=== PATIENT | female | born 1935 | race Caucasian/White ===

== ENCOUNTER 2017-02-21 17:02 | Emergency (ER) | payer OTHER ==
[~2017-02-21] VITALS: Ht 152.4 cm; Wt 70.0 kg
[~2017-02-21 17:02] MED LIST: ARTISOL8 OP; ASPEC325 PO; ATOR-24 PO; BISO5TAB3 PO; HYDR-4852 PO; MULT60CA PO; PLAVIX75 PO; POLY150C4 PO; POTA1TAB97 PO; PRLSR20 PO; SENN-61 PO
[2017-02-21 17:11] VITALS: TEMP 37.8; Ht 152.4 cm; Wt 70.0 kg
[2017-02-21] MEDS ORDERED: SODIUM CHLORIDE 0.9% 1000ML 1,000 ML IV STA (17:12)
[2017-02-21] MEDS ORDERED: [UNRECOGNIZED DRUG - CODE] PO (17:26)
[2017-02-21] MEDS ORDERED: DIPH-384 PO (17:29)
--- NOTE | 2017-02-21 17:42 | DIAGNOSTIC IMAGING REPORT ---
CHEST 2 VIEWS ROUTINE CLINICAL HISTORY: fall. Upper back pain. COMPARISON STUDY: No previous studies for comparison. FINDINGS: The bones soft tissues and hemidiaphragms are normal. The cardiomediastinal silhouette is normal. The lungs are clear. The pulmonary vasculature is normal. IMPRESSION: Negative chest. Electronically signed by: Darryl Wiseman M.D. 02/21/2017 5:40 PM Dictated Date/Time: 02/21/2017 5:40 PM
--- NOTE | 2017-02-21 17:43 | DIAGNOSTIC IMAGING REPORT ---
HEAD CT NONCONTRAST CT DOSE: 537.48 mGy.cm HISTORY: Mental status change EVALUATE ALTERED MENTAL STATUS/WEAKNESS TECHNIQUE: Multiaxial CT images of the head were performed without the use of intravenous contrast. Comparison: None. Findings: The paranasal sinuses and mastoid air cells are clear. The calvarium and skull base are intact. The ventricles and sulci are within normal limits. There is no mass, hematoma, midline shift, or acute infarct. Impression: No acute intracranial abnormality. Electronically signed by: Darryl Wiseman M.D. 02/21/2017 5:42 PM Dictated Date/Time: 02/21/2017 5:41 PM
[2017-02-21 18:05] LABS: BASO % 0.2 %; BASO ABS # 0.02 K/uL (0-0.2); COMPLETE YES; EOS % 0.5 %; IG% 0.2 %; LYMPH ABS # 0.97 K/uL (1.2-3.4); MEAN CELL VOLUME 93.1 fL (80-100); MEAN CORPUSCULAR HEMOGLOBIN 29.8 pg (25-34); NEUT % 82.1 %; PLATELET COUNT 251 K/uL (130-400); RED BLOOD COUNT 3.76 M/uL (4.2-5.4); WHITE BLOOD COUNT 10.75 K/uL (4.8-10.8)
[2017-02-21 18:19] LABS: URINE APPEARANCE CLEAR (CLEAR); URINE BILIRUBIN NEG (NEG); URINE COLOR YELLOW; URINE NITRITE NEG (NEG); URINE SPECIFIC GRAVITY 1.015 (1.000-1.030); UROBILINOGEN NEG (NEG)
[2017-02-21 18:23] LABS: BUN/CREATININE RATIO 15.8 (10-20); CALCIUM 8.6 mg/dl (8.5-10.1); POTASSIUM 4.6 mmol/L (3.5-5.1)
[2017-02-21 18:25] LABS: MANUAL MICROSCOPIC REQUIRED? NO; REVIEW REQ? YES
[2017-02-21 18:32] LABS: ZZURINE CULT IF INDIC CATH YES
--- NOTE | 2017-02-21 18:51 | EMERGENCY ROOM VISIT NOTE ---
History Report prepared by Cata: Dhiraj Quiles Under the Supervision of: Dr. Wing Salcedo D.O. First contact with patient: 17:02 Chief Complaint: FALL Stated Complaint: FALL History of Present Illness The patient is an 82 year old female who presents to the Emergency Room with complaints of constant lower back pain beginning prior to arrival. Per EMS notes state that the patient currently rates her discomfort a 5/10 in severity. They also note that the patient was washing her hand and then fell backwards. The patient reports that she has a fever because she has a UTI, and she is taking Bactrim. She denies having neck pain. The patient's daughter states that the patient has a history of a TIA and she does not seem to be herself. She notes that the patient has not be acting herself. The patient states that she wanted to come to the ER to make sure nothing was broken. Source of History: patient, family, EMS Onset: prior to arrival Position: back (lower) Symptom Intensity: 5/10 Timing: constant Associated Symptoms: No neck pain Review of Systems See HPI for pertinent positives & negatives. A total of 10 systems reviewed and were otherwise negative. Family History No pertinent family history stated. Social History Smoking Status: Never Smoker Marital Status: Housing Status: lives alone Occupation Status: retired Current/Historical Medications Scheduled Aspirin (Aspirin), 325 MG PO QAM Atorvastatin (Lipitor), 40 MG PO QPM Bisoprolol Fumarate (Zebeta), 2.5 MG PO QAM Clopidogrel Bisulfate (Plavix), 75 MG PO QAM Diphenhydramine Hcl (Allergy), 25 MG PO DAILY Multiple Vitamins W/ Minerals (Preservision Areds 2), 1 CAP PO BID Omeprazole (Prilosec), 20 MG PO BID Polysaccharide Iron Complex (Ferrex 150), 150 MG PO QAM Potassium Chloride (K-Tab), 10 MEQ PO BID [Sulfamethoxazole-Tmp], 1 TAB PO BID Scheduled PRN Hydrocodone-Acetaminophen (Lorcet 5-325 mg), 1 TAB PO Q4 PRN for Pain Senna (Senokot), 8.6 MG PO QPM PRN for Constipation Allergies Coded Allergies: Tropicamide (Verified Allergy, Unknown, BURNING STINGING EYES, 04/27/15) Physical Exam Vital Signs Date Time Temp Pulse Resp B/P Pulse Ox O2 Delivery O2 Flow Rate FiO2 02/21/17 18:32 88 02/21/17 17:11 37.8 91 18 107/93 99 Room Air Physical Exam CONSTITUTIONAL/VITAL SIGNS: Reviewed / noted above. GENERAL: Non-toxic in appearance. INTEGUMENTARY: Warm, dry, and [place]. HEAD: Normocephalic. EYES: without scleral icterus or trauma. ENT/OROPHARYNX: clear and moist. LYMPHADENOPATHY/NECK: Is supple without lymphadenopathy or meningismus. RESPIRATORY: Lungs clear and equal. CARDIOVASCULAR: Regular rate and rhythm. GI/ABDOMEN: Soft and nontender. No organomegaly or pulsatile mass. No rebound or guarding. Normal bowel sounds. EXTREMITIES: Warm and well perfused. BACK: No CVA tenderness. Mild discomfort and redness in the upper thoracic region NEUROLOGICAL: Intact without focal deficits. PSYCHIATRIC: normal affect. MUSCULOSKELETAL: Normally developed with good muscle tone. Medical Decision & Procedures ER Provider Diagnostic Interpretation: Radiology results as stated below per my review and radiologist interpretation: CHEST 2 VIEWS ROUTINE CLINICAL HISTORY: fall. Upper back pain. COMPARISON STUDY: No previous studies for comparison. FINDINGS: The bones soft tissues and hemidiaphragms are normal. The cardiomediastinal silhouette is normal. The lungs are clear. The pulmonary vasculature is normal. IMPRESSION: Negative chest. Electronically signed by: Darryl Wiseman M.D. 02/21/2017 5:40 PM Dictated Date/Time: 02/21/2017 5:[address]AST CT DOSE: 537.48 mGy.cm HISTORY: Mental status change EVALUATE ALTERED MENTAL STATUS/WEAKNESS TECHNIQUE: Multiaxial CT images of the head were performed without the use of intravenous contrast. Comparison: None. Findings: The paranasal sinuses and mastoid air cells are clear. The calvarium and skull base are intact. The ventricles and sulci are within normal limits. There is no mass, hematoma, midline shift, or acute infarct. Impression: No acute intracranial abnormality. Electronically signed by: Darryl Wiseman M.D. 02/21/2017 5:42 PM Dictated Date/Time: 02/21/2017 5:41 PM Laboratory Results 02/21/17 17:49 Red Blood Count 3.76, Mean Corpuscular Volume 93.1, Mean Corpuscular Hemoglobin 29.8, Mean Corpuscular Hemoglobin Concent 32.0, Mean Platelet Volume 9.0, Neutrophils (%) (Auto) 82.1, Lymphocytes (%) (Auto) 9.0, Monocytes (%) (Auto) 8.0, Eosinophils (%) (Auto) 0.5, Basophils (%) (Auto) 0.2, Neutrophils # (Auto) 8.83, Lymphocytes # (Auto) 0.97, Monocytes # (Auto) 0.86, Eosinophils # (Auto) 0.05, Basophils # (Auto) 0.02 02/21/17 17:49 Test 02/21/17 17:49 02/21/17 18:00 White Blood Count 10.75 K/uL (4.8-10.8) Red Blood Count 3.76 M/uL (4.2-5.4) Hemoglobin 11.2 g/dL (12.0-16.0) Hematocrit 35.0 % (37-47) Mean Corpuscular Volume 93.1 fL (80-100) Mean Corpuscular Hemoglobin 29.8 pg (25-34) Mean Corpuscular Hemoglobin Concent 32.0 g/dl (32-36) Platelet Count 251 K/uL (130-400) Mean Platelet Volume 9.0 fL (7.4-10.4) Neutrophils (%) (Auto) 82.1 % Lymphocytes (%) (Auto) 9.0 % Monocytes (%) (Auto) 8.0 % Eosinophils (%) (Auto) 0.5 % Basophils (%) (Auto) 0.2 % Neutrophils # (Auto) 8.83 K/uL (1.4-6.5) Lymphocytes # (Auto) 0.97 K/uL (1.2-3.4) Monocytes # (Auto) 0.86 K/uL (0.11-0.59) Eosinophils # (Auto) 0.05 K/uL (0-0.5) Basophils # (Auto) 0.02 K/uL (0-0.2) RDW Standard Deviation 49.0 fL (36.4-46.3) RDW Coefficient of Variation 14.5 % (11.5-14.5) Immature Granulocyte % (Auto) 0.2 % Immature Granulocyte # (Auto) 0.02 K/uL (0.00-0.02) Anion Gap 9.0 mmol/L (3-11) Est Creatinine Clear Calc Drug Dose 19.3 ml/min Estimated GFR () 26.5 Estimated GFR (Non- 22.8 BUN/Creatinine Ratio 15.8 (10-20) Calcium Level 8.6 mg/dl (8.5-10.1) Chemistry Specimen Hemolysis Urine Color YELLOW Urine Appearance CLEAR (CLEAR) Urine pH 5.0 (4.5-7.5) Urine Specific [place] 1.015 (1.000-1.030) Urine Protein NEG (NEG) Urine Glucose (UA) NEG (NEG) Urine Ketones NEG (NEG) Urine Occult Blood NEG (NEG) Urine Nitrite NEG (NEG) Urine Bilirubin NEG (NEG) Urine Urobilinogen NEG (NEG) Urine Leukocyte Esterase MODERATE (NEG) Urine WBC (Auto) 10-30 /hpf (0-5) Urine RBC (Auto) 0-4 /hpf (0-4) Urine Hyaline Casts (Auto) 5-10 /lpf (0-5) Urine Epithelial Cells (Auto) 5-10 /lpf (0-5) Urine Bacteria (Auto) NEG (NEG) Urine Renal Epithelial Cells /lpf (0-5) Urine Yeast (Auto) BUD W/ HYPHAE (NONE PRSENT) Laboratory results as stated above per my review. Medications Administered Medications (Trade) Dose Ordered Sig/Ava Route Start Time Stop Time Status Last Admin Dose Admin Sodium Chloride (Nss 1000ml) 1,000 ml @ 250 mls/hr Q4H STAT IV 02/21/17 17:12 02/21/17 21:11 02/21/17 17:12 250 MLS/HR Fluconazole (Diflucan Tab) 150 mg NOW ONCE PO 02/21/17 19:00 02/21/17 19:01 DC 02/21/17 19:10 150 MG ED Course 1706: Previous medical records were reviewed. The patient was evaluated in room A04B. A complete history and physical examination was performed. 1712: Ordered Sodium Chloride 1000 ml @ 250 mls/hr IV 1852: On reevaluation, the patient is doing well. I discussed the results and findings with the patient and her family. They verbalized agreement of the treatment plan. She will be discharged home when she receives her medication. 1900: Ordered Diflucan Tab 150mg PO Medical Decision Differential includes close head injury, intracranial bleed, facial trauma, cervical spine trauma, chest and thoracic trauma, abdominal and intra-abdominal trauma, spine neurologic trauma, extremity trauma. This is an 82-year-old female who presents to the ED with a chief complaint of a fall. The patient was getting off the toilet and washed her hands per cheese lost her balance and fell backwards. Her main complaint was that of back pain. She denies loss of consciousness. She is unsure if she hit her head. She came in for evaluation by EMS. Family was concerned about some recent weakness and confusion. The patient is awake, alert and oriented. Her physical exam was unremarkable. She has no focal deficits. A CT scan of the brain was negative for acute disease. A chest x-ray is negative for acute disease. CBC is unremarkable. The BUN is 32 and creatinine is 2.0. No baseline is available. The patient is currently on Bactrim. Her urine revealed some yeast. She was given a dose of Diflucan for this. The patient was told results the test. She was told to follow-up with her PCP for re-evaluation and return for any concerns or worsening. Impression Primary Impression: Fall Additional Impressions: Contusion of upper back Renal insufficiency Dehydration Scribe Attestation The scribe's documentation has been prepared under my direction and personally reviewed by me in its entirety. I confirm that the note above accurately reflects all work, treatment, procedures, and medical decision making performed by me. Departure Information Dispostion Home / Self-Care Referrals Ariana Modi M.D. (PCP) Patient Instructions My [facility] Additional Instructions Follow-up with your doctor for further care and evaluation in 1-2 days. Return to the emergency department for worsening or new symptoms or any concerns. You have been examined and treated today on an emergency basis only. This is not a substitute for, or an effort to provide, complete comprehensive medical care. It is impossible to recognize and treat all injuries or illnesses in a single emergency department visit. It is therefore important that you follow up closely with your doctor. Call as soon as possible for an appointment. Increase daily fluid intake. Problem Qualifiers
[2017-02-21 19:00] VITALS: BP 115/67; PULSE 98; O2SAT 97
[2017-02-21] MEDS ORDERED: FLUCONAZOLE 50 MG TAB PO ONE (19:00)
== END 2017-02-21 19:40 | disposition home or self-care (01) ==
LOC: EDBD 17:02 → C.EDA 17:03
DX: S20.229A Contusion of unspecified back wall of thorax, initial encounter (principal); W19.XXXA Unspecified fall, initial encounter; E86.0 Dehydration; N28.9 Disorder of kidney and ureter, unspecified; Z87.440 Personal history of urinary (tract) infections; Z86.73 Personal history of transient ischemic attack (TIA), and cerebral infarction without residual deficits; Z79.82 Long term (current) use of aspirin; Z79.899 Other long term (current) drug therapy; Z88.8 Allergy status to other drugs, medicaments and biological substances

== ENCOUNTER 2017-11-14 13:48 | Emergency (ER) | payer OTHER ==
[~2017-11-14] VITALS: Ht 152.4 cm; Wt 70.0 kg
[~2017-11-14 13:48] MED LIST changes: -ARTISOL8 OP; +DIPH-384 PO; +[UNRECOGNIZED DRUG - CODE] PO
[2017-11-14 13:56] VITALS: TEMP 37; Ht 152.4 cm; Wt 70.0 kg
--- NOTE | 2017-11-14 14:22 | EMERGENCY ROOM VISIT NOTE ---
History Report prepared by Cata: Brandie Mckeon Under the Supervision of: Dr. Wing Lee M.D. 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 She is accompanied by her daughter who notes that she had surgery with Dr. Ruiz on October 15, 2017. She notes that when she went to give her a bath, the incision site was red , inflamed, and there was pus surrounding the stitches. She reports she is not allowed to move her knee as it could worsen the incision healing. 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 Review of Systems See HPI for pertinent positives & negatives. A total of 10 systems reviewed and were otherwise negative. Family History Family history omitted secondary to patient's age. Social History Smoking Status: Unknown if Ever Smoked Marital Status: Housing Status: lives alone Occupation Status: retired Current/Historical Medications Scheduled Aspirin (Aspirin), 325 MG PO QAM Atorvastatin (Lipitor), 40 MG PO QPM Bisoprolol Fumarate (Zebeta), 2.5 MG PO QAM Clopidogrel Bisulfate (Plavix), 75 MG PO QAM Diphenhydramine Hcl (Allergy), 25 MG PO DAILY Multiple Vitamins W/ Minerals (Preservision Areds 2), 1 CAP PO BID Omeprazole (Prilosec), 20 MG PO BID Oseltamivir Phosphate (Oseltamivir Phosphate), 30 MG PO DAILY Potassium Chloride (K-Tab), 10 MEQ PO BID Sulfa/Trimethoprim (Bactrim Ds 800MG/160MG), 1 TAB PO BID Scheduled PRN Acetaminophen/Hydrocodone (Hydrocodone/Acetaminophen 5-325 mg), 1 TAB PO Q6H PRN for Severe Pain Allergies Coded Allergies: Tropicamide (Verified Allergy, Unknown, BURNING STINGING EYES, 04/27/15) Physical Exam Vital Signs Date Time Temp Pulse Resp B/P (MAP) Pulse Ox O2 Delivery O2 Flow Rate FiO2 11/14/17 18:42 74 18 154/58 95 11/14/17 17:30 73 16 133/64 95 Room Air 11/14/17 15:30 71 16 122/63 95 Room Air 11/14/17 15:20 70 11/14/17 13:56 37.0 69 18 111/59 99 Physical Exam GENERAL: Patient is a healthy-appearing well-nourished female HEAD: Normocephalic atraumatic EYES: Ocular movements intact pupils equal and react to light OROPHARYNX mucous membranes are moist no exudates present no erythema or edema present NECK: Supple no nuchal rigidity CHEST: Good equal expansion LUNGS: Clear and equal to auscultation CARDIAC: Normal S1 and S2 ABDOMEN: Soft nontender no guarding BACK: No CVA tenderness EXTREMITIES: No pain upon palpation normal muscle strength in all groups no clubbing cyanosis. Came in knee immobilizer with surgical incision that is slightly dehisced with a suture sticking out and purulent material present. NEURO: Patient is following commands and answering questions appropriately. Alert and oriented x3 Cranial Nerves 2-12 grossly intact Medical Decision & Procedures ER Provider Diagnostic Interpretation: Radiology results as stated below per my review and radiologist interpretation: R KNEE 1 OR 2 VIEWS ROUTINE CLINICAL HISTORY: 82 years-old Female presenting with Pt c/o Rt knee pain . TECHNIQUE: Frontal and lateral views of the right knee were obtained. COMPARISON: None. 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 Interlocking femoral and tibial prosthetic components. 2 lack screw fixation of the anteromedial tibia. No periprosthetic fracture. Fragmentation at the superior lateral aspect of the patella, either bipartite or fragmentation of osteophytes. Multiple loose bodies noted in the joint. Small joint effusion suspected. Prepatellar and infrapatellar subcutaneous edema noted. No malalignment. Osteopenia. Atherosclerosis. IMPRESSION: 1. 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 No hardware complication. 2. Multiple loose bodies in the joint. 3. Joint effusion suspected. 4. Extensive prepatellar and infrapatellar subcutaneous edema could suggest contusion. Electronically signed by: Russel Osborne M.D. 11/14/2017 2:32 PM Dictated Date/Time: 11/14/2017 2:30 PM Laboratory Results 11/14/17 14:25 Red Blood Count 4.20, Mean Corpuscular Volume 96.2, Mean Corpuscular Hemoglobin 29.3, Mean Corpuscular Hemoglobin Concent 30.4, Mean Platelet Volume 9.1, Neutrophils (%) (Auto) 49.5, Lymphocytes (%) (Auto) 26.5, Monocytes (%) (Auto) 11.1, Eosinophils (%) (Auto) 12.5, Basophils (%) (Auto) 0.2, Neutrophils # (Auto ) 4.26, Lymphocytes # (Auto) 2.29, Monocytes # (Auto) 0.96, Eosinophils # (Auto ) 1.08, Basophils # (Auto) 0.02 11/14/17 14:25 Test 11/14/17 14:25 White Blood Count 8.63 K/uL (4.8-10.8) Red Blood Count 4.20 M/uL (4.2-5.4) Hemoglobin 12.3 g/dL (12.0-16.0) Hematocrit 40.4 % (37-47) Mean Corpuscular Volume 96.2 fL (80-100) Mean Corpuscular Hemoglobin 29.3 pg (25-34) Mean Corpuscular Hemoglobin Concent 30.4 g/dl (32-36) Platelet Count 249 K/uL (130-400) Mean Platelet Volume 9.1 fL (7.4-10.4) Neutrophils (%) (Auto) 49.5 % Lymphocytes (%) (Auto) 26.5 % Monocytes (%) (Auto) 11.1 % Eosinophils (%) (Auto) 12.5 % Basophils (%) (Auto) 0.2 % Neutrophils # (Auto) 4.26 K/uL (1.4-6.5) Lymphocytes # (Auto) 2.29 K/uL (1.2-3.4) Monocytes # (Auto) 0.96 K/uL (0.11-0.59) Eosinophils # (Auto) 1.08 K/uL (0-0.5) Basophils # (Auto) 0.02 K/uL (0-0.2) RDW Standard Deviation 52.1 fL (36.4-46.3) RDW Coefficient of Variation 14.8 % (11.5-14.5) Immature Granulocyte % (Auto) 0.2 % Immature Granulocyte # (Auto) 0.02 K/uL (0.00-0.02) Erythrocyte Sedimentation Rate 51 mm/hr (0-21) Anion Gap 7.0 mmol/L (3-11) Est Creatinine Clear Calc Drug Dose 32.6 ml/min Estimated GFR () 50.1 Estimated GFR (Non- 43.2 BUN/Creatinine Ratio 20.8 (10-20) Calcium Level 8.8 mg/dl (8.5-10.1) Total Bilirubin 0.4 mg/dl (0.2-1) Direct Bilirubin 0.1 mg/dl (0-0.2) Aspartate Amino Transf (AST/SGOT) 17 U/L (15-37) Alanine Aminotransferase (ALT/SGPT) 16 U/L (12-78) Alkaline Phosphatase 134 U/L (45-117) C-Reactive Protein 0.43 mg/dl (0-0.29) Total Protein 7.7 gm/dl (6.4-8.2) Albumin 3.3 gm/dl (3.4-5.0) Lipase 165 U/L (73-393) Labs reviewed by ED physician. Medications Administered Medications (Trade) Dose Ordered Sig/Ava Route Start Time Stop Time Status Last Admin Dose Admin Trimethoprim/ Sulfamethoxazole (Septra Ds 800/ 160MG Tab) 1 tab NOW STAT PO 11/14/17 17:20 11/14/17 17:21 DC 11/14/17 18:28 1 TAB Trimethoprim/ Sulfamethoxazole (Sulfameth/ Trimeth Ds 800/ 160MG Home Pack) 1 homepack UD ONCE PO 11/14/17 18:30 11/14/17 18:31 DC 11/14/17 18:30 1 HOMEPACK ED Course 1404: Past medical records reviewed. The patient was evaluated in room B5. A complete history and physical examination was performed. 1413: I discussed the patient's case with Dr. Resendiz, She agrees with the treatment plan. 1720: Septra Ds 800/160MG Tab, 1 tab, PO 1724: Upon reexamination the patient is agreeable and content. I discussed results and treatment plan with the patient. She verbalizes agreement and understanding. The patient is ready for discharge. Medical Decision Differential diagnosis: Etiologies such as fracture, dislocation, neurovascular compromise, compartment syndrome, soft tissue injury, as well as others were entertained. This is an 82-year-old female who presents emergency department complaining of a severe very small amount of pus from a surgical wound. I believe this is most likely a reaction from the patient's sutures. She does not have an elevation in her white blood cell count in her ESR and [id number] was slightly elevated. Dr. Resendiz was kind enough to see the patient. He asked that we start the patient on Bactrim and have the patient follow-up in the office. Patient family were in agreement with the treatment plan. Medication Reconcilliation Current Medication List: was personally reviewed by me Blood Pressure Screening Patient's blood pressure: Low blood pressure Blood pressure disposition: Did not require urgent referral Consults Time Called: 1410 Consulting Physician: Dr. Resendiz Returned Call: [phone] Impression Primary Impression: Surgical site reaction Scribe Attestation The scribe's documentation has been prepared under my direction and personally reviewed by me in its entirety. I confirm that the note above accurately reflects all work, treatment, procedures, and medical decision making performed by me. Departure Information Dispostion Home / Self-Care Prescriptions Sulfa/Trimethoprim (Bactrim Ds 800MG/160MG) Tab 1 TAB PO BID for 7 Days, #14 TAB Prov: Wing Lee MD 11/14/17 Referrals Ariana Modi M.D. (PCP) Forms HOME CARE DOCUMENTATION FORM, IMPORTANT VISIT INFORMATION Patient Instructions My [facility] Additional Instructions Keep appointments with [facility] as scheduled Culture results are usually available in approx 48 hours You have been examined and treated today on an emergency basis only. This is not a substitute for, or an effort to provide, complete comprehensive medical care. It is impossible to recognize and treat all injuries or illnesses in a single emergency department visit. It is therefore important that you follow up closely with Dr Modi. Call as soon as possible for an appointment. Thank you for your time and consideration. I look forward to speaking with you again soon. Please don't hesitate to call us if you have any questions. Problem Qualifiers Primary Impression: Surgical site reaction Encounter type: initial encounter Qualified Codes: T81.9XXA - Unspecified complication of procedure, initial encounter
--- NOTE | 2017-11-14 14:34 | DIAGNOSTIC IMAGING REPORT ---
R KNEE 1 OR 2 VIEWS ROUTINE CLINICAL HISTORY: 82 years-old Female presenting with Pt c/o Rt knee pain . TECHNIQUE: Frontal and lateral views of the right knee were obtained. COMPARISON: None. 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 Interlocking femoral and tibial prosthetic components. 2 lack screw fixation of the anteromedial tibia. No periprosthetic fracture. Fragmentation at the superior lateral aspect of the patella, either bipartite or fragmentation of osteophytes. Multiple loose bodies noted in the joint. Small joint effusion suspected. Prepatellar and infrapatellar subcutaneous edema noted. No malalignment. Osteopenia. Atherosclerosis. IMPRESSION: 1. 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 No hardware complication. 2. Multiple loose bodies in the joint. 3. Joint effusion suspected. 4. Extensive prepatellar and infrapatellar subcutaneous edema could suggest contusion. Electronically signed by: Russel Osborne M.D. 11/14/2017 2:32 PM Dictated Date/Time: 11/14/2017 2:30 PM
[2017-11-14 14:49] LABS: BASO % 0.2 %; BASO ABS # 0.02 K/uL (0-0.2); EOS % 12.5 %; EOS ABS # 1.08 K/uL (0-0.5); HEMATOCRIT 40.4 % (37-47); HEMOGLOBIN 12.3 g/dL (12.0-16.0); IG# 0.02 K/uL (0.00-0.02); LYMPH % 26.5 %; LYMPH ABS # 2.29 K/uL (1.2-3.4); MEAN CELL VOLUME 96.2 fL (80-100); MEAN CORPUSCULAR HEMOGLOBIN 29.3 pg (25-34); MEAN CORPUSCULAR HGB CONC 30.4 g/dl (32-36); MEAN PLATELET VOLUME 9.1 fL (7.4-10.4); MONO % 11.1 %; MONO ABS # 0.96 K/uL (0.11-0.59); NEUT % 49.5 %; NEUT ABS # 4.26 K/uL (1.4-6.5); PLATELET COUNT 249 K/uL (130-400); RED CELL DISTRIBUTION WIDTH CV 14.8 % (11.5-14.5); RED CELL DISTRIBUTION WIDTH SD 52.1 fL (36.4-46.3); WHITE BLOOD COUNT 8.63 K/uL (4.8-10.8)
[2017-11-14] MEDS ORDERED: OSEL30CA2 PO (15:04)
[2017-11-14] MEDS ORDERED: HYDR-4313 PO (15:04)
[2017-11-14 15:06] LABS: ALBUMIN 3.3 gm/dl (3.4-5.0); CALCIUM 8.8 mg/dl (8.5-10.1); CREATININE 1.18 mg/dl (0.60-1.20); POTASSIUM 3.6 mmol/L (3.5-5.1)
[2017-11-14 15:09] LABS: TOTAL PROTEIN 7.7 gm/dl (6.4-8.2)
[2017-11-14] MEDS ORDERED: SULFAMETHOXAZOLE/TRIMETHOPRIM DS 800/160MG TAB PO STA (17:20)
[2017-11-14] MEDS ORDERED: SULF800T23 PO (17:23)
--- NOTE | 2017-11-14 17:37 | Orthopedic Consultation ---
Orthopedic Consultation Date of Consultation: Nov 14, 2017. Attending Physician: Reason for Consultation: Possible surgical site infection History of Present Illness Ms Kwok is a 82 year old female who underwent what sounds like a patellar tendon reconstruction by Dr. Ruiz on Oct 15 after a previous total knee arthroplasty in July 2016. She has been in a knee immobilizer since her surgery and been in a jail. She says that yesterday, she noted some erythema around her incision line. She denies any significant drainage. She denies any significant change in the pain in her knee since the erythema started. She denies any fevers chills. Past Medical/Surgical History Medical Problems: (1) Contusion of upper back Status: Acute (2) Dehydration Status: Acute (3) Fall Status: Acute (4) Renal insufficiency Status: Acute (5) Surgical site reaction Status: Acute Social History Smoking Status: Unknown if Ever Smoked Marital Status: Housing Status: lives alone Occupation Status: retired Allergies Coded Allergies: Tropicamide (Verified Allergy, Unknown, BURNING STINGING EYES, 04/27/15) Home Medications Scheduled Aspirin (Aspirin), 325 MG PO QAM Atorvastatin (Lipitor), 40 MG PO QPM Bisoprolol Fumarate (Zebeta), 2.5 MG PO QAM Clopidogrel Bisulfate (Plavix), 75 MG PO QAM Diphenhydramine Hcl (Allergy), 25 MG PO DAILY Multiple Vitamins W/ Minerals (Preservision Areds 2), 1 CAP PO BID Omeprazole (Prilosec), 20 MG PO BID Oseltamivir Phosphate (Oseltamivir Phosphate), 30 MG PO DAILY Potassium Chloride (K-Tab), 10 MEQ PO BID Sulfa/Trimethoprim (Bactrim Ds 800MG/160MG), 1 TAB PO BID Scheduled PRN Acetaminophen/Hydrocodone (Hydrocodone/Acetaminophen 5-325 mg), 1 TAB PO Q6H PRN for Severe Pain Review of Systems Constitutional: No fever, No chills, No sweats Physical Exam Date Time Temp Pulse Resp B/P (MAP) Pulse Ox O2 Delivery O2 Flow Rate FiO2 11/14/17 15:30 71 16 122/63 95 Room Air 11/14/17 15:20 70 11/14/17 13:56 37.0 69 18 111/59 99 Right knee: She has an extensile incision line on the anterior knee. The majority of it is well-healed with no evidence of infection. In its midportion , there is a small area of erythema without significant induration. There is a small opening in the incision line with an exposed suture and hanging out. No expressible drainage. No palpable fluid collections. No knee effusion. No significant surrounding warmth. No spreading erythema. I could not range her knee due to her recent surgery and activity restrictions. Laboratory Results Last 24 Hours Test 11/14/17 14:25 White Blood Count 8.63 K/uL Red Blood Count 4.20 M/uL Hemoglobin 12.3 g/dL Hematocrit 40.4 % Mean Corpuscular Volume 96.2 fL Mean Corpuscular Hemoglobin 29.3 pg Mean Corpuscular Hemoglobin Concent 30.4 g/dl Platelet Count 249 K/uL Mean Platelet Volume 9.1 fL Neutrophils (%) (Auto) 49.5 % Lymphocytes (%) (Auto) 26.5 % Monocytes (%) (Auto) 11.1 % Eosinophils (%) (Auto) 12.5 % Basophils (%) (Auto) 0.2 % Neutrophils # (Auto) 4.26 K/uL Lymphocytes # (Auto) 2.29 K/uL Monocytes # (Auto) 0.96 K/uL Eosinophils # (Auto) 1.08 K/uL Basophils # (Auto) 0.02 K/uL RDW Standard Deviation 52.1 fL RDW Coefficient of Variation 14.8 % Immature Granulocyte % (Auto) 0.2 % Immature Granulocyte # (Auto) 0.02 K/uL Erythrocyte Sedimentation Rate 51 mm/hr Sodium Level 139 mmol/L Potassium Level 3.6 mmol/L Chloride Level 108 mmol/L Carbon Dioxide Level 24 mmol/L Anion Gap 7.0 mmol/L Blood Urea Nitrogen 25 mg/dl Creatinine 1.18 mg/dl Est Creatinine Clear Calc Drug Dose 32.6 ml/min Estimated GFR () 50.1 Estimated GFR (Non- 43.2 BUN/Creatinine Ratio 20.8 Random Glucose 100 mg/dl Calcium Level 8.8 mg/dl Total Bilirubin 0.4 mg/dl Direct Bilirubin 0.1 mg/dl Aspartate Amino Transf (AST/SGOT) 17 U/L Alanine Aminotransferase (ALT/SGPT) 16 U/L Alkaline Phosphatase 134 U/L C-Reactive Protein 0.43 mg/dl Total Protein 7.7 gm/dl Albumin 3.3 gm/dl Lipase 165 U/L Radiology: Right knee x-rays were independently reviewed by me. They show total knee components in place with a longstem tibial component, and a semiconstrained liner. She has 2 anteromedial screws at the proximal tibia. She does have some bone fragmentation along the course of patellar tendon, with some patella also. No effusion noted. Assessment & Plan (1) Surgical site reaction Assessment & Plan: She appears to have a small stitch abscess along her anterior right knee incision line. She does not appear to have any deep infection. No evidence of periprosthetic infection. I explained the process of the stitch abscess to the family. I pulled the offending stitch and clipped it at its base. I did warn them that this may occur at other places along the incision line future. She did have us very small amount of surrounding erythema , and I would recommend a 7 day course of Bactrim to prevent further spread of any small infection. I think this should heal up well. She already has an appointment with Dr. Ruiz on November 23. She should continue with her brace and activity restrictions as previously instructed. I am covering Orthopedic Surgery call for Dr. Crump, who is unavailable. Liban Resendiz MD Problem Qualifiers (1) Surgical site reaction: Encounter type: initial encounter Qualified Codes: T81.9XXA - Unspecified complication of procedure, initial encounter
[2017-11-14] MEDS ORDERED: SEPTRA DS HOME PACK 1 EA VIAL PO ONE (18:30)
[2017-11-14 18:42] VITALS: BP 154/58; PULSE 74; O2SAT 95
--- NOTE | 2017-11-16 13:20 | Pharmacy Progress Note ---
ED Pharmacist Culture FollowUp Date of Service: Nov 16, 2017. Patient was sent home with a prescription for Bactrim DS 1 tab PO BID x 7 days, which should cover the S. Aureus (MRSA) growing from the patient's surface wound culture.
== END 2017-11-14 18:43 | disposition home or self-care (01) ==
LOC: C.EDB 13:49
DX: T81.9XXA Unspecified complication of procedure, initial encounter (principal); Y84.9 Medical procedure, unspecified as the cause of abnormal reaction of the patient, or of later complication, without mention of misadventure at the time of the procedure; Z79.82 Long term (current) use of aspirin; Z79.02 Long term (current) use of antithrombotics/antiplatelets; Z79.899 Other long term (current) drug therapy

== ENCOUNTER 2019-07-31 10:52 | Inpatient (IN) ==
[2019-07-31] MEDS ORDERED: cefTRIAXone SODIUM 1,000 MG/50 ML BAG IV STA (11:20)
--- NOTE | 2019-07-31 12:26 | History & Physical Report ---
Date of Service July 31, 2019 Assessment & Plan (1) UTI (urinary tract infection): Admit to [facility] S[facility] 1;1 Signs every 4 hours Continue monitoring CBC CMP TSH pending, BNP pending Replenish electrolytes Follow-up magnesium in a.m. Follow-up urine culture analysis and adjust antibiotics as per sensitivity. Started ceftriaxone 1 g every 24 hours for urinary tract infection DVT prophylaxis heparin 5000 units every 12 hours Full code Present on Admission?: Yes (2) MRSA (methicillin resistant Staphylococcus aureus) infection: Patient was positive for MRSA in the past Continue with contact isolation. Present on Admission?: Yes (3) Stage III chronic kidney disease: Avoid nephrotoxic agents. Due to possible nephrotoxicity hold omeprazole for now. Patient is mildly dehydrated Started gentle fluid hydration with normal saline 80 cc/h for 1 L Monitor creatinine and GFR Present on Admission?: Yes (4) Acute encephalopathy: Not clear origin of acute encephalopathy versus acute psychosis Start the Seroquel low-dose 12.5 mg daily. Titrate up as needed Psychiatry consult placed Present on Admission?: Yes (5) HLD (hyperlipidemia): Lipid panel pending. Continue atorvastatin 40 mg p.o. nightly Present on Admission?: Yes (6) HTN (hypertension): Stable. Continue clopidogrel 75 mg p.o. daily for coronary artery disease, aspirin 81 mg p.o. daily Present on Admission?: Yes (7) Hypothyroidism: Continue levothyroxine 50 MCG's p.o. nightly. TSH pending. Present on Admission?: Yes History of Present Illness Chief Complaint: Hallucinations, urinary tract infection and dizziness Primary Care Provider: Eden Whitmore MD Patient is a 84 years old female with past medical history of recurrent urinary tract infection, hypertension, hyperlipidemia, vasculopathy, CKD stage III, hallucinations, who was brought by her family for the second time to the ER today stating that patient is hallucinating at home , she is very confused she talks of bad people and she is not definitely able to take care of herself family states that patient was on antibiotics for urinary tract infection but it did not improve. She will was recently on cefuroxime 500 mg twice daily for 10 days, she was just started on Cipro 500 mg p.o. twice daily but she decided not to take it due to possible side effects and she also takes cranberry capsules patient was also prescribed Bactrim twice daily for 7 days but it is not clear if patient ever took medicine or not. Family is interested to find patient placement. They voiced their concerns that patient alone is not safe at home and at this point both members of the family [id number] and son are working and will not be able to take care of the patient. Patient is poor historian as already represented. She is hallucinating and not able to review any review of systems. She is calm and pleasant but disoriented to time space and person. Labs are reviewed: WBC 7.77, hemoglobin 12.4, hematocrit 39.2 platelets 230, PT 10.3, INR 1, APTT 28.9, sodium 139, potassium 3.6, chloride 110, BUN 34, creatinine 1.39, GFR 35, alkaline phosphatase 188, creatinine kinase 328, magnesium 1.8, lactate 1.7. CT of the head was done yesterday no acute intrac ranial findings with no calvarial fracture. Chest x-rays no acute cardiopulmonary finding, no acute cervical spine fracture or subluxation. No changes in the old fracture through the anterior arch of the C1 and had CT of August 28, 2018. Decision was made to admit patient to [facility] for dehydration, acute psychosis, with visual hallucinations, urinary tract infection and renal failure. Allergies Allergy/AdvReac Type Severity Reaction Status Date / Time No Known Allergies Allergy Verified 07/31/19 11:09 Home Medications Home Medications Medication Instructions Recorded Confirmed Type loratadine [Claritin] 10 mg PO QAM 08/25/18 07/31/19 History aspirin 81 mg tablet,delayed 81 mg PO QAM tab 04/22/19 07/31/19 History release vitamins A,C,M-mqpu-lcgskq 7,160 1 tab PO BID tab 04/22/19 07/31/19 History unit-113 mg-100 unit tablet clopidogrel 75 mg tablet 75 mg PO QAM #90 tab 05/23/19 07/31/19 Rx cranberry 500 mg capsule 500 mg PO QAM cap 05/25/19 07/31/19 History nystatin 100,000 unit/gram topical 1 appln TOPICAL DAILY PRN gm 05/25/19 07/31/19 History powder sulfamethoxazole 800 1 tab PO BID 7 Days #14 tab 07/29/19 07/31/19 Rx mg-trimethoprim 160 mg tablet atorvastatin [Lipitor] 40 mg PO HS 07/30/19 07/31/19 History sihwaudjg-qcbmkrxv-bub-hyalur 1 tab PO QAM 07/30/19 07/31/19 History [Joint Health] ciprofloxacin HCl 500 mg PO BID #10 tab 07/30/19 07/31/19 Rx levothyroxine [Synthroid] 50 mcg PO HS 07/30/19 07/31/19 History omeprazole 20 mg PO QAM 07/30/19 07/31/19 History paroxetine HCl 20 mg PO QAM 07/30/19 07/31/19 History cefuroxime axetil 500 mg tablet 500 mg PO BID 10 Days #20 tab 07/31/19 07/31/19 Rx Past Med/Surg History Medical History Elevated LFTs Stage III chronic kidney disease JESSIE improved since admission Sepsis Carotid artery occlusion TIA (transient ischemic attack) MRSA infection Hallucination, visual (Acute) GERD (gastroesophageal reflux disease) Vasculopathy HLD (hyperlipidemia) HTN (hypertension) Surgical History S/P laparoscopic cholecystectomy (Resolved) H/O: hysterectomy History of knee replacement procedure of right knee History of right hip replacement Family History Mother , age 43 of complications from a motor vehicle accident. No problems noted. Father , age 70 of black lung No problems noted. 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: No Beliefs That Will Affect Care: None marital status: Single Current Living Situation: Family Current Living Situation Comment: lives with daughter current occupational status: retired Other Information That Helps Us Care for You: No Feels Safe at Home: Yes Safety Concerns: Feels Safe At This Time Smoking Status: Never smoker Second Hand Exposure: No ; Hx Alcohol Use: No Hx Substance Use: No Dental Care, Regularly: No Physical Activity Frequency: Daily Review of Systems Review of Systems: All systems reviewed & are unremarkable except as noted in HPI & below Physical Exam Constitutional: WD/WN, vitals as above well developed and + frail appearing Eyes: PERRL, conjunctivae normal, anicteric sclerae ENMT: external ear and nose normal, oropharynx normal Neck: trachea midline, no thyromegaly Respiratory: normal respiratory effort, lungs clear to auscultation Cardiovascular: RRR, no murmur, no edema Gastrointestinal (Abdomen): normal bowel sounds, soft, nontender, no hepatosplenomegaly Musculoskeletal: no cyanosis or clubbing, extremities motor strength 5/5 Skin: no rashes, warm and dry Neurologic: + confused Psychiatric: Eye Contact: + fair eye contact Affect: + labile affect Hallucinations: + visual hallucinations Judgement: + poor judgement Genitourinary: Mild suprapubic tenderness Lymphatic: no cervical or axillary lymphadenopathy Results & Data Vital Signs (Past 12 Hours) Vital Signs Temp Pulse Resp BP Pulse Ox 07/31/19 10:58 36.8 C 85 18 125/74 98 Code Status & VTE Plan Code Status Full code VTE Prophylaxis Plan VTE Prophylaxis will be ordered: Yes PG Care Time/CCT Total # of Minutes Spent Total Time Spent with Patient: Total time spent is greater than 50% in coordination of care (as documented) at patient's floor/unit and/or counseling patient: (1) UTI (urinary tract infection) Hematuria presence: without hematuria Urinary tract infection type: site unspecified Qualified Code(s): N39.0 - Urinary tract infection, site not specified (2) HLD (hyperlipidemia) Hyperlipidemia type: unspecified Qualified Code(s): E78.5 - Hyperlipidemia, unspecified (3) HTN (hypertension) Hypertension type: essential hypertension Qualified Code(s): I10 - Essential (primary) hypertension
[2019-07-31] MEDS ORDERED: MAGNESIUM HYDROXIDE SUSP 30 ML UDC PO PRN (13:20)
[2019-07-31] MEDS ORDERED: NYSTATIN POWDER 15GM BTL EXT PRN (13:20)
[2019-07-31] MEDS ORDERED: ONDANSETRON INJ 2 MG/ML 2 ML VIAL IV PRN (13:20)
[2019-07-31] MEDS ORDERED: ACETAMINOPHEN 325 MG TAB PO PRN (13:20)
[2019-07-31] MEDS ORDERED: ALUMINUM/MAGNESIUM SUSP 30 ML UDC PO PRN (13:20)
[2019-07-31] MEDS ORDERED: POLYETHYLENE (MIRALAX) 17 GM PACK PO PRN (13:20)
[2019-07-31] MEDS: QUETIAPINE FUMARATE 25 MG TABLET PO SCH (14:44)
[2019-07-31] MEDS: SODIUM CHLORIDE 0.9% 1000ML 1,000 ML IV SCH (14:44)
[2019-07-31] MEDS ORDERED: MAGNESIUM SULFATE / D5W 1 GM/100 ML BAG IV ONE (15:00)
--- NOTE | 2019-07-31 17:00 | Emergency Department Note ---
Entered by Latasha Angeles acting as a scribe for Jasbir Jones History of Present Illness General Chief complaint: Referred by Doctor Stated complaint: REFERRED BY DR STAPLES FOR URINARY SYMPTOMS Time Seen by Provider: 07/31/19 11:08 Source: family History of Present Illness Onset (ago): day(s) 1 Location: head (altered mental status) Pain Consistency: + other (worsening) Relieved By: + none Associated symptoms: + other (increasingly confused) The patient is a 84 year old F who presents to the Emergency Room with complaints of worsening altered mental status that occurred 1 day ago. The HPI was provided by the patients family. They state that the patient has become increasingly confused. They note that they are not comfortable caring for the patient at home and refuse to take the patient home. They are demanding that the patient be admitted to the hospital. The daughter states she spoke with the physician on-call today who told her she needed to be admitted for "IV antibiotics and at least for a few days". Home Medications Home Medications Medication Instructions Recorded Confirmed Type loratadine [Claritin] 10 mg PO QAM 08/25/18 07/31/19 History aspirin 81 mg tablet,delayed 81 mg PO QAM tab 04/22/19 07/31/19 History release vitamins A,C,H-frme-epcncw 7,160 1 tab PO BID tab 04/22/19 07/31/19 History unit-113 mg-100 unit tablet clopidogrel 75 mg tablet 75 mg PO QAM #90 tab 05/23/19 07/31/19 Rx cranberry 500 mg capsule 500 mg PO QAM cap 05/25/19 07/31/19 History nystatin 100,000 unit/gram topical 1 appln TOPICAL DAILY PRN gm 05/25/19 07/31/19 History powder sulfamethoxazole 800 1 tab PO BID 7 Days #14 tab 07/29/19 07/31/19 Rx mg-trimethoprim 160 mg tablet atorvastatin [Lipitor] 40 mg PO HS 07/30/19 07/31/19 History feyjiikdr-xtjynkmg-rsi-hyalur 1 tab PO QAM 07/30/19 07/31/19 History [Joint Health] ciprofloxacin HCl 500 mg PO BID #10 tab 07/30/19 07/31/19 Rx levothyroxine [Synthroid] 50 mcg PO HS 07/30/19 07/31/19 History omeprazole 20 mg PO QAM 07/30/19 07/31/19 History paroxetine HCl 20 mg PO QAM 07/30/19 07/31/19 History cefuroxime axetil 500 mg tablet 500 mg PO BID 10 Days #20 tab 07/31/19 07/31/19 Rx Allergies Allergy/AdvReac Type Severity Reaction Status Date / Time No Known Allergies Allergy Verified 07/31/19 11:09 Past Med/Surg History Medical History Elevated LFTs Stage III chronic kidney disease JESSIE improved since admission Sepsis Carotid artery occlusion TIA (transient ischemic attack) MRSA infection Hallucination, visual (Acute) GERD (gastroesophageal reflux disease) Vasculopathy HLD (hyperlipidemia) HTN (hypertension) Surgical History S/P laparoscopic cholecystectomy (Resolved) H/O: hysterectomy History of knee replacement procedure of right knee History of right hip replacement Family History Mother , age 43 of complications from a motor vehicle accident. No problems noted. Father , age 70 of black lung No problems noted. Sister Breast cancer Social History Preferred Language: Azeri Communication Ability: Effective Visual Impairment: No Limitations Hearing Ability: Use of Hearing Aid Skid Worker Required: No Beliefs That Will Affect Care: None marital status: Single Current Living Situation: Family Current Living Situation Comment: lives with daughter current occupational status: retired Feels Safe at Home: Yes Smoking Status: Never smoker Second Hand Exposure: No ; Hx Alcohol Use: No Hx Substance Use: No Dental Care, Regularly: No Physical Activity Frequency: Daily Review of Systems See HPI for pertinent positives & negatives. and A total of 10 systems reviewed and were otherwise negative Physical Exam Vital Signs Vital Signs - 24 hr 07/31/19 10:58 Temperature 36.8 C Temperature Source Oral Sepsis Recent Fever Within 48 Hours No Sepsis New/Unexplained Change in Mental Status No Sepsis Action Taken by Nursing No Action Required Pulse Rate 85 Respiratory Rate 18 Respiratory Effort / Characteristics Non-Labored Respiratory Depth Normal Blood Pressure 125/74 Blood Pressure Mean 91 Pulse Oximetry 98 Oxygen Delivery Method Room Air GENERAL: She is oriented to person, place, and time. She appears well-developed and well-nourished. She does not appear distressed. HENT: Exam performed. - Head: Normocephalic and atraumatic. - Right Ear: External ear normal. No mastoid tenderness. - Left Ear: External ear normal. No mastoid tenderness. - Mouth/Throat: The oropharynx is clear and moist. No trismus in the jaw. No dental abscesses or uvula swelling. No oropharyngeal exudate or tonsillar abscesses. EYES: Conjunctivae and EOM are normal. Pupils are equal, round, and reactive to light. Right eye exhibits no discharge. Left eye exhibits no discharge. No scleral icterus. NECK: Normal range of motion. Neck supple. No JVD present. No spinous process tenderness present. No carotid bruit present. No rigidity. No tracheal deviation and normal range of motion present. No Brudzinski's sign and no Kernig's sign noted. CV: Normal rate, regular rhythm, normal heart sounds and intact distal pulses. There is no peripheral edema. Palpable radial pulses bue. PULM/CHEST: Effort normal and breath sounds normal. No respiratory distress. No stridor. She has no wheezes. She has no rales. Chest Wall: She exhibits no tenderness. ABD: The abdomen is soft. Bowel sounds are normal. She has no distension. No mass is present. There is no tenderness. There is no rebound, no guarding, no Almaraz's sign and no tenderness at McBurney's point. Rovsig negative MUSC/SKEL: Normal range of motion. There is no peripheral edema, tenderness or deformity. LYMPH: No cervical adenopathy. NEURO: She is alert and oriented to person, place, and time. She has normal strength. No cranial nerve deficit or sensory deficit. Coordination and gait normal. GCS eye subscore is 4. GCS verbal subscore is 5. GCS motor subscore is 6. cerbellar tests wnl. SKIN: Skin is warm and dry. She is not diaphoretic. PSYCH: She has a normal mood and affect. Her behavior is normal. Judgment and thought content normal. Course 1113: The patient was evaluated in room C6. A complete history and physical exam was performed.EMR reviewed. I saw the patient yesterday. At that time her urine culture from her outpatient visit showed gram-negative bacilli. We started on Cipro. Sensitivities to the gram-negative bacilli came back and showed is resistant to Cipro. The EMR was reviewed which showed a note by Dr. Staples for the patient to follow up later this week after the patient had her antibiotics switched. I showed the patient and her family this note. The patient and her family got very upset as they claimed that Dr. Staples sent the patient to the ED to get admitted. I showed them Dr. Robles note again. The patients daughter refused to leave and says that she cannot take care of the patient at home. The patients daughter agrees to a group home placement for the patient. The patient was given 1mg of Rocephin and was admitted to the service of Dr. Welch. Administered Medications Sodium Chloride (Nss 1000ml) 1,000 mls @ 80 mls/hr IV .[id number] VILMA Stop: 08/30/19 13:19 Last Admin: 07/31/19 14:44 Dose: 80 mls/hr Documented by: [id number] Quetiapine Fumarate (Seroquel) 12.5 mg PO DAILY VILMA Stop: 08/30/19 13:19 Last Admin: 07/31/19 14:44 Dose: 12.5 mg Documented by: [id number] Discontinued Medications Ceftriaxone Sodium (Rocephin) 1,000 mg in 50 mls @ 100 mls/hr IV NOW STA Stop: 07/31/19 11:49 Last Infusion: 07/31/19 12:13 Dose: 0 mls/hr Documented by: [id number] Admin: 07/31/19 11:40 Dose: 100 mls/hr Documented by: [id number] Magnesium Sulfate/Dextrose (Magnesium Sulfate / D5w) 1 gm in 100 mls @ 100 mls/hr IV ONE ONE Stop: 07/31/19 15:59 Last Admin: 07/31/19 16:56 Dose: 100 mls/hr Documented by: [id number] Medical Decision Making Medical Records Attestation: I reviewed the patient's medical records. Home Medications Current Medication List: was personally reviewed by me Blood Pressure Blood Pressure Findings: Elevated blood pressure Blood Pressure Disposition: further management by hospitalist ALEKSANDAR Chi The patient was evaluated in room C6. A complete history and physical exam was performed.EMR reviewed. I saw the patient yesterday. At that time her urine culture from her outpatient visit showed gram-negative bacilli. We started on Cipro. Sensitivities to the gram-negative bacilli came back and showed is resistant to Cipro. The EMR was reviewed which showed a note by Dr. Staples for the patient to follow up later this week after the patient had her antibiotics switched. I showed the patient and her family this note. The patient and her family got very upset as they claimed that Dr. Staples sent the patient to the ED to get admitted. I showed them Dr. Robles note again. The patients daughter refused to leave and says that she cannot take care of the patient at home. The patients daughter agrees to a group home placement for the patient. The patient was given 1mg of Rocephin and was admitted to the service of Dr. Welch. Impression & Plan Encounter for examination for admission to group home, UTI (urinary tract infection) Discharge Plan Visit Data *Final* Discharge Date/Time: 07/31/19 13:00 Chief Complaint: Referred by Doctor Stated Complaint: REFERRED BY DR STAPLES FOR URINARY SYMPTOMS ED Provider: Jasbir Jones Discharge Problem: Encounter for examination for admission to group home, UTI (urinary tract infection) Patient Disposition: Admitted As Inpatient Discharge Instructions Interventions: ED Discharge Assessment Last Done: 07/31/19 13:00 Discharge Problem: UTI (urinary tract infection) Qualifiers: Urinary tract infection type: site unspecified Hematuria presence: without hematuria Qualified Code(s): N39.0 - Urinary tract infection, site not specified The scribe's documentation has been prepared under my direction and personally reviewed by me in its entirety. I confirm that the note above accurately reflects all work, treatment, procedures, and medical decision making performed by me.
[2019-07-31] MEDS: ATORVASTATIN 40 MG TAB PO SCH (20:16)
[2019-07-31] MEDS: HEPARIN SOD 5,000 UNIT/0.5 ML VIAL SQ SCH (20:16)
[2019-07-31] MEDS: LEVOTHYROXINE SODIUM 50 MCG TABLET PO SCH (20:17)
[2019-08-01] MEDS: SODIUM CHLORIDE 0.9% 1000ML 1,000 ML IV SCH ×2 (03:06→12:09)
[2019-08-01 06:51] LABS: Basophils # (auto) 0.03 K/uL (0-0.2); Basophils % (auto) 0.5 %; Eosinophils # (auto) 0.41 K/uL (0-0.5); Eosinophils % (auto) 7.1 %; Hematocrit (blood only) 33.5 % (37-47); Hemoglobin 10.7 g/dL (12.0-16.0); Immature Granulocytes # (auto) 0.01 K/uL (0.00-0.02); Immature Granulocytes % (auto) 0.2 %; Lymphocytes # (auto) 2.18 K/uL (1.2-3.4); Lymphocytes % (auto) 37.9 %; Mean Corpuscular Hemoglobin 29.5 pg (25-34); Mean Corpuscular Hgb Conc 31.9 g/dL (32-36); Mean Corpuscular Volume 92.3 fL (80-100); Mean Platelet Volume 8.6 fL (7.4-10.4); Monocytes # (auto) 0.43 K/uL (0.11-0.59); Monocytes % (auto) 7.5 %; Neutrophils # (auto) 2.69 K/uL (1.4-6.5); Neutrophils % (auto) 46.8 %; Platelet Count 222 K/uL (130-400); RDW Coefficient of Variation 16.1 % (11.5-14.5); RDW Standard Deviation 54.6 fL (36.4-46.3); Red Blood Count 3.63 M/uL (4.2-5.4); White Blood Count 5.75 K/uL (4.8-10.8)
[2019-08-01 07:14] LABS: Albumin Level 2.8 gm/dl (3.4-5.0); BUN Creatinine Ratio 22.4 (10-20); Calcium 8.2 mg/dl (8.5-10.1); Creatinine Clr Calc Pharmacy 22.3 ml/min; Est GFR (African American) 36.4; Est GFR (Non-African American) 31.4; Potassium 4.1 mmol/L (3.5-5.1)
[2019-08-01 07:17] LABS: Albumin Globulin Ratio 0.6 (0.9-2); Bilirubin,Total 0.4 mg/dl (0.2-1); Globulin 4.6 gm/dl (2.5-4.0); Total Protein 7.4 gm/dl (6.4-8.2)
[2019-08-01] MEDS: CEROVITE ADV FORMULA TAB PO SCH (08:05)
[2019-08-01] MEDS: CLOPIDOGREL BISULFATE 75 MG TAB PO SCH (08:05)
[2019-08-01] MEDS: QUETIAPINE FUMARATE 25 MG TABLET PO SCH (08:05)
[2019-08-01] MEDS: PARoxetine HCl 20 MG TAB PO SCH (08:06)
[2019-08-01] MEDS: LORATADINE 10 MG TAB PO SCH (08:06)
[2019-08-01] MEDS: HEPARIN SOD 5,000 UNIT/0.5 ML VIAL SQ SCH ×2 (08:06→21:15)
[2019-08-01] MEDS: ASPIRIN 81 MG ECTAB PO SCH (08:06)
[2019-08-01 08:09] LABS: Folate (Folic Acid) 14.93 ng/ml (>5.38)
[2019-08-01] MEDS ORDERED: NON-FORMULARY MEDICATION (Cranberry 500 MG) PO SCH (09:00)
[2019-08-01] MEDS ORDERED: NON-FORMULARY MEDICATION (Cartilage-Collagen-Bor-Hyalur [Joint Health] 1 TAB) PO SCH (09:00)
[2019-08-01] MEDS: cefTRIAXone SODIUM 1,000 MG in DEXTROSE 5% 50 ML IV SCH (12:09)
--- NOTE | 2019-08-01 17:06 | Hospitalist Progress Note ---
Date of Service August 01, 2019 Assessment & Plan (1) UTI (urinary tract infection): [facility] because patient is now alert and oriented Continue vital signs every 4 hours Continue monitoring CBC CMP TSH pending BNP pending Lipid panel normal LDL 54. Replenish electrolytes Follow-up magnesium in a.m. Follow-up urine culture analysis and adjust antibiotics as per sensitivity. Started ceftriaxone 1 g every 24 hours for urinary tract infection DVT prophylaxis heparin 5000 units every 12 hours Full code (2) MRSA (methicillin resistant Staphylococcus aureus) infection: Patient was positive for MRSA in the past Continue with contact isolation. (3) Stage III chronic kidney disease: Avoid nephrotoxic agents. Due to possible nephrotoxicity hold omeprazole for now. Patient is mildly dehydrated Started gentle fluid hydration with normal saline 80 cc/h for 1 L Monitor creatinine and GFR (4) Acute encephalopathy: Not clear origin of acute encephalopathy versus acute psychosis Start the Seroquel low-dose 12.5 mg daily. Titrate up as needed Psychiatry consult placed (5) HLD (hyperlipidemia): Lipid panel normal, LDL 54. Continue atorvastatin 40 mg p.o. nightly (6) HTN (hypertension): Stable. Continue clopidogrel 75 mg p.o. daily for coronary artery disease, aspirin 81 mg p.o. daily (7) Hypothyroidism: Continue levothyroxine 50 MCG's p.o. nightly. TSH pending. Subjective Patient seen and examined at the bedside. She is slowly improving. She is much more alert and oriented today. Able to feed herself. P.o. intake is slowly improving. Patient denies headache, fever, chills, chest pain, shortness of breath, melena, dysuria, hematuria, abdominal pain. Review of Systems Review of Systems: All systems reviewed & are unremarkable except as noted in HPI & below Physical Exam Constitutional: WD/WN, vitals as above well developed and + frail appearing Eyes: PERRL, conjunctivae normal, anicteric sclerae ENMT: external ear and nose normal, oropharynx normal Neck: trachea midline, no thyromegaly Respiratory: normal respiratory effort, lungs clear to auscultation Cardiovascular: RRR, no murmur, no edema Gastrointestinal (Abdomen): normal bowel sounds, soft, nontender, no hepatosp lenomegaly Musculoskeletal: no cyanosis or clubbing, extremities motor strength 5/5 Skin: no rashes, warm and dry Neurologic: + confused Psychiatric: Eye Contact: + fair eye contact Affect: + labile affect Hallucinations: + visual hallucinations Judgement: + poor judgement Lymphatic: no cervical or axillary lymphadenopathy Results & Data Vital Signs (Past 12 Hours) Vital Signs Temp Pulse Resp BP BP Pulse Ox 08/01/19 15:21 36.8 C 84 19 128/72 97 08/01/19 07:00 36.7 C 83 19 127/74 96 PG Care Time/CCT Total # of Minutes Spent Total Time Spent with Patient: Total time spent is greater than 50% in coordination of care (as documented) at patient's floor/unit and/or counseling patient: (1) UTI (urinary tract infection) Hematuria presence: without hematuria Urinary tract infection type: site unspecified Qualified Code(s): N39.0 - Urinary tract infection, site not specified (2) HLD (hyperlipidemia) Hyperlipidemia type: unspecified Qualified Code(s): E78.5 - Hyperlipidemia, unspecified (3) HTN (hypertension) Hypertension type: essential hypertension Qualified Code(s): I10 - Essential (primary) hypertension
[2019-08-01] MEDS ORDERED: DOCUSATE SODIUM/SENNA 50/8.6MG TAB PO PRN (18:47)
[2019-08-01] MEDS: LEVOTHYROXINE SODIUM 50 MCG TABLET PO SCH (21:14)
[2019-08-01] MEDS: ATORVASTATIN 40 MG TAB PO SCH (21:15)
[2019-08-02] MEDS: SODIUM CHLORIDE 0.9% 1000ML 1,000 ML IV SCH ×2 (00:41→15:15)
[2019-08-02 05:55] LABS: Basophils # (auto) 0.03 K/uL (0-0.2); Basophils % (auto) 0.5 %; Eosinophils # (auto) 0.47 K/uL (0-0.5); Hematocrit (blood only) 33.1 % (37-47); Hemoglobin 10.4 g/dL (12.0-16.0); Immature Granulocytes # (auto) 0.01 K/uL (0.00-0.02); Immature Granulocytes % (auto) 0.2 %; Lymphocytes # (auto) 2.41 K/uL (1.2-3.4); Lymphocytes % (auto) 40.8 %; Mean Corpuscular Hemoglobin 29.7 pg (25-34); Mean Corpuscular Hgb Conc 31.4 g/dL (32-36); Mean Corpuscular Volume 94.6 fL (80-100); Mean Platelet Volume 8.6 fL (7.4-10.4); Monocytes # (auto) 0.48 K/uL (0.11-0.59); Monocytes % (auto) 8.1 %; Neutrophils % (auto) 42.4 %; Platelet Count 199 K/uL (130-400); RDW Coefficient of Variation 16.4 % (11.5-14.5); RDW Standard Deviation 56.5 fL (36.4-46.3)
[2019-08-02 06:30] LABS: Albumin Level 2.8 gm/dl (3.4-5.0); BUN Creatinine Ratio 27.5 (10-20); Calcium 8.2 mg/dl (8.5-10.1); Est GFR (African American) 43.9; Est GFR (Non-African American) 37.9
[2019-08-02 06:41] LABS: Albumin Globulin Ratio 0.6 (0.9-2); Bilirubin,Total 0.3 mg/dl (0.2-1); Globulin 4.5 gm/dl (2.5-4.0); Thyroid Stimulating Hormone 1.08 uIu/ml (0.300-4.500); Total Protein 7.3 gm/dl (6.4-8.2)
[2019-08-02] MEDS: CEROVITE ADV FORMULA TAB PO SCH (09:08)
[2019-08-02] MEDS: LORATADINE 10 MG TAB PO SCH (09:08)
[2019-08-02] MEDS: QUETIAPINE FUMARATE 25 MG TABLET PO SCH (09:08)
[2019-08-02] MEDS: ASPIRIN 81 MG ECTAB PO SCH (09:09)
[2019-08-02] MEDS: PARoxetine HCl 20 MG TAB PO SCH (09:09)
[2019-08-02] MEDS: HEPARIN SOD 5,000 UNIT/0.5 ML VIAL SQ SCH ×2 (09:09→20:08)
[2019-08-02] MEDS: CLOPIDOGREL BISULFATE 75 MG TAB PO SCH (09:14)
[2019-08-02] MEDS: cefTRIAXone SODIUM 1,000 MG in DEXTROSE 5% 50 ML IV SCH (12:11)
--- NOTE | 2019-08-02 17:41 | Hospitalist Progress Note ---
Date of Service August 02, 2019 Assessment & Plan (1) U[facility] (urinary tract infection): [facility] because patient is now alert and oriented Continue vital signs every 4 hours Continue monitoring CBC CMP TSH pending BNP pending Lipid panel normal LDL 54. Replenish electrolytes Follow-up magnesium in a.m. Follow-up urine culture analysis and adjust antibiotics as per sensitivity. Started ceftriaxone 1 g every 24 hours for urinary tract infection DVT prophylaxis heparin 5000 units every 12 hours Full code (2) MRSA (methicillin resistant Staphylococcus aureus) infection: Patient was positive for MRSA in the past Continue with contact isolation. (3) Stage III chronic kidney disease: Avoid nephrotoxic agents. Due to possible nephrotoxicity hold omeprazole for now. Patient is mildly dehydrated Started gentle fluid hydration with normal saline 80 cc/h for 1 L Monitor creatinine and GFR (4) Acute encephalopathy: Not clear origin of acute encephalopathy versus acute psychosis Start the Seroquel low-dose 12.5 mg daily. Titrate up as needed Psychiatry consult placed (5) HLD (hyperlipidemia): Lipid panel normal, LDL 54. Continue atorvastatin 40 mg p.o. nightly (6) HTN (hypertension): Stable. Continue clopidogrel 75 mg p.o. daily for coronary artery disease, aspirin 81 mg p.o. daily (7) Hypothyroidism: Continue levothyroxine 50 MCG's p.o. nightly. TSH pending. Subjective Patient seen and examined at the bedside. She is slowly improving. She is much more alert and oriented today. Able to feed herself. P.o. intake is slowly improving. Patient denies headache, fever, chills, chest pain, shortness of breath, melena, dysuria, hematuria, abdominal pain. Review of Systems Review of Systems: All systems reviewed & are unremarkable except as noted in HPI & below Physical Exam Constitutional: WD/WN, vitals as above well developed and + frail appearing Eyes: PERRL, conjunctivae normal, anicteric sclerae ENMT: external ear and nose normal, oropharynx normal Neck: trachea midline, no thyromegaly Respiratory: normal respiratory effort, lungs clear to auscultation Cardiovascular: RRR, no murmur, no edema Gastrointestinal (Abdomen): normal bowel sounds, soft, nontender, no hepatosp lenomegaly Musculoskeletal: no cyanosis or clubbing, extremities motor strength 5/5 Skin: no rashes, warm and dry Neurologic: + confused Psychiatric: Eye Contact: + fair eye contact Affect: + labile affect Hallucinations: + visual hallucinations Judgement: + poor judgement Lymphatic: no cervical or axillary lymphadenopathy Results & Data Vital Signs (Past 12 Hours) Vital Signs Temp Pulse Resp BP Pulse Ox 08/02/19 15:07 36.9 C 88 18 136/72 96 08/02/19 07:21 36.7 C 81 18 124/74 94 PG Care Time/CCT Total # of Minutes Spent Total Time Spent with Patient: Total time spent is greater than 50% in coordination of care (as documented) at patient's floor/unit and/or counseling patient: (1) UTI (urinary tract infection) Hematuria presence: without hematuria Urinary tract infection type: site unspecified Qualified Code(s): N39.0 - Urinary tract infection, site not specified (2) HLD (hyperlipidemia) Hyperlipidemia type: unspecified Qualified Code(s): E78.5 - Hyperlipidemia, unspecified (3) HTN (hypertension) Hypertension type: essential hypertension Qualified Code(s): I10 - Essential (primary) hypertension
[2019-08-02] MEDS: ATORVASTATIN 40 MG TAB PO SCH (20:07)
[2019-08-02] MEDS: LEVOTHYROXINE SODIUM 50 MCG TABLET PO SCH (20:07)
[2019-08-03] MEDS: SODIUM CHLORIDE 0.9% 1000ML 1,000 ML IV SCH ×2 (02:11→15:40)
[2019-08-03 06:09] LABS: Basophils # (auto) 0.03 K/uL (0-0.2); Basophils % (auto) 0.5 %; Eosinophils # (auto) 0.44 K/uL (0-0.5); Eosinophils % (auto) 7.9 %; Hematocrit (blood only) 31.3 % (37-47); Hemoglobin 9.8 g/dL (12.0-16.0); Lymphocytes # (auto) 2.06 K/uL (1.2-3.4); Lymphocytes % (auto) 36.9 %; Mean Corpuscular Hemoglobin 29.8 pg (25-34); Mean Corpuscular Hgb Conc 31.3 g/dL (32-36); Mean Corpuscular Volume 95.1 fL (80-100); Mean Platelet Volume 8.5 fL (7.4-10.4); Monocytes # (auto) 0.44 K/uL (0.11-0.59); Monocytes % (auto) 7.9 %; Neutrophils # (auto) 2.62 K/uL (1.4-6.5); Neutrophils % (auto) 46.8 %; Platelet Count 194 K/uL (130-400); RDW Coefficient of Variation 16.4 % (11.5-14.5); RDW Standard Deviation 57.5 fL (36.4-46.3); Red Blood Count 3.29 M/uL (4.2-5.4); White Blood Count 5.59 K/uL (4.8-10.8)
[2019-08-03 06:34] LABS: Albumin Level 2.7 gm/dl (3.4-5.0); BUN Creatinine Ratio 24.8 (10-20); Calcium 8.2 mg/dl (8.5-10.1); Creatinine Clr Calc Pharmacy 28.4 ml/min; Est GFR (African American) 48.9; Est GFR (Non-African American) 42.2; Potassium 4.1 mmol/L (3.5-5.1)
[2019-08-03 06:37] LABS: Albumin Globulin Ratio 0.6 (0.9-2); Bilirubin,Total 0.2 mg/dl (0.2-1); Globulin 4.4 gm/dl (2.5-4.0); Total Protein 7.1 gm/dl (6.4-8.2)
[2019-08-03] MEDS: QUETIAPINE FUMARATE 25 MG TABLET PO SCH (08:41)
[2019-08-03] MEDS: CLOPIDOGREL BISULFATE 75 MG TAB PO SCH (08:41)
[2019-08-03] MEDS: PARoxetine HCl 20 MG TAB PO SCH (08:41)
[2019-08-03] MEDS: LORATADINE 10 MG TAB PO SCH (08:41)
[2019-08-03] MEDS: ASPIRIN 81 MG ECTAB PO SCH (08:41)
[2019-08-03] MEDS: HEPARIN SOD 5,000 UNIT/0.5 ML VIAL SQ SCH ×2 (08:42→20:38)
[2019-08-03] MEDS: CEROVITE ADV FORMULA TAB PO SCH (08:42)
[2019-08-03] MEDS: cefTRIAXone SODIUM 1,000 MG in DEXTROSE 5% 50 ML IV SCH ×2 (09:00→11:00)
--- NOTE | 2019-08-03 16:56 | Hospitalist Progress Note ---
Date of Service August 03, 2019 Assessment & Plan (1) UTI (urinary tract infection): [facility] because patient is now alert and oriented Continue vital signs every 4 hours Continue monitoring CBC CMP TSH 1.080 BNP 1215 Lipid panel normal LDL 54. Replenish electrolytes Follow-up magnesium in a.m. Follow-up urine culture analysis and adjust antibiotics as per sensitivity. Cotinue ceftriaxone 1 g every 24 hours for urinary tract infection DVT prophylaxis heparin 5000 units every 12 hours Disposition senior care for further Physical therapy and Occupational Therapy. Full code (2) MRSA (methicillin resistant Staphylococcus aureus) infection: Patient was positive for MRSA in the past Continue with contact isolation. (3) Stage III chronic kidney disease: Avoid nephrotoxic agents. Due to possible nephrotoxicity hold omeprazole for now. Patient is mildly dehydrated Started gentle fluid hydration with normal saline 80 cc/h for 1 L Monitor creatinine and GFR (4) Acute encephalopathy: Acute encephalopathy resolved Continue Seroquel low-dose 12.5 mg daily. Titrate up as needed (5) HLD (hyperlipidemia): Lipid panel normal, LDL 54. Continue atorvastatin 40 mg p.o. nightly (6) HTN (hypertension): Stable. Continue clopidogrel 75 mg p.o. daily for coronary artery disease, aspirin 81 mg p.o. daily (7) Hypothyroidism: Continue levothyroxine 50 MCG's p.o. nightly. TSH pending. Subjective Patient seen and examined at the bedside. She is slowly improving. She is much more alert and oriented today. Able to feed herself. P.o. intake is slowly improving. Patient had large bowel movement today after receiving senna and Colace. Patient denies headache, fever, chills, chest pain, shortness of breath, melena, dysuria, hematuria, abdominal pain. Review of Systems Review of Systems: All systems reviewed & are unremarkable except as noted in HPI & below Physical Exam Constitutional: WD/WN, vitals as above well developed and + frail appearing Eyes: PERRL, conjunctivae normal, anicteric sclerae ENMT: external ear and nose normal, oropharynx normal Neck: trachea midline, no thyromegaly Respiratory: normal respiratory effort, lungs clear to auscultation Cardiovascular: RRR, no murmur, no edema Gastrointestinal (Abdomen): normal bowel sounds, soft, nontender, no hepatosplenomegaly Musculoskeletal: no cyanosis or clubbing, extremities motor strength 5/5 Skin: no rashes, warm and dry Neurologic: + confused Psychiatric: Eye Contact: + fair eye contact Affect: + labile affect Hallucinations: + visual hallucinations Judgement: + poor judgement Lymphatic: no cervical or axillary lymphadenopathy Results & Data Vital Signs (Past 12 Hours) Vital Signs Temp Pulse Resp BP Pulse Ox 08/03/19 15:10 36.8 C 88 18 129/77 97 08/03/19 06:48 36.8 C 72 20 128/75 97 PG Care Time/CCT Total # of Minutes Spent Total Time Spent with Patient: Total time spent is greater than 50% in coordination of care (as documented) at patient's floor/unit and/or counseling patient: (1) UTI (urinary tract infection) Hematuria presence: without hematuria Urinary tract infection type: site unspecified Qualified Code(s): N39.0 - Urinary tract infection, site not specified (2) HLD (hyperlipidemia) Hyperlipidemia type: unspecified Qualified Code(s): E78.5 - Hyperlipidemia, unspecified (3) HTN (hypertension) Hypertension type: essential hypertension Qualified Code(s): I10 - Essential (primary) hypertension
[2019-08-03] MEDS: LEVOTHYROXINE SODIUM 50 MCG TABLET PO SCH (20:40)
[2019-08-03] MEDS: ATORVASTATIN 40 MG TAB PO SCH (21:27)
[2019-08-04] MEDS: SODIUM CHLORIDE 0.9% 1000ML 1,000 ML IV SCH ×2 (04:03→16:20)
[2019-08-04] MEDS: QUETIAPINE FUMARATE 25 MG TABLET PO SCH (08:08)
[2019-08-04] MEDS: CLOPIDOGREL BISULFATE 75 MG TAB PO SCH (08:08)
[2019-08-04] MEDS: CEROVITE ADV FORMULA TAB PO SCH (08:08)
[2019-08-04] MEDS: ASPIRIN 81 MG ECTAB PO SCH (08:09)
[2019-08-04] MEDS: PARoxetine HCl 20 MG TAB PO SCH (08:09)
[2019-08-04] MEDS: LORATADINE 10 MG TAB PO SCH (08:10)
[2019-08-04] MEDS: HEPARIN SOD 5,000 UNIT/0.5 ML VIAL SQ SCH ×2 (08:10→20:04)
[2019-08-04 08:43] LABS: Albumin Level 2.8 gm/dl (3.4-5.0); BUN Creatinine Ratio 22.6 (10-20); Calcium 8.4 mg/dl (8.5-10.1); Creatinine Clr Calc Pharmacy 31.6 ml/min; Est GFR (African American) 55.6; Potassium 3.8 mmol/L (3.5-5.1)
[2019-08-04 08:46] LABS: Albumin Globulin Ratio 0.6 (0.9-2); Bilirubin,Total 0.3 mg/dl (0.2-1); Globulin 4.5 gm/dl (2.5-4.0); Total Protein 7.3 gm/dl (6.4-8.2)
--- NOTE | 2019-08-04 12:09 | Hospitalist Progress Note ---
Date of Service August 04, 2019 Assessment & Plan (1) UTI (urinary tract infection): Continue admit to [facility] one-to-one discharged On Thursday because patient is alert and oriented x3 Continue vital signs every 4 hours Continue monitoring CBC CMP TSH 1.080 BNP 1215 Lipid panel normal LDL 54. Replenish electrolytes Follow-up magnesium and replenish Check CBC , CMP and Lactate. No abnormality found on CBC or CMP. First lactate was abnormal 2.5 and repeated which resulted in normal value of 0.9.Appears that first elevated value erroneously showed elevated lactated and the second value of 0.9 is in fact correct. Follow-up urine culture analysis and adjust antibiotics as per sensitivity. Continue ceftriaxone 1 g every 24 hours for urinary tract infection #day 5 and consider switching to cefdinir 300 mg BID on the discharge for total 7 days of antibiotics for complicated UTI. DVT prophylaxis heparin 5000 units every 12 hours Disposition senior care for further Physical therapy and Occupational Therapy would be proper. Would consider family meeting with pt's daughter prior to making any further decision. I spoke to her today over the phone and reassure pt daughter that we are here to help pt as much as we can but we would need to sit down and discuss further on what would best fit the pt , her current situation and needs.Pt daughter stated that she will be at the hospital at 1 PM but she never showed up. Full code (2) MRSA (methicillin resistant Staphylococcus aureus) infection: Patient was positive for MRSA in the past Continue with contact isolation. (3) Stage III chronic kidney disease: Avoid nephrotoxic agents. Due to possible nephrotoxicity hold omeprazole for now. Good PO intake, stopped IV fluid Creatinine now normal 1.08/GFR 47.4 Monitor creatinine and GFR (4) Acute encephalopathy: Acute encephalopathy v. delirium resolved Pt is coherent. Pt daughter reported that pt has hallucinations over the phone while speaking to her today. We recommended psychiatric evaluation to determine the nature of pt intermittent hallucinations. Plan to communicate with daughter the findings and recommendations. (5) HLD (hyperlipidemia): Lipid panel normal, LDL 54. Continue atorvastatin 40 mg p.o. nightly. (6) HTN (hypertension): Stable. Continue clopidogrel 75 mg p.o. daily for coronary artery disease, aspirin 81 mg p.o. daily (7) Hypothyroidism: Continue levothyroxine 50 MCG's p.o. nightly. TSH 1.080- normal Subjective Patient seen and examined at the bedside. Patient is sitting comfortably in the bed. She reports feeling much better. Patient said that several years ago she had a infection of the right knee and her leg postsurgically fixated since then.Patient said that she cannot get easily around the house because of her right leg. She said that she lives with her daughter and son-in-law and their 4 grandkids. She also said that her daughter is working a lot in the [employer] company. She reports her daughter had many responsibilities including taking her children to sports competitions. Patient reports that this is a season for sports competitions and her daughter is very busy up until August 19. Sometimes she sees herself as a burden because she cannot walk well nor help her daughter.Patient was in good mood and she was not crying nor she was specifically expressing any sad emotions. She definitely wanted to talk about her experience on her porch that occurred last Thursday the day before she arrived to the hospital with urinary tract infection. Patient states that she saw a members of her family dancing. Patient is not sure if this was hallucination or just a dream. Patient is very pleasant, understanding explains everything properly. Next to myself was a RN who was taking care of patient as well and was listening the conversation. Pt suppose to be discharged to [facility] today but in the last moment pt daughter called and stated that pt is still sick and we need to run the labs.She also stated that patient does not sound right on the phone, has hallucinations and she wants her to stay continuously in the hospital until August 19 when she will have more time to take care of the patient and take her home instead of going to [facility]. We agreed to repeat the tests and referred pt to psychiatry for further evaluation of hallucinations she was reporting. In addition on the 07/31 admission in the ER pt's daughter and her both stated that they are not able to help pt needs at home and they would be happy if she can be placed to SNF or similar setting. It appears that pt daughter changed her decision since then. Patient has good p.o. intake in the past 3 days. She is able to feed herself.She needs help with ambulation. Patient denies headache, fever, chills, chest pain, shortness of breath, melena, dysuria, hematuria, abdominal pain. She also reports having a normal bowel movement. Patient is afebrile. Review of Systems Review of Systems: All systems reviewed & are unremarkable except as noted in HPI & below Physical Exam Constitutional: WD/WN, vitals as above well developed and + frail appearing Eyes: PERRL, conjunctivae normal, anicteric sclerae ENMT: external ear and nose normal, oropharynx normal Neck: trachea midline, no thyromegaly Respiratory: normal respiratory effort, lungs clear to auscultation Cardiovascular: RRR, no murmur, no edema Gastrointestinal (Abdomen): normal bowel sounds, soft, nontender, no hepatosplenomegaly Musculoskeletal: surgically fixated the right knee. Skin: no rashes, warm and dry Neurologic: + confused Psychiatric: Eye Contact: + fair eye contact Affect: + labile affect Hallucinations: + visual hallucinations Judgement: + poor judgement Lymphatic: no cervical or axillary lymphadenopathy Results & Data Vital Signs (Past 12 Hours) Vital Signs Temp Pulse Resp BP Pulse Ox 08/04/19 07:00 36.7 C 77 18 132/80 96 PG Care Time/CCT Total # of Minutes Spent Total Time Spent with Patient: Total time spent is greater than 50% in coordination of care (as documented) at patient's floor/unit and/or counseling patient: (1) UTI (urinary tract infection) Hematuria presence: without hematuria Urinary tract infection type: site unspecified Qualified Code(s): N39.0 - Urinary tract infection, site not specified (2) HLD (hyperlipidemia) Hyperlipidemia type: unspecified Qualified Code(s): E78.5 - Hyperlipidemia, unspecified (3) HTN (hypertension) Hypertension type: essential hypertension Qualified Code(s): I10 - Essential (primary) hypertension
[2019-08-04] MEDS: cefTRIAXone SODIUM 1,000 MG in DEXTROSE 5% 50 ML IV SCH (12:17)
[2019-08-04 13:02] LABS: Basophils # (auto) 0.03 K/uL (0-0.2); Basophils % (auto) 0.5 %; Hematocrit (blood only) 34.5 % (37-47); Hemoglobin 10.7 g/dL (12.0-16.0); Immature Granulocytes # (auto) 0.01 K/uL (0.00-0.02); Immature Granulocytes % (auto) 0.2 %; Lymphocytes # (auto) 2.03 K/uL (1.2-3.4); Lymphocytes % (auto) 33.8 %; Mean Corpuscular Hemoglobin 29.4 pg (25-34); Mean Corpuscular Volume 94.8 fL (80-100); Mean Platelet Volume 8.7 fL (7.4-10.4); Monocytes # (auto) 0.45 K/uL (0.11-0.59); Monocytes % (auto) 7.5 %; Neutrophils # (auto) 3.18 K/uL (1.4-6.5); Platelet Count 197 K/uL (130-400); RDW Coefficient of Variation 16.4 % (11.5-14.5); RDW Standard Deviation 57.1 fL (36.4-46.3); Red Blood Count 3.64 M/uL (4.2-5.4)
[2019-08-04 13:19] LABS: Albumin Level 3.1 gm/dl (3.4-5.0); BUN Creatinine Ratio 21.9 (10-20); Creatinine Clr Calc Pharmacy 31.3 ml/min; Est GFR (Non-African American) 47.4; Potassium 3.8 mmol/L (3.5-5.1)
[2019-08-04 13:22] LABS: Albumin Globulin Ratio 0.6 (0.9-2); Bilirubin,Total 0.3 mg/dl (0.2-1); Total Protein 8.1 gm/dl (6.4-8.2)
[2019-08-04] MEDS ORDERED: SODIUM CHLORIDE 0.9% 250 ML IV ONE (13:50)
[2019-08-04] MEDS: LEVOTHYROXINE SODIUM 50 MCG TABLET PO SCH (20:04)
[2019-08-04] MEDS: ATORVASTATIN 40 MG TAB PO SCH (20:04)
[2019-08-04] MEDS ORDERED: QUETIAPINE FUMARATE 25 MG TABLET PO PRN (20:08)
[2019-08-05] MEDS ORDERED: HALOPERIDOL LACTATE 5 MG/ML 1 ML VIAL IV STA (02:13)
[2019-08-05] MEDS: SODIUM CHLORIDE 0.9% 1000ML 1,000 ML IV SCH (05:21)
[2019-08-05 07:33] LABS: Albumin Level 2.9 gm/dl (3.4-5.0); BUN Creatinine Ratio 21.3 (10-20); Calcium 8.4 mg/dl (8.5-10.1); Creatinine Clr Calc Pharmacy 28.2 ml/min; Est GFR (African American) 48.4; Est GFR (Non-African American) 41.8; Potassium 3.7 mmol/L (3.5-5.1)
[2019-08-05 07:36] LABS: Albumin Globulin Ratio 0.6 (0.9-2); Bilirubin,Total 0.4 mg/dl (0.2-1); Globulin 4.7 gm/dl (2.5-4.0); Total Protein 7.6 gm/dl (6.4-8.2)
[2019-08-05] MEDS: CEROVITE ADV FORMULA TAB PO SCH (09:29)
[2019-08-05] MEDS: CLOPIDOGREL BISULFATE 75 MG TAB PO SCH (09:29)
[2019-08-05] MEDS: LORATADINE 10 MG TAB PO SCH (09:29)
[2019-08-05] MEDS: ASPIRIN 81 MG ECTAB PO SCH (09:30)
[2019-08-05] MEDS: HEPARIN SOD 5,000 UNIT/0.5 ML VIAL SQ SCH ×2 (09:30→20:47)
[2019-08-05] MEDS: PARoxetine HCl 20 MG TAB PO SCH (09:30)
--- NOTE | 2019-08-05 09:30 | Psychiatric Consultation ---
Date of Consultation August 05, 2019 Impression / Recommendations Impression RECOMMENDATIONS: 08/05 - Presenting as somewhat disorganized and episodically tangential during interview, but also recognizing patient was awoken from sleep to participate - Continue to monitor orientation and organization of thoughts: waxing and waning in reported mental status may be a result of delirium, the aging process, or confusional arousal, among other considerations - Would suggest specific documentation of verbalized hallucinations, in order to better understand reports - as documentation is limited regarding what patient is seeing or hearing - Pt denying SI/HI, A/V hallucinations, and paranoia - no criteria to suggest acute psychiatric inpatient admission is warranted - Pt is not presenting as agitated or combative, no behavioral concerns are verbalized. Therefore not recommending use of prn quetiapine simply for episodes of confusion/hallucinations - Would suggest repeat EKG if there is expectation patient will routinely require quetiapine - as EKG performed on 07/30 demonstrated prolonged QTc at 526 - Delirium protocol would suggest patient should be frequently reoriented to person, place, time, event, and intervention to be performed. Pt should be perm itted to utilize corrective lenses and assistive hearing devices when appropriate. Permit use of familiar comfort items when appropriate. Keep patient awake and active during the day, with light on in room. Conversely, dark room should be maintained at night with sleep being encouraged. Use of prn medications should be limited to behavioral concerns that threaten the safety of the patient or staff, in order to prevent worsening of confusion and excessive sedation - Discharge planning per primary team and case management, SNF transfer seems appropriate as it is documented that the family may have difficulty providing for patient's needs immediately on discharge Dr. Elver Monaco was directly involved in review and discussion of the patient's case and participated in medical decision making regarding treatment recommendations. Psych History Identifying Data 84-year-old female admitted medically on 07/30/19 due to reports that patient had demonstrated a mental status change and was "hallucinating at home." Pt is being treated medically for UTI, acute encephalopathy, Stage III CKD, and other chronic conditions. Psychiatric consultation, ordered on admission, was deferred until "resolution of the UTI." Our service was contacted to assess patient for "brief psychosis", after improvement in diagnostic labs with reports from family that patient was "hallucinating" over the phone. Consulting physician reporting that patient is alert, coherent, and not appearing to be responding to internal stimuli. Information is gathered from hospital documentation, phone conversation with consulting physician, and the patient herself. Chief Complaint "I'm feeling fine, better. A little tired." History of Present Illness Kami Kwok is an 84-year-old female admitted medically on 07/31/19 due to reports of altered mental status and hallucinations in the context of a known UTI. Pt was admitted for treatment of her UTI and to rule out other etiology for encephalopathy. Psychiatric consultation was requested due to reports of hallucinations by patient's family, though reportedly not observed by staff. Pt was seen today and was cooperative with interview. Despite responding to verbal stimuli, the patient does not open her eyes to look at this provider. She admits that she is feeling tired this morning, but is feeling "better" overall. She denies to this provider any concerns thus far in her hospitalization. Pt denies SI/HI, and symptoms of depression or anxiety. She denies changes to sleep or appetite. She denies history of confusion or paranoia. Pt was asked in multiple ways about the presence of hallucinations, and denied each time. Pt is somewhat disoriented - believing it is 07/05/19 and that she is "[place]where near [place]." She was asked multiple times about her understanding of discharge planning, and has increased difficulty answering more complex questions during encounter. She initially responds to "what is your understanding of the plan for after discharge?" by stating "I think they are planning to swap out the red foreman for another color, but I'm not sure." She was asked a similar question, varied in wording, multiple times - later stating, "I'm not sure but I think they are planning to impeach Trump" and "After I leave here? I think I'd like to be a teacher." Pt is observed to be nodding off to sleep at times during our conversation, but is easily awoken by repeating the question. Pt denies acute needs or concerns from our service at this time. Past Psychiatric History Previous Psych History: Reliability of patient's reports are uncertain at this time, she is unable to provide any clear information regarding history of psychiatric treatment Outpatient Services: None Past Medication Trials: Pt currently prescribed paroxetine Allergies Allergy/AdvReac Type Severity Reaction Status Date / Time No Known Allergies Allergy Verified 07/31/19 11:09 Home Medications Home Medications Medication Instructions Recorded Confirmed Type loratadine [Claritin] 10 mg PO QAM 08/25/18 07/31/19 History aspirin 81 mg tablet,delayed 81 mg PO QAM tab 04/22/19 07/31/19 History release vitamins A,C,I-pmsi-nphvzy 7,160 1 tab PO BID tab 04/22/19 07/31/19 History unit-113 mg-100 unit tablet clopidogrel 75 mg tablet 75 mg PO QAM #90 tab 05/23/19 07/31/19 Rx cranberry 500 mg capsule 500 mg PO QAM cap 05/25/19 07/31/19 History nystatin 100,000 unit/gram topical 1 appln TOPICAL DAILY PRN gm 05/25/19 07/31/19 History powder sulfamethoxazole 800 1 tab PO BID 7 Days #14 tab 07/29/19 07/31/19 Rx mg-trimethoprim 160 mg tablet atorvastatin [Lipitor] 40 mg PO HS 07/30/19 07/31/19 History dvvrreyyz-ctbgrola-flu-hyalur 1 tab PO QAM 07/30/19 07/31/19 History [[facility]] ciprofloxacin HCl 500 mg PO BID #10 tab 07/30/19 07/31/19 Rx levothyroxine [Synthroid] 50 mcg PO HS 07/30/19 07/31/19 History omeprazole 20 mg PO QAM 07/30/19 07/31/19 History paroxetine HCl 20 mg PO QAM 07/30/19 07/31/19 History cefuroxime axetil 500 mg tablet 500 mg PO BID 10 Days #20 tab 07/31/19 07/31/19 Rx cefdinir 300 mg PO BID 5 Days #10 cap 08/04/19 Rx ferrous fumarate-vitamin C 1 tab PO DAILY #30 tab 08/04/19 Rx [Jasmyne-Sequels (iron-vit c)] Personal History Living Arrangements: Home (with daughter and son-in-law, grandchildren) Patient History Medical History Elevated LFTs Stage III chronic kidney disease JESSIE improved since admission Sepsis Carotid artery occlusion TIA (transient ischemic attack) MRSA infection Hallucination, visual (Acute) GERD (gastroesophageal reflux disease) Vasculopathy HLD (hyperlipidemia) HTN (hypertension) Surgical History S/P laparoscopic cholecystectomy (Resolved) H/O: hysterectomy History of knee replacement procedure of right knee History of right hip replacement Family History Mother , age 43 of complications from a motor vehicle accident. No problems noted. Father , age 70 of black lung No problems noted. 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: No marital status: / Current Living Situation: Family Current Living Situation Comment: lives with daughter current occupational status: retired Feels Safe at Home: Yes Smoking Status: Never smoker Second Hand Exposure: No ; Hx Alcohol Use: No Hx Substance Use: No Dental Care, Regularly: No Physical Activity Frequency: Daily Physical Exam Psychiatric: Orientation: alert (responds to verbal stimuli, though nodding off to sleep at times), oriented to person and cooperative (and pleasant); + not oriented to place ("somewhere near [place]") and + not oriented to time (Believed the date to be 07/05/19) Apperance: appropriately dressed, appropriately groomed and appeared stated age Patient laying in hospital bed in no acute distress, awoken from sleep to complete interview. Appropriately dressed in hospital gown. Wearing corrective lenses. Curly hair is flattened in some areas from laying in bed, but appears clean. Level of hygiene and grooming appears adequate. Eye Contact: + poor eye contact (Completes interview with her eyes closed) Motor Behavior: no abnormal motor movements (observed while laying in bed) Speech: normal rate/rhythm/volume of speech Affect: + blunted affect (appearing fatigued, but not overtly depressed) Mood: no depressed mood ("I'm feeling a lot better" and "my mood is all better") and no anxious mood Thought Process: + tangential thought process (somewhat disorganized) Thought Content: not paranoid and no hopelessness Suicidal Thoughts: denies suicidal thoughts, denies suicidal plan and denies suicidal intent Homicidal Thoughts: denies homicidal thoughts Hallucinations: no auditory hallucinations and no visual hallucinations Pt denies to this provider any history of seeing or hearing things that others may not hear or see Cognition: attention grossly intact and language grossly intact Insight: + impaired insight Judgement: + impaired judgement Vital Signs (Past 24 Hours): Last Vital Signs Temp 36.7 C 08/05/19 07:11 Pulse 94 H 08/05/19 07:11 Resp 18 08/05/19 07:11 BP 128/71 08/05/19 07:11 Pulse Ox 97 08/05/19 07:11 Review of Systems Constitutional: reports fatigue this morning Cardiovascular: denied Respiratory: denied Gastrointestinal: denied Neurological: denied Psychiatric: denies symptoms other than stated above Total of at least 10 systems reviewed, pertinent positives as above and in HPI. Results & Data Medications Administered Aspirin (Ecotrin Ectab) 81 mg PO [facility] Stop: 08/31/19 08:59 Last Admin: 08/04/19 08:09 Dose: 81 mg Documented by: [id number] Admin: 08/03/19 08:41 Dose: 81 mg Documented by: [id number] Admin: 08/02/19 09:09 Dose: 81 mg Documented by: [id number] Admin: 08/01/19 08:06 Dose: 81 mg Documented by: [id number] Atorvastatin Calcium (Lipitor) 40 mg PO [facility] Stop: 08/30/19 20:59 Last Admin: 08/04/19 20:04 Dose: 40 mg Documented by: [id number] Admin: 08/03/19 21:27 Dose: 40 mg Documented by: [id number] Admin: 08/02/19 20:07 Dose: 40 mg Documented by: [id number] Admin: 08/01/19 21:15 Dose: 40 mg Documented by: [id number] Admin: 07/31/19 20:16 Dose: 40 mg Documented by: [id number] [facility]) [facility] Stop: 08/31/19 08:59 Last Admin: 08/04/19 08:08 Dose: 75 mg Documented by: [id number] Admin: 08/03/19 08:41 Dose: 75 mg Documented by: [id number] Admin: 08/02/19 09:14 Dose: 75 mg Documented by: [id number] Admin: 08/01/19 08:05 Dose: 75 mg Documented by: [id number] Heparin Sodium (Porcine) (Heparin Sodium (Porcine)) 5,000 units SQ Q12 [facility] Stop: 08/30/19 20:59 Last Admin: 08/04/19 20:04 Dose: 5,000 units Documented by: [id number] Cosigned by: [id number] Admin: 08/04/19 08:10 Dose: 5,000 units Documented by: [id number] Cosigned by: [id number] Admin: 08/03/19 20:38 Dose: 5,000 units Documented by: [id number] Cosigned by: [id number] Admin: 08/03/19 08:42 Dose: 5,000 units Documented by: [id number] Cosigned by: [id number] Admin: 08/02/19 20:08 Dose: 5,000 units Documented by: [id number] Cosigned by: [id number] Admin: 08/02/19 09:09 Dose: 5,000 units Documented by: [id number] Cosigned by: [id number] Admin: 08/01/19 21:15 Dose: 5,000 units Documented by: [id number] Cosigned by: [id number] Admin: 08/01/19 08:06 Dose: 5,000 units Documented by: [id number] Cosigned by: [id number] Admin: 07/31/19 20:16 Dose: 5,000 units Documented by: [id number] Cosigned by: [id number] Ceftriaxone Sodium 1,000 mg/ (Dextrose) 50 mls @ 100 mls/hr IV Q24H [facility]; Protocol Stop: 08/10/19 10:59 Last Infusion: 08/04/19 12:47 Dose: 0 mls/hr Documented by: [id number] Admin: 08/04/19 12:17 Dose: 100 mls/hr Documented by: [id number] Infusion: 08/03/19 11:30 Dose: 0 mls/hr Documented by: [id number] Admin: 08/03/19 11:00 Dose: 100 mls/hr Documented by: [id number] Infusion: 08/02/19 12:41 Dose: 0 mls/hr Documented by: [id number] Admin: 08/02/19 12:11 Dose: 100 mls/hr Documented by: [id number] Infusion: 08/01/19 12:45 Dose: 0 mls/hr Documented by: [id number] Admin: 08/01/19 12:09 Dose: 100 mls/hr Documented by: [id number] Sodium Chloride (Nss 1000ml) 1,000 mls @ 80 mls/hr IV .[id number] [facility] Stop: 08/30/19 13:19 Last Admin: 08/05/19 05:21 Dose: 80 mls/hr Documented by: [id number] Infusion: 08/05/19 05:21 Dose: 80 mls/hr Documented by: [id number] Infusion: 08/05/19 01:13 Dose: 80 mls/hr Documented by: [id number] Infusion: 08/05/19 00:32 Dose: 0 mls/hr Documented by: [id number] Admin: 08/04/19 16:20 Dose: 80 mls/hr Documented by: [id number] Infusion: 08/04/19 16:20 Dose: 80 mls/hr Documented by: [id number] Admin: 08/04/19 04:03 Dose: 80 mls/hr Documented by: [id number] Infusion: 08/04/19 04:03 Dose: 80 mls/hr Documented by: [id number] Admin: 08/03/19 15:40 Dose: 80 mls/hr Documented by: [id number] Infusion: 08/03/19 14:41 Dose: 80 mls/hr Documented by: [id number] Admin: 08/03/19 02:11 Dose: 80 mls/hr Documented by: [id number] Infusion: 08/03/19 02:11 Dose: 80 mls/hr Documented by: [id number] Admin: 08/02/19 15:15 Dose: 80 mls/hr Documented by: [id number] Infusion: 08/02/19 13:15 Dose: 80 mls/hr Documented by: [id number] Admin: 08/02/19 00:41 Dose: 80 mls/hr Documented by: [id number] Infusion: 08/02/19 00:39 Dose: 80 mls/hr Documented by: [id number] Admin: 08/01/19 12:09 Dose: 80 mls/hr Documented by: [id number] Infusion: 08/01/19 12:09 Dose: 80 mls/hr Documented by: [id number] Admin: 08/01/19 03:06 Dose: 80 mls/hr Documented by: [id number] Infusion: 08/01/19 03:06 Dose: 80 mls/hr Documented by: [id number] Admin: 07/31/19 14:44 Dose: 80 mls/hr Documented by: [id number] Levothyroxine Sodium (Synthroid) 50 mcg PO [facility] Stop: 08/30/19 20:59 Last Admin: 08/04/19 20:04 Dose: 50 mcg Documented by: [id number] Admin: 08/03/19 20:40 Dose: 50 mcg Documented by: [id number] Admin: 08/02/19 20:07 Dose: 50 mcg Documented by: [id number] Admin: 08/01/19 21:14 Dose: 50 mcg Documented by: [id number] Admin: 07/31/19 20:17 Dose: 50 mcg Documented by: [id number] Loratadine (Claritin) [facility] Stop: 08/31/19 08:59 Last Admin: 08/04/19 08:10 Dose: 10 mg Documented by: [id number] Admin: 08/03/19 08:41 Dose: 10 mg Documented by: [id number] Admin: 08/02/19 09:08 Dose: 10 mg Documented by: [id number] Admin: 08/01/19 08:06 Dose: Not Given Documented by: [id number] Multivitamins/Minerals (Multivitamin W/ Minerals Tab) 1 tab PO DAILY [facility] Stop: 08/31/19 08:59 Last Admin: 08/04/19 08:08 Dose: 1 tab Documented by: [id number] Admin: 08/03/19 08:42 Dose: 1 tab Documented by: [id number] Admin: 08/02/19 09:08 Dose: 1 tab Documented by: [id number] Admin: 08/01/19 08:05 Dose: 1 tab Documented by: [id number] Nystatin (Mycostatin) 1 appln EXT DAILY PRN PRN Reason: excoriation Stop: 08/30/19 13:19 Last Admin: 08/01/19 08:06 Dose: 1 appln Documented by: [id number] Paroxetine HCl (Paxil) [facility] Stop: 08/31/19 08:59 Last Admin: 08/04/19 08:09 Dose: 20 mg Documented by: [id number] Admin: 08/03/19 08:41 Dose: 20 mg Documented by: [id number] Admin: 08/02/19 09:09 Dose: 20 mg Documented by: [id number] Admin: 08/01/19 08:06 Dose: 20 mg Documented by: [id number] Quetiapine Fumarate (Seroquel) 12.5 mg PO DAILY PRN PRN Reason: halucinations Stop: 08/30/19 13:19 Last Admin: 08/04/19 22:16 Dose: 12.5 mg Documented by: [id number] Coding Level of Care Code 96056 [facility] Intl Hosp Care Lvl 2
[2019-08-05] MEDS: cefTRIAXone SODIUM 1,000 MG in DEXTROSE 5% 50 ML IV SCH (12:29)
--- NOTE | 2019-08-05 17:22 | Hospitalist Progress Note ---
Date of Service August 05, 2019 Assessment & Plan (1) Acute encephalopathy: Acute encephalopathy initially with hallucinations and agitation. Per daughter, she dramatically improved over Thursday -> , then overnight on /Thursday she became re-agitated and had further hallucinations. Daughter feels we may be missing a new infection. We spent considerable time discussing why I felt her mother's case was quite difficult. Seen on 08/05 by psychiatry with conservative delirium treatments recommended. - Will retest urine; will get blood cultures. Procalcitonin. - MRI brain. (2) UTI (urinary tract infection): Urine culture on 07/29 grew resistant Proteus. - On ceftriaxone - Re-testing urine as above (3) Stage III chronic kidney disease: Baseline Cr is ~1.1; eGFR 50. - Presented with Cr of 1.4. Possibly due to possible nephrotoxicity hold omeprazole for now. - Avoid nephrotoxic agents. - Good PO intake, stopped IV fluid - Monitor (4) HLD (hyperlipidemia): Lipid panel normal, LDL 54. - Continue atorvastatin 40 mg p.o. nightly. (5) HTN (hypertension): Stable at 125/75. - Not on medications. - Trend (6) Hypothyroidism: TSH 1.080 this admission - normal. - Continue levothyroxine 50 MCG's p.o. nightly. (7) TIA (transient ischemic attack): Was on ASA/Plavix prior admission. Was held to Plavix on discharge given nose bleeds. - Continue DAPT - Will discuss with daughter regarding whether she was on both when she presented. (8) DVT prophylaxis: Heparin BID Subjective Tired today. She denied any hallucinations to me. Reports no fevers/chills, chest pain, shortness of breath, abdominal pain, nausea, or vomiting. Physical Exam Constitutional: + physical limitations, + frail appearing and + lethargic Eyes: EOM intact bilaterally; no conjunctival abnormality ENMT: external ear and nose normal, oropharynx normal Neck: trachea midline, no thyromegaly normal visual inspection Respiratory: normal respiratory effort, lungs clear to auscultation no respiratory distress Cardiovascular: RRR, no murmur, no edema Gastrointestinal (Abdomen): Inspection/Auscultation: abdomen normal to inspection; abdomen not distended Musculoskeletal: no cyanosis or clubbing, extremities motor strength 5/5 Skin: no rashes, warm and dry Neurologic: moves all extremities and awake Psychiatric: Orientation: alert (Though tired.), oriented to person and cooperative Results & Data Vital Signs (Past 12 Hours) Vital Signs Temp Pulse Resp BP Pulse Ox 08/05/19 14:42 36.8 C 78 18 126/76 97 08/05/19 07:11 36.7 C 94 H 18 128/71 97 PG Care Time/CCT Total # of Minutes Spent Total Time Spent with Patient: Total time spent is greater than 50% in coordination of care (as documented) at patient's floor/unit and/or counseling patient: (1) UTI (urinary tract infection) Hematuria presence: without hematuria Urinary tract infection type: site unspecified Qualified Code(s): N39.0 - Urinary tract infection, site not spec ified (2) HLD (hyperlipidemia) Hyperlipidemia type: unspecified Qualified Code(s): E78.5 - Hyperlipidemia, unspecified (3) HTN (hypertension) Hypertension type: essential hypertension Qualified Code(s): I10 - Essential (primary) hypertension
[2019-08-05 18:47] LABS: Appearance Urine Clear (Clear); Bacteria Urine Automated Negative (Negative); Bilirubin Urine Negative (Negative); Blood Urine Trace (Negative); Cast Urine Automated 0 /lpf (0-5); Color Urine Yellow; Glucose Urine UA Negative (Negative); Ketones Urine Negative (Negative); Leukocyte Esterase Urine 1+ (Negative); Nitrite Urine Negative (Negative); Protein Urine Negative (Negative); RBC Urine Automated 0-4 /hpf (0-4); Urobilinogen Urine Negative (Negative)
--- NOTE | 2019-08-05 20:39 | Magnetic Resonance Report ---
MRI OF THE BRAIN WITHOUT CONTRAST CLINICAL HISTORY: Hallucinations, acute confusion. COMPARISON STUDY: MRI of the brain August 31, 2018. Head CT July 30, 2019. TECHNIQUE: Utilizing a 1.5 Mary magnet and dedicated coil, multiplanar, multiecho imaging of the bra in was performed without IV contrast. FINDINGS: There are no foci of restricted diffusion to suggest acute infarct. No acute intracranial h emorrhage, midline shift or mass effect is present. Moderate atrophy is noted. Ventricular system is stable. The basilar cisterns are patent. No intracranial masses are identified on this unenhanced exa mination. Loss of the flow void for the petrous and cavernous portions of the left internal carotid a rtery with distal reconstitution is unchanged since MRA of August 31, 2018. White matter T2 hyperin tense foci are similar to prior MRI. These favor small vessel disease. Note is made of an old infarct within the left basal ganglia. 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 The a ppearance of the brain is unchanged. Calvarial signal is normal. Degenerative changes at the C1-C2 ar ticulation are noted. IMPRESSION: 1. No acute intracranial findings. 2. No significant change since MRI of August 31, 2018. 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 3. 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 Electronically signed by: Varun Courtney M.D. 08/05/2019 8:38 PM
[2019-08-05] MEDS: ATORVASTATIN 40 MG TAB PO SCH (20:47)
[2019-08-05] MEDS: LEVOTHYROXINE SODIUM 50 MCG TABLET PO SCH (20:47)
[2019-08-06 07:47] LABS: Basophils # (auto) 0.04 K/uL (0-0.2); Basophils % (auto) 0.7 %; Eosinophils # (auto) 0.32 K/uL (0-0.5); Eosinophils % (auto) 5.2 %; Hematocrit (blood only) 33.3 % (37-47); Hemoglobin 10.6 g/dL (12.0-16.0); Immature Granulocytes # (auto) 0.01 K/uL (0.00-0.02); Immature Granulocytes % (auto) 0.2 %; Lymphocytes # (auto) 1.92 K/uL (1.2-3.4); Lymphocytes % (auto) 31.2 %; Mean Corpuscular Hemoglobin 30.1 pg (25-34); Mean Corpuscular Hgb Conc 31.8 g/dL (32-36); Mean Corpuscular Volume 94.6 fL (80-100); Mean Platelet Volume 8.7 fL (7.4-10.4); Monocytes # (auto) 0.44 K/uL (0.11-0.59); Monocytes % (auto) 7.2 %; Neutrophils # (auto) 3.42 K/uL (1.4-6.5); Neutrophils % (auto) 55.5 %; Platelet Count 225 K/uL (130-400); RDW Coefficient of Variation 16.5 % (11.5-14.5); RDW Standard Deviation 56.2 fL (36.4-46.3); Red Blood Count 3.52 M/uL (4.2-5.4); White Blood Count 6.15 K/uL (4.8-10.8)
[2019-08-06 07:48] LABS: Base Excess VBG -3.3 mEq/L; Oxygen Saturation VBG 92.7 %; pH VBG 7.39 (7.36-7.41)
[2019-08-06] MEDS: PARoxetine HCl 20 MG TAB PO SCH (07:58)
[2019-08-06] MEDS: CLOPIDOGREL BISULFATE 75 MG TAB PO SCH (07:58)
[2019-08-06] MEDS: ASPIRIN 81 MG ECTAB PO SCH (07:58)
[2019-08-06] MEDS: CEROVITE ADV FORMULA TAB PO SCH (07:58)
[2019-08-06] MEDS: HEPARIN SOD 5,000 UNIT/0.5 ML VIAL SQ SCH ×2 (07:59→20:44)
[2019-08-06] MEDS: LORATADINE 10 MG TAB PO SCH (07:59)
[2019-08-06 08:26] LABS: Albumin Level 2.9 gm/dl (3.4-5.0); C Reactive Protein 3.02 mg/dl (0-0.29); Calcium 8.6 mg/dl (8.5-10.1); Creatinine Clr Calc Pharmacy 31.6 ml/min; Est GFR (African American) 55.6; Potassium 3.9 mmol/L (3.5-5.1)
[2019-08-06 08:29] LABS: Albumin Globulin Ratio 0.7 (0.9-2); Bilirubin,Total 0.4 mg/dl (0.2-1); Globulin 4.4 gm/dl (2.5-4.0); Total Protein 7.3 gm/dl (6.4-8.2)
[2019-08-06] MEDS: cefTRIAXone SODIUM 1,000 MG in DEXTROSE 5% 50 ML IV SCH (10:12)
--- NOTE | 2019-08-06 16:54 | Hospitalist Progress Note ---
Date of Service August 06, 2019 Assessment & Plan (1) Acute encephalopathy: Acute encephalopathy initially with hallucinations and agitation. Per daughter, she dramatically improved over Thursday -> , then overnight on /Thursday she became re-agitated and had further hallucinations. Daughter feels we may be missing a new infection. We spent considerable time discussing why I felt her mother's case was quite difficult. Seen on 08/05 by psychiatry with conservative delirium treatments recommended. - Repeat UA on 08/05 shows no bacteria - Culture pending. - Blood cultures from 08/05 no growth to date. - Brain MRI on 08/05 was stable from a year prior with moderate atrophy and small vessel disease. 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 - Procalcitonin, CBC, NH3 all normal. CRP elevated at 3. (2) UTI (urinary tract infection): Urine culture on 07/29 grew resistant Proteus. - On ceftriaxone until 08/06 - Finished course. - Retested urine as above - No growth so far. (3) Stage III chronic kidney disease: Baseline Cr is ~1.1; eGFR 50. - Presented with Cr of 1.4. - Avoid nephrotoxic agents. - Good PO intake, stopped IV fluid - Monitor - Returned to baseline by 08/06. (4) HLD (hyperlipidemia): Lipid panel normal, LDL 54. - Continue atorvastatin 40 mg p.o. nightly. (5) HTN (hypertension): Stable at 120/60. - Not on medications. - Trend (6) Hypothyroidism: TSH 1.080 this admission - normal. - Continue levothyroxine 50 MCG's p.o. nightly. (7) TIA (transient ischemic attack): Was on ASA/Plavix prior admission. Was held to Plavix on discharge given nose bleeds. - Continue DAPT - Will discuss with daughter regarding whether she was on both when she presented. (8) DVT prophylaxis: Heparin BID Subjective Doing great today. She is awake, alert, happy. Able to do reverse months for me. AAOx3. Reports no fevers/chills, chest pain, shortness of breath, abdominal pain, nausea, or vomiting. Physical Exam Constitutional: + physical limitations and + frail appearing; not lethargic Eyes: EOM intact bilaterally; no conjunctival abnormality ENMT: external ear and nose normal, oropharynx normal Neck: trachea midline, no thyromegaly normal visual inspection Respiratory: normal respiratory effort, lungs clear to auscultation no respiratory distress Cardiovascular: RRR, no murmur, no edema Gastrointestinal (Abdomen): Inspection/Auscultation: abdomen normal to inspection; abdomen not distended Musculoskeletal: no cyanosis or clubbing, extremities motor strength 5/5 Skin: no rashes, warm and dry Neurologic: moves all extremities and awake Psychiatric: Orientation: alert, oriented x 3, oriented to person and cooperative Results & Data Vital Signs (Past 12 Hours) Vital Signs Temp Pulse Resp BP Pulse Ox 08/06/19 15:09 37.7 C H 96 H 20 118/63 96 08/06/19 07:12 37.3 C 79 16 110/66 95 PG Care Time/CCT Total # of Minutes Spent Total Time Spent with Patient: Total time spent is greater than 50% in coordination of care (as documented) at patient's floor/unit and/or counseling patient: (1) UTI (urinary tract infection) Hematuria presence: without hematuria Urinary tract infection type: site unspecified Qualified Code(s): N39.0 - Urinary tract infection, site not specified (2) HLD (hyperlipidemia) Hyperlipidemia type: unspecified Qualified Code(s): E78.5 - Hyperlipidemia, unspecified (3) HTN (hypertension) Hypertension type: essential hypertension Qualified Code(s): I10 - Essential (primary) hypertension
[2019-08-06] MEDS: ATORVASTATIN 40 MG TAB PO SCH (20:44)
[2019-08-06] MEDS: LEVOTHYROXINE SODIUM 50 MCG TABLET PO SCH (20:44)
[2019-08-07] MEDS: PARoxetine HCl 20 MG TAB PO SCH (08:13)
[2019-08-07] MEDS: LORATADINE 10 MG TAB PO SCH (08:14)
[2019-08-07] MEDS: CLOPIDOGREL BISULFATE 75 MG TAB PO SCH (08:14)
[2019-08-07] MEDS: ASPIRIN 81 MG ECTAB PO SCH (08:14)
[2019-08-07] MEDS: HEPARIN SOD 5,000 UNIT/0.5 ML VIAL SQ SCH ×2 (08:15→20:59)
[2019-08-07] MEDS: CEROVITE ADV FORMULA TAB PO SCH (08:15)
--- NOTE | 2019-08-07 12:22 | Hospitalist Progress Note ---
Date of Service August 07, 2019 Assessment & Plan (1) UTI (urinary tract infection): Urine culture on 07/29 grew resistant Proteus. - On ceftriaxone until 08/06 - Finished course. - Retested urine on 08/05 as below - No growth. (2) Acute encephalopathy: Acute encephalopathy initially with hallucinations and agitation. Per daughter, she dramatically improved over Thursday -> , then overnight on /Thursday she became re-agitated and had further hallucinations. Daughter felt we may be missing a new infection. We spent considerable time discussing why I felt her mother's case was quite difficult. Seen on 08/05 by psychiatry with conservative delirium treatments recommended. - Repeat UA on 08/05 showed no bacteria & culture negative. - Blood cultures from 08/05 are no growth to date. - Brain MRI on 08/05 was stable from a year prior with moderate atrophy and small vessel disease. 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 - Procalcitonin, CBC, NH3 all normal. CRP elevated at 3. - By 08/06, she was 100% at baseline. She was AAOx3, could recite the months of the year backwards, and had normal short & long-term memory. This was resolving delirium from either her UTI or hospital-associated. Will not pursue further treatment or testing. (3) Stage III chronic kidney disease: Baseline Cr is ~1.1; eGFR 50. - Presented with Cr of 1.4. - Avoid nephrotoxic agents. - Good PO intake, stopped IV fluid - Monitor - Returned to baseline by 08/06. (4) HLD (hyperlipidemia): Lipid panel normal, LDL 54. - Continue atorvastatin 40 mg p.o. nightly. (5) Hypothyroidism: TSH 1.080 this admission - normal. - Continue levothyroxine 50 MCG's p.o. nightly. (6) TIA (transient ischemic attack): Was on ASA/Plavix prior admission for prior stroke and known left carotid occlusion. - Continue DAPT (7) DVT prophylaxis: Heparin BID Dispo: Was authorized for C-C for Thursday, but daughter felt she was not ready. Authorization has at this point. Will need to re-auth on Thursday if able. Subjective Doing well today. No concerns today. Reports no fevers/chills, chest pain, shortness of breath, abdominal pain, nausea, or vomiting. Physical Exam Constitutional: + physical limitations and + frail appearing; not lethargic Eyes: EOM intact bilaterally; no conjunctival abnormality ENMT: external ear and nose normal, oropharynx normal Neck: trachea midline, no thyromegaly normal visual inspection Respiratory: normal respiratory effort, lungs clear to auscultation no respiratory distress Cardiovascular: RRR, no murmur, no edema Gastrointestinal (Abdomen): Inspection/Auscultation: abdomen normal to inspection; abdomen not distended Musculoskeletal: no cyanosis or clubbing, extremities motor strength 5/5 Skin: no rashes, warm and dry Neurologic: moves all extremities and awake Psychiatric: Orientation: alert, oriented x 3, oriented to person and cooperative Results & Data Vital Signs (Past 12 Hours) Vital Signs Temp Pulse Resp BP Pulse Ox 08/07/19 11:00 36.7 C 74 20 116/70 95 08/07/19 07:19 36.7 C 74 16 129/72 95 PG Care Time/CCT Total # of Minutes Spent Total Time Spent with Patient: Total time spent is greater than 50% in coordination of care (as documented) at patient's floor/unit and/or counseling patient: (1) UTI (urinary tract infection) Hematuria presence: without hematuria Urinary tract infection type: site unspecified Qualified Code(s): N39.0 - Urinary tract infection, site not specified (2) HLD (hyperlipidemia) Hyperlipidemia type: unspecified Qualified Code(s): E78.5 - Hyperlipidemia, unspecified
[2019-08-07] MEDS: LEVOTHYROXINE SODIUM 50 MCG TABLET PO SCH (20:59)
[2019-08-07] MEDS: ATORVASTATIN 40 MG TAB PO SCH (20:59)
[2019-08-08] MEDS: CEROVITE ADV FORMULA TAB PO SCH (08:41)
[2019-08-08] MEDS: HEPARIN SOD 5,000 UNIT/0.5 ML VIAL SQ SCH (08:41)
[2019-08-08] MEDS: ASPIRIN 81 MG ECTAB PO SCH (08:41)
[2019-08-08] MEDS: CLOPIDOGREL BISULFATE 75 MG TAB PO SCH (08:41)
[2019-08-08] MEDS: LORATADINE 10 MG TAB PO SCH (08:42)
[2019-08-08] MEDS: PARoxetine HCl 20 MG TAB PO SCH (08:42)
--- NOTE | 2019-08-08 15:37 | Discharge Summary ---
Date of Service August 08, 2019 Admission HPI Per Admitting Provider Chief Complaint: Hallucinations, urinary tract infection and dizziness Primary Care Provider: Eden Whitmore MD Patient is a 84 years old female with past medical history of recurrent urinary tract infection, hypertension, hyperlipidemia, vasculopathy, CKD stage III, hallucinations, who was brought by her family for the second time to the ER today stating that patient is hallucinating at home , she is very confused she talks of bad people and she is not definitely able to take care of herself family states that patient was on antibiotics for urinary tract infection but it did not improve. She will was recently on cefuroxime 500 mg twice daily for 10 days, she was just started on Cipro 500 mg p.o. twice daily but she decided not to take it due to possible side effects and she also takes cranberry capsules patient was also prescribed Bactrim twice daily for 7 days but it is not clear if patient ever took medicine or not. Family is interested to find patient placement. They voiced their concerns that patient alone is not safe at home and at this point both members of the family [id number] and son are working and will not be able to take care of the patient. Patient is poor historian as already represented. She is hallucinating and not able to review any review of systems. She is calm and pleasant but disoriented to time space and person. Labs are reviewed: WBC 7.77, hemoglobin 12.4, hematocrit 39.2 platelets 230, PT 10.3, INR 1, APTT 28.9, sodium 139, potassium 3.6, chloride 110, BUN 34, creatinine 1.39, GFR 35, alkaline phosphatase 188, creatinine kinase 328, magnesium 1.8, lactate 1.7. CT of the head was done yesterday no acute intracranial findings with no calvarial fracture. Chest x-rays no acute cardiopulmonary finding, no acute cervical spine fracture or subluxation. No changes in the old fracture through the anterior arch of the C1 and had CT of August 28, 2018. Decision was made to admit patient to [facility] for dehydration, acute psychosis, with visual hallucinations, urinary tract infection and renal failure. Principal Diagnosis Acute psychosis,delirium, UTI Discharge Exam Constitutional WD/WN, vitals as above Eyes + anicteric sclerae ENMT external ear and nose normal, oropharynx normal Neck trachea midline, no thyromegaly Respiratory normal respiratory effort, lungs clear to auscultation Cardiovascular RRR, no murmur, no edema Gastrointestinal (Abdomen) normal bowel sounds, soft, nontender, no hepatosplenomegaly Musculoskeletal Extremities: extremities normal to inspection; no cyanosis and no clubbing Skin no rashes, warm and dry Neurologic moves all extremities and awake; no focal motor deficits Psychiatric A+Ox3, euthymic affect (able to name months of the year backwards withotu any difficulty) Discharge Data Allergies Allergy/AdvReac Type Severity Reaction Status Date / Time No Known Allergies Allergy Verified 07/31/19 11:09 Consultations 07/31/19 11:20 ED Decision to Admit Stat 08/04/19 12:36 Consult Psychiatry Routine Ordered Studies 08/05/19 17:15 MR brain wo con Routine Hospital Course (1) UTI (urinary tract infection): Urine culture on 07/29 grew resistant Proteus. - On ceftriaxone until 08/06 - Finished course. - Retested urine on 08/05 as below - No growth. (2) Acute encephalopathy: Acute encephalopathy initially with hallucinations and agitation. Per daughter, she dramatically improved over Thursday -> , then overnight on /Thursday she became re-agitated and had further hallucinations. Daughter felt we may be missing a new infection. We spent considerable time discussing why her mother's case was quite difficult. Seen on 08/05 by psychiatry with conservative delirium treatments recommended. - Repeat UA on 08/05 showed no bacteria & culture negative. - Blood cultures from 08/05 are no growth to date. - Brain MRI on 08/05 was stable from a year prior with moderate atrophy and small vessel disease. 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 With old infarcts present like previous - Procalcitonin, CBC, NH3 all normal. CRP elevated at 3. - By 08/06 and again on 08/08, she was 100% at baseline. She was AAOx3, could recite the months of the year backwards, and had normal short & long-term memory. This was resolving delirium from either her UTI or hospital-associated. Will not pursue further treatment or testing. (3) Stage III chronic kidney disease: Baseline Cr is ~1.1; eGFR 50. - Presented with Cr of 1.4. - Avoid nephrotoxic agents. - Good PO intake, stopped IV fluid - Monitor - Returned to baseline by 08/06. (4) HLD (hyperlipidemia): Lipid panel normal, LDL 54. - Continue atorvastatin 40 mg p.o. nightly. (5) Hypothyroidism: TSH 1.080 this admission - normal. - Continue levothyroxine 50 MCG daily (6) TIA (transient ischemic attack): Was on ASA/Plavix prior admission for prior stroke and known left carotid occlusion. - Continue DAPT (7) DVT prophylaxis: Heparin BID SQ was provided Dispo: Needs continued strengthening especially given delirium, deconditioning from hospitalization, and a h/o fused right knee with ambulatory dysfunction -stable for dc to [facility] today Total Time Total Time Spent Total Time Spent (In Minutes): >30 min Total Time Includes: Examination of the Patient, Discharge Planning and Medication Reconciliation Discharge Plan Discharge Items Patient Disposition: Transfer Shelter Fac Reason For Visit: ACUTE PSYCHOSIS,UTI,DEHYDRATION,KIDNEY FAILURE [facility] Discharge Diagnosis: Urinary tract infection,acute kidney failure, psychosis Condition on Discharge: Good Activity: Resume your previous activity Bathing: No limitations Exercise/Sports: Gradually increase as tolerated Non-emergency contact: Primary Care Provider Call non-emergency contact if: you have any medication questions, your symptoms worsen, your pain is not controlled, your pain is worsening, your pain is unusual for you, your pain is concerning for you, you have a fever, your rectal temperature is above 100.4 and your temperature is above 101 Follow-up/Referrals: Eden Whitmore MD [Primary Care Provider] - Diet: Heart Healthy Addtl Attending Provider Instructions: Please follow-up with primary care physician within 1 week. Repeat CBC and CMP. Pending Studies at Discharge: No Stand-Alone Forms: My [facility] Skilled Items Patient informed of condition?: Yes DNR: No Discharge Level of Care: Skilled Communicable Disease: No Discharge Prognosis: Improving Lines: None Urinary Catheter: No Medications and DC Order Prescriptions: New Jasmyne-Sequels (iron-vit c) 200 mg (65 mg iron)-25 mg tablet extended release 1 tab PO DAILY Qty: 30 RF: 0 Continued clopidogrel [Plavix] 75 mg tablet 75 mg PO QAM Qty: 90 RF: 3 aspirin 81 mg tablet,delayed release (DR/EC) 81 mg PO QAM RF: 0 PreserVision AREDS 7,160-113-100 [id number] tablet 1 tab PO BID RF: 0 nystatin 100,000 unit/gram powder 1 appln topical DAILY PRN (Reason: excoriation) RF: 0 cranberry 500 mg capsule 500 mg PO QAM RF: 0 loratadine [Claritin] 10 mg Tablet 10 mg PO QAM RF: 0 paroxetine HCl 20 mg tablet 20 mg PO QAM RF: 0 Joint Health 40-10-5-3.3 mg Tablet 1 tab PO QAM RF: 0 atorvastatin [Lipitor] 40 mg tablet 40 mg PO HS RF: 0 levothyroxine [Synthroid] 50 mcg tablet 50 mcg PO HS RF: 0 omeprazole 20 mg capsule,delayed release(DR/EC) 20 mg PO QAM RF: 0 Discontinued cefuroxime axetil 500 mg tablet 500 mg PO BID 10 Days Qty: 20 RF: 0 sulfamethoxazole-trimethoprim [Bactrim DS] 800-160 mg tablet 1 tab PO BID 7 Days Qty: 14 RF: 0 ciprofloxacin HCl 500 mg tablet 500 mg PO BID Qty: 10 RF: 0 Discharge Orders: Discharge Order (Routine); Ordered 08/08/19 Ordered By: Judy Headley Admission Data Admit Date/Time: 07/31/19 12:12 Attending Provider: Judy Headley Admit Provider: Maribel Welch Primary Care Provider: Eden Whitmore Other Providers: Charis Schneider ; Janet De Paz ; John Garcia
--- NOTE | 2019-08-11 12:13 | Coding Query ---
CODING QUERY To promote full compliance with coding requirements relating to patient care, provider participation is requested in all cases of icd 9 coder uncertainty. Please assist us with the question(s) below: Coding Question: Please clarify the type of Encephalopathy below (if known). Thank you so much for your help! Have a great day! ( x) Metabolic Encephalopathy, POA ( ) Acute Encephalopathy, NOS, POA ( ) Other, explain Thank you! Deborah Mackey Principal Diagnosis: "that condition established after study, to be chiefly responsible for occasioning the admission of the patient to the hospital for care." Co-Existing Principal Diagnosis: "when two or more diagnoses equally meet the criteria for principal diagnosis as determined by the circumstances of admission, diagnostic work up, and/or therapy provided, and the Alphabetic Index, Tabular List, or another coding guideline does not provide sequencing direction, any one of the diagnoses may be sequenced first." "When the physician has documented what appears to be a current diagnosis in the body of the record, but has not included the diagnosis in the final diagnostic statement, the physician should be asked whether the diagnosis should be added." (Source Coding [facility] 2 QTR90. p3-4) CHANA
== END 2019-08-08 17:48 | DRG 689 ==
LOC: ED 10:52 → 2W 12:12 → SUATTDRO 12:12 → 2W 13:00

== ENCOUNTER 2021-02-14 10:53 | Inpatient (IN) ==
[2021-02-14] MEDS ORDERED: CEFEPIME 2,000 MG/20 ML VIAL IV STA (11:34)
--- NOTE | 2021-02-14 11:38 | Emergency Department Note ---
Impression & Plan Altered mental status, Acute pyelonephritis, Acute dehydration, S/P ureteral stent placement ED Provider Note NAME: BENNY BOYLE AGE: 86 SEX: F : 1935 ARRIVES VIA: Ambulance INFORMANT: [family] ED PROVIDER(S): [Arun Oro MD] CHIEF COMPLAINT: Illness HISTORY OF PRESENT ILLNESS: The patient is an 86-year-old female presents to the ED with hallucinations, c onfusion, weakness. The daughter believes the patient may be septic or dehydrated or both. The patient was discharged from [facility] in [place] yesterday after having an overnight stay for lithotripsy. She is currently on oral vancomycin for C. difficile diagnosed several weeks ago. There has been no fall. The patient is too weak really to get out of bed. The daughter has noticed some dark urine and she is concerned about UTI. No reported cough, no reported congestion. No reported vomiting. Patient cannot give any history given her mental state, no further history obta inable. REVIEW OF SYSTEMS: Unobtainable given the mental state. PMHx/PSHx: See Below SOCIAL HISTORY: See Below. PHYSICAL EXAM: GENERAL: Patient is in no acute distress. HEENT: No acute trauma, normocephalic atraumatic, mucous membranes moist, no nasal congestion, no scleral icterus. Pupils equal and reactive to light. NECK: No stridor, no adenopathy, no meningismus, trachea is midline. LUNGS: Clear to auscultation bilaterally, no wheeze, no rhonchi, breath sounds equal. HEART: Mildly tachycardic, irregular rhythm, no murmurs. ABDOMEN: Soft, nontender, bowel sounds positive, no hernias, no peritonitis. EXTREMITIES: No cyanosis or edema, full range of motion of all the joints without pain or difficulty, no signs for acute trauma. NEUROLOGIC: Awake and alert, obviously confused, reaching out for things that are not there. SKIN: No rash, no jaundice, no diaphoresis. DIFFERENTIAL DIAGNOSIS: Infection, sepsis, bacteremia, colitis, diverticulitis, dehydration, metabolic abnormality, hypo/hyperglycemia, electrolyte disturbance, anemia, hypoxia, card iac sources, intracerebral event, toxicologic issues, stroke, TIA, as well as other pathologies. EMERGENCY DEPARTMENT COURSE/PROCEDURES: ECG: Indication was weakness. ECG shows a sinus rhythm with PACs. There is a left bundle branch block. There is no worrisome ST elevation, there are no PVCs. The QTc is 507. Continuous Cardiac Monitoring: An order was placed for continuous cardiac monitoring. The monitor shows a rate of 86 with normal sinus rhythm. MEDICAL DECISION MAKING: There is no leukocytosis or concerning anemia. There is a normal platelet count. No coagulopathy. No significant electrolyte abnormality or kidney failure. Lactic acid level is not elevated making severe sepsis less likely. No worrisome liver enzyme elevation. The patient appeared to be in a euthyroid state. Urinalysis is consistent with infection. Covid testing returned negative. Chest x-ray shows some chronic findings, no pneumonia. Brain CT shows no acute bleed or mass-effect. Abdominal and pelvis CT shows possible pyelonephritis. There is a right ureteral stent in position and there is some right sided hydronephrosis. The patient presents with an altered mental status. She was just at [facility] in [place] for lithotripsy. The patient received IV saline for hydration. She was given IV cefepime as empiric antibiotic coverage. The patient is in need of a hospital stay. Certainly, the urinary infection could explain her altered mental status. Further care and treatment here in the hospital is warranted. I spoke to the patient and case management, I spoke with her daughter. The on-call hospitalist was consulted. Past Med/Surg History Medical History Carotid artery occlusion GERD (gastroesophageal reflux disease) Hallucination, visual HLD (hyperlipidemia) MRSA infection Physical deconditioning Renal calculi Stage III chronic kidney disease JESSIE improved since admission TIA (transient ischemic attack) Vasculopathy Surgical History H/O: hysterectomy History of knee replacement procedure of right knee History of right hip replacement S/P laparoscopic cholecystectomy Family History Mother , age 43 of complications from a motor vehicle accident. No problems noted. Father , age 70 of black lung No problems noted. 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 Beliefs That Will Affect Care: None marital status: Single Current Living Situation: Family Current Living Situation Comment: lives with daughter current occupational status: retired Feels Safe at Home: Yes Childhood Exposure to Second-Hand Smoke: No Dental Care, Regularly: No Physical Activity Frequency: Does not Exercise Seatbelt Use: always Sunscreen Use: No Assistive Devices: Oxygen - Continuous Allergies Allergies Allergy/AdvReac Type Severity Reaction Status Date / Time oxycodone AdvReac Severe confusion/ Verified 02/14/21 17:07 "Gets Mean" Home Meds Home Medications Medication Instructions Recorded Confirmed loratadine [Claritin] 10 mg PO QAM 08/25/18 02/14/21 aspirin 81 mg tablet,delayed 81 mg PO QAM tab 04/22/19 02/14/21 release cranberry 500 mg capsule 500 mg PO QAM cap 05/25/19 02/14/21 aiplxxese-clksvetk-hmj-hyalur 1 tab PO QAM 08/16/20 02/14/21 [Joint Health] ipratropium-albuterol [Combivent 1 puff INHALATION QAM 08/16/20 02/14/21 Respimat] tramadol 50 mg PO Q6 PRN 08/16/20 02/14/21 vit C,V-Ze-yhqyp-lutein-zeaxan 1 cap PO BID 08/16/20 02/14/21 [PreserVision AREDS-2] nystatin 1 applic TOPICAL BID PRN 02/14/21 02/14/21 omeprazole 20 mg PO QAM 02/14/21 02/14/21 paroxetine HCl 20 mg PO QAM 02/14/21 02/14/21 trazodone 50 mg PO HS 02/14/21 02/14/21 Previous Rx's Medication Instructions Recorded Lift Chair #1 ea 11/10/19 levothyroxine 50 mcg tablet 50 mcg PO HS #30 tab 09/07/20 Wheelchair (Manual or Powered) #1 ea 12/05/20 disposable gloves #1000 ea 12/05/20 atorvastatin 40 mg tablet 40 mg PO HS #30 tab 12/13/20 clopidogrel 75 mg tablet 75 mg PO QAM #90 tab 02/14/21 Results & Data (ED) Vital Signs Vital Signs - 24 hr 02/14/21 11:00 02/14/21 11:03 02/14/21 11:08 Temperature 36.5 C Temperature Source Oral Pulse Rate 84 97 H 86 Pulse Rate from SpO2 Sensor Respiratory Rate 18 14 16 Respiratory Effort / Characteristics Blood Pressure 125/70 125/70 Blood Pressure Mean 88 88 Pulse Oximetry 95 Oxygen Delivery Method Room Air Sepsis Recent Fever Within 48 Hours No Sepsis New/Unexplained Change in Mental Status Yes Sepsis Action Taken by Nursing No Action Required 02/14/21 11:30 02/14/21 12:00 02/14/21 12:13 Temperature Temperature Source Pulse Rate 97 H 89 81 Pulse Rate from SpO2 Sensor Respiratory Rate 25 H 18 15 Respiratory Effort / Characteristics Blood Pressure 122/81 Blood Pressure Mean 94 Pulse Oximetry Oxygen Delivery Method Sepsis Recent Fever Within 48 Hours Sepsis New/Unexplained Change in Mental Status Sepsis Action Taken by Nursing 02/14/21 12:30 02/14/21 12:31 02/14/21 12:33 Temperature Temperature Source Pulse Rate 103 H 96 H Pulse Rate from SpO2 Sensor Respiratory Rate 21 17 16 Respiratory Effort / Characteristics Non-Labored Spontaneous Blood Pressure 135/73 Blood Pressure Mean 93 Pulse Oximetry 92 Oxygen Delivery Method Room Air Sepsis Recent Fever Within 48 Hours Sepsis New/Unexplained Change in Mental Status Sepsis Action Taken by Nursing 02/14/21 13:14 02/14/21 13:17 02/14/21 13:30 Temperature Temperature Source Pulse Rate 89 92 H 88 Pulse Rate from SpO2 Sensor Respiratory Rate 20 15 19 Respiratory Effort / Characteristics Blood Pressure 133/73 Blood Pressure Mean 93 Pulse Oximetry 100 Oxygen Delivery Method Sepsis Recent Fever Within 48 Hours Sepsis New/Unexplained Change in Mental Status Sepsis Action Taken by Nursing 02/14/21 13:31 02/14/21 13:32 02/14/21 14:00 Temperature Temperature Source Pulse Rate 83 86 91 H Pulse Rate from SpO2 Sensor Respiratory Rate 14 19 20 Respiratory Effort / Characteristics Blood Pressure 127/67 Blood Pressure Mean 87 Pulse Oximetry Oxygen Delivery Method Sepsis Recent Fever Within 48 Hours Sepsis New/Unexplained Change in Mental Status Sepsis Action Taken by Nursing 02/14/21 14:02 02/14/21 14:03 02/14/21 14:30 Temperature Temperature Source Pulse Rate 94 H 85 82 Pulse Rate from SpO2 Sensor Respiratory Rate 22 14 19 Respiratory Effort / Characteristics Blood Pressure 155/104 H Blood Pressure Mean 121 Pulse Oximetry Oxygen Delivery Method Sepsis Recent Fever Within 48 Hours Sepsis New/Unexplained Change in Mental Status Sepsis Action Taken by Nursing 02/14/21 14:31 02/14/21 14:40 02/14/21 15:00 Temperature Temperature Source Pulse Rate 118 H 86 Pulse Rate from SpO2 Sensor 78 Respiratory Rate 24 22 19 Respiratory Effort / Characteristics Non-Labored Blood Pressure Blood Pressure Mean Pulse Oximetry 87 L Oxygen Delivery Method Sepsis Recent Fever Within 48 Hours Sepsis New/Unexplained Change in Mental Status Sepsis Action Taken by Nursing 02/14/21 15:01 Temperature Temperature Source Pulse Rate 93 H Pulse Rate from SpO2 Sensor 83 Respiratory Rate 16 Respiratory Effort / Characteristics Blood Pressure 139/35 L Blood Pressure Mean 69 Pulse Oximetry 94 Oxygen Delivery Method Sepsis Recent Fever Within 48 Hours Sepsis New/Unexplained Change in Mental Status Sepsis Action Taken by Longterm Medications Current Medication List: was personally reviewed by me Laboratory Data Attestation: I reviewed the patient's lab results. Result diagrams: 02/14/21 11:44 02/14/21 11:44 Lab Results 02/14/21 02/14/21 02/14/21 Range/Units 11:38 11:38 11:44 WBC 8.69 (4.8-10.8) K/uL RBC 4.08 L (4.2-5.4) M/uL Hgb 11.9 L (12.0-16.0) g/dL Hct 38.6 (37-47) % MCV 94.6 (80-100) fL MCH 29.2 (25-34) pg MCHC 30.8 L (32-36) g/dL RDW Std Deviation 51.3 H (36.4-46.3) fL RDW Coeff of Ravinder 14.9 H (11.5-14.5) % Plt Count 304 (130-400) K/uL MPV 9.1 (7.4-10.4) fL Immature Gran % (Auto) 0.1 % Neut % (Auto) 61.4 % Lymph % (Auto) 28.2 % [place] % (Auto) 9.2 % Eos % (Auto) 0.8 % Baso % (Auto) 0.3 % Neut # (Auto) 5.33 (1.4-6.5) K/uL Lymph # (Auto) 2.45 (1.2-3.4) K/uL [place] # (Auto) 0.80 H (0.11-0.59) K/uL Eos # (Auto) 0.07 (0-0.5) K/uL Baso # (Auto) 0.03 (0-0.2) K/uL Immature Gran # (Auto) 0.01 (0.00-0.02) K/uL PT (9.0-12.0) Seconds INR (0.9-1.1) APTT (21.0-31.0) Seconds PTT Ratio Sodium (136-145) mmol/L Potassium (3.5-5.1) mmol/L Chloride (98-107) mmol/L Carbon Dioxide (21-32) mmol/L Anion Gap (3-11) BUN (7-18) mg/dl Creatinine (0.6-1.2) mg/dl Est Cr Clr Drug Dosing ml/min Est GFR ( Amer) ml/min Est GFR (Non-Af Amer) ml/min BUN/Creatinine Ratio (10-20) Glucose (70-99) mg/dl Lactate (0.4-2.0) mmol/L Calcium (8.5-10.1) mg/dl Magnesium (1.8-2.4) mg/dl Total Bilirubin (0.2-1) mg/dl AST (15-37) U/L ALT (12-78) U/L Alkaline Phosphatase (45-117) U/L Troponin I (0-0.045) ng/ml Total Protein (6.4-8.2) gm/dl Albumin (3.4-5.0) gm/dl Globulin (2.5-4.0) gm/dl Albumin/Globulin Ratio (0.9-2) Procalcitonin (0-0.5) ng/ml TSH (0.300-4.500) uIu/ml Urine Color Urine Appearance (Clear) Urine pH (4.5-7.5) Ur Specific [place] (1.000-1.030) Urine Protein (Negative) Urine Glucose (UA) (Negative) Urine Ketones (Negative) Urine Blood (Negative) Urine Nitrite (Negative) Urine Bilirubin (Negative) Urine Urobilinogen (Negative) Ur Leukocyte Esterase (Negative) Urine WBC (Auto) (0-5) /hpf Urine RBC (Auto) (0-4) /hpf U Hyaline Cast (Auto) (0-5) /lpf U Epithel Cells (Auto) (0-5) /lpf Urine Bacteria (Auto) (Negative) Ur Renal Epithelial Cell (0-5) /lpf Urine Yeast COVID-19 Eval Order Covid19 at [facility] SARS-CoV-2 (PCR) NEGATIVE (Negative) 02/14/21 02/14/21 02/14/21 Range/Units 11:44 11:44 11:44 WBC (4.8-10.8) K/uL RBC (4.2-5.4) M/uL Hgb (12.0-16.0) g/dL Hct (37-47) % MCV (80-100) fL MCH (25-34) pg MCHC (32-36) g/dL RDW Std Deviation (36.4-46.3) fL RDW Coeff of Ravinder (11.5-14.5) % Plt Count (130-400) K/uL MPV (7.4-10.4) fL Immature Gran % (Auto) % Neut % (Auto) % Lymph % (Auto) % [place] % (Auto) % Eos % (Auto) % Baso % (Auto) % Neut # (Auto) (1.4-6.5) K/uL Lymph # (Auto) (1.2-3.4) K/uL [place] # (Auto) (0.11-0.59) K/uL Eos # (Auto) (0-0.5) K/uL Baso # (Auto) (0-0.2) K/uL Immature Gran # (Auto) (0.00-0.02) K/uL PT 11.8 (9.0-12.0) Seconds INR 1.2 H (0.9-1.1) APTT 28.4 (21.0-31.0) Seconds PTT Ratio 1.1 Sodium 139 (136-145) mmol/L Potassium 4.0 (3.5-5.1) mmol/L Chloride 107 (98-107) mmol/L Carbon Dioxide 27 (21-32) mmol/L Anion Gap 6.0 (3-11) BUN 16 (7-18) mg/dl Creatinine 1.17 (0.6-1.2) mg/dl Est Cr Clr Drug Dosing 34.8 ml/min Est GFR ( Amer) 49.2 ml/min Est GFR (Non-Af Amer) 42.5 ml/min BUN/Creatinine Ratio 13.8 (10-20) Glucose 85 (70-99) mg/dl Lactate 1.0 (0.4-2.0) mmol/L Calcium 9.1 (8.5-10.1) mg/dl Magnesium 2.0 (1.8-2.4) mg/dl Total Bilirubin 0.5 (0.2-1) mg/dl AST 32 (15-37) U/L ALT 27 (12-78) U/L Alkaline Phosphatase 133 H (45-117) U/L Troponin I < 0.015 (0-0.045) ng/ml Total Protein 8.2 (6.4-8.2) gm/dl Albumin 3.2 L (3.4-5.0) gm/dl Globulin 5.0 H (2.5-4.0) gm/dl Albumin/Globulin Ratio 0.6 L (0.9-2) Procalcitonin (0-0.5) ng/ml TSH 0.726 (0.300-4.500) uIu/ml Urine Color Urine Appearance (Clear) Urine pH (4.5-7.5) Ur Specific [place] (1.000-1.030) Urine Protein (Negative) Urine Glucose (UA) (Negative) Urine Ketones (Negative) Urine Blood (Negative) Urine Nitrite (Negative) Urine Bilirubin (Negative) Urine Urobilinogen (Negative) Ur Leukocyte Esterase (Negative) Urine WBC (Auto) (0-5) /hpf Urine RBC (Auto) (0-4) /hpf U Hyaline Cast (Auto) (0-5) /lpf U Epithel Cells (Auto) (0-5) /lpf Urine Bacteria (Auto) (Negative) Ur Renal Epithelial Cell (0-5) /lpf Urine Yeast COVID-19 Eval Order SARS-CoV-2 (PCR) (Negative) 02/14/21 02/14/21 Range/Units 11:44 12:25 WBC (4.8-10.8) K/uL RBC (4.2-5.4) M/uL Hgb (12.0-16.0) g/dL Hct (37-47) % MCV (80-100) fL MCH (25-34) pg MCHC (32-36) g/dL RDW Std Deviation (36.4-46.3) fL RDW Coeff of Ravinder (11.5-14.5) % Plt Count (130-400) K/uL MPV (7.4-10.4) fL Immature Gran % (Auto) % Neut % (Auto) % Lymph % (Auto) % [place] % (Auto) % Eos % (Auto) % Baso % (Auto) % Neut # (Auto) (1.4-6.5) K/uL Lymph # (Auto) (1.2-3.4) K/uL [place] # (Auto) (0.11-0.59) K/uL Eos # (Auto) (0-0.5) K/uL Baso # (Auto) (0-0.2) K/uL Immature Gran # (Auto) (0.00-0.02) K/uL PT (9.0-12.0) Seconds INR (0.9-1.1) APTT (21.0-31.0) Seconds PTT Ratio Sodium (136-145) mmol/L Potassium (3.5-5.1) mmol/L Chloride (98-107) mmol/L Carbon Dioxide (21-32) mmol/L Anion Gap (3-11) BUN (7-18) mg/dl Creatinine (0.6-1.2) mg/dl Est Cr Clr Drug Dosing ml/min Est GFR ( Amer) ml/min Est GFR (Non-Af Amer) ml/min BUN/Creatinine Ratio (10-20) Glucose (70-99) mg/dl Lactate (0.4-2.0) mmol/L Calcium (8.5-10.1) mg/dl Magnesium (1.8-2.4) mg/dl Total Bilirubin (0.2-1) mg/dl AST (15-37) U/L ALT (12-78) U/L Alkaline Phosphatase (45-117) U/L Troponin I (0-0.045) ng/ml Total Protein (6.4-8.2) gm/dl Albumin (3.4-5.0) gm/dl Globulin (2.5-4.0) gm/dl Albumin/Globulin Ratio (0.9-2) Procalcitonin < 0.05 (0-0.5) ng/ml TSH (0.300-4.500) uIu/ml Urine Color [place] Urine Appearance Cloudy A (Clear) Urine pH 6.5 (4.5-7.5) Ur Specific [place] 1.013 (1.000-1.030) Urine Protein 2+ H (Negative) Urine Glucose (UA) Negative (Negative) Urine Ketones Trace H (Negative) Urine Blood 3+ H (Negative) Urine Nitrite Negative (Negative) Urine Bilirubin Negative (Negative) Urine Urobilinogen Negative (Negative) Ur Leukocyte Esterase 3+ H (Negative) Urine WBC (Auto) >30 H (0-5) /hpf Urine RBC (Auto) 10-30 H (0-4) /hpf U Hyaline Cast (Auto) 0 (0-5) /lpf U Epithel Cells (Auto) 10-20 H (0-5) /lpf Urine Bacteria (Auto) Negative (Negative) Ur Renal Epithelial Cell 0-5 (0-5) /lpf Urine Yeast Not Reportable COVID-19 Eval Order SARS-CoV-2 (PCR) (Negative) Administered Medications Sodium Chloride (Nss 1000ml) 1,000 mls @ 80 mls/hr IV .[id number] VILMA Stop: 02/15/21 17:49 Last Admin: 02/14/21 17:52 Dose: 80 mls/hr Documented by: [id number] Discontinued Medications Sodium Chloride (Nss 1000ml) 1,000 mls @ 999 mls/hr IV .[id number] VILMA Stop: 02/14/21 12:45 Last Infusion: 02/14/21 13:12 Dose: 0 mls/hr Documented by: [id number] Admin: 02/14/21 11:49 Dose: 999 mls/hr Documented by: [id number] Cefepime HCl (Maxipime) 2,000 mg in 20 mls @ 5 mls/min IV NOW STA; Protocol Stop: 02/14/21 11:37 Last Admin: 02/14/21 12:07 Dose: 5 mls/min Documented by: [id number] Ioversol (Optiray 300 100ml) 90 ml IV ONCE ONE Stop: 02/14/21 13:11 Last Admin: 02/14/21 13:11 Dose: 90 ml Documented by: [id number] Imaging Data Radiologist's Impression: Abdomen/Pelvis CT 02/14/21 11:34 CT OF THE ABDOMEN AND PELVIS WITH CONTRAST CLINICAL HISTORY: poss colitis, divertic COMPARISON STUDY: Pelvis radiograph July 30, 2019. TECHNIQUE: Following IV administration of 90 mL of Optiray, axial images of the abdomen and pelvis were obtained from the lung bases to the proximal femurs. Images were reviewed in the axial, sagittal, and coronal planes. IV contrast was administered without complication. Automated exposure control was utilized for the study. A dose lowering technique was utilized adhering to the principles of ALARA. CT DOSE: 3044.72 mGy.cm FINDINGS: Moderate cardiomegaly is noted. There is coronary calcification and mitral annular calcification. Small hiatal hernia is present. This exam is compromised by motion artifact. Endovascular coils within the expected location of the gastroduodenal artery are noted. Right hip arthroplasty is partially imaged. Biliary ductal dilatation is likely related to cholecystectomy. The spleen, adrenal glands, left kidney and pancreas are unremarkable. Several left renal lesions favor cysts. A few right renal cysts are present. Marked right juventino al atrophy is noted. There is a 1 cm focus of gas within a right renal calyx. Mild to moderate right hydronephrosis is present. Right-sided urothelial thickening is noted, involving the right collecting system and ureter. There is mild adjacent infiltration. Multiple suspected right renal calculi are noted. There are calculi within the right renal pelvis. Less likely, this could reflect excreted contrast. No ureteral calculi are identified. Right ureteral stent is in place. There is no left hydronephrosis. There is no evidence for a bowel obstruction. No ascites is present. No acute fracture or suspicious lesion is identified within the visualized skeletal structures. IMPRESSION: 1. Right ureteral stent in place. Mild to moderate right hydronephrosis with urothelial thickening involving the right collecting system and right ureter. Th is raises the possibility of an infectious process such as pyelitis. Gas within a right renal calyx could be due to instrumentation or a gas-forming infectious process. Marked right renal atrophy. 2. Multiple suspected right renal calculi as well as calculi within the right renal pelvis. Less likely, this could reflect excreted contrast. No ureteral calculi identified. Exam compromised by motion artifact. 3. Biliary ductal dilatation likely related to cholecystectomy. ACT 112: Negative or not required by law. Electronically signed by: Varun Courtney M.D. 02/14/2021 1:49 PM Chest X-Ray 02/14/21 11:34 XR chest 1V portable HISTORY: 86 years-old Female SEPSIS acute sepsis COMPARISON: Chest radiograph 08/16/2020 TECHNIQUE: Portable AP view the chest FINDINGS: Cardiomediastinal and hilar silhouettes are unchanged. The patient is slightly rotated. Dense calcifications of the mitral annulus. Unchanged right hemidiaphragmatic elevation. Mild bibasilar densities. No pneumothorax, large pleural effusion or overt pulmonary edema. Degenerative changes of the shoulders and spine. Radiodensities project over the abdominal right upper quadrant. IMPRESSION: 1. Cardiomegaly without pulmonary edema. 2. Chronic right hemidiaphragmatic elevation with similar appearing bibasilar opacities suggestive of atelectasis. Pneumonia considered less likely. ACT 112: Negative or not required by law. The above report was generated using voice recognition software. It may contain grammatical, syntax or spelling errors. Electronically signed by: Sher Liu M.D. 02/14/2021 11:[address] 02/14/21 11:34 CT SCAN OF THE BRAIN WITHOUT IV CONTRAST CLINICAL HISTORY: Change in mental status. COMPARISON STUDY: CT of the brain dated 07/30/2019. TECHNIQUE: Unenhanced axial CT scan of the brain is performed from the vertex to the skull base. A dose lowering technique was utilized adhering to the principles of ALARA. Examination is compromised by motion artifact. The patient was scanned 3 times in an effort to improve image quality. FINDINGS: Brain parenchyma: There is age-related involutional change noting moderate subcortical and periventricular microangiopathic change. There is no hemorrhage, mass effect, or evidence of acute territorial ischemia by CT criteria. A chronic lacunar infarct is noted in the right thalamus. Boles-white matter differentiation is preserved. No extra-axial fluid collection is seen. Ventricles, sulci, cisterns: Prominent secondary to involutional change. Intracranial vasculature: There is atherosclerotic calcification of the cavernous carotid and vertebral arteries. Calvarium: Unremarkable. Sinuses and mastoids: The paranasal sinuses are clear. The mastoid air cells are well pneumatized. Orbits: The bony orbits are grossly intact. There are bilateral ocular lens implants. IMPRESSION: There is no hemorrhage, mass effect, or evidence of acute territorial ischemia by CT criteria noting a motion compromised examination. ACT 112: Negative or not required by law. Electronically signed by: Arun Jackson M.D. 02/14/2021 1:23 PM Discharge Plan Visit Data Chief Complaint: Illness Stated Complaint: AMS ED Provider: Arun Oro Discharge Problem: Altered mental status, Acute pyelonephritis, Acute dehydration, S/P ureteral stent placement Patient Disposition: Admitted As Inpatient Condition: Fair Discharge Instructions Interventions: ED Discharge Assessment Last Done: 02/14/21 16:36 Discharge Problem: Altered mental status Qualifiers: Altered mental status type: disorientation Qualified Code(s): R41.0 - Disorientation, unspecified
[2021-02-14] MEDS ORDERED: SODIUM CHLORIDE 0.9% 1000ML 1,000 ML IV SCH (11:45)
--- NOTE | 2021-02-14 11:57 | XRay Report ---
XR chest 1V portable HISTORY: 86 years-old Female SEPSIS acute sepsis COMPARISON: Chest radiograph 08/16/2020 TECHNIQUE: Portable AP view the chest FINDINGS: Cardiomediastinal and hilar silhouettes are unchanged. The patient is slightly rotated. Dense calcifi cations of the mitral annulus. Unchanged right hemidiaphragmatic elevation. Mild bibasilar densities. No pneumothorax, large pleural effusion or overt pulmonary edema. Degenerative changes of the should ers and spine. Radiodensities project over the abdominal right upper quadrant. IMPRESSION: 1. Cardiomegaly without pulmonary edema. 2. Chronic right hemidiaphragmatic elevation with similar appearing bibasilar opacities suggestive of atelectasis. Pneumonia considered less likely. ACT 112: Negative or not required by law. The above report was generated using voice recognition software. It may contain grammatical, syntax o r spelling errors. Electronically signed by: Sher Liu M.D. 02/14/2021 11:56 AM
[2021-02-14 12:10] LABS: Basophils # (auto) 0.03 K/uL (0-0.2); Basophils % (auto) 0.3 %; Eosinophils # (auto) 0.07 K/uL (0-0.5); Eosinophils % (auto) 0.8 %; Hematocrit (blood only) 38.6 % (37-47); Hemoglobin 11.9 g/dL (12.0-16.0); Immature Granulocytes # (auto) 0.01 K/uL (0.00-0.02); Immature Granulocytes % (auto) 0.1 %; Lymphocytes # (auto) 2.45 K/uL (1.2-3.4); Lymphocytes % (auto) 28.2 %; Mean Corpuscular Hemoglobin 29.2 pg (25-34); Mean Corpuscular Hgb Conc 30.8 g/dL (32-36); Mean Corpuscular Volume 94.6 fL (80-100); Mean Platelet Volume 9.1 fL (7.4-10.4); Monocytes % (auto) 9.2 %; Neutrophils # (auto) 5.33 K/uL (1.4-6.5); Neutrophils % (auto) 61.4 %; Platelet Count 304 K/uL (130-400); RDW Coefficient of Variation 14.9 % (11.5-14.5); RDW Standard Deviation 51.3 fL (36.4-46.3); Red Blood Count 4.08 M/uL (4.2-5.4); White Blood Count 8.69 K/uL (4.8-10.8)
[2021-02-14 12:17] LABS: INR 1.2 (0.9-1.1); Partial Thromboplastin Ratio 1.1; Partial Thromboplastin Time 28.4 Seconds (21.0-31.0); Prothrombin Time 11.8 Seconds (9.0-12.0)
[2021-02-14 12:27] LABS: Alanine Aminotransferase 27 U/L (12-78); Albumin Level 3.2 gm/dl (3.4-5.0); Aspartate Aminotransferase 32 U/L (15-37); BUN Creatinine Ratio 13.8 (10-20); Blood Urea Nitrogen 16 mg/dl (7-18); Calcium 9.1 mg/dl (8.5-10.1); Carbon Dioxide 27 mmol/L (21-32); Chloride 107 mmol/L (98-107); Creatinine Clr Calc Pharmacy 34.8 ml/min; Est GFR (African American) 49.2 ml/min; Est GFR (Non-African American) 42.5 ml/min; Glucose 85 mg/dl (70-99); Sodium 139 mmol/L (136-145)
[2021-02-14 12:38] LABS: Albumin Globulin Ratio 0.6 (0.9-2); Alkaline Phosphatase 133 U/L (45-117); Bilirubin,Total 0.5 mg/dl (0.2-1); Thyroid Stimulating Hormone 0.726 uIu/ml (0.300-4.500); Total Protein 8.2 gm/dl (6.4-8.2); Troponin I < 0.015 ng/ml (0-0.045)
[2021-02-14 12:42] LABS: Appearance Urine Cloudy (Clear); Bacteria Urine Automated Negative (Negative); Bilirubin Urine Negative (Negative); Blood Urine 3+ (Negative); Cast Urine Automated 0 /lpf (0-5); Color Urine Orange; Glucose Urine UA Negative (Negative); Ketones Urine Trace (Negative); Leukocyte Esterase Urine 3+ (Negative); Nitrite Urine Negative (Negative); Protein Urine 2+ (Negative); Specific Gravity Urine 1.013 (1.000-1.030); Urobilinogen Urine Negative (Negative); WBC Urine Automated >30 /hpf (0-5); pH Urine 6.5 (4.5-7.5)
[2021-02-14 13:01] LABS: Renal Epithelial Cells Urine 0-5 /lpf (0-5)
[2021-02-14] MEDS ORDERED: OPTIRAY 300 100mL IV ONE (13:10)
--- NOTE | 2021-02-14 13:25 | CT Scan Report ---
CT SCAN OF THE BRAIN WITHOUT IV CONTRAST CLINICAL HISTORY: Change in mental status. COMPARISON STUDY: CT of the brain dated 07/30/2019. TECHNIQUE: Unenhanced axial CT scan of the brain is performed from the vertex to the skull base. A do se lowering technique was utilized adhering to the principles of ALARA. Examination is compromised by motion artifact. The patient was scanned 3 times in an effort to improve image quality. FINDINGS: Brain parenchyma: There is age-related involutional change noting moderate subcortical and periventri cular microangiopathic change. There is no hemorrhage, mass effect, or evidence of acute territorial ischemia by CT criteria. A chronic lacunar infarct is noted in the right thalamus. Boles-white matter differentiation is preserved. No extra-axial fluid collection is seen. Ventricles, sulci, cisterns: Prominent secondary to involutional change. Intracranial vasculature: There is atherosclerotic calcification of the cavernous carotid and vertebr al arteries. Calvarium: Unremarkable. Sinuses and mastoids: The paranasal sinuses are clear. The mastoid air cells are well pneumatized. Orbits: The bony orbits are grossly intact. There are bilateral ocular lens implants. IMPRESSION: There is no hemorrhage, mass effect, or evidence of acute territorial ischemia by CT mariet mimi noting a motion compromised examination. ACT 112: Negative or not required by law. Electronically signed by: Arun Jackson M.D. 02/14/2021 1:23 PM
--- NOTE | 2021-02-14 13:50 | CT Scan Report ---
CT OF THE ABDOMEN AND PELVIS WITH CONTRAST CLINICAL HISTORY: poss colitis, divertic COMPARISON STUDY: Pelvis radiograph July 30, 2019. TECHNIQUE: Following IV administration of 90 mL of Optiray, axial images of the abdomen and pelvis we re obtained from the lung bases to the proximal femurs. Images were reviewed in the axial, sagittal, and coronal planes. IV contrast was administered without complication. Automated exposure control wa s utilized for the study. A dose lowering technique was utilized adhering to the principles of ALARA . CT DOSE: 3044.72 mGy.cm FINDINGS: Moderate cardiomegaly is noted. There is coronary calcification and mitral annular calcific ation. Small hiatal hernia is present. This exam is compromised by motion artifact. Endovascular coil s within the expected location of the gastroduodenal artery are noted. Right hip arthroplasty is part ially imaged. Biliary ductal dilatation is likely related to cholecystectomy. The spleen, adrenal gla nds, left kidney and pancreas are unremarkable. Several left renal lesions favor cysts. A few right r enal cysts are present. Marked right renal atrophy is noted. There is a 1 cm focus of gas within a ri ght renal calyx. Mild to moderate right hydronephrosis is present. Right-sided urothelial thickening is noted, involving the right collecting system and ureter. There is mild adjacent infiltration. Mult iple suspected right renal calculi are noted. There are calculi within the right renal pelvis. Less l ikely, this could reflect excreted contrast. No ureteral calculi are identified. Right ureteral stent is in place. There is no left hydronephrosis. There is no evidence for a bowel obstruction. No ascit es is present. No acute fracture or suspicious lesion is identified within the visualized skeletal st ructures. IMPRESSION: 1. Right ureteral stent in place. Mild to moderate right hydronephrosis with urothelial thickening in volving the right collecting system and right ureter. This raises the possibility of an infectious pr ocess such as pyelitis. Gas within a right renal calyx could be due to instrumentation or a gas-formi ng infectious process. Marked right renal atrophy. 2. Multiple suspected right renal calculi as well as calculi within the right renal pelvis. Less like ly, this could reflect excreted contrast. No ureteral calculi identified. Exam compromised by motion artifact. 3. Biliary ductal dilatation likely related to cholecystectomy. ACT 112: Negative or not required by law. Electronically signed by: Varun Courtney M.D. 02/14/2021 1:49 PM
--- NOTE | 2021-02-14 15:05 | History & Physical Report ---
Date of Service February 14, 2021 Assessment & Plan (1) UTI (urinary tract infection): Mrs. Kwok is an 86-year-old female with a history of a Chronic LBBB, Hypothyroidism, DJD, Carotid Artery Occlusion, TIA, GERD, Hyperlipidemia, Stage 3 CKD, Vasculopathy, and Recurrent Nephrolithiasis who underwent a Right Ureteral Stent in November 2020 -- who presents today with Altered Mental Status, suspected UTI, Right Ureteral Stent, Generalized Weakness, and Physical Deconditioning. Patient was just discharged from [facility] yesterday after undergoing lithotripsy. Normally the patient can stand up on her own (even though she has a fused right knee) and she can normally walk short distances. However the patient is so weak at this point, she cannot even stand up any more. Patient has been acting confused, seeing things that are not there, and sometimes is coherent, and other time she is not. She was being evaluated by home health this morning, and patient was noticeably weak (3 people could not help her to stand up) and patient had a fever. Her daughter brought her here to evaluate for sepsis, urinary tract infection, or dehydration. The the daughter is hoping that we can get patient in a rehabilitation facility after this hospitalization to regain her strength. The patient has not had any vomiting or diarrhea (although she is on vancomycin for C diff). She has not had any labored breathing to her daughter's knowledge. Patient's daughter denies any focal neurologic deficits such as a weak arm or a weak leg. Mother has not exhibited any slurred speech and has not complained of any headaches or stiff neck. 1. Admit to Med-Surg. 2. Blood cultures x 2 and urine culture specimens collected in the ER. 3. Patient has had Proteus mirabilis grow in her urine frequently in the past. 4. Begin Cefepime 1 g IV q 8 hours. 5. IVF's. 6. Diet as tolerated. 7. Supportive measures. 8. DVT prophylaxis has been addressed. (2) Nephrolithiasis: Patient has a right ureteral stent and underwent lithotripsy at [facility] 2 days ago. Still has renal stones and CT Scan shows mild to moderate right hydronephrosis with urothelial thickening involving the right collecting system and right ureter which raises the possibility of an infectious process such as pyelitis. Gas within a right renal calyx could be due to instrumentation or a gas-forming infectious process. -- Antibiotics as above. -- Consult Urology. (3) Altered mental status: -- Most likely secondary to acute illness. -- Manage acute illness as outlined above, continue to monitor mental status. (4) Physical deconditioning: Patient was markedly weak (3 people could not help her to stand up) and patient had a fever. Normally the patient can stand up on her own (even though she has a fused right knee) and she can normally walk short distances. The patient is usually just a normal person who does not hallucinate, see things, or someone who speaks incoherently -- and last time her daughter feels like her mother was normal was back in the late Fall/early Winter 2019. The the daughter is hoping that we can get patient in a rehabilitation facility after this hospitalization to regain her strength. -- Case management consulted. -- Will need PT/OT evaluations. History of Present Illness Chief Complaint: -- Confusion, Hallucinations, Weakness. Primary Care Provider: Eden Whitmore MD Mrs. Kwok is an 86-year-old female with a history of a Chronic LBBB, Hypothyroidism, DJD, Carotid Artery Occlusion, TIA, GERD, Hyperlipidemia, Stage 3 CKD, Vasculopathy, and Recurrent Nephrolithiasis who underwent a Right Urete ral Stent in November 2020 at [facility]. She was just discharged from [facility] yesterday after undergoing lithotripsy. It appears she has been hospitalized both at [facility] and [facility] over the past couple of months on a relatively frequent basis -- and most of her visits have been related to her kidney stones, urinary tract infection, or change in mental status. At this point, the patient's daughter can no longer take care of her at home. Normally the patient can stand up on her own (even though she has a fused right knee) and she can normally walk short distances. However the patient is so weak at this point, she cannot even stand up any more. Patient has been acting confused, seeing things that are not there, and sometimes is coherent, and other time she is not. She was being evaluated by home health this morning, and patient was noticeably weak (3 people could not help her to stand up) and patient had a fever. Her daughter brought her here to evaluate for sepsis, urinary tract infection, or dehydration. The the daughter is hoping that we can get patient in a rehabilitation facility after this hospitalization to regain her strength. Patient is not a reliable historian. Daughter answers most of the questions. The patient has not had any vomiting or diarrhea (although she is on vancomycin for C diff). She has not had any labored breathing to her daughter's knowledge. She denies any focal neurologic deficits such as a week or more weak leg. Mother has not exhibited any slurred speech and has not complained of any headaches or stiff neck. According to the patient's daughter (whom the patient lives with) the patient is usually just a normal person who does not hallucinate, see things, or someone who speaks incoherently -- and last time her daughter feels like her mother was normal was back in the late Fall/early Winter 2019. Allergies Allergy/AdvReac Type Severity Reaction Status Date / Time oxycodone AdvReac Severe confusion/ Unverified 02/14/21 11:59 "Gets Mean" Home Medications Medication Instructions Recorded Confirmed Type loratadine [Claritin] 10 mg PO QAM 08/25/18 02/14/21 History aspirin 81 mg tablet,delayed 81 mg PO QAM tab 04/22/19 02/14/21 History release cranberry 500 mg capsule 500 mg PO QAM cap 05/25/19 02/14/21 History Lift Chair #1 ea 11/10/19 12/05/20 Rx gwdcutshl-jowbbwav-uxp-hyalur 1 tab PO QAM 08/16/20 02/14/21 History [Joint Health] ipratropium-albuterol [Combivent 1 puff INHALATION QAM 08/16/20 02/14/21 History Respimat] tramadol 50 mg PO Q6 PRN 08/16/20 02/14/21 History vit C,S-Fw-lssnk-lutein-zeaxan 1 cap PO BID 08/16/20 02/14/21 History [PreserVision AREDS-2] levothyroxine 50 mcg tablet 50 mcg PO HS #30 tab 09/07/20 02/14/21 Rx Wheelchair (Manual or Powered) #1 ea 12/05/20 12/05/20 Rx disposable gloves #1000 ea 12/05/20 12/05/20 Rx atorvastatin 40 mg tablet 40 mg PO HS #30 tab 12/13/20 02/14/21 Rx clopidogrel 75 mg tablet 75 mg PO QAM #90 tab 02/14/21 02/14/21 Rx nystatin 1 applic TOPICAL BID PRN 02/14/21 02/14/21 History omeprazole 20 mg PO QAM 02/14/21 02/14/21 History paroxetine HCl 20 mg PO QAM 02/14/21 02/14/21 History trazodone 50 mg PO HS 02/14/21 02/14/21 History Past Med/Surg History Medical History Carotid artery occlusion GERD (gastroesophageal reflux disease) Hallucination, visual HLD (hyperlipidemia) MRSA infection Physical deconditioning Renal calculi Stage III chronic kidney disease JESSIE improved since admission TIA (transient ischemic attack) Vasculopathy Surgical History H/O: hysterectomy History of knee replacement procedure of right knee History of right hip replacement S/P laparoscopic cholecystectomy Family History Mother , age 43 of complications from a motor vehicle accident. No problems noted. Father , age 70 of black lung No problems noted. Sister Breast cancer Denies family history of Ovarian cancer Prostate cancer Myocardial infarction Colorectal cancer Stroke Social History Smoking Status: Unknown if ever smoked Second Hand Exposure: No; Hx Alcohol Use: No Hx Substance Use: No Preferred Language: Turkish Communication Ability: Effective Visual Impairment: No Limitations Hearing Ability: Use of Hearing Aid Business Machine Operator Required: No Beliefs That Will Affect Care: None marital status: Single Current Living Situation: Family Current Living Situation Comment: lives with daughter current occupational status: retired Feels Safe at Home: Yes Childhood Exposure to Second-Hand Smoke: No Dental Care, Regularly: No Physical Activity Frequency: Does not Exercise Seatbelt Use: always Sunscreen Use: No Assistive Devices: Glasses and Walker Review of Systems Review of Systems: Unobtainable due to cognitive status Physical Exam Physical Exam: GENERAL: Patient in no acute distress. HEENT: Head is atraumatic, normocephalic. EOM's intact. Facies symmetric. No perioral cyanosis. NECK: No JVD. Carotid upstrokes are + 2 bilaterally. CHEST/LUNGS: Clear to auscultation throughout all lung de. No obvious wheezes, rales, or crackles. CVS: S1 and S2 are regular without obvious murmurs, gallops, or rubs. PMI is nondisplaced. No lifts, heaves, or thrills. No abdominal aortic or renal bruits. ABDOMINAL EXAM: Bowel sounds are present. No masses or organomegaly. There is tenderness to deep palpation in left and right lower quadrants. No guarding, rigidity, or rebound tenderness. CVAs nontender jarring. EXTREMITIES: No clubbing or cyanosis. No edema. Intact radial pulses bilaterally. Right knee is surgically fused. NEUROLOGIC EXAM: Patient is awake and interactive. Occasionally will answer a yes or no question but continues to stare at the curtain in the room saying look at that man out there behind the tree. Furniture And Bedding Inspector shows a NSR. Results & Data Results & Data ([facility]) Vital Signs (Past 12 Hours) Vital Signs Temp Pulse Resp BP Pulse Ox 02/14/21 14:02 94 H 22 155/104 H 02/14/21 14:00 91 H 20 02/14/21 13:32 86 19 02/14/21 13:31 83 14 127/67 02/14/21 13:30 88 19 100 02/14/21 13:17 92 H 15 133/73 02/14/21 13:14 89 20 02/14/21 12:33 16 92 02/14/21 12:31 96 H 17 135/73 02/14/21 12:30 103 H 21 02/14/21 12:13 81 15 122/81 02/14/21 12:00 89 18 02/14/21 11:30 97 H 25 H 02/14/21 11:08 36.5 C 86 16 125/70 95 02/14/21 11:03 97 H 14 02/14/21 11:00 84 18 125/70 Laboratory Results Laboratory Results - last 24 hr 02/14/21 02/14/21 02/14/21 11:38 11:38 11:44 WBC 8.69 RBC 4.08 L Hgb 11.9 L Hct 38.6 MCV 94.6 MCH 29.2 MCHC 30.8 L RDW Std Deviation 51.3 H RDW Coeff of Ravinder 14.9 H Plt Count 304 MPV 9.1 Immature Gran % (Auto) 0.1 Neut % (Auto) 61.4 Lymph % (Auto) 28.2 Atkinson % (Auto) 9.2 Eos % (Auto) 0.8 Baso % (Auto) 0.3 Neut # (Auto) 5.33 Lymph # (Auto) 2.45 Atkinson # (Auto) 0.80 H Eos # (Auto) 0.07 Baso # (Auto) 0.03 Immature Gran # (Auto) 0.01 PT INR APTT PTT Ratio Sodium Potassium Chloride Carbon Dioxide Anion Gap BUN Creatinine Est Cr Clr Drug Dosing Est GFR ( Amer) Est GFR (Non-Af Amer) BUN/Creatinine Ratio Glucose Lactate Calcium Magnesium Total Bilirubin AST ALT Alkaline Phosphatase Troponin I Total Protein Albumin Globulin Albumin/Globulin Ratio Procalcitonin TSH Urine Color Urine Appearance Urine pH Ur Specific [place] Urine Protein Urine Glucose (UA) Urine Ketones Urine Blood Urine Nitrite Urine Bilirubin Urine Urobilinogen Ur Leukocyte Esterase Urine WBC (Auto) Urine RBC (Auto) U Hyaline Cast (Auto) U Epithel Cells (Auto) Urine Bacteria (Auto) Ur Renal Epithelial Cell Urine Yeast COVID-19 Eval Order Covid19 at [facility] SARS-CoV-2 (PCR) NEGATIVE 02/14/21 02/14/21 02/14/21 11:44 11:44 11:44 WBC RBC Hgb Hct MCV MCH MCHC RDW Std Deviation RDW Coeff of Ravinder Plt Count MPV Immature Gran % (Auto) Neut % (Auto) Lymph % (Auto) Atkinson % (Auto) Eos % (Auto) Baso % (Auto) Neut # (Auto) Lymph # (Auto) Atkinson # (Auto) Eos # (Auto) Baso # (Auto) Immature Gran # (Auto) PT 11.8 INR 1.2 H APTT 28.4 PTT Ratio 1.1 Sodium 139 Potassium 4.0 Chloride 107 Carbon Dioxide 27 Anion Gap 6.0 BUN 16 Creatinine 1.17 Est Cr Clr Drug Dosing 34.8 Est GFR ( Amer) 49.2 Est GFR (Non-Af Amer) 42.5 BUN/Creatinine Ratio 13.8 Glucose 85 Lactate 1.0 Calcium 9.1 Magnesium 2.0 Total Bilirubin 0.5 AST 32 ALT 27 Alkaline Phosphatase 133 H Troponin I < 0.015 Total Protein 8.2 Albumin 3.2 L Globulin 5.0 H Albumin/Globulin Ratio 0.6 L Procalcitonin TSH 0.726 Urine Color Urine Appearance Urine pH Ur Specific [place] Urine Protein Urine Glucose (UA) Urine Ketones Urine Blood Urine Nitrite Urine Bilirubin Urine Urobilinogen Ur Leukocyte Esterase Urine WBC (Auto) Urine RBC (Auto) U Hyaline Cast (Auto) U Epithel Cells (Auto) Urine Bacteria (Auto) Ur Renal Epithelial Cell Urine Yeast COVID-19 Eval Order SARS-CoV-2 (PCR) 02/14/21 02/14/21 11:44 12:25 WBC RBC Hgb Hct MCV MCH MCHC RDW Std Deviation RDW Coeff of Ravinder Plt Count MPV Immature Gran % (Auto) Neut % (Auto) Lymph % (Auto) Atkinson % (Auto) Eos % (Auto) Baso % (Auto) Neut # (Auto) Lymph # (Auto) Atkinson # (Auto) Eos # (Auto) Baso # (Auto) Immature Gran # (Auto) PT INR APTT PTT Ratio Sodium Potassium Chloride Carbon Dioxide Anion Gap BUN Creatinine Est Cr Clr Drug Dosing Est GFR ( Amer) Est GFR (Non-Af Amer) BUN/Creatinine Ratio Glucose Lactate Calcium Magnesium Total Bilirubin AST ALT Alkaline Phosphatase Troponin I Total Protein Albumin Globulin Albumin/Globulin Ratio Procalcitonin < 0.05 TSH Urine Color Coles Urine Appearance Cloudy A Urine pH 6.5 Ur Specific [place] 1.013 Urine Protein 2+ H Urine Glucose (UA) Negative Urine Ketones Trace H Urine Blood 3+ H Urine Nitrite Negative Urine Bilirubin Negative Urine Urobilinogen Negative Ur Leukocyte Esterase 3+ H Urine WBC (Auto) >30 H Urine RBC (Auto) 10-30 H U Hyaline Cast (Auto) 0 U Epithel Cells (Auto) 10-20 H Urine Bacteria (Auto) Negative Ur Renal Epithelial Cell 0-5 Urine Yeast Not Reportable COVID-19 Eval Order SARS-CoV-2 (PCR) Diagnostic Findings CT SCAN ABDOMEN/PELVIS 02/14/21: Moderate cardiomegaly is noted. There is coronary calcification and mitral annular calcification. Small hiatal hernia is present. This exam is compromised by motion artifact. Endovascular coils within the expected location of the gastroduodenal artery are noted. Right hip arthroplasty is partially imaged. Biliary ductal dilatation is likely related to cholecystectomy. The spleen, adrenal glands, left kidney and pancreas are unremarkable. Several left renal lesions favor cysts. A few right renal cysts are present. Marked right renal atrophy is noted. There is a 1 cm focus of gas within a right renal calyx. Mild to moderate right hydronephrosis is present. Right-sided urothelial thickening is noted, involving the right collecting system and ureter. There is mild adjacent infiltration. Multiple suspected right renal calculi are noted. There are calculi within the right renal pelvis. Less likely, this could reflect e xcreted contrast. No ureteral calculi are identified. Right ureteral stent is in place. There is no left hydronephrosis. There is no evidence for a bowel obstruction. No ascites is present. No acute fracture or suspicious lesion is identified within the visualized skeletal structures. IMPRESSION: 1. Right ureteral stent in place. Mild to moderate right hydronephrosis with urothelial thickening involving the right collecting system and right ureter. This raises the possibility of an infectious process such as pyelitis. Gas within a right renal calyx could be due to instrumentation or a gas-forming infectious process. Marked right renal atrophy. 2. Multiple suspected right renal calculi as well as calculi within the right renal pelvis. Less likely, this could reflect excreted contrast. No ureteral calculi identified. Exam compromised by motion artifact. 3. Biliary ductal dilatation likely related to cholecystectomy. CXR 02/14/21: 1. Cardiomegaly without pulmonary edema. 2. Chronic right hemidiaphragmatic elevation with similar appearing bibasilar opacities suggestive of atelectasis. Pneumonia considered less likely. CT SCAN BRAIN 02/14/21: -- Brain parenchyma: There is age-related involutional change noting moderate subcortical and periventricular microangiopathic change. -- There is no hemorrhage, mass effect, or evidence of acute territorial ischemia by CT criteria. A chronic lacunar infarct is noted in the right thalamus. -- Boles-white matter differentiation is preserved. -- No extra-axial fluid collection is seen. -- Ventricles, sulci, cisterns: Prominent secondary to involutional change. -- Intracranial vasculature: There is atherosclerotic calcification of the cavernous carotid and vertebral arteries. -- Calvarium: Unremarkable. -- Sinuses and mastoids: The paranasal sinuses are clear. The mastoid air cells are well pneumatized. -- Orbits: The bony orbits are grossly intact. There are bilateral ocular lens implants. IMPRESSION: -- There is no hemorrhage, mass effect, or evidence of acute territorial ischemia by CT criteria noting a motion compromised examination. Medications Administered Medications loratadine [Claritin] 10 mg PO QAM 08/25/18 [History Confirmed 02/14/21] aspirin 81 mg tablet,delayed release 81 mg PO QAM tab 04/22/19 [History Confirmed 02/14/21] cranberry 500 mg capsule 500 mg PO QAM cap 05/25/19 [History Confirmed 02/14/21] Lift Chair #1 ea 11/10/19 [Rx Confirmed 12/05/20] fattvqgew-tbfowfgn-xbs-hyalur [Joint Health] 1 tab PO QAM 08/16/20 [History Co nfirmed 02/14/21] ipratropium-albuterol [Combivent Respimat] 1 puff INHALATION QAM 08/16/20 [History Confirmed 02/14/21] tramadol 50 mg PO Q6 PRN 08/16/20 [History Confirmed 02/14/21] vit C,K-Pz-bfgnc-lutein-zeaxan [PreserVision AREDS-2] 1 cap PO BID 08/16/20 [History Confirmed 02/14/21] levothyroxine 50 mcg tablet 50 mcg PO HS #30 tab 09/07/20 [Rx Confirmed 02/14/21] Wheelchair (Manual or Powered) #1 ea 12/05/20 [Rx Confirmed 12/05/20] disposable gloves #1000 ea 12/05/20 [Rx Confirmed 12/05/20] atorvastatin 40 mg tablet 40 mg PO HS #30 tab 12/13/20 [Rx Confirmed 02/14/21] clopidogrel 75 mg tablet 75 mg PO QAM #90 tab 02/14/21 [Rx Confirmed 02/14/21] nystatin 1 applic TOPICAL BID PRN 02/14/21 [History Confirmed 02/14/21] omeprazole 20 mg PO QAM 02/14/21 [History Confirmed 02/14/21] paroxetine HCl 20 mg PO QAM 02/14/21 [History Confirmed 02/14/21] trazodone 50 mg PO HS 02/14/21 [History Confirmed 02/14/21] Code Status & VTE Plan Code Status Full Code VTE Prophylaxis Plan VTE Prophylaxis will be ordered: Yes Supervising Physician Co-Signing Physician Notes d/w BUD, agree with his note above. patient had urological procedure (lithotripsy) yesterday, now presenting with fever and CIMS. very weak, family cannot care for her at home in her current state. plant o admit patient for pyelo after instrumentation. agree with cefepime, await urine and blood culture results. ask urology to consult for further recommendations. PT/OT eval when better. PG Care Time/CCT Total # of Minutes Spent Total Time Spent with Patient: Total time spent is greater than 50% in coordination of care (as documented) at patient's floor/unit and/or counseling patient:55 Coding Level of Care Code 20604 Initial Inpt Care Lvl 3 Diagnoses UTI (urinary tract infection) N39.0 Nephrolithiasis N20.0 Altered mental status R41.82 Physical deconditioning R53.81 Time Spent (min) 65
[2021-02-14] MEDS ORDERED: MAGNESIUM HYDROXIDE SUSP 30 ML UDC PO PRN (16:50)
[2021-02-14] MEDS ORDERED: ONDANSETRON INJ 2 MG/ML 2 ML VIAL IV PRN (16:50)
[2021-02-14] MEDS ORDERED: POLYETHYLENE (MIRALAX) 17 GM PACK PO PRN (16:50)
[2021-02-14] MEDS ORDERED: ZOLPIDEM TARTRATE 5 MG TAB PO PRN (16:50)
[2021-02-14] MEDS ORDERED: ACETAMINOPHEN 325 MG TAB PO PRN (16:50)
[2021-02-14] MEDS ORDERED: ALUMINUM/MAGNESIUM SUSP 30 ML UDC PO PRN (16:50)
[2021-02-14] MEDS ORDERED: traMADol HCL 50 MG TABLET PO PRN (16:50)
[2021-02-14] MEDS ORDERED: NYSTATIN POWDER 15GM BTL EXT PRN (16:50)
[2021-02-14] MEDS: SODIUM CHLORIDE 0.9% 1000ML 1,000 ML IV SCH (17:52)
[2021-02-14] MEDS: traZODone HCL 50 MG TAB PO SCH (20:14)
[2021-02-14] MEDS: ATORVASTATIN 40 MG TAB PO SCH (20:14)
[2021-02-14] MEDS: LEVOTHYROXINE SODIUM 50 MCG TABLET PO SCH (20:14)
[2021-02-14] MEDS: HEPARIN SOD 5,000 UNIT/0.5 ML VIAL SQ SCH (20:15)
[2021-02-14] MEDS: CEFEPIME 1,000 MG in SYRINGE 0 ML IV SCH (22:08)
[2021-02-15] MEDS: SODIUM CHLORIDE 0.9% 1000ML 1,000 ML IV SCH (04:20)
--- NOTE | 2021-02-15 06:11 | Electrocardiogram Report ---
Test Reason : Blood Pressure : / mmHG Vent. Rate : 083 BPM Atrial Rate : 083 BPM P-R Int : 164 ms QRS Dur : 124 ms QT Int : 432 ms P-R-T Axes : 064 -04 113 degrees QTc Int : 507 ms Sinus rhythm with Premature atrial complexes Left bundle branch block Abnormal ECG When compared with ECG of 16-AUG-2020 16:57, No significant change was found Confirmed by Sherwin Girodano ([id number]) on 02/15/2021 6:10:43 AM Referred By: REFERRED SELF Confirmed By:Sherwin Giordano
[2021-02-15 06:29] LABS: Basophils # (auto) 0.02 K/uL (0-0.2); Basophils % (auto) 0.3 %; Eosinophils # (auto) 0.16 K/uL (0-0.5); Eosinophils % (auto) 2.4 %; Hematocrit (blood only) 35.4 % (37-47); Hemoglobin 10.9 g/dL (12.0-16.0); Immature Granulocytes # (auto) 0.01 K/uL (0.00-0.02); Immature Granulocytes % (auto) 0.1 %; Lymphocytes # (auto) 1.45 K/uL (1.2-3.4); Lymphocytes % (auto) 21.7 %; Mean Corpuscular Hemoglobin 29.1 pg (25-34); Mean Corpuscular Hgb Conc 30.8 g/dL (32-36); Mean Corpuscular Volume 94.4 fL (80-100); Mean Platelet Volume 9.4 fL (7.4-10.4); Monocytes # (auto) 0.78 K/uL (0.11-0.59); Monocytes % (auto) 11.7 %; Neutrophils # (auto) 4.27 K/uL (1.4-6.5); Neutrophils % (auto) 63.8 %; Platelet Count 277 K/uL (130-400); RDW Coefficient of Variation 14.9 % (11.5-14.5); RDW Standard Deviation 51.1 fL (36.4-46.3); Red Blood Count 3.75 M/uL (4.2-5.4); White Blood Count 6.69 K/uL (4.8-10.8)
[2021-02-15 07:00] LABS: BUN Creatinine Ratio 14.2 (10-20); Calcium 8.6 mg/dl (8.5-10.1); Creatinine Clr Calc Pharmacy 41.6 ml/min; Est GFR (Non-African American) 52.6 ml/min; Potassium 3.8 mmol/L (3.5-5.1)
--- NOTE | 2021-02-15 08:26 | Urology Consultation ---
Date of Consultation February 15, 2021 Assessment & Plan (1) UTI (urinary tract infection): (2) S/P ureteral stent placement: (3) Altered mental status: 86yo F admitted with altered mental status and weakness secondary to suspected urinary tract infection - ER notes, Hospital course, CT imaging, and labs reviewed. - Plan of care reviewed with Dr. Sesay, cloud automation tester urologist. - Patient is status post recent lithotripsy and right ureteral stent placement with [facility]. - CT abdomen pelvis notes right ureteral stent in place with mild to moderate right hydronephrosis and urothelial thickening involving the right collecting system and right ureter. - She is afebrile. - Labs reviewed, wbc and creatinine are stable. - Urine and blood cultures pending. - No acute intervention warranted at this time. - Recommend continue supportive care and antibiotic therapy, follow cultures. - Maintain horne catheter. - Recommend follow-up with [facility] for continued stone and stent management following discharge. - Thank you for allowing us to participate in the acute care of Mrs. Kwok. - Please reconsult us with additional questions, concerns or changes in patient status. History of Present Illness Attending Physician: John Garcia MD History of Present Illness The patient is an 86-year-old female with a history of a Chronic LBBB, Hyp othyroidism, DJD, Carotid Artery Occlusion, TIA, GERD, Hyperlipidemia, Stage 3 CKD, Vasculopathy, and Recurrent Nephrolithiasis who presented to [facility] ER with complaints of altered mental status and weakness. Per admission notes, patient is not a good historian. Daughter answered most of the questions. Patient with a history of stones with multiple hospitalizations recently at [facility] and [place] for kidney stones and UTI. She was inpatient at [facility] 3 days ago for lithotripsy per admission notes. She has a right ureteral stent in place. Outpatient urology notes reviewed. Per notes, patient with an atrophic right kidney with reasonable stone burden. Per 12/26/20 office note, patient was to be scheduled for right URS/LL, probable staging, for stone treatment. On presentation to [facility] ER, she was Afebrile, Wbc 8.69, Hgb 11.9, Cr 1.17. Urinalysis with 3+blood, 3+leukocytes, negative nitrite, negative bacteria. Urine and blood cultures pending. She is on IV Cefepime. CT abdomen pelvis 02/14 IMPRESSION: 1. Right ureteral stent in place. Mild to moderate right hydronephrosis with urothelial thickening involving the right collecting system and right ureter. This raises the possibility of an infectious process such as pyelitis. Gas within a right renal calyx could be due to instrumentation or a gas-forming infectious process. Marked right renal atrophy. 2. Multiple suspected right renal calculi as well as calculi within the right renal pelvis. Less likely, this could reflect excreted contrast. No ureteral calculi identified. Exam compromised by motion artifact. 3. Biliary ductal dilatation likely related to cholecystectomy. Pt examined at bedside this AM. Awake, resting in bed on arrival. Alert, oriented to person only. No acute distress. Answers some yes/no questions. She denied any pain or discomfort. Horne catheter intact, draining cloudy, yellow urine. HPI limited due to cognitive status. She offered no additional complaints at time of exam. Allergies Allergy/AdvReac Type Severity Reaction Status Date / Time oxycodone AdvReac Severe confusion/ Verified 02/14/21 17:07 "Gets Mean" Home Medications Medication Instructions Recorded Confirmed Type loratadine [Claritin] 10 mg PO QAM 08/25/18 02/14/21 History aspirin 81 mg tablet,delayed 81 mg PO QAM tab 04/22/19 02/14/21 History release cranberry 500 mg capsule 500 mg PO QAM cap 05/25/19 02/14/21 History Lift Chair #1 ea 11/10/19 12/05/20 Rx zqwitirgi-ltvpohnq-aeq-hyalur 1 tab PO QAM 08/16/20 02/14/21 History [Joint Health] ipratropium-albuterol [Combivent 1 puff INHALATION QAM 08/16/20 02/14/21 History Respimat] tramadol 50 mg PO Q6 PRN 08/16/20 02/14/21 History vit C,Z-Xa-rocfy-lutein-zeaxan 1 cap PO BID 08/16/20 02/14/21 History [PreserVision AREDS-2] levothyroxine 50 mcg tablet 50 mcg PO HS #30 tab 09/07/20 02/14/21 Rx Wheelchair (Manual or Powered) #1 ea 12/05/20 12/05/20 Rx disposable gloves #1000 ea 12/05/20 12/05/20 Rx atorvastatin 40 mg tablet 40 mg PO HS #30 tab 12/13/20 02/14/21 Rx clopidogrel 75 mg tablet 75 mg PO QAM #90 tab 02/14/21 02/14/21 Rx nystatin 1 applic TOPICAL BID PRN 02/14/21 02/14/21 History omeprazole 20 mg PO QAM 02/14/21 02/14/21 History paroxetine HCl 20 mg PO QAM 02/14/21 02/14/21 History trazodone 50 mg PO HS 02/14/21 02/14/21 History Patient History Medical History Carotid artery occlusion GERD (gastroesophageal reflux disease) Hallucination, visual HLD (hyperlipidemia) MRSA infection Physical deconditioning Renal calculi Stage III chronic kidney disease JESSIE improved since admission TIA (transient ischemic attack) Vasculopathy Surgical History H/O: hysterectomy History of knee replacement procedure of right knee History of right hip replacement S/P laparoscopic cholecystectomy Family History Mother , age 43 of complications from a motor vehicle accident. No problems noted. Father , age 70 of black lung No problems noted. Sister Breast cancer Denies family history of Ovarian cancer Prostate cancer Myocardial infarction Colorectal cancer Stroke Social History Smoking Status: Unknown if ever smoked Second Hand Exposure: No; Hx Alcohol Use: No Hx Substance Use: No Preferred Language: Japanese Communication Ability: Effective Visual Impairment: No Limitations Hearing Ability: Use of Hearing Aid Ged Preparation Teacher Required: No Beliefs That Will Affect Care: None marital status: Single Current Living Situation: Family Current Living Situation Comment: lives with daughter current occupational status: retired Feels Safe at Home: Yes Childhood Exposure to Second-Hand Smoke: No Dental Care, Regularly: No Physical Activity Frequency: Does not Exercise Seatbelt Use: always Sunscreen Use: No Assistive Devices: Denture - Upper, Denture - Lower and Oxygen - Continuous Review of Systems Review of Systems: Unobtainable due to cognitive status Physical Exam Constitutional: + frail appearing; no acute distress non-toxic Neck: normal visual inspection Respiratory: no labored breathing and no audible wheezes Gastrointestinal (Abdomen): Inspection/Auscultation: abdomen not distended Percussion/Palpation: abdomen soft; abdomen nontender and no guarding Musculoskeletal: Head/Neck/Chest: normocephalic and head atraumatic Skin: Warm and dry. Neurologic: awake Answers some yes/no questions. Psychiatric: Orientation: alert and oriented to person Genitourinary: Horne catheter intact Results & Data ([facility]) Vital Signs (Past 12 Hours) Vital Signs Temp Pulse Resp BP Pulse Ox 02/15/21 05:42 36.7 C 105 H 16 152/72 H 92 02/14/21 22:35 36.8 C 98 H 14 115/67 93 PG Care Time/CCT Total # of Minutes Spent Total Time Spent with Patient: Total time spent is greater than 50% in coordination of care (as documented) at patient's floor/unit and/or counseling patient: Coding Level of Care Code 20619 Initial Inpt Care Lvl 3 Diagnoses UTI (urinary tract infection) N39.0 S/P ureteral stent placement Z96.0 Altered mental status R41.0 Altered mental status type: disorientation (1) Altered mental status Altered mental status type: disorientation Qualified Code(s): R41.0 - Disorientation, unspecified
[2021-02-15] MEDS: Albuterol HFA 8 GM Inhaler (Combivent Respimat P&T Subs) INH SCH (08:34)
[2021-02-15] MEDS: Ipratropium HFA Inhaler (Combivent Respimat P&T Subs) INH SCH (08:35)
[2021-02-15] MEDS ORDERED: [UNRECOGNIZED DRUG - OTHER] PO SCH (09:00)
[2021-02-15] MEDS ORDERED: IPRATROPIUM BROMIDE/ALBUTEROL respimat INH INH SCH (09:00)
[2021-02-15] MEDS ORDERED: ASPIRIN 81 MG ECTAB PO SCH (09:00)
[2021-02-15] MEDS: LORATADINE 10 MG TAB PO SCH (09:06)
[2021-02-15] MEDS: PANTOprazole 40 MG TAB PO SCH (09:06)
[2021-02-15] MEDS: CEROVITE ADV FORMULA TAB PO SCH (09:06)
[2021-02-15] MEDS: CLOPIDOGREL BISULFATE 75 MG TAB PO SCH (09:06)
[2021-02-15] MEDS: PARoxetine HCL 20 MG TAB PO SCH (09:06)
[2021-02-15] MEDS: HEPARIN SOD 5,000 UNIT/0.5 ML VIAL SQ SCH ×2 (09:07→21:12)
[2021-02-15] MEDS: CEFEPIME 1,000 MG in SYRINGE 0 ML IV SCH (09:41)
--- NOTE | 2021-02-15 12:07 | Hospitalist Progress Note ---
Date of Service February 15, 2021 Assessment & Plan (1) UTI (urinary tract infection): Some indication of UTI on UA on admission. Urine culture on 02/14 still pending. - Continue ceftriaxone (switched from cefepime on admission) - Monitor culture results (2) Nephrolithiasis: Right ureteral stent in place from [facility] hospitalization. - Monitor (3) Altered mental status: Metabolic encephalopathy in setting of UTI. - Has had this happen in the past as well. Improved with treatment of UTI and regained her full orientation, though this was ~2 years ago. (4) Physical deconditioning: Likely due to age and recent hospitalizations. - PT/OT - Possible placement (5) TIA (transient ischemic attack): Remote hx of TIA, but no mention of stroke in our system or the [facility] where she was in 11/2020. - Stop ASA as she has noted hx of duodenal ulcer and GI bleed - Continue Plavix, statin (6) Stage III chronic kidney disease: Baseline Cr ~1.0. - Presently at baseline. (7) Hypothyroidism: TSH was 0.7 in this admission. No signs/symptoms of hypo-/hyperthyroidism. - Continue home Synthroid 50 mcg (8) Anxiety and depression: Hx of depression as well as adjustment disorder and other mental health issues. - Continue home paroxetine and trazodone. (9) DVT prophylaxis: Heparin 5,000 units SQ Q12h Admission and Anticipated Discharge Date Admission Date: February 14, 2021 Subjective Eyes wander around the room and does not answer any questions. Review of Systems Review of Systems: Unobtainable due to cognitive status Physical Exam Constitutional: WD/WN, vitals as above + acute distress Eyes: EOM intact bilaterally; no conjunctival abnormality ENMT: external ear and nose normal, oropharynx normal Neck: trachea midline, no thyromegaly normal visual inspection Respiratory: normal respiratory effort, lungs clear to auscultation no respiratory distress Cardiovascular: RRR, no murmur, no edema Gastrointestinal (Abdomen): Inspection/Auscultation: abdomen normal to inspection; abdomen not distended Percussion/Palpation: abdomen soft; abdomen nontender, no guarding and abdomen not rigid Musculoskeletal: no cyanosis or clubbing, extremities motor strength 5/5 Skin: no rashes, warm and dry Neurologic: moves all extremities and awake Psychiatric: Orientation: + not alert, + not oriented to person and + uncooperative Results & Data Results & Data ([facility]) Vital Signs (Past 12 Hours) Vital Signs Temp Pulse Resp BP Pulse Ox 02/15/21 08:35 89 18 100 02/15/21 05:42 36.7 C 105 H 16 152/72 H 92 PG Care Time/CCT Total # of Minutes Spent Total Time Spent with Patient: Total time spent is greater than 50% in coordination of care (as documented) at patient's floor/unit and/or counseling patient: Coding Level of Care Code 00143 Subseq Hosp Care Lvl 3 Diagnoses UTI (urinary tract infection) N39.0 Nephrolithiasis N20.0 Altered mental status R41.82 Physical deconditioning R53.81 TIA (transient ischemic attack) G45.9 Stage III chronic kidney disease N18.3 Hypothyroidism E03.9 Anxiety and depression F41.9; F32.9 DVT prophylaxis Z29.9
[2021-02-15] MEDS: ATORVASTATIN 40 MG TAB PO SCH (21:12)
[2021-02-15] MEDS: traZODone HCL 50 MG TAB PO SCH (21:13)
[2021-02-15] MEDS: LEVOTHYROXINE SODIUM 50 MCG TABLET PO SCH (21:13)
[2021-02-15] MEDS: cefTRIAXone SODIUM 2,000 MG in DEXTROSE 5% 50 ML IV SCH (21:23)
--- NOTE | 2021-02-15 23:18 | Communication Note ---
Date of Service: February 15, 2021 Nursing paged night team to notify that patien's HR had fluctuated from 100 down to 30 bpm - they noted the rhythm was irregular. Patient has no known arrhythmia - is not on anticoagulation. STAT EKG ordered. Patient transferred to med/tele for cardiac monitoring.
[2021-02-16 06:01] LABS: Basophils # (auto) 0.03 K/uL (0-0.2); Basophils % (auto) 0.5 %; Eosinophils # (auto) 0.28 K/uL (0-0.5); Eosinophils % (auto) 4.5 %; Hematocrit (blood only) 37.8 % (37-47); Hemoglobin 11.5 g/dL (12.0-16.0); Immature Granulocytes # (auto) 0.01 K/uL (0.00-0.02); Immature Granulocytes % (auto) 0.2 %; Lymphocytes # (auto) 2.04 K/uL (1.2-3.4); Lymphocytes % (auto) 32.4 %; Mean Corpuscular Hgb Conc 30.4 g/dL (32-36); Mean Corpuscular Volume 95.5 fL (80-100); Mean Platelet Volume 9.4 fL (7.4-10.4); Monocytes # (auto) 0.62 K/uL (0.11-0.59); Monocytes % (auto) 9.9 %; Neutrophils # (auto) 3.31 K/uL (1.4-6.5); Neutrophils % (auto) 52.5 %; Platelet Count 243 K/uL (130-400); RDW Coefficient of Variation 14.8 % (11.5-14.5); RDW Standard Deviation 52.1 fL (36.4-46.3); Red Blood Count 3.96 M/uL (4.2-5.4); White Blood Count 6.29 K/uL (4.8-10.8)
[2021-02-16 06:27] LABS: BUN Creatinine Ratio 14.8 (10-20); Calcium 8.9 mg/dl (8.5-10.1); Creatinine Clr Calc Pharmacy 46.4 ml/min; Est GFR (African American) 73.5 ml/min; Est GFR (Non-African American) 63.4 ml/min; Potassium 4.2 mmol/L (3.5-5.1)
[2021-02-16] MEDS: Albuterol HFA 8 GM Inhaler (Combivent Respimat P&T Subs) INH SCH (07:37)
[2021-02-16] MEDS: Ipratropium HFA Inhaler (Combivent Respimat P&T Subs) INH SCH (07:37)
[2021-02-16] MEDS: CLOPIDOGREL BISULFATE 75 MG TAB PO SCH (07:38)
[2021-02-16] MEDS: PARoxetine HCL 20 MG TAB PO SCH (07:38)
[2021-02-16] MEDS: HEPARIN SOD 5,000 UNIT/0.5 ML VIAL SQ SCH ×2 (07:39→20:11)
[2021-02-16] MEDS: CEROVITE ADV FORMULA TAB PO SCH (07:39)
[2021-02-16] MEDS: PANTOprazole 40 MG TAB PO SCH (07:39)
[2021-02-16] MEDS: LORATADINE 10 MG TAB PO SCH (07:39)
--- NOTE | 2021-02-16 14:48 | Hospitalist Progress Note ---
Date of Service February 16, 2021 Assessment & Plan (1) UTI (urinary tract infection): Some indication of UTI on UA on admission. Urine culture on 02/14 still pending. - Continue ceftriaxone (switched from cefepime on admission) - Monitor culture results -> No growth as of today. (2) Altered mental status: Metabolic encephalopathy in setting of UTI. - Has had this happen in the past as well. Improved with treatment of UTI and regained her full orientation, though this was ~2 years ago. - Significantly improved today. (3) Nephrolithiasis: Right ureteral stent in place from [facility] hospitalization. - Monitor (4) Physical deconditioning: Likely due to age and recent hospitalizations. - PT/OT - Possible placement (5) TIA (transient ischemic attack): Remote hx of TIA, but no mention of stroke in our system or the [facility] where she was in 11/2020. - Stop ASA as she has noted hx of duodenal ulcer and GI bleed - Continue Plavix, statin (6) Stage III chronic kidney disease: Baseline Cr ~1.0. - Presently at baseline. Cr. down to 0.85 on 02/16. (7) Hypothyroidism: TSH was 0.7 in this admission. No signs/symptoms of hypo-/hyperthyroidism. - Continue home Synthroid 50 mcg (8) Anxiety and depression: Hx of depression as well as adjustment disorder and other mental health issues. - Continue home paroxetine and trazodone. (9) DVT prophylaxis: Heparin 5,000 units SQ Q12h Admission and Anticipated Discharge Date Admission Date: February 14, 2021 Subjective Doing much better today. She is able to chat, answer some questions, and is AAOx2. Reports no fevers/chills, chest pain, shortness of breath, abdominal pain, nausea, or vomiting. Physical Exam Constitutional: WD/WN, vitals as above no acute distress Eyes: EOM intact bilaterally; no conjunctival abnormality ENMT: external ear and nose normal, oropharynx normal Neck: trachea midline, no thyromegaly normal visual inspection Respiratory: normal respiratory effort, lungs clear to auscultation no respiratory distress Cardiovascular: RRR, no murmur, no edema Gastrointestinal (Abdomen): Inspection/Auscultation: abdomen normal to inspection; abdomen not distended Percussion/Palpation: abdomen soft; abdomen nontender, no guarding and abdomen not rigid Musculoskeletal: no cyanosis or clubbing, extremities motor strength 5/5 Skin: no rashes, warm and dry Neurologic: moves all extremities and awake Psychiatric: Orientation: alert, oriented to person, oriented to time and cooperative; + not oriented to place Results & Data Results & Data ([facility]) Vital Signs (Past 12 Hours) Vital Signs Temp Pulse Pulse Resp BP Pulse Ox Pulse Ox 02/16/21 09:00 63 02/16/21 07:42 80 16 95 02/16/21 07:29 36.5 C 42 L 18 120/59 L 95 02/16/21 03:58 36.3 C L 76 18 106/48 L 97 02/16/21 02:47 91 PG Care Time/CCT Total # of Minutes Spent Total Time Spent with Patient: Total time spent is greater than 50% in coordination of care (as documented) at patient's floor/unit and/or counseling patient: Coding Level of Care Code 06649 Subseq Hosp Care Lvl 2 Diagnoses UTI (urinary tract infection) N39.0 Altered mental status R41.82 Nephrolithiasis N20.0 Physical deconditioning R53.81 TIA (transient ischemic attack) G45.9 Stage III chronic kidney disease N18.3 Hypothyroidism E03.9 Anxiety and depression F41.9; F32.9 DVT prophylaxis Z29.9
--- NOTE | 2021-02-16 16:29 | Electrocardiogram Report ---
Test Reason : Blood Pressure : / mmHG Vent. Rate : 072 BPM Atrial Rate : 072 BPM P-R Int : 104 ms QRS Dur : 126 ms QT Int : 474 ms P-R-T Axes : 057 -01 096 degrees QTc Int : 519 ms Sinus rhythm with Premature atrial complexes in a pattern of bigeminy Left bundle branch block Abnormal ECG Confirmed by Scott Gomes ([id number]) on 02/16/2021 4:29:37 PM Referred By: REFERRED SELF Confirmed By:Iron Gomes
[2021-02-16] MEDS ORDERED: ALBUT/IPRATROP 3MG/0.5MG NEB 3 ML VIAL NEB ONE (19:46)
--- NOTE | 2021-02-16 19:52 | Communication Note ---
Date of Service: February 16, 2021 Called to patient bedside by nursing for concerns of hypotension. Patients blood pressures during stay have been 120s/50s, now 94/46, tachycardic at 101. Minimum UOP all day, horne emptied at 2:30 and <100 ml in horne bag at bedside. Pt complaining of new cough that started last night, with sputum production. Mentation improved today compared to yesterday per nursing. No c/o dizziness, lightheadedness. Mildly confused. Pulm: inspiratory and expiratory wheezing, somewhat rhonchorous breath sounds likely transmitted upper airway. Discussed with & taught patient how to use bedside incentive spirometer which she had not been using. Advised 10x/hour. Tuan villanueva ordered x1. 500 ml NS hung to be given over 1 hour. No echo on file, slow fluid bolus due to age and likelyhood for decreased EF.
[2021-02-16] MEDS: SODIUM CHLORIDE 0.9% 500 ML IV SCH ×2 (20:04→21:11)
[2021-02-16] MEDS: LEVOTHYROXINE SODIUM 50 MCG TABLET PO SCH (20:10)
[2021-02-16] MEDS: ATORVASTATIN 40 MG TAB PO SCH (20:10)
[2021-02-16] MEDS: traZODone HCL 50 MG TAB PO SCH (20:13)
[2021-02-16] MEDS: cefTRIAXone SODIUM 2,000 MG in DEXTROSE 5% 50 ML IV SCH (21:46)
[2021-02-16] MEDS ORDERED: ASPIRIN 81 MG CHEW PO STA (22:39)
[2021-02-16] MEDS ORDERED: ADENOSINE IV SOLN 3 MG/ML 2 ML VIAL IV ONE (22:43)
[2021-02-16] MEDS ORDERED: METOPROLOL TARTRATE 1 MG/ML VIAL IV STA (22:44)
[2021-02-16] MEDS ORDERED: METOPROLOL TARTRATE 1 MG/ML VIAL IV ONE (22:50)
[2021-02-16] MEDS ORDERED: SODIUM CHLORIDE 0.9% 500 ML IV SCH (23:00)
[2021-02-16] MEDS: ALBUMIN 25% 12.5 GM/50 ML VIAL IV SCH (23:22)
--- NOTE | 2021-02-16 23:48 | Communication Note ---
Date of Service: February 16, 2021 Notified by RN that patient was in SVT around 10:23 pm. Assessed patient at bedside. BP 90s/50s, tachy in 150-170s. Patient asymptomatic, denying chest pain, dizziness, lightheadedness, palpitations. EKG: SVT in 160s, p waves present, ST segment changes in anterolateral leads compared to EKG yesterday. Does not appear to be flutter. patient given 325 mg asa and placed on oxygen in case of ACS while workup ongoing. Multiple vagal maneuvers attempted (carotid massage, bearing down, blowing on straw) without improvement in heart rate. 2.5 mg Metoprolol IV, 500 ml NS bolus, 25 g albumin ordered. Patient's SVT broke spontaneously prior to giving metoprolol, coming down to 110s, and then rising back up to 130s. Improved HR of mid90s after metoprolol. Second IV site achieved. Follow up EKG showing sinus with pac's again. Troponin level ordered, patient transferred to PCU for closer monitoring. Resident Activity Tracking Resident Involvement: Resident Care Provided Care Provided: Adult Hospital Medicine
[2021-02-17] MEDS: ALBUMIN 25% 12.5 GM/50 ML VIAL IV SCH (00:22)
[2021-02-17 07:07] LABS: Basophils # (auto) 0.03 K/uL (0-0.2); Basophils % (auto) 0.5 %; Eosinophils # (auto) 0.35 K/uL (0-0.5); Hematocrit (blood only) 32.1 % (37-47); Hemoglobin 10.2 g/dL (12.0-16.0); Immature Granulocytes # (auto) 0.01 K/uL (0.00-0.02); Immature Granulocytes % (auto) 0.2 %; Lymphocytes # (auto) 1.73 K/uL (1.2-3.4); Lymphocytes % (auto) 29.4 %; Mean Corpuscular Hemoglobin 29.4 pg (25-34); Mean Corpuscular Hgb Conc 31.8 g/dL (32-36); Mean Corpuscular Volume 92.5 fL (80-100); Mean Platelet Volume 9.4 fL (7.4-10.4); Monocytes # (auto) 0.67 K/uL (0.11-0.59); Monocytes % (auto) 11.4 %; Neutrophils # (auto) 3.09 K/uL (1.4-6.5); Neutrophils % (auto) 52.5 %; Platelet Count 251 K/uL (130-400); RDW Standard Deviation 50.8 fL (36.4-46.3); Red Blood Count 3.47 M/uL (4.2-5.4); White Blood Count 5.88 K/uL (4.8-10.8)
[2021-02-17 07:18] LABS: BUN Creatinine Ratio 12.7 (10-20); Calcium 8.8 mg/dl (8.5-10.1); Creatinine Clr Calc Pharmacy 42.4 ml/min; Est GFR (African American) 62.5 ml/min; Est GFR (Non-African American) 53.9 ml/min; Potassium 3.6 mmol/L (3.5-5.1)
[2021-02-17] MEDS: Ipratropium HFA Inhaler (Combivent Respimat P&T Subs) INH SCH (07:24)
[2021-02-17] MEDS: Albuterol HFA 8 GM Inhaler (Combivent Respimat P&T Subs) INH SCH (07:24)
[2021-02-17] MEDS: PANTOprazole 40 MG TAB PO SCH (09:16)
[2021-02-17] MEDS: PARoxetine HCL 20 MG TAB PO SCH (09:16)
[2021-02-17] MEDS: CEROVITE ADV FORMULA TAB PO SCH (09:17)
[2021-02-17] MEDS: HEPARIN SOD 5,000 UNIT/0.5 ML VIAL SQ SCH ×2 (09:17→20:35)
[2021-02-17] MEDS: CLOPIDOGREL BISULFATE 75 MG TAB PO SCH (09:17)
[2021-02-17] MEDS: LORATADINE 10 MG TAB PO SCH (09:17)
[2021-02-17] MEDS: ASPIRIN 325 MG ECTAB PO SCH (11:45)
--- NOTE | 2021-02-17 13:50 | Hospitalist Progress Note ---
Date of Service February 17, 2021 Assessment & Plan (1) Tachycardia: Overnight of 02/16-02/17 had episode of SVT. 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 Once her tachycardia breaks, she again has the two atrial pacemakers. - Will start a low-dose beta-lisbeth to help calm the secondary pacemaker. (2) UTI (urinary tract infection): Some indication of UTI on UA on admission. Urine culture on 02/14 was negative. - Continue ceftriaxone (switched from cefepime on admission) x 5 days total. (End date: 02/18/2021) (3) Altered mental status: Metabolic encephalopathy in setting of UTI. - Has had this happen in the past as well. Improved with treatment of UTI and regained her full orientation, though this was ~2 years ago. - Significantly improved today again. Monitor. (4) Nephrolithiasis: Right ureteral stent in place from [facility] hospitalization. - Monitor (5) Physical deconditioning: Likely due to age and recent hospitalizations. - PT/OT - Possible placement (6) TIA (transient ischemic attack): Remote hx of TIA, but no mention of stroke in our system or the [facility] where she was in 11/2020. - Stop ASA as she has noted hx of duodenal ulcer and GI bleed - Continue Plavix, statin (7) Stage III chronic kidney disease: Baseline Cr ~1.0. - Presently at baseline. Cr. down to 0.85 on 02/16. (8) Hypothyroidism: TSH was 0.7 in this admission. No signs/symptoms of hypo-/hyperthyroidism. - Continue home Synthroid 50 mcg (9) Anxiety and depression: Hx of depression as well as adjustment disorder and other mental health issues. - Continue home paroxetine and trazodone. (10) DVT prophylaxis: Heparin 5,000 units SQ Q12h Admission and Anticipated Discharge Date Admission Date: February 14, 2021 Subjective Doing well today. A little more confused. Mentioning her mother picking up medications today, but actually does know the year. Reports no fevers/chills, chest pain, shortness of breath, abdominal pain, nausea, or vomiting. Physical Exam Constitutional: WD/WN, vitals as above no acute distress Eyes: EOM intact bilaterally; no conjunctival abnormality ENMT: external ear and nose normal, oropharynx normal Neck: trachea midline, no thyromegaly normal visual inspection Respiratory: normal respiratory effort, lungs clear to auscultation no respiratory distress Cardiovascular: RRR, no murmur, no edema Gastrointestinal (Abdomen): Inspection/Auscultation: abdomen normal to inspection; abdomen not distended Percussion/Palpation: abdomen soft; abdomen nontender, no guarding and abdomen not rigid Musculoskeletal: no cyanosis or clubbing, extremities motor strength 5/5 Skin: no rashes, warm and dry Neurologic: moves all extremities and awake Psychiatric: Orientation: alert, oriented to person, oriented to time and cooperative; + not oriented to place Results & Data Results & Data ([facility]) Vital Signs (Past 12 Hours) Vital Signs Temp Pulse Pulse Resp BP Pulse Ox 02/17/21 12:00 37.0 C 87 20 147/83 H 96 02/17/21 08:00 85 02/17/21 07:32 36.7 C 89 18 125/71 92 02/17/21 07:24 85 16 91 02/17/21 03:46 37.5 C 92 H 15 112/71 94 PG Care Time/CCT Total # of Minutes Spent Total Time Spent with Patient: Total time spent is greater than 50% in coordination of care (as documented) at patient's floor/unit and/or counseling patient: Coding Level of Care Code 37118 Subseq Hosp Care Lvl 3 Diagnoses Tachycardia R00.0 UTI (urinary tract infection) N39.0 Altered mental status R41.82 Nephrolithiasis N20.0 Physical deconditioning R53.81 TIA (transient ischemic attack) G45.9 Stage III chronic kidney disease N18.3 Hypothyroidism E03.9 Anxiety and depression F41.9; F32.9 DVT prophylaxis Z29.9
[2021-02-17] MEDS: METOPROLOL SUCC 25MG EXT REL TAB PO SCH (14:53)
[2021-02-17] MEDS ORDERED: IPRATROPIUM BROMIDE HFA INHALER INH PRN (15:02)
[2021-02-17] MEDS ORDERED: ALBUTEROL HFA 8 GM INHALER INH PRN (15:02)
--- NOTE | 2021-02-17 18:48 | Electrocardiogram Report ---
Test Reason : Blood Pressure : / mmHG Vent. Rate : 164 BPM Atrial Rate : 082 BPM P-R Int : 000 ms QRS Dur : 118 ms QT Int : 308 ms P-R-T Axes : 000 002 193 degrees QTc Int : 508 ms Poor data quality, interpretation may be adversely affected Supraventricular tachycardia Marked ST abnormality, possible inferolateral subendocardial injury Abnormal ECG When compared with ECG of 15-FEB-2021 23:30, SVT has replaced sinus rhythm Confirmed by Scott Gomes ([id number]) on 02/17/2021 6:48:01 PM Referred By: REFERRED SELF Confirmed By:Iron Gomes
--- NOTE | 2021-02-17 18:49 | Electrocardiogram Report ---
Test Reason : Blood Pressure : / mmHG Vent. Rate : 092 BPM Atrial Rate : 092 BPM P-R Int : 166 ms QRS Dur : 130 ms QT Int : 418 ms P-R-T Axes : -04 002 129 degrees QTc Int : 516 ms Sinus rhythm with Premature atrial complexes Left bundle branch block Abnormal ECG When compared with ECG of 16-FEB-2021 22:28, (unconfirmed) Premature atrial complexes are now Present Vent. rate has decreased BY 72 BPM Left bundle branch block has replaced Non-specific intra-ventricular conduction delay Confirmed by Scott Gomes ([id number] on 02/17/2021 6:48:26 PM Referred By: REFERRED SELF Confirmed By:Iron Gomes
[2021-02-17] MEDS: LEVOTHYROXINE SODIUM 50 MCG TABLET PO SCH (20:35)
[2021-02-17] MEDS: ATORVASTATIN 40 MG TAB PO SCH (20:35)
[2021-02-17] MEDS: cefTRIAXone SODIUM 2,000 MG in DEXTROSE 5% 50 ML IV SCH (20:35)
[2021-02-17] MEDS: traZODone HCL 50 MG TAB PO SCH (21:26)
[2021-02-18 07:15] LABS: Hematocrit (blood only) 35.9 % (37-47); Hemoglobin 11.3 g/dL (12.0-16.0); Mean Corpuscular Hemoglobin 29.5 pg (25-34); Mean Corpuscular Hgb Conc 31.5 g/dL (32-36); Mean Corpuscular Volume 93.7 fL (80-100); Mean Platelet Volume 9.7 fL (7.4-10.4); Platelet Count 283 K/uL (130-400); RDW Coefficient of Variation 15.1 % (11.5-14.5); RDW Standard Deviation 51.4 fL (36.4-46.3); Red Blood Count 3.83 M/uL (4.2-5.4); White Blood Count 6.53 K/uL (4.8-10.8)
[2021-02-18 07:39] LABS: BUN Creatinine Ratio 10.1 (10-20); Calcium 8.8 mg/dl (8.5-10.1); Creatinine Clr Calc Pharmacy 47.1 ml/min; Est GFR (African American) 72.4 ml/min; Est GFR (Non-African American) 62.5 ml/min; Magnesium 1.8 mg/dl (1.8-2.4); Potassium 3.6 mmol/L (3.5-5.1)
[2021-02-18] MEDS: LORATADINE 10 MG TAB PO SCH (08:09)
[2021-02-18] MEDS: HEPARIN SOD 5,000 UNIT/0.5 ML VIAL SQ SCH ×2 (08:09→21:26)
[2021-02-18] MEDS: PANTOprazole 40 MG TAB PO SCH (08:09)
[2021-02-18] MEDS: METOPROLOL SUCC 25MG EXT REL TAB PO SCH (08:10)
[2021-02-18] MEDS: ASPIRIN 325 MG ECTAB PO SCH (08:10)
[2021-02-18] MEDS: CLOPIDOGREL BISULFATE 75 MG TAB PO SCH (08:10)
[2021-02-18] MEDS: PARoxetine HCL 20 MG TAB PO SCH (08:10)
[2021-02-18] MEDS: CEROVITE ADV FORMULA TAB PO SCH (08:10)
--- NOTE | 2021-02-18 13:50 | Hospitalist Progress Note ---
Date of Service February 18, 2021 Assessment & Plan (1) Tachycardia: Overnight of 02/16-02/17 had episode of SVT. 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 Once her tachycardia breaks, she again has the two atrial pacemakers. - Continue metoprolol to help calm the secondary pacemaker. - HR generally lower. 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 (2) UTI (urinary tract infection): Some indication of UTI on UA on admission. Urine culture on 02/14 was negative, but she was probably given ashwin-operative abx during her [place] procedure. - Continue ceftriaxone (switched from cefepime on admission) x 7 days total. (End date: 02/20/2021) - Having some hematuria after being put on full-dose ASA overnight for possible ACS. Stopped the ASA. Continue on Plavix and heparin DVT ppx. Monitor urine. (3) Altered mental status: Metabolic encephalopathy in setting of UTI. - Has had this happen in the past as well. Improved with treatment of UTI and regained her full orientation, though this was ~2 years ago. - Significantly improved today again. Monitor. (4) Nephrolithiasis: Right ureteral stent in place from [facility] hospitalization. - Monitor (5) Physical deconditioning: Likely due to age and recent hospitalizations. - PT/OT - Possible placement (6) TIA (transient ischemic attack): Remote hx of TIA, but no mention of stroke in our system or the [facility] where she was in 11/2020. - Stop ASA as she has noted hx of duodenal ulcer and GI bleed - Continue Plavix, statin (7) Stage III chronic kidney disease: Baseline Cr ~1.0. - Presently at baseline. Cr. down to 0.85 on 02/16. (8) Hypothyroidism: TSH was 0.7 in this admission. No signs/symptoms of hypo-/hyperthyroidism. - Continue home Synthroid 50 mcg (9) Anxiety and depression: Hx of depression as well as adjustment disorder and other mental health issues. - Continue home paroxetine and trazodone. (10) DVT prophylaxis: Heparin 5,000 units SQ Q12h Admission and Anticipated Discharge Date Admission Date: February 14, 2021 Subjective Feels well today. No complaints. Is confused about where we are. Reports no fevers/chills, chest pain, shortness of breath, abdominal pain, nausea, or vomiting. Physical Exam Constitutional: WD/WN, vitals as above no acute distress Eyes: EOM intact bilaterally; no conjunctival abnormality ENMT: external ear and nose normal, oropharynx normal Neck: trachea midline, no thyromegaly normal visual inspection Respiratory: normal respiratory effort, lungs clear to auscultation no respiratory distress Cardiovascular: RRR, no murmur, no edema Gastrointestinal (Abdomen): Inspection/Auscultation: abdomen normal to inspection; abdomen not distended Percussion/Palpation: abdomen soft; abdomen nontender, no guarding and abdomen not rigid Musculoskeletal: no cyanosis or clubbing, extremities motor strength 5/5 Skin: no rashes, warm and dry Neurologic: moves all extremities and awake Psychiatric: Orientation: alert, oriented to person, oriented to time and cooperative; + not oriented to place Results & Data Results & Data ([facility]) Vital Signs (Past 12 Hours) Vital Signs Temp Pulse Pulse Resp BP BP Pulse Ox 02/18/21 11:01 37.3 C 90 19 139/76 92 02/18/21 08:00 98 H 02/18/21 07:03 36.8 C 93 H 19 118/58 L 96 02/18/21 04:00 36.7 C 95 H 20 146/74 H 92 PG Care Time/CCT Total # of Minutes Spent Total Time Spent with Patient: Total time spent is greater than 50% in coordination of care (as documented) at patient's floor/unit and/or counseling patient: Coding Level of Care Code 58709 Subseq Hosp Care Lvl 2 Diagnoses Tachycardia R00.0 UTI (urinary tract infection) N39.0 Altered mental status R41.82 Nephrolithiasis N20.0 Physical deconditioning R53.81 TIA (transient ischemic attack) G45.9 Stage III chronic kidney disease N18.3 Hypothyroidism E03.9 Anxiety and depression F41.9; F32.9 DVT prophylaxis Z29.9
[2021-02-18] MEDS: traZODone HCL 50 MG TAB PO SCH (21:27)
[2021-02-18] MEDS: ATORVASTATIN 40 MG TAB PO SCH (21:27)
[2021-02-18] MEDS: LEVOTHYROXINE SODIUM 50 MCG TABLET PO SCH (21:27)
[2021-02-18] MEDS: cefTRIAXone SODIUM 2,000 MG in DEXTROSE 5% 50 ML IV SCH (21:59)
[2021-02-19] MEDS ORDERED: ADENOSINE IV SOLN 3 MG/ML 2 ML VIAL IV STA (04:52)
[2021-02-19] MEDS ORDERED: ADENOSINE IV SOLN 3 MG/ML 2 ML VIAL IV ONE (04:56)
[2021-02-19 07:43] LABS: Hematocrit (blood only) 35.5 % (37-47); Hemoglobin 11.4 g/dL (12.0-16.0); Mean Corpuscular Hemoglobin 29.1 pg (25-34); Mean Corpuscular Hgb Conc 32.1 g/dL (32-36); Mean Corpuscular Volume 90.6 fL (80-100); Mean Platelet Volume 9.3 fL (7.4-10.4); Platelet Count 239 K/uL (130-400); RDW Standard Deviation 49.3 fL (36.4-46.3); Red Blood Count 3.92 M/uL (4.2-5.4); White Blood Count 6.69 K/uL (4.8-10.8)
[2021-02-19 08:14] LABS: BUN Creatinine Ratio 9.7 (10-20); Calcium 9.2 mg/dl (8.5-10.1); Creatinine Clr Calc Pharmacy 44.5 ml/min; Est GFR (African American) 67.6 ml/min; Est GFR (Non-African American) 58.3 ml/min; Magnesium 1.6 mg/dl (1.8-2.4); Potassium 3.5 mmol/L (3.5-5.1)
[2021-02-19] MEDS: CLOPIDOGREL BISULFATE 75 MG TAB PO SCH (10:45)
[2021-02-19] MEDS: PANTOprazole 40 MG TAB PO SCH (10:45)
[2021-02-19] MEDS: CEROVITE ADV FORMULA TAB PO SCH (10:45)
[2021-02-19] MEDS: LORATADINE 10 MG TAB PO SCH (10:45)
[2021-02-19] MEDS: HEPARIN SOD 5,000 UNIT/0.5 ML VIAL SQ SCH ×2 (10:46→21:42)
[2021-02-19] MEDS: METOPROLOL SUCC 25MG EXT REL TAB PO SCH (10:46)
[2021-02-19] MEDS: PARoxetine HCL 20 MG TAB PO SCH (10:46)
--- NOTE | 2021-02-19 12:04 | Electrocardiogram Report ---
Test Reason : Blood Pressure : / mmHG Vent. Rate : 091 BPM Atrial Rate : 091 BPM P-R Int : 168 ms QRS Dur : 124 ms QT Int : 422 ms P-R-T Axes : 066 -04 118 degrees QTc Int : 519 ms Poor data quality, interpretation may be adversely affected Sinus rhythm with Premature atrial complexes in a pattern of bigeminy Left bundle branch block Abnormal ECG When compared with ECG of 16-FEB-2021 23:08, No significant change was found Confirmed by Scott Gomes ([id number]) on 02/19/2021 12:04:13 PM Referred By: REFERRED SELF Confirmed By:Iron Gomes
--- NOTE | 2021-02-19 15:02 | Hospitalist Progress Note ---
Date of Service February 19, 2021 Assessment & Plan (1) Tachycardia: Overnight of 02/16-02/17 had episode of SVT. 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 Once her tachycardia breaks, she again has the two atrial pacemakers. - Continue metoprolol to help calm the secondary pacemaker. - HR generally lower. Had one burst of AVNRT overnight that was 17 minutes long, but overall in a normal rate. - Will increase her Toprol XL to 25 mg tomorrow. Tolerating it well, with good HR at baseline, so no real concern for increasing dose. - Likely discharge to [facility] tomorrow if stable. (2) UTI (urinary tract infection): Some indication of UTI on UA on admission. Urine culture on 02/14 was negative, but she was probably given ashwin-operative abx during her [place] procedure. - Continue ceftriaxone (switched from cefepime on admission) x 14 days total. (End date: 02/26/2021) - Having some hematuria after being put on full-dose ASA overnight on 02/17. - Improving today with clearing urine. - Discussed with [facility]. Daughter prefers switch to [facility], but they recommend removal of stent with [facility], then switching to [facility]. Has an appointment to remove stent on 02/25/2021 with [facility] presently. Would continue abx until after stent removed. (3) Altered mental status: Metabolic encephalopathy in setting of UTI. - Has had this happen in the past as well. Improved with treatment of UTI and regained her full orientation, though this was ~2 years ago. - Significantly improved since admission, but has kind of "topped out" the last 2 days. (4) Nephrolithiasis: Right ureteral stent in place from [facility] hospitalization. Removal scheduled for 02/25/2021. - Monitor (5) Physical deconditioning: Likely due to age and recent hospitalizations. - PT/OT (6) TIA (transient ischemic attack): Remote hx of TIA, but no mention of stroke in our system or the [facility] where she was in 11/2020. - Stop ASA as she has noted hx of duodenal ulcer and GI bleed - Continue Plavix, statin (7) Stage III chronic kidney disease: Baseline Cr ~1.0. - Presently at baseline. Cr. down to 0.9 on 02/19. (8) Hypothyroidism: TSH was 0.7 in this admission. No signs/symptoms of hypo-/hyperthyroidism. - Continue home Synthroid 50 mcg (9) Anxiety and depression: Hx of depression as well as adjustment disorder and other mental health issues. - Continue home paroxetine and trazodone. (10) DVT prophylaxis: Heparin 5,000 units SQ Q12h Admission and Anticipated Discharge Date Admission Date: February 14, 2021 Subjective No complaints today. Somewhat more tired today, but arousable. Reports no fevers/chills, chest pain, shortness of breath, abdominal pain, nausea, or vomiting. Physical Exam Constitutional: WD/WN, vitals as above no acute distress Eyes: EOM intact bilaterally; no conjunctival abnormality ENMT: external ear and nose normal, oropharynx normal Neck: trachea midline, no thyromegaly normal visual inspection Respiratory: normal respiratory effort, lungs clear to auscultation no respiratory distress Cardiovascular: RRR, no murmur, no edema Gastrointestinal (Abdomen): Inspection/Auscultation: abdomen normal to inspection; abdomen not distended Percussion/Palpation: abdomen soft; abdomen nontender, no guarding and abdomen not rigid Musculoskeletal: no cyanosis or clubbing, extremities motor strength 5/5 Skin: no rashes, warm and dry Neurologic: moves all extremities and awake Psychiatric: Orientation: alert, oriented to person and cooperative; + not oriented to place Results & Data Results & Data ([facility]) Vital Signs (Past 12 Hours) Vital Signs Temp Pulse Pulse Resp BP BP Pulse Ox 02/19/21 08:00 86 02/19/21 07:31 36.9 C 83 22 102/67 93 02/19/21 05:45 89 14 95/62 L 94 02/19/21 05:00 150 H 130/86 94 PG Care Time/CCT Total # of Minutes Spent Total Time Spent with Patient: Total time spent is greater than 50% in coordination of care (as documented) at patient's floor/unit and/or counseling patient: Coding Level of Care Code 43928 Subseq Hosp Care Lvl 2 Diagnoses Tachycardia R00.0 UTI (urinary tract infection) N39.0 Altered mental status R41.82 Nephrolithiasis N20.0 Physical deconditioning R53.81 TIA (transient ischemic attack) G45.9 Stage III chronic kidney disease N18.3 Hypothyroidism E03.9 Anxiety and depression F41.9; F32.9 DVT prophylaxis Z29.9
[2021-02-19] MEDS: MAGNESIUM SULFATE / D5W 1 GM/100 ML BAG IV SCH ×3 (16:07→20:28)
[2021-02-19] MEDS: LEVOTHYROXINE SODIUM 50 MCG TABLET PO SCH (21:42)
[2021-02-19] MEDS: ATORVASTATIN 40 MG TAB PO SCH (21:43)
[2021-02-19] MEDS: traZODone HCL 50 MG TAB PO SCH (21:43)
[2021-02-19] MEDS: cefTRIAXone SODIUM 2,000 MG in DEXTROSE 5% 50 ML IV SCH (22:30)
[2021-02-20 00:46] LABS: Appearance Urine Slightly Cloudy (Clear); Bilirubin Urine Negative (Negative); Blood Urine 3+ (Negative); Color Urine Yellow; Glucose Urine UA Negative (Negative); Ketones Urine 1+ (Negative); Leukocyte Esterase Urine 1+ (Negative); Nitrite Urine Negative (Negative); Protein Urine 2+ (Negative); Specific Gravity Urine >= 1.030 (1.000-1.030); Urobilinogen Urine Negative (Negative); pH Urine 5.5 (4.5-7.5)
[2021-02-20 00:56] LABS: Epithelial Cell Urine 0-5 /lpf (0-5); WBC Urine >30 /hpf (0-5)
[2021-02-20 00:57] LABS: Bacteria Urine 1+ (Negative); Hyaline Casts Urine 0-5 /lpf (0-5)
[2021-02-20 00:58] LABS: Renal Epithelial Cells Urine 0-5 /lpf (0-5)
[2021-02-20 06:26] LABS: Hematocrit (blood only) 38.5 % (37-47); Hemoglobin 12.1 g/dL (12.0-16.0); Mean Corpuscular Hemoglobin 28.6 pg (25-34); Mean Corpuscular Hgb Conc 31.4 g/dL (32-36); Mean Platelet Volume 9.2 fL (7.4-10.4); Platelet Count 275 K/uL (130-400); RDW Coefficient of Variation 15.2 % (11.5-14.5); RDW Standard Deviation 50.7 fL (36.4-46.3); Red Blood Count 4.23 M/uL (4.2-5.4); White Blood Count 7.82 K/uL (4.8-10.8)
[2021-02-20 06:28] LABS: Base Excess VBG 1.4 mEq/L; Oxygen Saturation VBG 86.3 %; pH VBG 7.41 (7.36-7.41)
[2021-02-20 07:04] LABS: Albumin Level 2.7 gm/dl (3.4-5.0); BUN Creatinine Ratio 9.4 (10-20); Calcium 8.8 mg/dl (8.5-10.1); Creatinine Clr Calc Pharmacy 46.7 ml/min; Est GFR (African American) 72.4 ml/min; Est GFR (Non-African American) 62.5 ml/min; Magnesium 2.6 mg/dl (1.8-2.4); Potassium 3.6 mmol/L (3.5-5.1)
[2021-02-20 07:07] LABS: Albumin Globulin Ratio 0.6 (0.9-2); Bilirubin,Total 0.3 mg/dl (0.2-1); Globulin 4.6 gm/dl (2.5-4.0); Total Protein 7.3 gm/dl (6.4-8.2)
[2021-02-20] MEDS: PANTOprazole 40 MG TAB PO SCH (08:36)
[2021-02-20] MEDS: LORATADINE 10 MG TAB PO SCH (08:37)
[2021-02-20] MEDS: CLOPIDOGREL BISULFATE 75 MG TAB PO SCH (08:37)
[2021-02-20] MEDS: PARoxetine HCL 20 MG TAB PO SCH (08:37)
[2021-02-20] MEDS: CEROVITE ADV FORMULA TAB PO SCH (08:37)
[2021-02-20] MEDS: METOPROLOL SUCC 25MG EXT REL TAB PO SCH (08:37)
[2021-02-20] MEDS: HEPARIN SOD 5,000 UNIT/0.5 ML VIAL SQ SCH ×2 (08:39→21:59)
--- NOTE | 2021-02-20 18:07 | Hospitalist Progress Note ---
Date of Service February 20, 2021 Assessment & Plan (1) Tachycardia: Overnight of 02/16-02/17 had episode of SVT. None further since then except 5/18 Had one burst of AVNRT overnight that was 17 minutes long, but overall in a normal rate. 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 Once her tachycardia breaks, she again has the two atrial pacemakers. - Continue metoprolol to help calm the secondary pacemaker. - HR generally lower. - continue Toprol XL to 25 mg daily- Tolerating it well, with good HR at baseline, so no real concern for increasing dose. dwngrade to med/surg (2) UTI (urinary tract infection): Some indication of UTI on UA on admission. Urine culture on 02/14 was negative, but she was probably given ashwin-operative abx during her [place] procedure. - Continue ceftriaxone (switched from cefepime on admission) x 14 days total. (End date: 02/26/2021) - Having some hematuria after being put on full-dose ASA overnight on 02/17. - hematuria now resolved - Discussed with [facility]. Daughter prefers switch to [facility], but they recommend removal of stent with [facility], then switching to [facility]. Has an appointment to remove stent on 02/25/2021 with [facility] presently. Would continue abx until after stent removed. continue [place] for now but will d/w Urology -place US-guided IV (3) Altered mental status: Metabolic encephalopathy in setting of UTI. - Has had this happen in the past as well. Improved with treatment of UTI and regained her full orientation, though this was ~2 years ago. - Significantly improved since admission (4) Nephrolithiasis: Right ureteral stent in place from [facility] hospitalization. Removal scheduled for 02/25/2021. - Monitor (5) Physical deconditioning: Likely due to age and recent hospitalizations. - PT/OT (6) TIA (transient ischemic attack): Remote hx of TIA, but no mention of stroke in our system or the [facility] where she was in 11/2020. - Stop ASA as she has noted hx of duodenal ulcer and GI bleed - Continue Plavix, statin (7) Stage III chronic kidney disease: Baseline Cr ~1.0. - Presently at baseline. Cr. down to 0.9 on 02/19. (8) Hypothyroidism: TSH was 0.7 in this admission. No signs/symptoms of hypo-/hyperthyroidism. - Continue home Synthroid 50 mcg (9) Anxiety and depression: Hx of depression as well as adjustment disorder and other mental health issues. - Continue home paroxetine and trazodone. (10) DVT prophylaxis: Heparin 5,000 units SQ Q12h Dispo- improving, hopeful for dc to rehab tomorrow Admission and Anticipated Discharge Date Admission Date: February 14, 2021 Subjective Pt much more awake and alert, interactive today as per nursing than previous days. She denies any pain in abd, back. Is eating and dirnking. Hematuria has cleared up. Denies CP or SOB Tele with NSR , rates 70-90s, PACs, no further SVT Discussed care with daughter on phone. Review of Systems Review of Systems: All systems reviewed & are unremarkable except as noted in HPI & below Physical Exam Constitutional: WD/WN, vitals as above Eyes: + anicteric sclerae Neck: trachea midline, no thyromegaly Respiratory: normal respiratory effort, lungs clear to auscultation Cardiovascular: RRR, no murmur, no edema Chest (Breasts): Chest: normal inspection of chest Gastrointestinal (Abdomen): normal bowel sounds, soft, nontender, no hepatosplenomegaly Musculoskeletal: Extremities: extremities normal to inspection; no cyanosis and no clubbing Skin: Right chest with scab 1 x 2 cm, no erythema Left lateral buttock area with large superficial sharply demarcated region of sloughed off skin and mild erythema, no drainage-does not appear infected but more like previous blister Right arm with 5cm circular area of purplish discoloration, no tenderness or heat Neurologic: moves all extremities and awake; no focal motor deficits Psychiatric: Orientation: alert, oriented to person, oriented to place and cooperative Lymphatic: no lymphedema Results & Data Results & Data ([facility]) Vital Signs (Past 12 Hours) Vital Signs Temp Pulse Pulse Resp BP BP Pulse Ox 02/20/21 15:03 36.8 C 91 H 20 102/65 96 02/20/21 11:11 36.9 C 105 H 19 118/82 92 02/20/21 08:00 82 02/20/21 07:19 36.5 C 82 18 115/77 93 Laboratory Results labs reviewed PG Care Time/CCT Total # of Minutes Spent Total Time Spent with Patient: Total time spent is greater than 50% in coordination of care (as documented) at patient's floor/unit and/or counseling patient: Coding Level of Care Code 87799 Subseq Hosp Care Lvl 3 Diagnoses Tachycardia R00.0 UTI (urinary tract infection) N39.0 Altered mental status R41.82 Nephrolithiasis N20.0 Physical deconditioning R53.81 TIA (transient ischemic attack) G45.9 Stage III chronic kidney disease N18.3 Hypothyroidism E03.9 Anxiety and depression F41.9; F32.9 DVT prophylaxis Z29.9
[2021-02-20] MEDS: ATORVASTATIN 40 MG TAB PO SCH (21:58)
[2021-02-20] MEDS: traZODone HCL 50 MG TAB PO SCH (21:59)
[2021-02-20] MEDS: LEVOTHYROXINE SODIUM 50 MCG TABLET PO SCH (21:59)
[2021-02-20] MEDS: cefTRIAXone SODIUM 2,000 MG in DEXTROSE 5% 50 ML IV SCH (22:02)
[2021-02-21] MEDS: PARoxetine HCL 20 MG TAB PO SCH (08:40)
[2021-02-21] MEDS: METOPROLOL SUCC 25MG EXT REL TAB PO SCH (08:40)
[2021-02-21] MEDS: CEROVITE ADV FORMULA TAB PO SCH (08:41)
[2021-02-21] MEDS: HEPARIN SOD 5,000 UNIT/0.5 ML VIAL SQ SCH (08:41)
[2021-02-21] MEDS: PANTOprazole 40 MG TAB PO SCH (08:41)
[2021-02-21] MEDS: CLOPIDOGREL BISULFATE 75 MG TAB PO SCH (08:41)
[2021-02-21] MEDS: LORATADINE 10 MG TAB PO SCH (08:41)
--- NOTE | 2021-02-21 13:47 | Discharge Summary ---
Date of Service February 21, 2021 Admission HPI Per Admitting Provider Mrs. Kwok is an 86-year-old female with a history of a Chronic LBBB, Hypothyroidism, DJD, Carotid Artery Occlusion, TIA, GERD, Hyperlipidemia, Stage 3 CKD, Vasculopathy, and Recurrent Nephrolithiasis who underwent a Right Ureteral Stent in November 2020 at [facility]. She was just discharged from [facility] yesterday after undergoing lithotripsy. It appears she has been hospitalized both at [facility] and [facility] over the past couple of months on a relatively frequent basis -- and most of her visits have been related to her kidney stones, urinary tract infection, or change in mental status. At this point, the patient's daughter can no longer take care of her at home. Normally the patient can stand up on her own (even though she has a fused right knee) and she can normally walk short distances. However the patient is so weak at this point, she cannot even stand up any more. Patient has been acting confused, seeing things that are not there, and sometimes is coherent, and other time she is not. She was being evaluated by home health this morning, and patient was noticeably weak (3 people could not help her to stand up) and patient had a fever. Her daughter brought her here to evaluate for sepsis, urinary tract infection, or dehydration. The the daughter is hoping that we can get patient in a rehabilitation facility after this hospitalization to regain her strength. Patient is not a reliable historian. Daughter answers most of the questions. The patient has not had any vomiting or diarrhea (although she is on vancomycin for C diff). She has not had any labored breathing to her daughter's knowledge. She denies any focal neurologic deficits such as a week or more weak leg. Mother has not exhibited any slurred speech and has not complained of any headaches or stiff neck. According to the patient's daughter (whom the patient lives with) the patient is usually just a normal person who does not hallucinate, see things, or someone who speaks incoherently -- and last time her daughter feels like her mother was normal was back in the late Fall/early Winter 2019. Principal Diagnosis Acute metabolic encephalopathy, UTI, generalized weakness Discharge Exam Constitutional WD/WN, vitals as above Eyes + anicteric sclerae Neck trachea midline, no thyromegaly Respiratory normal respiratory effort Auscultation: + wheezes (A few scattered expiratory wheezes); no crackles Cardiovascular RRR, no murmur, no edema Chest (Breasts) Chest: normal inspection of chest Gastrointestinal (Abdomen) normal bowel sounds, soft, nontender, no hepatosplenomegaly Musculoskeletal Extremities: extremities normal to inspection; no cyanosis and no clubbing Neurologic moves all extremities and awake; no focal motor deficits Psychiatric Orientation: alert, oriented to person, oriented to place and cooperative Lymphatic no lymphedema Discharge Data Allergies Allergy/AdvReac Type Severity Reaction Status Date / Time oxycodone AdvReac Severe confusion/ Verified 02/14/21 17:07 "Gets Mean" Consultations 02/14/21 14:03 ED Decision to Admit Stat 02/14/21 16:50 Consult Urology Routine Ordered Studies 02/14/21 11:34 CT abd pelvis IV con only Stat CT head/brain wo con Stat Abdomen/Pelvis CT 02/14/21 11:34 CT OF THE ABDOMEN AND PELVIS WITH CONTRAST CLINICAL HISTORY: poss colitis, divertic COMPARISON STUDY: Pelvis radiograph July 30, 2019. TECHNIQUE: Following IV administration of 90 mL of Optiray, axial images of the abdomen and pelvis were obtained from the lung bases to the proximal femurs. Images were reviewed in the axial, sagittal, and coronal planes. IV contrast was administered without complication. Automated exposure control was utilized for the study. A dose lowering technique was utilized adhering to the principles of ALARA. CT DOSE: 3044.72 mGy.cm FINDINGS: Moderate cardiomegaly is noted. There is coronary calcification and mitral annular calcification. Small hiatal hernia is present. This exam is compromised by motion artifact. Endovascular coils within the expected location of the gastroduodenal artery are noted. Right hip arthroplasty is partially imaged. Biliary ductal dilatation is likely related to cholecystectomy. The spleen, adrenal glands, left kidney and pancreas are unremarkable. Several left renal lesions favor cysts. A few right renal cysts are present. Marked right renal atrophy is noted. There is a 1 cm focus of gas within a right renal calyx. Mild to moderate right hydronephrosis is present. Right-sided urothelial thickening is noted, involving the right collecting system and ureter. There is mild adjacent infiltration. Multiple suspected right renal calculi are noted. There are calculi within the right renal pelvis. Less likely, this could reflect excreted contrast. No ureteral calculi are identified. Right ureteral stent is in place. There is no left hydronephrosis. There is no evidence for a bowel obstruction. No ascites is present. No acute fracture or suspicious lesion is identified within the visualized skeletal structures. IMPRESSION: 1. Right ureteral stent in place. Mild to moderate right hydronephrosis with urothelial thickening involving the right collecting system and right ureter. This raises the possibility of an infectious process such as pyelitis. Gas within a right renal calyx could be due to instrumentation or a gas-forming infectious process. Marked right renal atrophy. 2. Multiple suspected right renal calculi as well as calculi within the right renal pelvis. Less likely, this could reflect excreted contrast. No ureteral calculi identified. Exam compromised by motion artifact. 3. Biliary ductal dilatation likely related to cholecystectomy. ACT 112: Negative or not required by law. Electronically signed by: Varun Courtney M.D. 02/14/2021 1:49 PM Chest X-Ray 02/14/21 11:34 XR chest 1V portable HISTORY: 86 years-old Female SEPSIS acute sepsis COMPARISON: Chest radiograph 08/16/2020 TECHNIQUE: Portable AP view the chest FINDINGS: Cardiomediastinal and hilar silhouettes are unchanged. The patient is slightly rotated. Dense calcifications of the mitral annulus. Unchanged right hemidiaphragmatic elevation. Mild bibasilar densities. No pneumothorax, large pl eural effusion or overt pulmonary edema. Degenerative changes of the shoulders and spine. Radiodensities project over the abdominal right upper quadrant. IMPRESSION: 1. Cardiomegaly without pulmonary edema. 2. Chronic right hemidiaphragmatic elevation with similar appearing bibasilar opacities suggestive of atelectasis. Pneumonia considered less likely. ACT 112: Negative or not required by law. The above report was generated using voice recognition software. It may contain grammatical, syntax or spelling errors. Electronically signed by: Sher Liu M.D. 02/14/2021 11:[address] 02/14/21 11:34 CT SCAN OF THE BRAIN WITHOUT IV CONTRAST CLINICAL HISTORY: Change in mental status. COMPARISON STUDY: CT of the brain dated 07/30/2019. TECHNIQUE: Unenhanced axial CT scan of the brain is performed from the vertex to the skull base. A dose lowering technique was utilized adhering to the principles of ALARA. Examination is compromised by motion artifact. The patient was scanned 3 times in an effort to improve image quality. FINDINGS: Brain parenchyma: There is age-related involutional change noting moderate subcortical and periventricular microangiopathic change. There is no hemorrhage, mass effect, or evidence of acute territorial ischemia by CT criteria. A chronic lacunar infarct is noted in the right thalamus. Boles-white matter differentiation is preserved. No extra-axial fluid collection is seen. Ventricles, sulci, cisterns: Prominent secondary to involutional change. Intracranial vasculature: There is atherosclerotic calcification of the cavernous carotid and vertebral arteries. Calvarium: Unremarkable. Sinuses and mastoids: The paranasal sinuses are clear. The mastoid air cells are well pneumatized. Orbits: The bony orbits are grossly intact. There are bilateral ocular lens implants. IMPRESSION: There is no hemorrhage, mass effect, or evidence of acute territorial ischemia by CT criteria noting a motion compromised examination. ACT 112: Negative or not required by law. Electronically signed by: Arun Jackson M.D. 02/14/2021 1:23 PM Hospital Course (1) Altered mental status: Metabolic encephalopathy in setting of UTI. - Has had this happen in the past as well. Improved with treatment of UTI and regained her full orientation, though this was ~2 years ago. - Significantly improved since admission (2) UTI (urinary tract infection): Some indication of UTI on UA on admission. Urine culture on 02/14 was negative, but she was probably given ashwin-operative abx during her [place] procedure. - Continue ceftriaxone (switched from cefepime on admission) x 14 days total. (End date: 02/26/2021) until after her ureteral stent is removed on 02/25 - Having some hematuria after being put on full-dose ASA overnight on 02/17. - hematuria now resolved - Discussed with [facility]. Daughter prefers switch to [facility], but they recommend removal of stent with [facility], then switching to [facility]. Would continue abx until after stent removed. Boggs has been discontinued after discussion with urology-trial of void -placed US-guided peripheral IV in the hospital on 02/21-this can remain in place for up to 4 weeks for use of IV antibiotics (3) Tachycardia: Overnight of 02/16-02/17 had episode of SVT. 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 Once her tachycardia breaks, she again has the two atrial pacemakers. - Continue metoprolol to help calm the secondary pacemaker. - HR generally lower and doing well. - continue Toprol XL to 25 mg daily- Tolerating it well, with good HR at baseline, so no real concern for increasing dose. (4) Nephrolithiasis: Right ureteral stent in place from [facility] hospitalization. Removal scheduled for 02/25/2021. - Monitor (5) Physical deconditioning: Likely due to age and recent hospitalizations. - PT/OT and rehab needed (6) TIA (transient ischemic attack): Remote hx of TIA, but no mention of stroke in our system or the [facility] where she was in 11/2020. - Stop ASA as she has noted hx of duodenal ulcer and GI bleed - Continue Plavix, statin (7) Stage III chronic kidney disease: Baseline Cr ~1.0. - Presently at baseline. Cr. down to 0.9 on 02/19. (8) Hypothyroidism: TSH was 0.7 in this admission. No signs/symptoms of hypo-/hyperthyroidism. - Continue home Synthroid 50 mcg (9) Anxiety and depression: Hx of depression as well as adjustment disorder and other mental health issues. - Continue home paroxetine and trazodone. (10) DVT prophylaxis: Heparin 5,000 units SQ Q12h was provided Dispo-improved, stable for discharge to rehab today Total Time Total Time Spent Total Time Spent (In Minutes): 35 minutes Total Time Includes: Examination of the Patient, Discharge Planning, Medication Reconciliation and Communication With Other Providers (Urology OVERNIGHT BABYSITTER) Discharge Plan Discharge Items Patient Disposition: Transfer Assisted Fac Reason For Visit: UTI, ALTERED MENTAL STATUS Discharge Diagnosis: UTI, Acute metabolic encephalopathy Condition on Discharge: Fair Activity: As commented below Bathing: No limitations Bathing Comment: keep IV dry Exercise/Sports: Gradually increase as tolerated Non-emergency contact: Primary Care Provider and Urologist Call non-emergency contact if: you have any medication questions and your symptoms worsen Follow-up/Referrals: Eden Whitmore MD [Primary Care Provider] - Diet: Regular Addtl Attending Provider Instructions: Please continue ceftriaxone 1 gram IV once daily at 1500 through 02/26 for your presumed UTI. Please keep your follow up appointment at [facility] in [place] on 02/25 for ureteral stent removal. You were started on a new medication called metoprolol to control a fast heart rhythm called SVT (supraventricular tachycardia). Pending Studies at Discharge: Yes Stand-Alone Forms: My [facility] Skilled Items Patient informed of condition?: Yes DNR: No Discharge Level of Care: Skilled Communicable Disease: No Discharge Prognosis: Improving Lines: US Guided Peripheral IV Urinary Catheter: No Medications and DC Order Prescriptions: New metoprolol succinate 25 mg Tablet Extended Release 24 Hr 25 mg PO QAM Qty: 30 RF: 0 ceftriaxone 1 gram recon soln 1 g IV DAILY 5 Days Qty: 5 RF: 0 Continued (DME) Lift Chair Misc See Rx Instructions .ROUTE .MEDSUPPLY Qty: 1 RF: 0 levothyroxine [Synthroid] 50 mcg tablet 50 mcg PO HS Qty: 30 RF: 5 atorvastatin [Lipitor] 40 mg tablet 40 mg PO HS Qty: 30 RF: 5 clopidogrel [Plavix] 75 mg tablet 75 mg PO QAM Qty: 90 RF: 3 aspirin 81 mg tablet,delayed release (DR/EC) 81 mg PO QAM RF: 0 (DME) disposable gloves [Disposable Latex-Free Gloves] Misc See Rx Instructions .ROUTE .MEDSUPPLY Qty: 1000 RF: 3 (DME) Wheelchair (Manual) Device See Rx Instructions .ROUTE .MEDSUPPLY Qty: 1 RF: 0 cranberry 500 mg capsule 500 mg PO QAM RF: 0 loratadine [Claritin] 10 mg Tablet 10 mg PO QAM RF: 0 PreserVision AREDS-2 [id number] iz-vtym-[id number]-mg capsule 1 cap PO BID RF: 0 Combivent Respimat 20-100 mcg/actuation mist 1 puff INHALATION QAM RF: 0 Trac Emc & Safety 40-10-5-3.3 mg Tablet 1 tab PO QAM RF: 0 trazodone 50 mg tablet 50 mg PO HS RF: 0 paroxetine HCl 20 mg tablet 20 mg PO QAM RF: 0 omeprazole 20 mg capsule,delayed release(DR/EC) 20 mg PO QAM RF: 0 nystatin 100,000 unit/gram powder 1 applic topical BID PRN (Reason: Itching) RF: 0 Discontinued tramadol 50 mg tablet 50 mg PO Q6 PRN (Reason: Pain) RF: 0 Discharge Orders: Discharge Order (Routine); Ordered 02/21/21 Ordered By: Judy Headley Admission Data Admit Date/Time: 02/14/21 15:26 Attending Provider: Judy Headley Admit Provider: Tyler Garcia Primary Care Provider: Eden Whitmore Other Providers: John Garcia ; Chay Price [facility] ; [facility] ; Adonis Morin ; Seng Sow ; Elver Aponte ; Miki Schultz ; Neda Pizarro ; Reinaldo Sesay ; Rozina Cerrato ; Teagan Perez ; Tammy Koehler ; Mike Piña ; Carol Ann Valdez ; Maryam Koehler Coding Level of Care Code D/C Day Management >30 mins Diagnoses Altered mental status R41.82 UTI (urinary tract infection) N39.0 Tachycardia R00.0 Nephrolithiasis N20.0 Physical deconditioning R53.81 TIA (transient ischemic attack) G45.9 Stage III chronic kidney disease N18.3 Hypothyroidism E03.9 Anxiety and depression F41.9; F32.9 DVT prophylaxis Z29.9
[2021-02-21] MEDS: cefTRIAXone SODIUM 2,000 MG in DEXTROSE 5% 50 ML IV SCH (14:24)
--- NOTE | 2021-02-28 14:02 | Coding Query ---
CODING QUERY To promote full compliance with coding requirements relating to patient care, provider participation is requested in all cases of highway maintainer uncertainty. Please assist us with the question(s) below: In the record, it states that the patient has an UTI. There is documentation that The H&P documents, "underwent a Right Ureteral Stent in November 2020 -- who presents today with Altered Mental Status, suspected UTI, Right Ureteral Stent, Generalized Weakness, and Physical Deconditioning. Patient was just discharged from [facility] yesterday after undergoing lithotripsy", and, " patient had urological procedure (lithotripsy) yesterday, now presenting with fever and CIMS. very weak, family cannot care for her at home in her current state. plant o admit patient for pyelo after instrumentation". Please clarify below the cause of the UTI if applicable. Thank you. ( x ) Ureteral Stent was the cause of the UTI. ( ) Lithotripsy procedure was the cause of the UTI. ( ) chronic horne was the cause of the UTI. ( ) Other urinary cath/device was the cause of the UTI. ( ) UTI, unspecified cause. ( ) Other (Specify): Principal Diagnosis: "that condition established after study, to be chiefly responsible for occasioning the admission of the patient to the hospital for care." Co-Existing Principal Diagnosis: "when two or more diagnoses equally meet the criteria for principal diagnosis as determined by the circumstances of admission, diagnostic work up, and/or therapy provided, and the Alphabetic Index, Tabular List, or another coding guideline does not provide sequencing direction, any one of the diagnoses may be sequenced first." "When the physician has documented what appears to be a current diagnosis in the body of the record, but has not included the diagnosis in the final diagnostic statement, the physician should be asked whether the diagnosis should be added." (Source Coding [facility] 2 QTR90. p3-4) CHANA
== END 2021-02-21 16:05 | DRG 698 ==
LOC: ED 10:53 → 3N 15:26 → SUATTDRO 15:26 → 3N 16:36 → 2W 02-16 01:06 → 2S 02-16 22:46 → 2W 02-20 18:11

== ENCOUNTER 2021-07-02 12:37 | Inpatient (IN) ==
[2021-07-02] MEDS ORDERED: SODIUM CHLORIDE 0.9% 500 ML IV ONE (12:48)
--- NOTE | 2021-07-02 12:54 | Emergency Department Note ---
Impression & Plan Acute pyelonephritis, Acute hypotension, Pulmonary edema ED Provider Note NAME: BENNY BOYLE AGE: 86 SEX: F : 1935 ARRIVES VIA: Ambulance INFORMANT: Patient, EMS ED PROVIDER(S): Koko Bobo DO CHIEF COMPLAINT: Weakness HPI: The patient is an 86-year-old female who presented to the emergency department by ambulance for generalized weakness. The patient is currently being treated for urinary tract infection. She was more lethargic this morning according to her family members and when visiting nurses checked on her today she was noted to have low blood pressure. 911 was called and the patient was brought to the emergency department via ambulance. The patient herself has no complaints at this time. There is no reported fever or cough. There was no reported abdominal pain or vomiting. The patient herself denies having any chest pain or difficulty breathing. The patient denies having any lower extremi ty swelling. She does have a small ulceration on her left foot that is being managed and she states is not worse than usual. The patient denies having any recent falls. She denies having any neck pain or headache. ROS: See above HPI for pertinent positives & negatives. A total of 10 systems reviewed and were otherwise negative. PAST MEDICAL HISTORY: See Below PAST SURGICAL HISTORY: See Below FAMILY HISTORY: See Below SOCIAL HISTORY: See Below HOME MEDICATIONS: See Below ALLERGIES: See Below VITALS: See Below PHYSICAL EXAMINATION: GENERAL: The patient is awake and alert. The patient is nonanxious appearing. EYES: The conjunctivae are clear. The pupils are round and reactive. EARS, NOSE, MOUTH AND THROAT: The nose is without any evidence of any deformity. NECK: The neck is nontender and supple. RESPIRATORY: Diminished breath sounds are noted throughout. There is no tachypnea or conversational dyspnea. CARDIOVASCULAR: Regular rate and rhythm noted there no murmurs rubs or gallops normal S1 normal S2. GASTROINTESTINAL: The abdomen is soft. Abdomen is nontender. MUSCULOSKELETAL/EXTREMITIES: There is no evidence of gross deformity full range of motion is noted in the hips and shoulders. SKIN: Skin is dry. Pulses are symmetric in both feet. There is a small ulceration on the top of the left second toe. There is no erythema or lymphangitic streaking. NEUROLOGIC: Patient is awake alert and oriented to person place but not time or situation. Strength was symmetric. There was no facial droop. MEDICAL DECISION MAKING: The patient is an 86-year-old female who presented to the emergency department for an evaluation of weakness and altered mental status. She was also hypotensive prior to arrival. The patient was treated with a small fluid bolus in the emergency department. She was also started on IV antibiotics for presumed pyelonephritis. CT was obtained because of elevated LFTs. The patient was reevaluated multiple times. According to her daughter her symptoms are continuing to worsen. For this reason I discussed her case with the on-call [facility]. They have agreed to evaluate the patient in the emergency department for further management and disposition. Triage Nursing notes reviewed. Prior medical records reviewed Vital Signs: reviewed and remarkable for hypotension. Differential diagnosis: Infection, dehydration, metabolic abnormality, hypo/hyperglycemia, electrolyte disturbance, anemia, hypoxia, cardiac sources, intracerebral event, toxicologic, neurologic, as well as other pathologies. ER treatment provided: See below Diagnostics interpreted by me: ECG: EKG was obtained in the emergency department. My interpretation is sinus rhythm at 75 bpm. Left bundle branch block pattern was noted. First-degree AV block was suggested. PACs were also appreciated. This was compared to a tracing from February 192020. No significant changes were noted. Cardiac Monitoring: An order was placed for continuous cardiac monitoring. The monitor shows a rate of 67 bpm with sinus rhythm. Laboratory studies: As stated above and show below. Imaging studies: See below Consultation(s): I discussed this case with Tammy who is on-call for the [facility]. They will evaluate the patient in the emergency department. Past Med/Surg History Medical History Acute pyelonephritis Carotid artery occlusion GERD (gastroesophageal reflux disease) Hallucination, visual HLD (hyperlipidemia) MRSA infection Physical deconditioning Renal calculi Stage III chronic kidney disease JESSIE improved since admission TIA (transient ischemic attack) Vasculopathy Surgical History H/O: hysterectomy History of knee replacement procedure of right knee History of right hip replacement S/P laparoscopic cholecystectomy Family History Mother , age 43 of complications from a motor vehicle accident. No problems noted. Father , age 70 of black lung No problems noted. Sister Breast cancer Denies family history of Ovarian cancer Prostate cancer Myocardial infarction Colorectal cancer Stroke Social History Smoking Status: Never smoker Second Hand Exposure: No; Hx Alcohol Use: No Hx Substance Use: No Preferred Language: German Communication Ability: Impaired Visual Impairment: No Limitations Hearing Ability: Use of Hearing Aid Educational Institution Curator Required: No Beliefs That Will Affect Care: None marital status: Single Current Living Situation: Family Current Living Situation Comment: lives with daughter current occupational status: retired Feels Safe at Home: Yes Childhood Exposure to Second-Hand Smoke: No Dental Care, Regularly: No Physical Activity Frequency: Does not Exercise Seatbelt Use: always Sunscreen Use: No Assistive Devices: None Allergies Allergies Allergy/AdvReac Type Severity Reaction Status Date / Time oxycodone AdvReac Severe confusion/ Verified 07/02/21 16:57 "Gets Mean" Home Meds Home Medications Medication Instructions Recorded Confirmed loratadine 10 mg tablet (Claritin) 10 mg PO QAM 08/25/18 07/02/21 aspirin 81 mg tablet,delayed 81 mg PO QAM tab 04/22/19 07/02/21 release cranberry 500 mg capsule 500 mg PO QAM cap 05/25/19 07/02/21 ipratropium 20 mcg-albuterol 100 1 puff INHALATION QAM 08/16/20 07/02/21 mcg/actuation mist for inhalation (Combivent Respimat) vit C 250 mg-vit E 90 mg-zinc 40 1 cap PO BID 08/16/20 07/02/21 mg-copper 1 ka-[id number] capsule (PreserVision AREDS-2) nystatin 100,000 unit/gram topical 1 applic TOPICAL BID PRN 02/14/21 07/02/21 powder omeprazole 20 mg capsule,delayed 20 mg PO QAM 02/14/21 07/02/21 release paroxetine HCl 20 mg tablet 20 mg PO QAM 02/14/21 07/02/21 trazodone 50 mg tablet 50 mg PO HS 02/14/21 07/02/21 Lactobacillus acidophilus 10 10,000 mmu cells PO DAILY 07/02/21 07/02/21 billion cell capsule (Probiotic) ascorbic acid (vitamin C) 500 mg 500 mg PO DAILY 07/02/21 07/02/21 chewable tablet (Vitamin C) cefdinir 300 mg capsule 300 mg PO BID 07/02/21 07/02/21 elderberry fruit 460 mg-elderberry 1 cap PO DAILY 07/02/21 07/02/21 flower 115 mg capsule multivitamin 1 tab PO DAILY 07/02/21 07/02/21 Previous Rx's Medication Instructions Recorded Lift Chair #1 ea 11/10/19 levothyroxine 50 mcg tablet 50 mcg PO HS #30 tab 09/07/20 (Synthroid) Wheelchair (Manual) #1 ea 12/05/20 disposable gloves (Disposable #1000 ea 12/05/20 Latex-Free Gloves) atorvastatin 40 mg tablet (Lipitor) 40 mg PO HS #30 tab 12/13/20 clopidogrel 75 mg tablet (Plavix) 75 mg PO QAM #90 tab 02/14/21 metoprolol succinate 25 mg 25 mg PO QAM #30 tab 02/21/21 tablet,extended release 24 hr Results & Data (ED) Vital Signs Vital Signs - 24 hr 07/02/21 12:45 07/02/21 12:46 07/02/21 12:54 Temperature 36.7 C Temperature Source Oral Pulse Rate 75 73 71 Pulse Rate from SpO2 Sensor 87 Respiratory Rate 21 20 16 Respiratory Effort / Characteristics Non-Labored Spontaneous Respiratory Depth Normal Blood Pressure 110/54 L 110/54 L Blood Pressure Mean 72 72 Blood Pressure Position Sitting Pulse Oximetry 94 96 96 Oxygen Delivery Method Room Air Room Air Room Air Sepsis Recent Fever Within 48 Hours No Sepsis New/Unexplained Change in Mental Status No Sepsis Action Taken by Nursing No Action Required 07/02/21 13:01 07/02/21 13:03 07/02/21 13:30 Temperature Temperature Source Pulse Rate 74 73 Pulse Rate from SpO2 Sensor 90 Respiratory Rate 20 17 Respiratory Effort / Characteristics Respiratory Depth Blood Pressure 106/53 L 102/49 L Blood Pressure Mean 70 66 Blood Pressure Position Pulse Oximetry 96 95 96 Oxygen Delivery Method Room Air Room Air Room Air Sepsis Recent Fever Within 48 Hours Sepsis New/Unexplained Change in Mental Status Sepsis Action Taken by Nursing 07/02/21 14:00 07/02/21 14:30 07/02/21 15:00 Temperature Temperature Source Pulse Rate 68 65 65 Pulse Rate from SpO2 Sensor Respiratory Rate 14 13 13 Respiratory Effort / Characteristics Respiratory Depth Blood Pressure 114/54 L 117/53 L 114/47 L Blood Pressure Mean 74 74 69 Blood Pressure Position Pulse Oximetry 96 96 96 Oxygen Delivery Method Room Air Sepsis Recent Fever Within 48 Hours Sepsis New/Unexplained Change in Mental Status Sepsis Action Taken by Nursing 07/02/21 15:30 Temperature Temperature Source Pulse Rate 67 Pulse Rate from SpO2 Sensor 66 Respiratory Rate 20 Respiratory Effort / Characteristics Respiratory Depth Blood Pressure 98/76 L Blood Pressure Mean 83 Blood Pressure Position Pulse Oximetry 98 Oxygen Delivery Method Room Air Sepsis Recent Fever Within 48 Hours Sepsis New/Unexplained Change in Mental Status Sepsis Action Taken by [facility] Medications Current Medication List: was personally reviewed by me Laboratory Data Attestation: I reviewed the patient's lab results. Result diagrams: 07/02/21 13:14 07/02/21 13:14 Lab Results 07/02/21 07/02/21 07/02/21 Range/Units 13:14 13:14 13:14 WBC 7.48 (4.8-10.8) K/uL RBC 3.84 L (4.2-5.4) M/uL Hgb 11.2 L (12.0-16.0) g/dL Hct 37.6 (37-47) % MCV 97.9 (80-100) fL MCH 29.2 (25-34) pg MCHC 29.8 L (32-36) g/dL RDW Std Deviation 52.4 H (36.4-46.3) fL RDW Coeff of Ravinder 14.7 H (11.5-14.5) % Plt Count 241 (130-400) K/uL MPV 8.9 (7.4-10.4) fL Immature Gran % (Auto) 0.0 % Neut % (Auto) 38.3 % Lymph % (Auto) 43.6 % [place] % (Auto) 9.0 % Eos % (Auto) 8.6 % Baso % (Auto) 0.5 % Neut # (Auto) 2.87 (1.4-6.5) K/uL Lymph # (Auto) 3.26 (1.2-3.4) K/uL [place] # (Auto) 0.67 H (0.11-0.59) K/uL Eos # (Auto) 0.64 H (0-0.5) K/uL Baso # (Auto) 0.04 (0-0.2) K/uL Immature Gran # (Auto) 0.00 (0.00-0.02) K/uL PT 10.9 (9.0-12.0) Seconds INR 1.1 (0.9-1.1) APTT 26.5 (21.0-31.0) Seconds PTT Ratio 1.0 Sodium 137 (136-145) mmol/L Potassium 4.0 (3.5-5.1) mmol/L Chloride 108 H (98-107) mmol/L Carbon Dioxide 25 (21-32) mmol/L Anion Gap 5.0 (3-11) BUN 22 H (7-18) mg/dl Creatinine 1.17 (0.6-1.2) mg/dl Est Cr Clr Drug Dosing 33.0 ml/min Est GFR ( Amer) 49.2 ml/min Est GFR (Non-Af Amer) 42.5 ml/min BUN/Creatinine Ratio 18.6 (10-20) Glucose 107 H (70-99) mg/dl Calcium 8.4 L (8.5-10.1) mg/dl Magnesium 1.9 (1.8-2.4) mg/dl Total Bilirubin 0.3 (0.2-1) mg/dl AST 183 H (15-37) U/L ALT 172 H (12-78) U/L Alkaline Phosphatase 197 H (45-117) U/L Total Creatine Kinase 84 (26-192) U/L Troponin I < 0.015 (0-0.045) ng/ml NT-Pro-B Natriuret Pep 2056 H (0-1800) pg/ml Total Protein 7.6 (6.4-8.2) gm/dl Albumin 2.7 L (3.4-5.0) gm/dl Globulin 4.9 H (2.5-4.0) gm/dl Albumin/Globulin Ratio 0.5 L (0.9-2) TSH 1.320 (0.300-4.500) uIu/ml Urine Color Urine Appearance (Clear) Urine pH (4.5-7.5) Ur Specific [place] (1.000-1.030) Urine Protein (Negative) Urine Glucose (UA) (Negative) Urine Ketones (Negative) Urine Blood (Negative) Urine Nitrite (Negative) Urine Bilirubin (Negative) Urine Urobilinogen (Negative) Ur Leukocyte Esterase (Negative) Urine WBC (Auto) (0-5) /hpf Urine RBC (Auto) (0-4) /hpf U Hyaline Cast (Auto) (0-5) /lpf U Epithel Cells (Auto) (0-5) /lpf Urine Bacteria (Auto) (Negative) Ur Renal Epithelial Cell COVID-19 Eval Order 07/02/21 07/02/21 Range/Units 15:26 17:12 WBC (4.8-10.8) K/uL RBC (4.2-5.4) M/uL Hgb (12.0-16.0) g/dL Hct (37-47) % MCV (80-100) fL MCH (25-34) pg MCHC (32-36) g/dL RDW Std Deviation (36.4-46.3) fL RDW Coeff of Ravinder (11.5-14.5) % Plt Count (130-400) K/uL MPV (7.4-10.4) fL Immature Gran % (Auto) % Neut % (Auto) % Lymph % (Auto) % [place] % (Auto) % Eos % (Auto) % Baso % (Auto) % Neut # (Auto) (1.4-6.5) K/uL Lymph # (Auto) (1.2-3.4) K/uL [place] # (Auto) (0.11-0.59) K/uL Eos # (Auto) (0-0.5) K/uL Baso # (Auto) (0-0.2) K/uL Immature Gran # (Auto) (0.00-0.02) K/uL PT (9.0-12.0) Seconds INR (0.9-1.1) APTT (21.0-31.0) Seconds PTT Ratio Sodium (136-145) mmol/L Potassium (3.5-5.1) mmol/L Chloride (98-107) mmol/L Carbon Dioxide (21-32) mmol/L Anion Gap (3-11) BUN (7-18) mg/dl Creatinine (0.6-1.2) mg/dl Est Cr Clr Drug Dosing ml/min Est GFR ( Amer) ml/min Est GFR (Non-Af Amer) ml/min BUN/Creatinine Ratio (10-20) Glucose (70-99) mg/dl Calcium (8.5-10.1) mg/dl Magnesium (1.8-2.4) mg/dl Total Bilirubin (0.2-1) mg/dl AST (15-37) U/L ALT (12-78) U/L Alkaline Phosphatase (45-117) U/L Total Creatine Kinase (26-192) U/L Troponin I (0-0.045) ng/ml NT-Pro-B Natriuret Pep (0-1800) pg/ml Total Protein (6.4-8.2) gm/dl Albumin (3.4-5.0) gm/dl Globulin (2.5-4.0) gm/dl Albumin/Globulin Ratio (0.9-2) TSH (0.300-4.500) uIu/ml Urine Color Yellow Urine Appearance Clear (Clear) Urine pH 6.0 (4.5-7.5) Ur Specific [place] 1.006 (1.000-1.030) Urine Protein Negative (Negative) Urine Glucose (UA) Negative (Negative) Urine Ketones Negative (Negative) Urine Blood Negative (Negative) Urine Nitrite Negative (Negative) Urine Bilirubin Negative (Negative) Urine Urobilinogen Negative (Negative) Ur Leukocyte Esterase 3+ H (Negative) Urine WBC (Auto) >30 H (0-5) /hpf Urine RBC (Auto) 0-4 (0-4) /hpf U Hyaline Cast (Auto) 1-5 (0-5) /lpf U Epithel Cells (Auto) >30 H (0-5) /lpf Urine Bacteria (Auto) Negative (Negative) Ur Renal Epithelial Cell Not Reportable COVID-19 Eval Order Covid19 at [facility] Administered Medications Discontinued Medications Sodium Chloride (Nss) 500 mls @ 999 mls/hr IV .Q31M ONE Stop: 07/02/21 13:18 Last Infusion: 07/02/21 13:46 Dose: 0 mls/hr Documented by: [id number] Admin: 07/02/21 13:12 Dose: 999 mls/hr Documented by: [id number] Piperacillin Sod/Tazobactam Sod (Zosyn) 4.5 gm in 120 mls @ 240 mls/hr IV NOW ONE Stop: 07/02/21 16:36 Last Admin: 07/02/21 17:16 Dose: 240 mls/hr Documented by: [id number] Imaging Data Radiologist's Impression: Chest X-Ray 07/02/21 12:48 XR chest 1V portable CLINICAL HISTORY: weakness COMPARISON STUDY: February 14, 2021 FINDINGS: No pneumothorax. No pleural effusion. Right hemidiaphragm remains elevated. Atelectasis or infiltrates are seen at bilateral bases. Mild interval worsening of diffuse prominence of pulmonary interstitium which could represent chronic scarring and/or pulmonary edema. Cardiomediastinal silhouette is stable and evaluation is limited due to rotation. No significant pulmonary vascular congestion.. Aorta is calcified. Osseous structures: Diffuse osteopenia and degenerative changes of the spine and right shoulder. IMPRESSION: 1. Atelectasis/infiltrate at bilateral bases. Possible pulmonary edema. 2. Atherosclerosis. 3. The rest of findings as above. ACT 112: Negative or not required by law. The above report was generated using voice recognition software. It may contain grammatical, syntax or spelling errors. Electronically signed by: Meseret Zapata DO 07/02/2021 2:18 PM KUB X-Ray 07/02/21 12:54 KUB HISTORY: Status post removal of a right ureteral stent hx of ureteral stent COMPARISON: CT abdomen pelvis 02/14/2021 FINDINGS: Nonobstructive bowel gas pattern. Embolization coils within the abdominal right upper quadrant redemonstrated. Cholecystectomy. Calcifications of the right kidney redemonstrated measuring up to 8 mm. Calcifications of the pelvis are likely vascular. No ureteral calculi identified. Moderate fecal retention. No pneumoperitoneum or pneumatosis. Right hip total joint arthroplasty. No fracture. IMPRESSION: Right renal calcifications redemonstrated. No ureteral calculi are identified. ACT 112: Negative or not required by law. The above report was generated using voice recognition software. It may contain grammatical, syntax or spelling errors. Electronically signed by: Sher Liu M.D. 07/02/2021 2:02 PM Abdomen/Pelvis CT 07/02/21 14:46 CT SCAN OF THE ABDOMEN AND PELVIS WITHOUT IV CONTRAST CLINICAL HISTORY: Urinary tract infection. COMPARISON STUDY: Abdominal CT dated 02/14/2021. TECHNIQUE: CT scan of the abdomen and pelvis is performed from the lung bases to the proximal femora. Images are reviewed in the axial, sagittal, and coronal planes. IV contrast was not administered for this examination. A dose lowering technique was utilized adhering to the principles of ALARA. The examination is degraded by motion artifact, as well as streak artifact from the right arm which could not be elevated above the abdomen. CT DOSE: 973.81 mGycm FINDINGS: Lung bases: The heart is top normal in size and without pericardial effusion. The coronary arteries and mitral annulus are densely calcified. The lung bases are clear noting bibasilar scarring/atelectasis. There is a small to moderate hiatal hernia. Liver: The unenhanced liver is normal in size, contour, and attenuation. There is no intrahepatic biliary ductal dilatation. Gallbladder: Surgically absent noting clips in the gallbladder fossa. Spleen: Normal in size and attenuation. Pancreas: The unenhanced pancreas is atrophic and grossly unremarkable. Adrenal glands: Unremarkable. Kidneys: The unenhanced kidneys are atrophic. There is mild right-sided hydronephrosis with associated urothelial thickening. No hydronephrosis is seen on the left. There are numerous nonobstructing right renal calculi which measure up to 10 mm. No left renal calculi are seen. There is no evidence of ureteral stone. Note that the distal right ureter is not visualized due to extensive metallic streak artifact. Right upper pole cysts measure up to 1.5 cm. Abdominal vasculature: The abdominal aorta is normal in course and caliber. Bowel: There is moderate constipation. No bowel obstruction is seen. The appendix is not identified. Peritoneum: There is no intraperitoneal free air or abdominal ascites. Vascular coils are noted in the right upper quadrant. Lymphadenopathy: None. Pelvic viscera: The evaluation of the pelvis is degraded by streak artifact from a right hip arthroplasty. The bladder wall appears thickened and there is pericystic infiltration. The uterus is not identified and presumed surgically absent. There is no evidence of adnexal lesion. Skeletal structures: There the skeletal structures are osteopenic. Is moderate lumbar sacral spondylosis. A large hemangioma is seen in the body of L5. No lytic or blastic lesions are seen. A right hip arthroplasty is in place. Arthritic change is noted in the left hip. Sclerosis and overgrowth is seen in the pubic symphysis. IMPRESSION: 1. Streak and motion compromised examination. 2. The bladder wall appears thickened with pericystic infiltration. Correlate clinically and with urinalysis for evidence of cystitis. 3. There is mild right-sided hydronephrosis with urothelial thickening seen in the right renal pelvis. There is also right-sided nephrolithiasis. The right ureter is normal in caliber and no ureteral stone is seen, although the right vesicoureteral junction is not visualized due to extensive streak artifact. Correlate clinically and with urinalysis for evidence of ascending urinary tract infection. A distal right ureteral stone is considered less likely but would be impossible to completely exclude. 4. Moderate constipation. 5. Hiatal hernia. 6. Additional findings as above. ACT 112: Negative or not required by law. Electronically signed by: Arun Jackson M.D. 07/02/2021 3:58 PM Discharge Plan Visit Data Chief Complaint: Hypotension Stated Complaint: HYPOTENTION ED Provider: Koko Bobo Discharge Problem: Acute pyelonephritis, Acute hypotension, Pulmonary edema Patient Disposition: Being Evaluated by Hospitalist Forms Stand Alone Forms: [facility] [employer] Prescriptions Prescriptions: No Action (DME) Lift Chair Misc See Rx Instructions .ROUTE .MEDSUPPLY Qty: 1 RF: 0 levothyroxine [Synthroid] 50 mcg tablet 50 mcg PO HS Qty: 30 RF: 5 atorvastatin [Lipitor] 40 mg tablet 40 mg PO HS Qty: 30 RF: 5 clopidogrel [Plavix] 75 mg tablet 75 mg PO QAM Qty: 90 RF: 3 aspirin 81 mg tablet,delayed release (DR/EC) 81 mg PO QAM RF: 0 (DME) disposable gloves [Disposable Latex-Free Gloves] Misc See Rx Instructions .ROUTE .MEDSUPPLY Qty: 1000 RF: 3 (DME) Wheelchair (Manual) Device See Rx Instructions .ROUTE .MEDSUPPLY Qty: 1 RF: 0 cranberry 500 mg capsule 500 mg PO QAM RF: 0 loratadine [Claritin] 10 mg Tablet 10 mg PO QAM RF: 0 PreserVision AREDS-2 [id number] uf-[id number]-do-mg capsule 1 cap PO BID RF: 0 Combivent Respimat 20-100 mcg/actuation mist 1 puff INHALATION QAM RF: 0 trazodone 50 mg tablet 50 mg PO HS RF: 0 paroxetine HCl 20 mg tablet 20 mg PO QAM RF: 0 omeprazole 20 mg capsule,delayed release(DR/EC) 20 mg PO QAM RF: 0 nystatin 100,000 unit/gram powder 1 applic topical BID PRN (Reason: Itching) RF: 0 metoprolol succinate 25 mg Tablet Extended Release 24 Hr 25 mg PO QAM Qty: 30 RF: 0 multivitamin Tablet 1 tab PO DAILY RF: 0 ascorbic acid (vitamin C) [Vitamin C] 500 mg Tablet,Chewable 500 mg PO DAILY RF: 0 cefdinir 300 mg capsule 300 mg PO BID RF: 0 Probiotic 10 billion cell Capsule 10,000 mmu cells PO DAILY RF: 0 elderberry fruit and flower 460-115 mg Capsule 1 cap PO DAILY RF: 0 Referrals Referrals: Eden Whitmore MD [Primary Care Provider] -
[2021-07-02 13:24] LABS: Basophils # (auto) 0.04 K/uL (0-0.2); Basophils % (auto) 0.5 %; Eosinophils # (auto) 0.64 K/uL (0-0.5); Eosinophils % (auto) 8.6 %; Hematocrit (blood only) 37.6 % (37-47); Hemoglobin 11.2 g/dL (12.0-16.0); Lymphocytes # (auto) 3.26 K/uL (1.2-3.4); Lymphocytes % (auto) 43.6 %; Mean Corpuscular Hemoglobin 29.2 pg (25-34); Mean Corpuscular Hgb Conc 29.8 g/dL (32-36); Mean Corpuscular Volume 97.9 fL (80-100); Mean Platelet Volume 8.9 fL (7.4-10.4); Monocytes # (auto) 0.67 K/uL (0.11-0.59); Neutrophils # (auto) 2.87 K/uL (1.4-6.5); Neutrophils % (auto) 38.3 %; Platelet Count 241 K/uL (130-400); RDW Coefficient of Variation 14.7 % (11.5-14.5); RDW Standard Deviation 52.4 fL (36.4-46.3); Red Blood Count 3.84 M/uL (4.2-5.4); White Blood Count 7.48 K/uL (4.8-10.8)
[2021-07-02 13:38] LABS: INR 1.1 (0.9-1.1); Partial Thromboplastin Time 26.5 Seconds (21.0-31.0); Prothrombin Time 10.9 Seconds (9.0-12.0)
[2021-07-02 13:40] LABS: Alanine Aminotransferase 172 U/L (12-78); Albumin Level 2.7 gm/dl (3.4-5.0); Aspartate Aminotransferase 183 U/L (15-37); BUN Creatinine Ratio 18.6 (10-20); Blood Urea Nitrogen 22 mg/dl (7-18); Calcium 8.4 mg/dl (8.5-10.1); Carbon Dioxide 25 mmol/L (21-32); Chloride 108 mmol/L (98-107); Est GFR (African American) 49.2 ml/min; Est GFR (Non-African American) 42.5 ml/min; Glucose 107 mg/dl (70-99); Magnesium 1.9 mg/dl (1.8-2.4); Sodium 137 mmol/L (136-145)
[2021-07-02 13:51] LABS: Albumin Globulin Ratio 0.5 (0.9-2); Alkaline Phosphatase 197 U/L (45-117); Bilirubin,Total 0.3 mg/dl (0.2-1); Creatine Kinase 84 U/L (26-192); Globulin 4.9 gm/dl (2.5-4.0); NT Pro B Type Natriuretic Pept 2056 pg/ml (0-1800); Total Protein 7.6 gm/dl (6.4-8.2); Troponin I < 0.015 ng/ml (0-0.045)
--- NOTE | 2021-07-02 14:03 | XRay Report ---
KUB HISTORY: Status post removal of a right ureteral stent hx of ureteral stent COMPARISON: CT abdomen pelvis 02/14/2021 FINDINGS: Nonobstructive bowel gas pattern. Embolization coils within the abdominal right upper quadr ant redemonstrated. Cholecystectomy. Calcifications of the right kidney redemonstrated measuring up t o 8 mm. Calcifications of the pelvis are likely vascular. No ureteral calculi identified. Moderate f ecal retention. No pneumoperitoneum or pneumatosis. Right hip total joint arthroplasty. No fracture. IMPRESSION: Right renal calcifications redemonstrated. No ureteral calculi are identified. ACT 112: Negative or not required by law. The above report was generated using voice recognition software. It may contain grammatical, syntax o r spelling errors. Electronically signed by: Sher Liu M.D. 07/02/2021 2:02 PM
--- NOTE | 2021-07-02 14:20 | XRay Report ---
XR chest 1V portable CLINICAL HISTORY: weakness COMPARISON STUDY: February 14, 2021 FINDINGS: No pneumothorax. No pleural effusion. Right hemidiaphragm remains elevated. Atelectasis or infiltrates are seen at bilateral bases. Mild interval worsening of diffuse prominence of pulmonary interstitium which could represent chronic scarring and/or pulmonary edema. Cardiomediastinal silhouette is stable and evaluation is limited due to rotation. No significant pulmonary vascular congestion.. Aorta is calcified. Osseous structures: Diffuse osteopenia and degenerative changes of the spine and right shoulder. IMPRESSION: 1. Atelectasis/infiltrate at bilateral bases. Possible pulmonary edema. 2. Atherosclerosis. 3. The rest of findings as above. ACT 112: Negative or not required by law. The above report was generated using voice recognition software. It may contain grammatical, syntax o r spelling errors. Electronically signed by: Meseret Zapata DO 07/02/2021 2:18 PM
[2021-07-02 15:40] LABS: Appearance Urine Clear (Clear); Bacteria Urine Automated Negative (Negative); Bilirubin Urine Negative (Negative); Blood Urine Negative (Negative); Color Urine Yellow; Epithelial Cell Urine Auto >30 /lpf (0-5); Glucose Urine UA Negative (Negative); Ketones Urine Negative (Negative); Leukocyte Esterase Urine 3+ (Negative); Nitrite Urine Negative (Negative); Protein Urine Negative (Negative); RBC Urine Automated 0-4 /hpf (0-4); Specific Gravity Urine 1.006 (1.000-1.030); Urobilinogen Urine Negative (Negative); WBC Urine Automated >30 /hpf (0-5)
--- NOTE | 2021-07-02 15:59 | CT Scan Report ---
CT SCAN OF THE ABDOMEN AND PELVIS WITHOUT IV CONTRAST CLINICAL HISTORY: Urinary tract infection. COMPARISON STUDY: Abdominal CT dated 02/14/2021. TECHNIQUE: CT scan of the abdomen and pelvis is performed from the lung bases to the proximal femora. Images are reviewed in the axial, sagittal, and coronal planes. IV contrast was not administered for this examination. A dose lowering technique was utilized adhering to the principles of ALARA. The ex amination is degraded by motion artifact, as well as streak artifact from the right arm which could n ot be elevated above the abdomen. CT DOSE: 973.81 mGycm FINDINGS: Lung bases: The heart is top normal in size and without pericardial effusion. The coronary arteries a nd mitral annulus are densely calcified. The lung bases are clear noting bibasilar scarring/atelectas is. There is a small to moderate hiatal hernia. Liver: The unenhanced liver is normal in size, contour, and attenuation. There is no intrahepatic edith iary ductal dilatation. Gallbladder: Surgically absent noting clips in the gallbladder fossa. Spleen: Normal in size and attenuation. Pancreas: The unenhanced pancreas is atrophic and grossly unremarkable. Adrenal glands: Unremarkable. Kidneys: The unenhanced kidneys are atrophic. There is mild right-sided hydronephrosis with associate d urothelial thickening. No hydronephrosis is seen on the left. There are numerous nonobstructing rig ht renal calculi which measure up to 10 mm. No left renal calculi are seen. There is no evidence of u reteral stone. Note that the distal right ureter is not visualized due to extensive metallic streak a rtifact. Right upper pole cysts measure up to 1.5 cm. Abdominal vasculature: The abdominal aorta is normal in course and caliber. Bowel: There is moderate constipation. No bowel obstruction is seen. The appendix is not identified. Peritoneum: There is no intraperitoneal free air or abdominal ascites. Vascular coils are noted in th e right upper quadrant. Lymphadenopathy: None. Pelvic viscera: The evaluation of the pelvis is degraded by streak artifact from a right hip arthropl asty. The bladder wall appears thickened and there is pericystic infiltration. The uterus is not iden tified and presumed surgically absent. There is no evidence of adnexal lesion. Skeletal structures: There the skeletal structures are osteopenic. Is moderate lumbar sacral spondylo sis. A large hemangioma is seen in the body of L5. No lytic or blastic lesions are seen. A right hip arthroplasty is in place. Arthritic change is noted in the left hip. Sclerosis and overgrowth is seen in the pubic symphysis. IMPRESSION: 1. Streak and motion compromised examination. 2. The bladder wall appears thickened with pericystic infiltration. Correlate clinically and with uri nalysis for evidence of cystitis. 3. There is mild right-sided hydronephrosis with urothelial thickening seen in the right renal pelvis . There is also right-sided nephrolithiasis. The right ureter is normal in caliber and no ureteral st one is seen, although the right vesicoureteral junction is not visualized due to extensive streak art ifact. Correlate clinically and with urinalysis for evidence of ascending urinary tract infection. A distal right ureteral stone is considered less likely but would be impossible to completely exclude. 4. Moderate constipation. 5. Hiatal hernia. 6. Additional findings as above. ACT 112: Negative or not required by law. Electronically signed by: Arun Jackson M.D. 07/02/2021 3:58 PM
[2021-07-02] MEDS ORDERED: PIPERACILLIN/TAZOBACTAM 4.5 GM/120 ML BAG IV ONE (16:07)
[2021-07-02] MEDS ORDERED: PIPERACILL/TAZOBAC CONSULT ACTIVE PRN (16:07)
[2021-07-02] MEDS ORDERED: cefTRIAXone SODIUM 1,000 MG/50 ML BAG IV STA (17:55)
--- NOTE | 2021-07-02 18:23 | History & Physical Report ---
Date of Service July 02, 2021 Assessment & Plan (1) AMS (altered mental status): Plan: -Patient will be hospitalized for further evaluation/work-up regarding her i ncreased altered mental status with overall lethargy -We will place on a doctor of naprapathic medicine at least overnight to watch for any evidence of cardiac arrhythmia. She does have a known history of tachycardia with a current heart rate of 67 May have underlying atrial fib/flutter -Marginal hypotension upfront but appears to be stable and at baseline with review of old records. No evidence of sepsis (not tachycardic, afebrile, normal white blood cell count). Hold metoprolol for now and monitor heart rate closely -I am not overly impressed by patient's urinalysis. It is leukocyte esterase positive but is nitrite negative and clear without significant bacteriuria. This could simply be a contaminated specimen. However, she does have a history of recurrent urinary tract infections and per daughter, on Ceftin -Current antibiotic therapy may be skewing the urinalysis -Will add a procalcitonin and for now treat with Rocephin until this can be further sorted out. We will repeat a urine culture along with blood cultures and attempt to track down the urine culture that was done as an outpatient at [facility]. -Daughter is very demanding and has some unrealistic expectations with this hosp italization. She is requesting infectious disease see her due to the recurrent urinary tract infections. I did explain that there is not an acute indication for infectious disease to get involved right now. Patient does have ongoing incontinence of stool which is a huge contributing factor to recurrent urinary tract infections. In addition, she has known history of nephrolithiasis with obstructive uropathy requiring stent placement. Last, with her advanced age and decreased estrogenthis poses increased risk for urinary tract infections to be recurrent. Daughter is accepting of this for now. I explained that she can be seen by infectious disease as an outpatient. If something changes, would gladly get infectious disease involved upfront if needed. -We will obtain a CT of the head given known carotid disease. No neurological deficits -Patient with underlying thyroid disease. Will obtain a TSH. Continue current dose of Synthroid for now -Last, patient with a known wound on her left toe with substantial pain. Will obtain a CT of the toe to rule out underlying osteomyelitis which could be contributing to her altered mental status -If her urinalysis/urine culture is not consistent with UTII would be inclined to think that this is just a progression in her dementia. Patient has had re current hospitalizations for similar events. Will rule out any metabolic cause before tracking this up to a progression in her dementia (2) Debility: Plan: -? Related to a possible acute infectious process versus progressive decline due to dementiasee above (3) Transaminitis: Plan: -Exact etiology unclear -Could be statin induced -For now, will hold statin therapy. Will trend labs. If persistent, will further work-up with added labs and a right upper quadrant ultrasound -Although BNP is slightly elevated and her chest x-ray shows questionable pulmonary edema, patient does not have crackles. She is not hypoxic or short of breath. She is not in fulminant CHF. She does not have edema. I do not believe the LFTs are related to passive venous congestion (4) Carotid artery occlusion: Plan: -Continue dual antiplatelet therapy (5) Hypothyroidism: Plan: -Continue Synthroid with TSH to be ordered (6) Tachycardia: Plan: -Currently with a heart rate of 67 -At this point, we will hold metoprolol given marginal hypotension noted upfront and watch heart rate closely Plan: -Plan of care discussed with Dr. Dias. History of Present Illness Chief Complaint: Increased confusion and lethargy Primary Care Provider: Eden Whitmore MD Mrs. Molina is an 86-year-old white female with a past medical history of chronic LBBB, hypothyroidism, carotid artery disease with prior TIA, GERD, stage III CKD, recurrent nephrolithiasis and recurrent UTIs. Her last hospitalization was in February when she had obstructive uropathy with associated pyelonephritis. She had lithotripsy and ureteral stent and subsequently has had the stent removed. Daughter is at bedside and provides most of the history. She claims that patient is very prone to urinary tract infections and "she can tell when one is coming on". She reports patient has been more lethargic and somewhat confused more so than normal over the past several weeks. Recently started on Ceftin for presumed urinary tract infection. Daughter reports a urine culture was done by home nursing and sent to [facility] in [place]. In any rate, she has not had any fevers or chills, no complaints of dysuria. She is chronically incontinent of urine. No foul odor. Was seen by visiting nurses today and reportedly had a "low blood pressure of 100s/40s" which is what prompted her evaluation into the e mergency department today. Work-up in the ED revealed a BP of 98/76. She was given a very gentle fluid bolus. Her most recent blood pressure was 109/57. With review of old records, this appears to be baseline for patient. She was not tachycardic and was afebrile. Her pulse ox was 98% on room air. She did not have leukocytosis. Her metabolic panel showed a stable creatinine of 1.17. Her total bilirubin is normal at 0.3 with a mildly elevated AST/ALT at one eighty-three and one seventy-two respectively. This prompted a CT of the abdomen and pelvis that showed some mild bladder wall thickening which could be consistent with cystitis and mild right-sided hydronephrosis which appears to be stable from previous imaging. No obvious obstructive process; however, significant artifact noted. No biliary ductal dilatation to account for the elevated LFTs. Patient's urinalysis is leukocyte esterase positive but nitrite negative and clear. Does not appear to be grossly infected. Patient to be hospitalized for altered mental status with progressive lethargy. Allergies Allergy/AdvReac Type Severity Reaction Status Date / Time No Known Drug Allergies Allergy Unknown Verified 07/02/21 22:36 oxycodone AdvReac Severe confusion/ Verified 07/02/21 22:22 "Gets Mean" Home Medications Medication Instructions Recorded Confirmed Type loratadine 10 mg tablet (Claritin) 10 mg PO QAM 08/25/18 07/02/21 History aspirin 81 mg tablet,delayed 81 mg PO QAM tab 04/22/19 07/02/21 History release cranberry 500 mg capsule 500 mg PO QAM cap 05/25/19 07/02/21 History Lift Chair #1 ea 11/10/19 05/13/21 Rx ipratropium 20 mcg-albuterol 100 1 puff INHALATION QAM 08/16/20 07/02/21 History mcg/actuation mist for inhalation (Combivent Respimat) vit C 250 mg-vit E 90 mg-zinc 40 1 cap PO BID 08/16/20 07/02/21 History mg-copper 1 xm-wxsmmx-obouip capsule (PreserVision AREDS-2) levothyroxine 50 mcg tablet 50 mcg PO HS #30 tab 09/07/20 07/02/21 Rx (Synthroid) Wheelchair (Manual) #1 ea 12/05/20 05/13/21 Rx disposable gloves (Disposable #1000 ea 12/05/20 05/13/21 Rx Latex-Free Gloves) atorvastatin 40 mg tablet (Lipitor) 40 mg PO HS #30 tab 12/13/20 07/02/21 Rx clopidogrel 75 mg tablet (Plavix) 75 mg PO QAM #90 tab 02/14/21 07/02/21 Rx nystatin 100,000 unit/gram topical 1 applic TOPICAL BID PRN 02/14/21 07/02/21 History powder omeprazole 20 mg capsule,delayed 20 mg PO QAM 02/14/21 07/02/21 History release paroxetine HCl 20 mg tablet 20 mg PO QAM 02/14/21 07/02/21 History trazodone 50 mg tablet 50 mg PO HS 02/14/21 07/02/21 History metoprolol succinate 25 mg 25 mg PO QAM #30 tab 02/21/21 07/02/21 Rx tablet,extended release 24 hr Lactobacillus acidophilus 10 10,000 mmu cells PO DAILY 07/02/21 07/02/21 History billion cell capsule (Probiotic) ascorbic acid (vitamin C) 500 mg 500 mg PO DAILY 07/02/21 07/02/21 History chewable tablet (Vitamin C) cefdinir 300 mg capsule 300 mg PO BID 07/02/21 07/02/21 History elderberry fruit 460 mg-elderberry 1 cap PO DAILY 07/02/21 07/02/21 History flower 115 mg capsule multivitamin 1 tab PO DAILY 07/02/21 07/02/21 History Past Med/Surg History Medical History Acute pyelonephritis Carotid artery occlusion GERD (gastroesophageal reflux disease) Hallucination, visual HLD (hyperlipidemia) MRSA infection Physical deconditioning Renal calculi Stage III chronic kidney disease JESSIE improved since admission TIA (transient ischemic attack) Vasculopathy Surgical History H/O: hysterectomy History of knee replacement procedure of right knee History of right hip replacement S/P laparoscopic cholecystectomy Family History Mother , age 43 of complications from a motor vehicle accident. No problems noted. Father , age 70 of black lung No problems noted. Sister Breast cancer Denies family history of Ovarian cancer Prostate cancer Myocardial infarction Colorectal cancer Stroke Social History Smoking Status: Never smoker Second Hand Exposure: No; Do You Dip or Chew Tobacco: No; Tobacco Cessation Education Requested by Patient: No Hx Alcohol Use: No Hx Substance Use: No Preferred Language: Iraqi Communication Ability: Effective Visual Impairment: No Limitations Hearing Ability: Use of Hearing Aid Qa Automation Engineer Required: No Beliefs That Will Affect Care: None marital status: Single Current Living Situation: Family Current Living Situation Comment: Lives w/ daughter and son-in-law current occupational status: retired Other Information That Helps Us Care for You: No Feels Safe at Home: Yes Safety Concerns: Feels Safe At This Time Childhood Exposure to Second-Hand Smoke: No Dental Care, Regularly: No Physical Activity Frequency: Does not Exercise Seatbelt Use: always Sunscreen Use: No Assistive Devices: Walker and Wheelchair Assistive Devices Comment: Pt. uses walker and wheelchair at home Review of Systems Review of Systems: Limited but overall patient denies fevers, chills, chest pain, shortness of breath, abdominal pain, nausea, vomiting, dysuria, hematuria, urinary frequency, back pain joint pain or swelling. She is complaining of left toe pain and is following wound clinic for. Physical Exam Physical Exam: General: Resting comfortably in her hospital bed. She does not appear ill or toxic. NAD. HEENT: Head is AT/NC buccal mucosa is moist and pink Neck: No JVD. Negative hepatojugular reflex Cardiac: RRR with 1/6 BROOKS Lungs: CTA without W/R/R Abdomen: Normoactive X4. Soft and nontender in all quadrants. Extremities: No peripheral clubbing cyanosis or edema. See skin Neuro: Patient is awake. She is oriented to year but not month. Oriented to self/person but not to place. Daughter reports this is baseline. Limited with details. Cranial nerves II through XII are grossly intact no focal neuro deficits. [id number] intact. Negative pronator drift. Downward Babinski Skin: Patient has a small area of eschar on the top of her left second toe without significant erythema. No drainage. It is exquisitely tender to touch. Psych: Appropriate affect pleasantly demented. Cooperative Results & Data Results & Data ([facility]) Vital Signs (Past 12 Hours) Vital Signs Temp Pulse Resp BP Pulse Ox 07/02/21 17:32 64 21 120/45 L 96 07/02/21 17:00 63 21 109/57 L 96 07/02/21 16:30 66 14 122/61 96 07/02/21 16:00 64 14 110/49 L 96 07/02/21 15:30 67 20 98/76 L 98 07/02/21 15:00 65 13 114/47 L 96 07/02/21 14:30 65 13 117/53 L 96 07/02/21 14:00 68 14 114/54 L 96 07/02/21 13:30 73 17 102/49 L 96 07/02/21 13:03 95 07/02/21 13:01 74 20 106/53 L 96 07/02/21 12:54 71 16 96 07/02/21 12:46 36.7 C 73 20 110/54 L 96 07/02/21 12:45 75 21 110/54 L 94 Laboratory Results 07/02/21 13:14 07/02/21 13:14 Total bilirubin: 0.30 AST: 183 ALT: 172 BNP: 2056 Diagnostic Findings CXR: IMPRESSION: 1. Atelectasis/infiltrate at bilateral bases. Possible pulmonary edema. 2. Atherosclerosis. CT of the abdomen and pelvis without contrast: IMPRESSION: 1. Streak and motion compromised examination. 2. The bladder wall appears thickened with pericystic infiltration. Correlate clinically and with urinalysis for evidence of cystitis. 3. There is mild right-sided hydronephrosis with urothelial thickening seen in the right renal pelvis. There is also right-sided nephrolithiasis. The right ureter is normal in caliber and no ureteral stone is seen, although the right vesicoureteral junction is not visualized due to extensive streak artifact. Correlate clinically and with urinalysis for evidence of ascending urinary tract infection. A distal right ureteral stone is considered less likely but would be impossible to completely exclude. 4. Moderate constipation. 5. Hiatal hernia. 6. Additional findings as above. Code Status & VTE Plan VTE Prophylaxis Plan VTE Prophylaxis will be ordered: Yes Supervising Physician Co-Signing Physician Notes I personally saw and examined the patient. I verified all narayan points and agree with Keisha Clinton PA-C with the following exceptions and/or additions: 86 year old female with recurrent UTIs. Unable to get independant history as daughter had left the room. Patient currently says she just feels fatigued. Please see above for full history. O/E No acute distress, HS 1+2, systolic murmur LUSB 2/6, Chest CTAB, no lateralizing weakness, no cellulitis surrounding left 2nd toe A/P AMS - possible UTI. Will obtain [facility] UA/culture. Agree with continuing treatment at this stage as had similar episodes in the past. Agree with no need for infectious disease consult at current time. Prior culture micro reviewed with Proteus sensitive to ceftriaxone. Agree with further workup including CT head and foot to assess for OM. PG Care Time/CCT Total # of Minutes Spent Total Time Spent with Patient: Total time spent is greater than 50% in coordination of care (as documented) at patient's floor/unit and/or counseling patient: Coding Level of Care Code New Pt INT OBSERVATION CARE 70M LVL 3 Patient Type New Medical Decision Making High Complexity Diagnoses AMS (altered mental status) R41.82 Debility R53.81 Carotid artery occlusion I65.29 Hypothyroidism E03.9 Tachycardia R00.0 Transaminitis R74.01
[2021-07-02] MEDS ORDERED: MAGNESIUM HYDROXIDE SUSP 30 ML UDC PO PRN (21:15)
[2021-07-02] MEDS ORDERED: POLYETHYLENE (MIRALAX) 17 GM PACK PO PRN (21:15)
[2021-07-02] MEDS ORDERED: ALUMINUM/MAGNESIUM SUSP 30 ML UDC PO PRN (21:15)
[2021-07-02] MEDS ORDERED: ONDANSETRON INJ 2 MG/ML 2 ML VIAL IV PRN (21:15)
[2021-07-02] MEDS: traZODone HCL 50 MG TAB PO SCH (21:52)
[2021-07-02] MEDS: LEVOTHYROXINE SODIUM 50 MCG TABLET PO SCH (21:52)
[2021-07-02] MEDS: PATIENT'S ALLERGY INFO NEEDS ENTERED SCH ×2 (21:52→22:34)
[2021-07-02] MEDS: ENOXAPARIN INJ 40 MG/0.4 ML SYR SQ SCH (23:39)
[2021-07-03] MEDS ORDERED: INFLUENZA VACCINE HIGH DOSE PF 65+ 0.7 ML SYR IM ONE (02:48)
[2021-07-03 06:27] LABS: Basophils # (auto) 0.05 K/uL (0-0.2); Basophils % (auto) 0.8 %; Eosinophils # (auto) 0.52 K/uL (0-0.5); Eosinophils % (auto) 7.9 %; Hemoglobin 11.7 g/dL (12.0-16.0); Immature Granulocytes # (auto) 0.01 K/uL (0.00-0.02); Immature Granulocytes % (auto) 0.2 %; Lymphocytes # (auto) 1.85 K/uL (1.2-3.4); Lymphocytes % (auto) 28.2 %; Mean Corpuscular Hemoglobin 29.1 pg (25-34); Mean Corpuscular Hgb Conc 30.8 g/dL (32-36); Mean Corpuscular Volume 94.5 fL (80-100); Mean Platelet Volume 8.9 fL (7.4-10.4); Monocytes # (auto) 0.42 K/uL (0.11-0.59); Monocytes % (auto) 6.4 %; Neutrophils # (auto) 3.71 K/uL (1.4-6.5); Neutrophils % (auto) 56.5 %; Platelet Count 229 K/uL (130-400); RDW Coefficient of Variation 14.6 % (11.5-14.5); RDW Standard Deviation 50.9 fL (36.4-46.3); Red Blood Count 4.02 M/uL (4.2-5.4); White Blood Count 6.56 K/uL (4.8-10.8)
[2021-07-03 07:02] LABS: Albumin Level 2.7 gm/dl (3.4-5.0); BUN Creatinine Ratio 16.3 (10-20); Calcium 8.9 mg/dl (8.5-10.1); Creatinine Clr Calc Pharmacy 34.9 ml/min; Est GFR (African American) 54.2 ml/min; Est GFR (Non-African American) 46.8 ml/min; Magnesium 1.9 mg/dl (1.8-2.4); Potassium 4.1 mmol/L (3.5-5.1)
[2021-07-03 07:04] LABS: Albumin Globulin Ratio 0.5 (0.9-2); Bilirubin,Total 0.4 mg/dl (0.2-1); Globulin 5.1 gm/dl (2.5-4.0); Total Protein 7.8 gm/dl (6.4-8.2)
--- NOTE | 2021-07-03 07:12 | CT Scan Report ---
CT head/brain wo con Clinical Indication: Altered mental status. Technique: Contiguous axial CT images of the head were acquired from the base of the skull to the rebeka cely without intravenous contrast administration. Images were viewed in brain, subdural and bone windo ws. Automated dose lowering techniques and/or adjustment according to patient size were utilized for this exam. Comparison: Comparison is made to the head 02/14/2021 Findings: Areas of decreased attenuation are present in the periventricular and subcortical white matter bilate rally consistent with small vessel ischemic disease. Generalized cerebral atrophy with commensurate e nlargement of the ventricles, sulci, and cisterns is also present. There is no acute intracranial hem orrhage or evidence of acute territorial infarction. No shift of the midline structures, mass effect, or extra-axial abnormalities are shown. Atherosclerotic calcifications are present in the intracran ial segments of the internal carotid arteries. Imaged portions of the paranasal sinuses and mastoid air cells are clear. The orbits appear normal. There are no acute fractures of the calvaria or scalp swelling. Impression: No acute intracranial hemorrhage, evidence of acute territorial infarction, or other acute intracrani al disease process. ACT 112: Negative or not required by law. Electronically signed by: Tulio Thorne M.D. 07/03/2021 7:10 AM
[2021-07-03] MEDS: PARoxetine HCL 20 MG TAB PO SCH (07:39)
[2021-07-03] MEDS: CLOPIDOGREL BISULFATE 75 MG TAB PO SCH (07:39)
[2021-07-03] MEDS: ASPIRIN 81 MG ECTAB PO SCH (07:41)
--- NOTE | 2021-07-03 08:00 | CT Scan Report ---
CT foot LT wo con INDICATION: MN ^called for patient ^toe pain TECHNIQUE: Multidetector row helical CT of the left foot was performed without intravenous contrast. Coronal and sagittal reformations were obtained. Automated dose lowering techniques and/or adjustment according to patient size were utilized for this examination. Comparison: None available at the time of this dictation. FINDINGS: There is tibiotalar arthrodesis with intact orthopedic hardware. No fracture is seen. No perihardware lucency or hardware fracture is noted. Diffuse osteopenia is noted. Hammertoe deformity is noted in the second through fifth digits. Diffuse osteoarthritic changes are seen most prominently in the mid foot. The soft tissues are unremarkable. There is no muscle atrophy. IMPRESSION: 1. No evidence of acute fracture or dislocation. Degenerative and postsurgical changes as above. 2. Hammertoe deformity in the second through fifth digits. ACT 112: Negative or not required by law. Electronically signed by: Tulio Thorne M.D. 07/03/2021 7:59 AM
[2021-07-03] MEDS ORDERED: IPRATROPIUM BROMIDE/ALBUTEROL respimat INH INH SCH (09:00)
[2021-07-03] MEDS: Albuterol HFA 8 GM Inhaler (Combivent Respimat P&T Subs) INH SCH (14:30)
[2021-07-03] MEDS: Ipratropium HFA Inhaler (Combivent Respimat P&T Subs) INH SCH (14:30)
--- NOTE | 2021-07-03 14:50 | Hospitalist Progress Note ---
Date of Service July 03, 2021 Assessment & Plan (1) AMS (altered mental status): Plan: -I think her altered mental status is likely multifactorial at this point in time -Daughter reported when she was admitted that her mentation has been waxing and waning. Patient does have underlying dementia and I suspect there is a progression in her dementia -She did have a positive urine culture with Klebsiella on 06/25 and has since completed a full course of oral antibiotic therapy. This could have been contributing to her altered mental status -Her urinalysis this admission was not grossly infected but her urine culture is showing some growth of gram-negative bacilli. This may be normal fabienne versus colonization versus true infection. -Patient has been afebrile without leukocytosis and hemodynamically stable (BP has been marginal but has been running such with review of old records). Does not appear to be septic. In addition, her procalcitonin was normal at 0.10. I suspect this may be asymptomatic bacteruria and that her waxing and waning mentation issues is due to her underlying dementia -Patient is much more confused today than yesterdayzwolle hospital-acquired delirium -Lengthy discussion with daughter regarding expectations and plan moving lizzy zimmerman. She believes patient needs to be kept in the hospital for IV antibiotic therapy. I did explain that final antibiotic treatment will be tailored based on culture data. Again, I am not overly convinced that she has a urinary tract infection and is not simply colonized but at any rate, she is on empiric antibiotic therapy and will plan to treat for 7 days total. In addition, I explained to the patient's daughter that there is no indication to keep her for IV antibiotic therapy unless her urine culture would show multidrug-resistant requiring only IV antibiotics. Daughter was very unhappy with this plan and believed that her mother needed to be "transferred somewhere where people act ually know what is going on". She is not requesting transfer at this time. Explained I do not feel that her mother needs to be transferred but would gladly oblige if she requested. -Again, BP has been marginal with a MAP no lower than 69. I do not believe that this is consistent with any type of sepsis syndrome or underlying infectious process/shock although daughter is convinced of such. Again, with review of old records her BP does fluctuate and is at baseline -I have decided against IV hydration to treat the blood pressure as it is not concerning Markus low and patient did have an elevated BNP on admission. Clinically she appears euvolemic. She is not hypoxic or short of breath. I do not hear any adventitious breath sounds but in caution, will avoid continued IV hydration. -Daughter declining any placement. -Her other concern and reason for her being irate and upset is the lack of visitors/visitation policy. Again I explained that this was outside of my control and I apologized. -At any rate, plan is to continue empiric antibiotic therapy. Again, not overly convinced that the patient has an active UTI and may simply have asymptomatic bacteruria but I cannot argue that her altered mental status is not due to an underlying urinary tract infection. I do not believe the confusion seen today is due to her infection but rather from hospital-acquired delirium in the setting of underlying dementia. Will await culture data to help guide final treatment plan. (2) Debility: Plan: -? Related to a possible acute infectious process versus progressive decline due to dementiasee above (3) Transaminitis: Plan: -Exact etiology unclear -Could be statin induced. May benefit from a drug holiday. -For now, will hold statin therapy. Will trend labs. If persistent, will further work-up with added labs and a right upper quadrant ultrasound but labs seem to be downtrending -Although BNP is slightly elevated and her chest x-ray shows questionable pulmonary edema, patient does not have crackles. She is not hypoxic or short of breath. She is not in fulminant CHF. She does not have edema. I do not believe the LFTs are related to passive venous congestion (4) Carotid artery occlusion: Plan: -Continue dual antiplatelet therapy (5) Hypothyroidism: Plan: -Continue Synthroid with TSH to be ordered (6) Tachycardia: Plan: -Metoprolol has been on hold given marginal BP. No tachycardia noted -Continue to monitor vital signs closely and hold metoprolol for now Plan: -Plan of care discussed with Dr. Garcia. Admission and Anticipated Discharge Date Admission Date: July 02, 2021 Subjective Patient seen on daily rounds today. More confused than when seen yesterday. Talkative but nonsensical. Believes that she is "waiting for family to come pick her up from this appointment". Nursing voices no c/c. Daughter has called in and spoke to case mgmt requesting "patient stay in the hospital for a full 7 days of IV antibiotic therapy". Patient voices no complaints or concerns however is an unreliable historian due to some altered mental status Review of Systems Review of Systems: Question reliability given underlying cognitive impairment Physical Exam Physical Exam: General: Resting comfortably in her hospital bed. Talkative but nonsensical. Does not appear ill or toxic HEENT: Head is AT/NC buccal mucosa is moist and pink Neck: No JVD. Negative hepatojugular reflex Cardiac: RRR but distant heart sounds Lungs: CTA without W/R/R Abdomen: Normoactive X4. Soft and nontender in all quadrants. Extremities: No peripheral clubbing cyanosis or edema Neuro: A&O X4 cranial nerves II through XII are grossly intact no focal neuro deficits Skin: No obvious skin lesions or rashes Psych: Pleasantly confused but cooperative. Results & Data Results & Data ([facility]) Vital Signs (Past 12 Hours) Vital Signs Temp Pulse Pulse Resp BP BP Pulse Ox 07/03/21 11:58 37 C 81 18 100/54 L 96 07/03/21 07:40 36.9 C 64 18 113/55 L 95 07/03/21 07:19 77 07/03/21 02:56 36.7 C 69 18 118/75 94 Laboratory Results 07/03/21 06:00 07/03/21 06:00 Procedure Result Verified Site Urine Culture Preliminary 07/03/21-1249 Organism 1 Gram negative bacilli [place] Count 80,000 CFU/ml Sens Sensitivities to Follow +Mix Urine Plus Low Counts of Other Mixed Fabienne Was able to receive a copy of the urinalysis/culture done as an outpatient on 06/25/21. This did show Klebsiella with pansensitivity. Diagnostic Findings PG Care Time/CCT Total # of Minutes Spent Total Time Spent with Patient: Total time spent is greater than 50% in coordination of care (as documented) at patient's floor/unit and/or counseling patient: 60 minutes including time spent talking with daughter and obtaining old records [place] [address] Subseq Hosp Care Lvl 3 Patient Type Established History Detailed Exam Detailed Medical Decision Making Moderate Complexity Diagnoses AMS (altered mental status) R41.82 Debility R53.81 Transaminitis R74.01 Carotid artery occlusion I65.29 Hypothyroidism E03.9 Tachycardia R00.0 Time Spent (min) 60
[2021-07-03] MEDS: traZODone HCL 50 MG TAB PO SCH (21:09)
[2021-07-03] MEDS: ENOXAPARIN INJ 40 MG/0.4 ML SYR SQ SCH (21:09)
[2021-07-03] MEDS: LEVOTHYROXINE SODIUM 50 MCG TABLET PO SCH (21:09)
--- NOTE | 2021-07-03 21:46 | Electrocardiogram Report ---
Test Reason : Blood Pressure : / mmHG Vent. Rate : 075 BPM Atrial Rate : 075 BPM P-R Int : 186 ms QRS Dur : 124 ms QT Int : 458 ms P-R-T Axes : 019 -11 108 degrees QTc Int : 511 ms Sinus rhythm with Premature supraventricular complexes Left bundle branch block Abnormal ECG When compared with ECG of 19-FEB-2021 05:19, No significant change was found Confirmed by Sherwin Giordano ([id number]) on 07/03/2021 9:45:41 PM Referred By: REFERRED SELF Confirmed By:Sherwin Giordano
[2021-07-04] MEDS: Ipratropium HFA Inhaler (Combivent Respimat P&T Subs) INH SCH (07:29)
[2021-07-04] MEDS: Albuterol HFA 8 GM Inhaler (Combivent Respimat P&T Subs) INH SCH (07:30)
[2021-07-04 08:06] LABS: Basophils # (auto) 0.03 K/uL (0-0.2); Basophils % (auto) 0.5 %; Eosinophils # (auto) 0.38 K/uL (0-0.5); Eosinophils % (auto) 5.8 %; Hematocrit (blood only) 35.7 % (37-47); Hemoglobin 11.1 g/dL (12.0-16.0); Immature Granulocytes # (auto) 0.01 K/uL (0.00-0.02); Immature Granulocytes % (auto) 0.2 %; Lymphocytes # (auto) 2.82 K/uL (1.2-3.4); Lymphocytes % (auto) 43.1 %; Mean Corpuscular Hemoglobin 28.8 pg (25-34); Mean Corpuscular Hgb Conc 31.1 g/dL (32-36); Mean Corpuscular Volume 92.7 fL (80-100); Mean Platelet Volume 8.7 fL (7.4-10.4); Monocytes # (auto) 0.57 K/uL (0.11-0.59); Monocytes % (auto) 8.7 %; Neutrophils # (auto) 2.74 K/uL (1.4-6.5); Neutrophils % (auto) 41.7 %; Platelet Count 207 K/uL (130-400); RDW Coefficient of Variation 14.7 % (11.5-14.5); RDW Standard Deviation 50.1 fL (36.4-46.3); Red Blood Count 3.85 M/uL (4.2-5.4); White Blood Count 6.55 K/uL (4.8-10.8)
[2021-07-04 08:38] LABS: BUN Creatinine Ratio 17.6 (10-20); Calcium 8.8 mg/dl (8.5-10.1); Creatinine Clr Calc Pharmacy 34.3 ml/min; Est GFR (Non-African American) 45.7 ml/min; Potassium 4.1 mmol/L (3.5-5.1)
[2021-07-04] MEDS: CLOPIDOGREL BISULFATE 75 MG TAB PO SCH (10:14)
[2021-07-04] MEDS: ASPIRIN 81 MG ECTAB PO SCH (10:14)
[2021-07-04] MEDS: PARoxetine HCL 20 MG TAB PO SCH (10:14)
--- NOTE | 2021-07-04 12:05 | Hospitalist Progress Note ---
Date of Service July 04, 2021 Assessment & Plan (1) UTI (urinary tract infection): Plan: -Urine culture is showing a multidrug-resistant Enterobacter (sensitive to Invanz/Merrem) -Patient will require 7 days of IV Invanz (to complete on 07/10) -Ultrasound-guided line to be placed for IV antibiotic administration -Lengthy discussion with daughter regarding disposition. Daughter is very unrealistic and refuses for patient to go to a nursing facility for IV antibiotics. I did explain that antibiotics are once a day and this can be facil itated as an outpatient. She refuses to learn how to infuse/administer the antibiotics at home and refuses to bring her in for outpatient infusions. Also refuses swing bed at [place] at present -Case management also had similar discussion with daughter regarding disposition -Plan is for IV antibiotic therapy (either here or at subsequent facility at discretion of daughter and insurance coverage) -Blood culture showing no growth to date (2) AMS (altered mental status): Plan: -I suspect that this is likely multifactorial. Patient with an underlying history of dementia but concurrently with UTI which could be causing some mild infectious encephalopathy -Patient does have increased confusion today when compared to the day that I admitted her. I suspect she has an underlying hospital-acquired delirium which is common in patients with dementia. I did explain this to the daughter (3) Transaminitis: Plan: -Has been downtrending. Will repeat labs in a.m. Statin on hold -If uptrending again, would be inclined to obtain further labs and a right upper quadrant ultrasound (4) Carotid artery occlusion: Plan: -Chronic. On dual antiplatelet therapy. Again, statin on hold right now for transaminitis (5) Cerebrovascular disease: Plan: - cont. dual antiplatelet therapy - statin on hold as outlined above. Admission and Anticipated Discharge Date Admission Date: July 04, 2021 Subjective Patient seen on daily rounds today. Pleasantly confused. Unreliable historian. Vocalizes no complaints or concerns. Nursing voices no complaints or concerns. She has remained afebrile and hemodynamically stable. Review of Systems Review of Systems: Limited. Patient is unreliable historian. Otherwise she denies fevers, chills, chest pain, shortness of breath, abdominal pain, nausea, vomiting, GI/ symptomatology. Again, question reliability Physical Exam Physical Exam: General: Resting comfortably in her hospital bed. Pleasantly confused. Does not appear ill or toxic. NAD. HEENT: Head is AT/NC buccal mucosa is moist and pink Neck: No JVD. Negative hepatojugular reflex Cardiac: RRR without M/G/R Lungs: CTA without W/R/R Abdomen: Normoactive X4. Soft and nontender in all quadrants. Extremities: No peripheral clubbing cyanosis or edema Neuro: A&O X4 cranial nerves II through XII are grossly intact no focal neuro deficits Skin: No obvious skin lesions or rashes Psych: Pleasantly confused/demented but cooperative Results & Data Results & Data ([facility]) Vital Signs (Past 12 Hours) Vital Signs Temp Pulse Resp BP Pulse Ox 07/04/21 07:30 61 18 96 07/04/21 07:19 36.9 C 82 18 149/75 H 93 Laboratory Results 07/04/21 07:52 07/04/21 07:52 Urine Culture Final 07/04/21-1131 Organism 1 Enterobacter cloacae [place] Count >100,000 CFU/ml Sens Sensitivities to Follow +Mix Urine Plus Low Counts of Other Mixed Deandra E cloacae RX M.I.C. --- --------- Cefepime R >16 Ceftriaxone R >2 Ciprofloxacin R >2 Ertapenem S <=0.5 Gentamicin R >8 Levofloxacin I 1 Meropenem S <=1 Nitrofurantoin R >64 Tobramycin R >8 Trimeth/Sulfa R >2/38 Pip/Tazo I 64 PG Care Time/CCT Total # of Minutes Spent Total Time Spent with Patient: Total time spent is greater than 50% in coordination of care (as documented) at patient's floor/unit and/or counseling patient: [place] [address] Subseq Hosp Care Lvl 3 Patient Type Established History Detailed Exam Detailed Medical Decision Making Moderate Complexity Diagnoses UTI (urinary tract infection) N39.0 AMS (altered mental status) R41.82 Transaminitis R74.01 Carotid artery occlusion I65.29 Cerebrovascular disease I67.9
[2021-07-04] MEDS: ERTAPENEM SODIUM 1,000 MG in SODIUM CHLORIDE 0.9% 50 ML IV SCH (18:21)
[2021-07-04] MEDS: traZODone HCL 50 MG TAB PO SCH (20:54)
[2021-07-04] MEDS: ENOXAPARIN INJ 40 MG/0.4 ML SYR SQ SCH (20:54)
[2021-07-04] MEDS: LEVOTHYROXINE SODIUM 50 MCG TABLET PO SCH (20:54)
[2021-07-05] MEDS: CLOPIDOGREL BISULFATE 75 MG TAB PO SCH (07:45)
[2021-07-05] MEDS: ASPIRIN 81 MG ECTAB PO SCH (07:45)
[2021-07-05] MEDS: PARoxetine HCL 20 MG TAB PO SCH (07:46)
[2021-07-05] MEDS: Ipratropium HFA Inhaler (Combivent Respimat P&T Subs) INH SCH (08:24)
[2021-07-05] MEDS: Albuterol HFA 8 GM Inhaler (Combivent Respimat P&T Subs) INH SCH (08:24)
[2021-07-05 08:45] LABS: Basophils # (auto) 0.04 K/uL (0-0.2); Basophils % (auto) 0.6 %; Eosinophils # (auto) 0.36 K/uL (0-0.5); Eosinophils % (auto) 5.3 %; Hematocrit (blood only) 35.3 % (37-47); Immature Granulocytes # (auto) 0.01 K/uL (0.00-0.02); Immature Granulocytes % (auto) 0.1 %; Lymphocytes # (auto) 2.93 K/uL (1.2-3.4); Lymphocytes % (auto) 43.1 %; Mean Corpuscular Hemoglobin 29.3 pg (25-34); Mean Corpuscular Hgb Conc 31.2 g/dL (32-36); Mean Corpuscular Volume 93.9 fL (80-100); Mean Platelet Volume 8.9 fL (7.4-10.4); Monocytes # (auto) 0.55 K/uL (0.11-0.59); Monocytes % (auto) 8.1 %; Neutrophils # (auto) 2.91 K/uL (1.4-6.5); Neutrophils % (auto) 42.8 %; Platelet Count 231 K/uL (130-400); RDW Coefficient of Variation 14.9 % (11.5-14.5); RDW Standard Deviation 51.1 fL (36.4-46.3); Red Blood Count 3.76 M/uL (4.2-5.4)
[2021-07-05 09:07] LABS: BUN Creatinine Ratio 19.9 (10-20); Creatinine Clr Calc Pharmacy 33.1 ml/min; Est GFR (African American) 50.8 ml/min; Est GFR (Non-African American) 43.8 ml/min; Potassium 4.1 mmol/L (3.5-5.1)
[2021-07-05] MEDS ORDERED: Nursing to Pharmacy Communication SCH (14:15)
--- NOTE | 2021-07-05 16:23 | Hospitalist Progress Note ---
Date of Service July 05, 2021 Assessment & Plan (1) UTI (urinary tract infection): Plan: -Urine culture is showing a multidrug-resistant Enterobacter (sensitive to In vanz/Merrem) Urine Culture Final 07/04/21- 1131 Organism 1 Enterobacter cloacae [place] Count >100,000 CFU/ml Sens Sensitivities to Follow +Mix Urine Plus Low Counts of Other Mixed Deandra E cloacae RX M.I.C. --- --------- Cefepime R >16 Ceftriaxone R >2 Ciprofloxacin R >2 Ertapenem S <=0.5 Gentamicin R >8 Levofloxacin I 1 Meropenem S <=1 Nitrofurantoin R >64 Tobramycin R >8 Trimeth/Sulfa R >2/38 Pip/Tazo I 64 -Patient will require 7 days of IV Invanz (to complete on 07/10) -Ultrasound-guided line placed for IV antibiotic administration -Lengthy discussion with daughter regarding disposition. Daughter is very unrealistic and refuses for patient to go to a nursing facility for IV antibiotics (which in all honesty none in the area have any available beds anywa y-other patients-remaining in house for 9+ days awaiting placement). I did explain that antibiotics are once a day and this can be facilitated as an outpatient. Daughter works full-time and reports that outpatient antibiotic therapy is not doable. Daughter declines/refuses swing bed at [place] as she does not want her "transferred to a different facility" -Case management also had similar discussion with daughter regarding disposition -Plan is for IV antibiotic therapy (either here or at subsequent facility at discretion of daughter and insurance coverage) -Blood culture showing no growth --Slight hematuria noticed at [facility] by nursing staff. Stop Lovenox. Hold Plavix/aspirin tomorrow and continue to monitor. H&H have remained stable. (2) AMS (altered mental status): Plan: -I suspect that this is likely multifactorial. Patient with an underlying history of dementia but concurrently with UTI which could be causing some mild infectious encephalopathy -Patient does have increased confusion today when compared to the day that I admitted her. I suspect she has an underlying hospital-acquired delirium which i s common in patients with dementia. I did explain this to the daughter (3) Transaminitis: Plan: -Has been downtrending. Will repeat labs in a.m. Statin on hold -If uptrending again, would be inclined to obtain further labs and a right upper quadrant ultrasound (4) Carotid artery occlusion: Plan: -Chronic. On dual antiplatelet therapy. Again, statin on hold right now for transaminitis (5) Cerebrovascular disease: Plan: -Hold Plavix/aspirin tomorrow with hematuria as outlined above. Will reassess - statin on hold as outlined above. Plan: Plan of care discussed with Dr. Garcia Admission and Anticipated Discharge Date Admission Date: July 04, 2021 Subjective Patient seen on daily rounds today. Remains pleasantly confused. Unreliable historian but vocalizes no significant complaints or concerns. Has a pure wick in place due to bowel and bladder incontinence (which is baseline in discussion with daughter). Per nurse, small amount of blood noticed but unable to differentiate if it was coming from the pure wick over the BM. Patient does take Plavix/aspirin and is on Lovenox for DVT prophylaxis. Review of Systems Review of Systems: All systems reviewed and are unremarkable except as noted in HPI and below Denies fevers, chills, headache, nasal congestion, sore throat, cough, chest pain, shortness of breath, palpitations, orthopnea, PND, abdominal pain, nausea, vomiting, diarrhea, constipation, dysuria, hematuria, frequency, back pain, joint pain or swelling, easy bruising or bleeding, skin lesions or rashes. Physical Exam Physical Exam: General: Resting comfortably in her hospital bed. Pleasantly confused. NAD. HEENT: Head is AT/NC buccal mucosa is moist and pink Neck: No JVD. Negative hepatojugular reflex Cardiac: RRR without M/G/R Lungs: CTA without W/R/R Abdomen: Normoactive X4. Soft and nontender in all quadrants. Extremities: No peripheral clubbing cyanosis or edema Neuro: A&O X4 cranial nerves II through XII are grossly intact no focal neuro deficits Skin: No obvious skin lesions or rashes Psych: Appropriate affect pleasant and cooperative Results & Data Results & Data ([facility]) Vital Signs (Past 12 Hours) Vital Signs Temp Pulse Resp BP Pulse Ox 07/05/21 14:57 36.5 C 82 18 104/67 97 07/05/21 08:25 87 16 96 07/05/21 07:16 36.8 C 85 16 120/75 95 Laboratory Results 07/05/21 07:56 07/05/21 07:56 PG Care Time/CCT Total # of Minutes Spent Total Time Spent with Patient: Total time spent is greater than 50% in coordination of care (as documented) at patient's floor/unit and/or counseling patient: Coding [place] [address] Subseq Hosp Care Lvl 2 Patient Type Established History Expanded Problem Focused Exam Expanded Problem Focused Medical Decision Making Moderate Complexity Diagnoses UTI (urinary tract infection) N39.0 AMS (altered mental status) R41.82 Transaminitis R74.01 Carotid artery occlusion I65.29 Cerebrovascular disease I67.9
[2021-07-05] MEDS: ERTAPENEM SODIUM 1,000 MG in SODIUM CHLORIDE 0.9% 50 ML IV SCH (18:20)
[2021-07-05] MEDS: LEVOTHYROXINE SODIUM 50 MCG TABLET PO SCH (20:45)
[2021-07-05] MEDS: traZODone HCL 50 MG TAB PO SCH (20:45)
[2021-07-06] MEDS: Ipratropium HFA Inhaler (Combivent Respimat P&T Subs) INH SCH (08:16)
[2021-07-06] MEDS: Albuterol HFA 8 GM Inhaler (Combivent Respimat P&T Subs) INH SCH (08:17)
[2021-07-06] MEDS: PARoxetine HCL 20 MG TAB PO SCH (08:35)
[2021-07-06] MEDS ORDERED: METOPROLOL SUCC 25MG EXT REL TAB PO SCH (09:00)
[2021-07-06 10:12] LABS: Hemoglobin 11.3 g/dL (12.0-16.0); Mean Corpuscular Hemoglobin 29.4 pg (25-34); Mean Corpuscular Hgb Conc 31.4 g/dL (32-36); Mean Corpuscular Volume 93.8 fL (80-100); Mean Platelet Volume 8.9 fL (7.4-10.4); Platelet Count 251 K/uL (130-400); RDW Standard Deviation 50.9 fL (36.4-46.3); Red Blood Count 3.84 M/uL (4.2-5.4); White Blood Count 7.72 K/uL (4.8-10.8)
[2021-07-06 10:42] LABS: Albumin Level 2.7 gm/dl (3.4-5.0); BUN Creatinine Ratio 17.6 (10-20); Calcium 9.2 mg/dl (8.5-10.1); Creatinine Clr Calc Pharmacy 31.5 ml/min; Est GFR (African American) 47.7 ml/min; Est GFR (Non-African American) 41.2 ml/min; Potassium 3.9 mmol/L (3.5-5.1)
[2021-07-06 10:47] LABS: Albumin Globulin Ratio 0.5 (0.9-2); Bilirubin,Total 0.3 mg/dl (0.2-1); Globulin 5.1 gm/dl (2.5-4.0); Total Protein 7.8 gm/dl (6.4-8.2)
--- NOTE | 2021-07-06 17:28 | Hospitalist Progress Note ---
Date of Service July 06, 2021 Assessment & Plan (1) UTI (urinary tract infection): Plan: -Urine culture is showing a multidrug-resistant Enterobacter (sensitive to In vanz/Merrem) Urine Culture Final 07/04/21- 1131 Organism 1 Enterobacter cloacae [place] Count >100,000 CFU/ml Sens Sensitivities to Follow +Mix Urine Plus Low Counts of Other Mixed Deandra E cloacae RX M.I.C. --- --------- Cefepime R >16 Ceftriaxone R >2 Ciprofloxacin R >2 Ertapenem S <=0.5 Gentamicin R >8 Levofloxacin I 1 Meropenem S <=1 Nitrofurantoin R >64 Tobramycin R >8 Trimeth/Sulfa R >2/38 Pip/Tazo I 64 -Patient will require 7 days of IV Invanz (to complete on 07/10) -Ultrasound-guided line placed for IV antibiotic administration -Lengthy discussion with daughter regarding disposition. Daughter is very unrealistic and refuses for patient to go to a nursing facility for IV antibiotics (which in all honesty none in the area have any available beds anywa y-other patients-remaining in house for 9+ days awaiting placement). I did explain that antibiotics are once a day and this can be facilitated as an outpatient. Daughter works full-time and reports that outpatient antibiotic therapy is not doable. Daughter declines/refuses swing bed at [place] as she does not want her "transferred to a different facility". At this point, no other options other than to complete full course of IV antibiotic therapy while in house. -Case management also had similar discussion with daughter regarding disposition -Plan is for IV antibiotic therapy (either here or at subsequent facility at discretion of daughter and insurance coverage) -Blood culture showing no growth --Slight hematuria noticed at [facility] by nursing staff. Stop Lovenox. Hold Plavix/aspirin tomorrow and continue to monitor. H&H have remained stable. Seems to have slight pressure ulcer/breakdown and likely from pure wick. Staffing encouraged not to use this. We will continue to monitor H&H --Im not even sure if it actually IS hematuria or just blood from the ulcer is mixed with the urine collected in [facility] into canister --given hydronephrosis on admission (which appeared stable from prior but limited given artifact), will obtain U/S to FU on this given known h/o stones (with nonobstructing stone on CT and now with hematuria) (2) AMS (altered mental status): Plan: -I suspect that this is likely multifactorial. Patient with an underlying history of dementia but concurrently with UTI which could be causing some mild infectious encephalopathy -Patient does have increased confusion when compared to the day that I admitted her. Mentation has remained stable since. I suspect she has an underlying hospital-acquired delirium which is common in patients with dementia. I did explain this to the daughter (3) Transaminitis: Plan: -Has been downtrending but still elevated - will obtain labs and a RUQ US (4) Carotid artery occlusion: Plan: -Chronic. On dual antiplatelet therapy. Again, statin on hold right now for transaminitis (5) Cerebrovascular disease: Plan: -Hold Plavix/aspirin tomorrow with hematuria as outlined above. Will reassess - statin on hold as outlined above. Plan: Plan of care discussed with Dr. Garcia Admission and Anticipated Discharge Date Admission Date: July 04, 2021 Subjective Patient seen on daily rounds today. Appears pleasantly confused and cooperative. Pure wick in place. Nursing staff noticed blood in the canister. Plavix/aspirin held and Lovenox stopped Review of Systems Review of Systems: Question reliability. Vocalizes no significant complaints or concerns though. Denies fevers, chills, chest pain, shortness of breath, abdominal pain, nausea or vomiting Physical Exam Physical Exam: General: Resting comfortably in her hospital bed. NAD. HEENT: Head is AT/NC buccal mucosa is moist and pink Neck: No JVD. Negative hepatojugular reflex Cardiac: RRR without M/G/R Lungs: CTA without W/R/R Abdomen: Normoactive X4. Soft and nontender in all quadrants. : Purwick removed. There does appear to be a slight pressure ulcer on the right labia minora at the internal surface (where purwick was placed) Extremities: No peripheral clubbing cyanosis or edema Neuro: A&O X4 cranial nerves II through XII are grossly intact no focal neuro deficits Skin: No obvious skin lesions or rashes Psych: Pleasantly confused but cooperative Results & Data Results & Data ([facility]) Vital Signs (Past 12 Hours) Vital Signs Temp Pulse Resp BP Pulse Ox 10/02/21 15:01 37.1 C 95 H 18 122/75 94 07/06/21 08:17 91 H 18 93 07/06/21 07:18 37.3 C 89 18 121/74 94 Laboratory Results 07/06/21 09:55 07/06/21 09:55 PG Care Time/CCT Total # of Minutes Spent Total Time Spent with Patient: Total time spent is greater than 50% in coordination of care (as documented) at patient's floor/unit and/or counseling patient: Coding [place] [address] Subseq Hosp Care Lvl 2 Patient Type Established History Expanded Problem Focused Exam Expanded Problem Focused Medical Decision Making Moderate Complexity Diagnoses UTI (urinary tract infection) N39.0 AMS (altered mental status) R41.82 Transaminitis R74.01 Carotid artery occlusion I65.29 Cerebrovascular disease I67.9
[2021-07-06] MEDS: ERTAPENEM SODIUM 1,000 MG in SODIUM CHLORIDE 0.9% 50 ML IV SCH (18:17)
--- NOTE | 2021-07-06 20:00 | Ultrasound Report ---
US renal/blad retro comp CLINICAL INDICATION: MN ^Y ^FU on hydronephrosis. TECHNIQUE: Multiple sonographic real-time images of the kidneys and bladder were obtained. COMPARISON: None available at the time of this dictation. FINDINGS: The right kidney measures 6.5 cm in length, and the left kidney measures 9.6 cm in length. Right kidney is atrophic in appearance. Cysts are seen largest measuring 1.5 cm in diameter. No hydro nephrosis is identified. No perinephric fluid collection is seen. The left kidney is notable for prominent medullary fat, although cortical thickness is preserved. No hydronephrosis is identified. No focal renal lesion is identified. No perinephric fluid collection is seen. There is a thickened bladder wall. Renal jets were not seen. No large intraluminal mass is seen. IMPRESSION: 1. Thickened bladder wall which is nonspecific. Recommend correlation with urinalysis to exclude cys titis. 2. Atrophic appearance of the right kidney. Additional findings as above. ACT 112: Negative or not required by law. Electronically signed by: Tulio Thorne M.D. 07/06/2021 7:59 PM
--- NOTE | 2021-07-06 20:02 | Ultrasound Report ---
US abdomen limited CLINICAL INDICATION: MN ^Y ^liver-- transaminitis. TECHNIQUE: Multiple real-time sonographic images of the right upper quadrant were obtained. Comparison: None available at the time of this dictation. FINDINGS: The liver is diffusely homogenous with normal contour and echogenicity. No focal mass lesions are se en. No intrahepatic ductal dilatation is seen. Patient is status post cholecystectomy. The common duct measures 12 mm in diameter at the level of the hepatic artery. A sonographic Almaraz's sign was not elicited by the food expeditor. The visualized portions of the pancreas appear normal. The right kidney is noted be atrophic. No ascites or free fluid is seen in Gupta's pouch. IMPRESSION: Status post cholecystectomy with physiologic dilation of the bile duct. The liver is unremarkable. ACT 112: Negative or not required by law. Electronically signed by: Tulio Thorne M.D. 07/06/2021 8:00 PM
[2021-07-06] MEDS: LEVOTHYROXINE SODIUM 50 MCG TABLET PO SCH (20:27)
[2021-07-06] MEDS: traZODone HCL 50 MG TAB PO SCH (20:28)
[2021-07-07] MEDS: Albuterol HFA 8 GM Inhaler (Combivent Respimat P&T Subs) INH SCH (08:17)
[2021-07-07] MEDS: Ipratropium HFA Inhaler (Combivent Respimat P&T Subs) INH SCH (08:17)
[2021-07-07 08:24] LABS: Hematocrit (blood only) 34.7 % (37-47); Hemoglobin 10.7 g/dL (12.0-16.0); Mean Corpuscular Hemoglobin 28.9 pg (25-34); Mean Corpuscular Hgb Conc 30.8 g/dL (32-36); Mean Corpuscular Volume 93.8 fL (80-100); Mean Platelet Volume 8.9 fL (7.4-10.4); Platelet Count 236 K/uL (130-400); RDW Coefficient of Variation 14.8 % (11.5-14.5); RDW Standard Deviation 50.6 fL (36.4-46.3); White Blood Count 7.81 K/uL (4.8-10.8)
[2021-07-07 08:52] LABS: Albumin Level 2.7 gm/dl (3.4-5.0); Calcium 8.8 mg/dl (8.5-10.1); Creatinine Clr Calc Pharmacy 34.6 ml/min; Est GFR (African American) 53.6 ml/min; Est GFR (Non-African American) 46.3 ml/min; Potassium 3.9 mmol/L (3.5-5.1)
[2021-07-07 08:55] LABS: Albumin Globulin Ratio 0.6 (0.9-2); Bilirubin,Total 0.3 mg/dl (0.2-1); Globulin 4.9 gm/dl (2.5-4.0); Total Protein 7.6 gm/dl (6.4-8.2)
[2021-07-07] MEDS ORDERED: SODIUM CHLORIDE 0.9% 1000ML 1,000 ML IV SCH (10:00)
[2021-07-07] MEDS: PARoxetine HCL 20 MG TAB PO SCH (10:02)
[2021-07-07] MEDS: ERTAPENEM SODIUM 1,000 MG in SODIUM CHLORIDE 0.9% 50 ML IV SCH (17:28)
--- NOTE | 2021-07-07 18:09 | Hospitalist Progress Note ---
Date of Service July 07, 2021 Assessment & Plan (1) UTI (urinary tract infection): Plan: -Urine culture is showing a multidrug-resistant Enterobacter (sensitive to In vanz/Merrem) Urine Culture Final 07/04/21- 1131 Organism 1 Enterobacter cloacae [place] Count >100,000 CFU/ml Sens Sensitivities to Follow +Mix Urine Plus Low Counts of Other Mixed Deandra E cloacae RX M.I.C. --- --------- Cefepime R >16 Ceftriaxone R >2 Ciprofloxacin R >2 Ertapenem S <=0.5 Gentamicin R >8 Levofloxacin I 1 Meropenem S <=1 Nitrofurantoin R >64 Tobramycin R >8 Trimeth/Sulfa R >2/38 Pip/Tazo I 64 -Patient will require 7 days of IV Invanz (to complete on 07/10) -Ultrasound-guided line placed for IV antibiotic administration -Lengthy discussion with daughter regarding disposition. Daughter SNF (which in all honesty none in the area have any available beds anyway). I did explain that antibiotics are once a day and this can be facilitated as an outpatient. Daughter works full-time and reports that outpatient antibiotic therapy is not doable. Daughter declines/refuses swing bed at [facility] as she does not want her "transferred to a different facility". At this point, no other options other than to complete full course of IV antibiotic therapy while in house. -Case management also had similar discussion with daughter regarding disposition -Plan is for IV antibiotic therapy (either here or at subsequent facility at discretion of daughter and insurance coverage) -Blood culture showing no growth --Slight hematuria noticed at [facility] by nursing staff. Stopped Lovenox. Hold Plavix/aspirincontinue to monitor. H&H have remained stable. Seemed to have slight pressure ulcer/breakdown and likely from [facility]. Staffing e ncouraged not to use this. We will continue to monitor H&H --slightly concentrated urine per staff. 1L IVF over the next 24 hours. --given hydronephrosis on admission (which appeared stable from prior but limited given artifact), U/S done and benign. RENAL U/S: The right kidney measures 6.5 cm in length, and the left kidney measures 9.6 cm in length. Right kidney is atrophic in appearance. Cysts are seen largest measuring 1.5 cm in diameter. No hydronephrosis is identified. No perinephric fluid collection is seen. The left kidney is notable for prominent medullary fat, although cortical thickness is preserved. No hydronephrosis is identified. No focal renal lesion is identified. No perinephric fluid collection is seen. There is a thickened bladder wall. Renal jets were not seen. No large intraluminal mass is seen. IMPRESSION: 1. Thickened bladder wall which is nonspecific. Recommend correlation with urinalysis to exclude cystitis. . Atrophic appearance of the right kidney. Additional findings as above. (2) AMS (altered mental status): Plan: -I suspect that this is likely multifactorial. Patient with an underlying history of dementia but concurrently with UTI which could be causing some mild infectious encephalopathy -Patient does have increased confusion when compared to the day that I admitted her. Mentation has remained stable since. I suspect she has an underlying hospital-acquired delirium which is common in patients with dementia. I did explain this to the daughter (3) Transaminitis: Plan: -Has been downtrending but still elevated -Labs drawn and pending -RUQ ultrasound done and benign: IMPRESSION: Status post cholecystectomy with physiologic dilation of the bile duct. The liver is unremarkable. -With review of old records, appears to be a consistent thing when she is in the hospital. Perhaps she has Gilbert's (4) Carotid artery occlusion: Plan: -Chronic. On dual antiplatelet therapy (which were held 07/06 and 07/07 given reports of hematuri-- which I believe to be from a pressure ulcer of the labia from pure wick) - Again, statin on hold right now for transaminitis (5) Cerebrovascular disease: Plan: -Hold Plavix/aspirin tomorrow with hematuria as outlined above. reassess tomorrow - statin on hold as outlined above. Plan: Plan of care discussed with Dr. Garcia Admission and Anticipated Discharge Date Admission Date: July 04, 2021 Subjective Patient seen on daily rounds today. And voices no complaints or concerns. Nurse reports no gross hematuria but urine is dark in concentrated Review of Systems Review of Systems: Limited and unreliable . question reliability All systems reviewed and are unremarkable except as noted in HPI and below Denies fevers, chills, headache, nasal congestion, sore throat, cough, chest pain, shortness of breath, palpitations, orthopnea, PND, abdominal pain, nausea, vomiting, diarrhea, constipation, dysuria, hematuria, frequency, back pain, joint pain or swelling, easy bruising or bleeding, skin lesions or rashes. Physical Exam Physical Exam: General: Resting comfortably in her hospital bed. NAD. HEENT: Head is AT/NC buccal mucosa is moist and pink Neck: No JVD. Negative hepatojugular reflex Cardiac: RRR without M/G/R Lungs: CTA without W/R/R Abdomen: Normoactive X4. Soft and nontender in all quadrants. Extremities: No peripheral clubbing cyanosis or edema Neuro: A&O X4 cranial nerves II through XII are grossly intact no focal neuro deficits Skin: No obvious skin lesions or rashes Psych: Pleasantly confused but cooperative Results & Data Results & Data ([facility]) Vital Signs (Past 12 Hours) Vital Signs Temp Pulse Resp BP Pulse Ox 07/07/21 15:46 36.8 C 80 16 116/75 97 07/07/21 08:18 88 18 94 07/07/21 07:44 36.5 C 81 16 127/79 95 Laboratory Results 07/07/21 08:09 07/07/21 08:09 Total bilirubin: 0.3 AST: 98 ALT: 121 Alk phos: 166 PG Care Time/CCT Total # of Minutes Spent Total Time Spent with Patient: Total time spent is greater than 50% in clinical program coordinator rdination of care (as documented) at patient's floor/unit and/or counseling patient: C[place] [address] Subseq Hosp Care Lvl 2 Patient Type Established History Expanded Problem Focused Exam Expanded Problem Focused Medical Decision Making Moderate Complexity Diagnoses UTI (urinary tract infection) N39.0 AMS (altered mental status) R41.82 Transaminitis R74.01 Carotid artery occlusion I65.29 Cerebrovascular disease I67.9
[2021-07-07] MEDS: LEVOTHYROXINE SODIUM 50 MCG TABLET PO SCH (20:46)
[2021-07-07] MEDS: traZODone HCL 50 MG TAB PO SCH (20:46)
[2021-07-08] MEDS: Ipratropium HFA Inhaler (Combivent Respimat P&T Subs) INH SCH (08:14)
[2021-07-08] MEDS: Albuterol HFA 8 GM Inhaler (Combivent Respimat P&T Subs) INH SCH (08:14)
[2021-07-08 08:56] LABS: Hematocrit (blood only) 34.2 % (37-47); Mean Corpuscular Hgb Conc 32.2 g/dL (32-36); Mean Corpuscular Volume 93.2 fL (80-100); Mean Platelet Volume 8.8 fL (7.4-10.4); Platelet Count 228 K/uL (130-400); RDW Coefficient of Variation 14.6 % (11.5-14.5); RDW Standard Deviation 50.2 fL (36.4-46.3); Red Blood Count 3.67 M/uL (4.2-5.4); White Blood Count 7.36 K/uL (4.8-10.8)
[2021-07-08] MEDS: PARoxetine HCL 20 MG TAB PO SCH (09:04)
[2021-07-08 09:14] LABS: Albumin Level 2.6 gm/dl (3.4-5.0); BUN Creatinine Ratio 17.5 (10-20); Creatinine Clr Calc Pharmacy 41.5 ml/min; Est GFR (African American) 66.7 ml/min; Est GFR (Non-African American) 57.5 ml/min
[2021-07-08 09:17] LABS: Albumin Globulin Ratio 0.5 (0.9-2); Bilirubin,Total 0.5 mg/dl (0.2-1); Globulin 4.9 gm/dl (2.5-4.0); Total Protein 7.5 gm/dl (6.4-8.2)
[2021-07-08 10:32] LABS: Hepatitis B Surf Ag Rflx Conf Neg (Neg)
[2021-07-08 11:01] LABS: Hepatitis C IgG 13Yrs+Old_Rflx Neg (Neg)
--- NOTE | 2021-07-08 13:55 | CT Scan Report ---
CT OF THE HEAD WITHOUT CONTRAST CLINICAL HISTORY: Altered mental status R/O CVA COMPARISON STUDY: Head CT July 02, 2021. CT DOSE: 1277.12 mGycm TECHNIQUE: Helical axial images of the head were obtained without IV contrast. Automated exposure con trol was utilized for the study. A dose lowering technique was utilized adhering to the principles o f ALARA. FINDINGS: This exam is mildly compromised given difficulty positioning. Ventricular system is stable. Basal cisterns are patent. There are no extra-axial collections. There are no findings to suggest ac [place] dural sinus thrombosis or acute territorial infarct. 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 There are no findings to suggest acute dural sinus thrombosis or acute territorial infarc t. The appearance of the brain is unchanged. A lucency within the anterior arch of C1 is unchanged an d coronal. There is no acute calvarial fracture. IMPRESSION: 1. No acute intracranial findings. No change in appearance of the brain. 2. Exam mildly compromised given difficulty positioning. ACT 112: Negative or not required by law. Electronically signed by: Varun Courtney M.D. 07/08/2021 1:54 PM
--- NOTE | 2021-07-08 14:33 | Hospitalist Progress Note ---
Date of Service July 08, 2021 Assessment & Plan (1) UTI (urinary tract infection): Plan: -Urine culture is showing a multidrug-resistant Enterobacter (sensitive to In vanz/meropenem) -Patient will require 7 days of IV Invanz (to complete on 07/10) Patient family would prefer the patient stay here until completion of antibiotics. Plan on discharge [facility] with [facility] -Blood culture x 2 NGTD --Slight hematuria noticed at [facility] by nursing staff. Stopped Lovenox. Hold Plavix/aspirinontinue to monitor. H&H have remained stable. Seemed to have slight pressure ulcer/breakdown and likely from [facility]. H&H stable. Resume clopidogrel and aspirin today. Hold Lovenox. Use SCDs for DVT prophylaxis --slightly concentrated urine per staff. 1L IVF over the next 24 hours. --hydronephrosis on admission resolved per U/S 07/06/2021. (2) AMS (altered mental status): Plan: Patient with history of progressive dementia Initial CT head with no acute findings Most likely secondary to UTI and hospital-acquired delirium from new setting in octarian age setting Repeated CT head 07/08/2021 as there is a question about lethargy. Imaging was negative for any acute findings or territorial infarct Patient with history of TIA We will resume clopidogrel and aspirin Continue to monitor and provide supportive care (3) Transaminitis: Plan: -Has been downtrending but still elevated -RUQ ultrasound nonrevealing. Status post cholecystectomy. CT abdomen pelvis 02/14/2021 showed biliary ductal dilatation as well at that time. No mention of choledocholithiasis Patient currently asymptomatic. Suggest outpatient follow-up with gastroenterology or a advertising operations coordinator (4) Carotid artery occlusion: Plan: -Chronic. On dual antiplatelet therapy held 07/06 and 07/07 given reports of hematuri--possibly from pressure ulcer of the labia from [facility]) -Resume clopidogrel and aspirin today (5) Cerebrovascular disease: Plan: -Clopidogrel and aspirin held secondary to hematuria. Hemoglobin stable. Resume meds today - statin on hold secondary to transaminitis -would restart on discharge (6) DVT prophylaxis: Plan: Enoxaparin, clopidogrel, aspirin held for hematuria Resume clopidogrel and aspirin today REYNA bradford and SCDs ordered Plan: Call placed to patient's daughter Homa Garcia. Voicemail box was full. Then called her George Garcia. Gave him extensive update and asked him to relay to Homa Garcia. IV antibiotics scheduled to be discontinued on Thursday. Anticipate discharge home with [facility] Admission and Anticipated Discharge Date Admission Date: July 04, 2021 Subjective Attending: Dr. Gutierrez Patient seen and examined at bedside. She is somewhat lethargic but does awaken and follows commands. Answers questions appropriately. She seems to have a slight facial droop and head is canted to the right. She denies headache. No change in vision. No slurred speech. Strength is equal and appropriate to bilateral upper and lower extremities. Pupils equal round and reactive to light. No deviation of tongue. Patient denies any fever, chills, sweats, rigors. She has no complaints of nausea or vomiting. She denies any diarrhea. She has no other acute complaints at this time. I attempted to call the patient's daughter Homa Garcia. I got her voicemail message that stated that her voice mailbox was full. I then called Homa Garcia's and gave him update and asked him to relay information to his . I also asked him to make sure that she knew her voice mailbox was full and is much as there were several notes over the weekend of staff atte mpting to reach her to give her updates. Review of Systems Review of Systems: All systems reviewed & are unremarkable except as noted in Subjective Physical Exam Physical Exam: GENERAL : No acute distress. EYES: No icterus, gaze conjugate. Pupils equal round and reactive to light NOSE: No evidence of epistaxis MOUTH: No lesions or candidiasis. Patient having difficulty keeping lower dentures in. These were removed. Mucosa moist. No deviation of tongue. Patient appears to have a slight left-sided facial droop. NECK: Supple LUNGS: CTA B/L, no wheezes, rales or rhonchi HEART: Regular, rate controlled ABDOMEN: Soft, NT, ND, BS Present EXTREMITIES: No LE edema, pedal pulses intact and equal bilaterally. NEURO: Awake and alert. Somewhat lethargic. Awakens to verbal command. Follows simple commands. No specific neurological deficits appreciated. Results & Data Results & Data ([facility]) Vital Signs (Past 12 Hours) Vital Signs Temp Pulse Resp BP Pulse Ox 10/04/21 08:14 91 H 16 93 10/04/21 07:49 36.8 C 76 20 135/69 93 Laboratory Results 07/08/21 08:19 07/08/21 08:[address] 07/08/21 12:49 CT OF THE HEAD WITHOUT CONTRAST CLINICAL HISTORY: Altered mental status R/O CVA COMPARISON STUDY: Head CT July 02, 2021. CT DOSE: 1277.12 mGycm TECHNIQUE: Helical axial images of the head were obtained without IV contrast. Automated exposure control was utilized for the study. A dose lowering technique was utilized adhering to the principles of ALARA. FINDINGS: This exam is mildly compromised given difficulty positioning. Ventricular system is stable. Basal cisterns are patent. There are no extra- axial collections. There are no findings to suggest acute dural sinus thrombosis or acute territorial infarct. 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 There are no findings to suggest acute dural sinus thrombosis or acute territorial infarct. The appearance of the brain is unchanged. A lucency within the anterior arch of C1 is unchanged and coronal. There is no acute calvarial fracture. IMPRESSION: 1. No acute intracranial findings. No change in appearance of the brain. 2. Exam mildly compromised given difficulty positioning. ACT 112: Negative or not required by law. Electronically signed by: Varun Courtney M.D. 07/08/2021 1:54 PM PG Care Time/CCT Total # of Minutes Spent Total Time Spent with Patient: Total time spent is greater than 50% in coordination of care (as documented) at patient's floor/unit and/or counseling patient: Coding Level of Care Code 44616 Subseq Hosp Care Lvl 2 Diagnoses UTI (urinary tract infection) N39.0 AMS (altered mental status) R41.82 Transaminitis R74.01 Carotid artery occlusion I65.29 Cerebrovascular disease I67.9 DVT prophylaxis Z29.9 Time Spent (min) 30
[2021-07-08] MEDS: ERTAPENEM SODIUM 1,000 MG in SODIUM CHLORIDE 0.9% 50 ML IV SCH (17:42)
[2021-07-08] MEDS: LEVOTHYROXINE SODIUM 50 MCG TABLET PO SCH (20:25)
[2021-07-08] MEDS: traZODone HCL 50 MG TAB PO SCH (23:35)
[2021-07-09] MEDS: Ipratropium HFA Inhaler (Combivent Respimat P&T Subs) INH SCH (07:56)
[2021-07-09] MEDS: Albuterol HFA 8 GM Inhaler (Combivent Respimat P&T Subs) INH SCH (07:57)
[2021-07-09] MEDS: PARoxetine HCL 20 MG TAB PO SCH (10:57)
--- NOTE | 2021-07-09 13:35 | Hospitalist Progress Note ---
Date of Service July 09, 2021 Assessment & Plan (1) UTI (urinary tract infection): Plan: -Urine culture is showing a multidrug-resistant Enterobacter (sensitive to In vanz/meropenem) -Patient will require 7 days of IV Invanz (to complete on 07/10) -Plan on discharging home with home health on Thursday using [facility] -Blood culture x 2 NGTD -hydronephrosis on admission resolved per U/S 07/06/2021. (2) AMS (altered mental status): Plan: Patient with history of progressive dementia Initial CT head with no acute findings Most likely secondary to UTI and hospital-acquired delirium from new setting in octarian age setting. This appears to wax and wane Repeated CT head 07/08/2021 as there is a question about lethargy. Imaging was negative for any acute findings or territorial infarct Patient with history of TIA Continue clopidogrel and aspirin Continue to monitor and provide supportive care (3) Transaminitis: Plan: -Has been downtrending but still elevated -RUQ ultrasound nonrevealing. Status post cholecystectomy. CT abdomen pelvis 02/14/2021 showed biliary ductal dilatation as well at that time. No mention of choledocholithiasis Patient currently asymptomatic. Suggest outpatient follow-up with gastroenterology or a holiday detector operator (4) Carotid artery occlusion: Plan: -Chronic. On dual antiplatelet therapy held 07/06 and 07/07 given reports of hematuri--possibly from pressure ulcer of the labia from pure wick) -Continue clopidogrel and aspirin (5) Cerebrovascular disease: Plan: -Clopidogrel and aspirin held secondary to hematuria. Hemoglobin stable. -Antiplatelet agents restarted - statin on hold secondary to transaminitis -would restart on discharge (6) DVT prophylaxis: Plan: Continue clopidogrel and aspirin but hold chemical prophylaxis Continue REYNA sanchez and SCDs Plan: Disposition: Call placed to patient's daughter Homa Garcia. Left a voicemail that the patient is doing well and that mental status has improved. Anticipate discharge home tomorrow with [facility] nursing after antibiotics are administered. Today's dose of Invanz will be administered now. Tomorrow's dose will be administered at 09 100. PT/OT recommending rehab stay. Family prefers not to send patient to rehab. Will discharge home with orders for home PT Admission and Anticipated Discharge Date Admission Date: July 04, 2021 Subjective Attending: Dr. George Gutierrez Patient seen and examined at bedside. She is much more alert today. She is pleasant and talkative. No slurred speech. Head is positioned more midline. She has no specific complaints of nausea, vomiting, diarrhea. She has no chest pain or tightness. She denies any fever, chills, sweats, rigors. She seems to be pleased at the prospect of being discharged home tomorrow. No other acute complaints. Review of Systems 2 Review of Systems: All systems reviewed & are unremarkable except as noted in Subjective Physical Exam Physical Exam: GENERAL : No acute distress. Pleasant EYES: No icterus, gaze conjugate. Pupils equal round and reactive to light NOSE: No evidence of epistaxis MOUTH: No lesions or candidiasis. Mucosa moist. Top and bottom dentures in place. NECK: Supple. No evidence of torticollis. Head is positioned more midline. No pain with rotation. LUNGS: CTA B/L, no wheezes, rales or rhonchi HEART: Regular, rate controlled ABDOMEN: Soft, NT, ND, BS Present EXTREMITIES: No LE edema, pedal pulses intact NEURO: Awake and alert. Some evidence of dementia. Hospital delirium waxes and wanes. Results & Data Results & Data ([facility]) Vital Signs (Past 12 Hours) Vital Signs Temp Pulse Resp BP Pulse Ox 07/09/21 07:58 88 16 93 07/09/21 07:13 36.9 C 86 18 111/70 95 Laboratory Results 07/08/21 08:19 07/08/21 08:19 Diagnostic Findings No further diagnostic imaging PG Care Time/CCT Total # of Minutes Spent Total Time Spent with Patient: Total time spent is greater than 50% in coordi nation of care (as documented) at patient's floor/unit and/or counseling patient: 30 minutes Coding Level of Care Code 19584 Subseq Hosp Care Lvl 2 Diagnoses UTI (urinary tract infection) N39.0 AMS (altered mental status) R41.82 Transaminitis R74.01 Carotid artery occlusion I65.29 Cerebrovascular disease I67.9 DVT prophylaxis Z29.9 Time Spent (min) 30
[2021-07-09] MEDS: ERTAPENEM SODIUM 1,000 MG in SODIUM CHLORIDE 0.9% 50 ML IV SCH (18:38)
[2021-07-09] MEDS ORDERED: SODIUM CHLORIDE 0.9% 1000ML 250 ML IV ONE (20:30)
[2021-07-09] MEDS ORDERED: traZODone HCL 50 MG TAB PO SCH (21:00)
[2021-07-09] MEDS: LEVOTHYROXINE SODIUM 50 MCG TABLET PO SCH (21:24)
[2021-07-10] MEDS: Ipratropium HFA Inhaler (Combivent Respimat P&T Subs) INH SCH (07:40)
[2021-07-10] MEDS: Albuterol HFA 8 GM Inhaler (Combivent Respimat P&T Subs) INH SCH (07:41)
[2021-07-10] MEDS ORDERED: ERTAPENEM SODIUM 1,000 MG in SODIUM CHLORIDE 0.9% 50 ML IV ONE (09:00)
[2021-07-10] MEDS: ASPIRIN 81 MG ECTAB PO SCH (09:06)
[2021-07-10] MEDS: CLOPIDOGREL BISULFATE 75 MG TAB PO SCH (09:06)
[2021-07-10] MEDS: PARoxetine HCL 20 MG TAB PO SCH (09:06)
--- NOTE | 2021-07-10 13:34 | Discharge Summary ---
Date of Service July 10, 2021 Admission HPI Per Admitting Provider Mrs. Molina is an 86-year-old white female with a past medical history of chronic LBBB, hypothyroidism, carotid artery disease with prior TIA, GERD, stage III CKD, recurrent nephrolithiasis and recurrent UTIs. Her last hospitalization was in February when she had obstructive uropathy with associated pyelonephritis. She had lithotripsy and ureteral stent and subsequently has had the stent removed. Daughter is at bedside and provides most of the history. She claims that patient is very prone to urinary tract infections and "she can tell when one is coming on". She reports patient has been more lethargic and somewhat confused more so than normal over the past several weeks. Recently started on Ceftin for presumed urinary tract infection. Daughter reports a urine culture was done by home nursing and sent to [facility] in [place]. In any rate, she has not had any fevers or chills, no complaints of dysuria. She is chronically incontinent of urine. No foul odor. Was seen by visiting nurses today and reportedly had a "low blood pressure of 100s/40s" which is what prompted her evaluation into the emergency department today. Work-up in the ED revealed a BP of 98/76. She was given a very gentle fluid bolus. Her most recent blood pressure was 109/57. With review of old records, this appears to be baseline for patient. She was not tachycardic and was afebrile. Her pulse ox was 98% on room air. She did not have leukocytosis. Her metabolic panel showed a stable creatinine of 1.17. Her total bilirubin is normal at 0.3 with a mildly elevated AST/ALT at one eighty-three and one seventy-two respectively. This prompted a CT of the abdomen and pelvis that showed some mild bladder wall thickening which could be consistent with cystitis and mild right-sided hydronephrosis which appears to be stable from previous imaging. No obvious obstructive process; however, significant artifact noted. No biliary ductal dilatation to account for the elevated LFTs. Patient's urinalysis is leukocyte esterase positive but nitrite negative and clear. Does not appear to be grossly infected. Patient to be hospitalized for altered mental status with progressive lethargy. Admission Exam Per Admitting Provider General: Resting comfortably in her hospital bed. She does not appear ill or toxic. NAD. HEENT: Head is AT/NC buccal mucosa is moist and pink Neck: No JVD. Negative hepatojugular reflex Cardiac: RRR with 1/6 BROOKS Lungs: CTA without W/R/R Abdomen: Normoactive X4. Soft and nontender in all quadrants. Extremities: No peripheral clubbing cyanosis or edema. See skin Neuro: Patient is awake. She is oriented to year but not month. Oriented to self/person but not to place. Daughter reports this is baseline. Limited with details. Cranial nerves II through XII are grossly intact no focal neuro deficits. [id number]-[id number] intact. Negative pronator drift. Downward Babinski Skin: Patient has a small area of eschar on the top of her left second toe without significant erythema. No drainage. It is exquisitely tender to touch. Psych: Appropriate affect pleasantly demented. Cooperative Principal Diagnosis Altered mental status Urinary tract infection Progressive dementia Discharge Exam GENERAL : No acute distress. Pleasant. Talkative EYES: No icterus, gaze conjugate NOSE: No evidence of epistaxis MOUTH: No lesions or candidiasis NECK: Supple LUNGS: CTA B/L, no wheezes, rales or rhonchi. No cough with deep inspiration. Good inspirational effort. HEART: Regular, rate controlled ABDOMEN: Soft, NT, ND, BS Present EXTREMITIES: No LE edema, pedal pulses intact and equal bilaterally NEURO: A&OX3 Discharge Data Allergies Allergy/AdvReac Type Severity Reaction Status Date / Time No Known Drug Allergies Allergy Unknown Verified 07/02/21 22:36 oxycodone AdvReac Severe confusion/ Verified 07/02/21 22:22 "Gets Mean" Consultations 07/02/21 16:47 ED Decision to Admit Stat Ordered Studies 07/02/21 14:46 CT abd pelvis wo con Stat 07/02/21 17:55 CT foot LT wo con Urgent CT head/brain wo con Urgent 07/06/21 17:26 US abdomen limited Routine US renal/blad retro comp Routine 07/08/21 12:49 CT head/brain wo con Urgent Hospital Course (1) UTI (urinary tract infection): -Urine culture is showing a multidrug-resistant Enterobacter (sensitive to Invanz/meropenem) -Patient received 7 days of IV Invanz (Completed on 07/10) -Discharge home with home health on Thursday using [facility] [employer] -Blood culture x 2 NGTD -hydronephrosis on admission resolved per U/S 07/06/2021. (2) AMS (altered mental status): Patient with history of progressive dementia Initial CT head with no acute findings Most likely secondary to UTI and hospital-acquired delirium from new setting in octarian age setting. This appears to wax and wane. The last 2 days she has been oriented and pleasant. Repeated CT head 07/08/2021 as there is a question about lethargy. Imaging was negative for any acute findings or territorial infarct Patient with history of TIA Continue clopidogrel and aspirin on discharge Continue to monitor and provide supportive care (3) Transaminitis: -Has been downtrending but still elevated -RUQ ultrasound nonrevealing. Status post cholecystectomy. CT abdomen pelvis 02/14/2021 showed biliary ductal dilatation as well at that time. No mention of choledocholithiasis Patient currently asymptomatic. Suggest outpatient follow-up with gastroenterology or a cardiology clinical consultant (4) Carotid artery occlusion: -Chronic. On dual antiplatelet therapy held 07/06 and 07/07 given reports of hematuria--possibly from pressure ulcer of the labia from pure wick) -Continue clopidogrel and aspirin on discharge (5) Cerebrovascular disease: -Clopidogrel and aspirin held secondary to hematuria. Hemoglobin stable. -Antiplatelet agents restarted - statin on hold secondary to transaminitis -would restart on discharge (6) DVT prophylaxis: Continue clopidogrel and aspirin but hold chemical prophylaxis Continue REYNA sanchez and SCDs Disposition: Discharge home today. [facility] health will be engaged. Daughter Homa will pick patient up after work. Total Time Total Time Spent Total Time Spent (In Minutes): 40 minutes Discharge Plan Discharge Items Patient Disposition: Home - Home Health Services Reason For Visit: AMS Discharge Diagnosis: Urinary tract infection, physical deconditioning, hospital delirium Activity: As commented below Activity Comment: As tolerated with home physical therapy Lifting: Gradually increase as tolerated Bathing: No limitations Exercise/Sports: Gradually increase as tolerated Weightbearing: Full weightbearing Non-emergency contact: Primary Care Provider Call non-emergency contact if: your symptoms worsen and you have a fever Follow-up/Referrals: Eden Whitmore MD [Primary Care Provider] - 07/12/21 10:20 am Diet: Heart Healthy Addtl Attending Provider Instructions: You were admitted with generalized weakness and found to have urinary tract infection which showed multidrug resistance. The organism identified was Enterobacter. This required 7 days of IV antibiotics with Invanz. Today was her last day of IV antibiotics. If you develop further fever or urinary tract complaints, please contact your primary care provider. Your liver function tests performed in laboratory also showed elevated levels. This appears to be chronic from previous admissions. It is recommended you follow-up with a repair armature winder helper or cardiology clinical consultant as an outpatient for further work-up. Pending Studies at Discharge: No Stand-Alone Forms: My [facility] Medications and DC Order Prescriptions: Continued (DME) Lift Chair Misc See Rx Instructions .ROUTE .MEDSUPPLY Qty: 1 RF: 0 levothyroxine [Synthroid] 50 mcg tablet 50 mcg PO HS Qty: 30 RF: 5 atorvastatin [Lipitor] 40 mg tablet 40 mg PO HS Qty: 30 RF: 5 clopidogrel [Plavix] 75 mg tablet 75 mg PO QAM Qty: 90 RF: 3 aspirin 81 mg tablet,delayed release (DR/EC) 81 mg PO QAM RF: 0 (DME) disposable gloves [Disposable Latex-Free Gloves] Misc See Rx Instructions .ROUTE .MEDSUPPLY Qty: 1000 RF: 3 (DME) Wheelchair (Manual) Device See Rx Instructions .ROUTE .MEDSUPPLY Qty: 1 RF: 0 cranberry 500 mg capsule 500 mg PO QAM RF: 0 loratadine [Claritin] 10 mg Tablet 10 mg PO QAM RF: 0 PreserVision AREDS-2 [id number] ri-uivu-ry-mg capsule 1 cap PO BID RF: 0 Combivent Respimat 20-100 mcg/actuation mist 1 puff INHALATION QAM RF: 0 trazodone 50 mg tablet 50 mg PO HS RF: 0 paroxetine HCl 20 mg tablet 20 mg PO QAM RF: 0 omeprazole 20 mg capsule,delayed release(DR/EC) 20 mg PO QAM RF: 0 nystatin 100,000 unit/gram powder 1 applic topical BID PRN (Reason: Itching) RF: 0 metoprolol succinate 25 mg Tablet Extended Release 24 Hr 25 mg PO QAM Qty: 30 RF: 0 multivitamin Tablet 1 tab PO DAILY RF: 0 ascorbic acid (vitamin C) [Vitamin C] 500 mg Tablet,Chewable 500 mg PO DAILY RF: 0 Probiotic 10 billion cell Capsule 10,000 mmu cells PO DAILY RF: 0 elderberry fruit and flower 460-115 mg Capsule 1 cap PO DAILY RF: 0 Discontinued cefdinir 300 mg capsule 300 mg PO BID RF: 0 Discharge Orders: Discharge Order (Routine); Ordered 07/10/21 Ordered By: Arun Salazar/Other Patient Handouts: Dementia: Coping Tips for Caregivers Admission Data Admit Date/Time: 07/04/21 09:53 Attending Provider: George Gutierrez Admit Provider: Taco Dias Primary Care Provider: Eden Whitmore Other Providers: John Garcia ; Taco Dias ; Chay Price [facility] Coding Level of Care Code D/C DAY MANAGEMENT >30 MINS Diagnoses UTI (urinary tract infection) N39.0 AMS (altered mental status) R41.82 Transaminitis R74.01 Carotid artery occlusion I65.29 Cerebrovascular disease I67.9 DVT prophylaxis Z29.9 Time Spent (min) 40
[2021-07-11 02:09] LABS: CMV IgG Antibody >10.00 U/mL; CMV IgM Antibody <30.00 AU/mL; Copper, Serum 35 mcg/dL (70-175); Hepatitis A Antibody IgM NON-REACTIVE (NON-REACTIVE); Hepatitis B Core Antibody IgM NON-REACTIVE (NON-REACTIVE)
== END 2021-07-10 16:45 | disposition home health service (06) | DRG 690 ==
LOC: ED 12:37 → 2N 12:37 → SUATTDRO 17:55 → 2N 20:23 → SUATTDRO 07-04 09:53 → 3N 07-05 02:11

== ENCOUNTER 2022-03-20 20:24 | Inpatient (IN) ==
[2022-03-20] MEDS ORDERED: SODIUM CHLORIDE 0.9% 500 ML IV STA (20:39)
--- NOTE | 2022-03-20 21:15 | Emergency Department Note ---
Impression & Plan Postoperative wound infection, Non-healing wound, Cellulitis ED Provider Note NAME: BENNY BOYLE AGE: 87 SEX: F : 1935 ARRIVES VIA: Ambulance INFORMANT: Patient, ED PROVIDER(S): Koko Bobo DO CHIEF COMPLAINT: Leg pain HPI: Patient is an 87-year-old female who presented to the emergency department for an evaluation of leg pain. The patient is currently in hospice. She was in hospice prior to the event that led to her going to the fdc. The patient had a fall in February. She suffered an injury to her left leg. The injury required surgery. She was treated at [facility] for an injury to her leg. The patient had wound care at the fdc. They have been dressing this with Betadine dressings. She has an eschar on multiple areas of her lower extremity as well as erythema on her left leg. The patient was evaluated multiple times at the fdc. Her daughter went to visit her this evening and is very concerned that the leg is not improving in the usual and expected fashion. After discussion with the physician at the fdc the patient was sent to the emergency department for further evaluation. The patient did have a follow-up appoint with the orthopedic physician in [place]. They were also discouraged by the healing of the postoperative site. The patient herself does complain of pain on the lower extremity. She is not noted to have any nausea or vomiting. She is not noted any fever or abdominal pain. Symptoms were moderate to severe. ROS: See above HPI for pertinent positives & negatives. A total of 10 systems reviewed and were otherwise negative. PAST MEDICAL HISTORY: See Below PAST SURGICAL HISTORY: See Below FAMILY HISTORY: See Below SOCIAL HISTORY: See Below HOME MEDICATIONS: See Below ALLERGIES: See Below VITALS: See Below PHYSICAL EXAMINATION: GENERAL: The patient is awake and alert. The patient is mildly uncomfortable appearing. EYES: The conjunctivae are clear. The pupils are round and reactive. EARS, NOSE, MOUTH AND THROAT: The nose is without any evidence of any deformity. Mucous membranes are dry. NECK: The neck is nontender and supple. RESPIRATORY: Normal respiratory effort is noted there is no evidence of wheezing rhonchi or rales CARDIOVASCULAR: Regular rate and rhythm noted there no murmurs rubs or gallops normal S1 normal S2. GASTROINTESTINAL: The abdomen is soft. Abdomen is nontender. MUSCULOSKELETAL/EXTREMITIES: There is no evidence of gross deformity full range of motion is noted in the hips and shoulders. SKIN: There is erythema noted in the left lower extremity. Postoperative site appears to be erythematous with a darkened eschar noted. There was swelling on the left ankle as well. NEUROLOGIC: Patient is awake alert to person but not place or situation. She does recognize her daughter. MEDICAL DECISION MAKING: The patient is an 87-year-old female who presented to the emergency department for an evaluation of leg pain and swelling. Her daughter does provide most the information as the patient has severe dementia. The patient suffered an injury to her left leg which required surgical intervention in February of this year. The patient was in a fdc for rehab as well as wound care. The daughter was concerned about the condition of the wound. She did follow-up with the orthopedic doctor and they feel that the bone is healing well. On physical exam there does appear to be a large eschar and erythema. There may be some overlying cellulitis. Wound care has been done at the fdc up to this point. I discussed the patient's laboratory and radiographic studies with the [facility]ma calixto. Patient was treated with IV fluids and IV antibiotics. Because the presentation I did discuss this case with the on-call [facility] hospitalist. They have agreed to evaluate the patient in the emergency department for further management and disposition. Triage Nursing notes reviewed. Prior medical records reviewed Vital Signs: reviewed and remarkable for no significant abnormalities Differential diagnosis: Cellulitis, abscess, MRSA infection, DVT, necrotizing fasciitis, dermatitis, lacie g eruption, allergic reaction, as well as other pathologies. ER treatment provided: See below Diagnostics interpreted by me: ECG: none Cardiac Monitoring: An order was placed for continuous cardiac monitoring. The monitor shows a rate of 93 bpm with sinus rhythm. Laboratory studies: As stated above and show below. Imaging studies: See below Consultation(s): I discussed this case with Dr. Lee who is on-call for the [facility] group Past Med/Surg History Medical History Acute pyelonephritis Carotid artery occlusion GERD (gastroesophageal reflux disease) Hallucination, visual HLD (hyperlipidemia) MRSA infection Physical deconditioning Renal calculi Stage III chronic kidney disease JESSIE improved since admission TIA (transient ischemic attack) Vasculopathy Surgical History H/O: hysterectomy History of knee replacement procedure of right knee History of lithotripsy done 02/2021 History of right hip replacement S/P laparoscopic cholecystectomy Family History Mother , age 43 of complications from a motor vehicle accident. No problems noted. Father , age 70 of black lung No problems noted. 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 [place] Feels Safe at Home: Yes Safety Concerns: Feels Safe At This Time Childhood Exposure to Second-Hand Smoke: No Dental Care, Regularly: No Physical Activity Frequency: Does not Exercise Seatbelt Use: always Sunscreen Use: No Assistive Devices: Denture - Lower and Walker Allergies Allergies Allergy/AdvReac Type Severity Reaction Status Date / Time No Known Drug Allergies Allergy Unknown Verified 01/24/22 12:49 oxycodone AdvReac Severe confusion/ Verified 01/24/22 12:49 "Gets Mean" Home Meds Home Medications Medication Instructions Recorded Confirmed cranberry 500 mg capsule 500 mg PO QAM cap 05/25/19 03/20/22 vit C 250 mg-vit E 90 mg-zinc 40 1 cap PO BID 08/16/20 03/20/22 mg-copper 1 oc-khnuor-jeceux capsule (PreserVision AREDS-2) Cavilom Antifungal Cream 1 applic TOPICAL TID 03/20/22 03/20/22 Nutritional Juice Drink 1 can PO QPM 03/20/22 03/20/22 Saccharomyces boulardii 250 mg 250 mg PO BID 03/20/22 03/20/22 capsule (Florastor) acetaminophen 325 mg tablet 650 mg PO Q6H PRN MDD 3 GRAMS/24 03/20/22 03/20/22 (Tylenol) HOURS ferrous sulfate 325 mg (65 mg 325 mg PO DAILY 03/20/22 03/20/22 iron) tablet fexofenadine-pseudoephedrine ER 1 tab PO QAM 03/20/22 03/20/22 180 mg-240 mg tablet,ext.release 24 hr (Sona-D 24 Hour) food supplemt, lactose-reduced 1 ea PO DAILY 03/20/22 03/20/22 (Protein Nutritional Shake) levothyroxine 50 mcg tablet 50 mcg PO QAM 03/20/22 03/20/22 (Synthroid) menthol 0.44 %-zinc oxide 20.6 % 1 applic TOPICAL 5XD 03/20/22 03/20/22 topical ointment (Calmoseptine) morphine concentrate 20 mg/mL oral 5 - 10 mg SUBLINGUAL Q2H PRN 03/20/22 03/20/22 syringe (FOR ORAL USE ONLY) omeprazole 20 mg capsule,delayed 20 mg PO BID 03/20/22 03/20/22 release paroxetine HCl 20 mg tablet 20 mg PO DAILY 03/20/22 03/20/22 povidone-iodine 10 % topical swab 1 applic TOPICAL DAILY 03/20/22 03/20/22 vancomycin 125 mg capsule 125 mg PO Q12H 03/20/22 03/20/22 Previous Rx's Medication Instructions Recorded Lift Chair #1 ea 11/10/19 Wheelchair (Manual) #1 ea 12/05/20 disposable gloves (Disposable #1000 ea 12/05/20 Latex-Free Gloves) clopidogrel 75 mg tablet (Plavix) 75 mg PO QAM #90 tab 02/14/21 metoprolol succinate 25 mg 25 mg PO QAM #30 tab 12/25/21 tablet,extended release 24 hr aspirin 81 mg tablet,delayed 81 mg PO QAM #30 tab 12/26/21 release atorvastatin 40 mg tablet (Lipitor) 40 mg PO HS #30 tab 12/26/21 trazodone 50 mg tablet 50 mg PO HS #30 tab 12/27/21 Results & Data (ED) Vital Signs Vital Signs - 24 hr 03/20/22 20:32 03/20/22 22:30 03/20/22 23:30 Temperature 37.1 C Temperature Source Oral Pulse Rate 88 Pulse Rate [Finger] 93 H 97 H Respiratory Rate 18 18 16 Respiratory Effort / Characteristics Non-Labored Respiratory Depth Normal Blood Pressure 118/70 Blood Pressure [Left Arm] 119/79 119/56 L Blood Pressure Mean 86 Blood Pressure Mean [Left Arm] 92 77 Pulse Oximetry 92 98 Oxygen Delivery Method Room Air Sepsis Recent Fever Within 48 Hours No Sepsis New/Unexplained Change in Mental Status No Sepsis Action Taken by Nursing No Action Required Home Medications Current Medication List: was personally reviewed by me Laboratory Data Attestation: I reviewed the patient's lab results. Result diagrams: 03/20/22 20:54 03/20/22 22:26 Lab Results 03/20/22 03/20/22 03/20/22 Range/Units 20:54 20:54 20:54 WBC 9.55 (4.8-10.8) K/uL RBC 3.34 L (4.2-5.4) M/uL Hgb 10.6 L (12.0-16.0) g/dL Hct 34.0 L (37-47) % MCV 101.8 H (80-100) fL MCH 31.7 (25-34) pg MCHC 31.2 L (32-36) g/dL RDW Std Deviation 59.2 H (36.4-46.3) fL RDW Coeff of Ravinder 15.7 H (11.5-14.5) % Plt Count 371 (130-400) K/uL MPV 9.5 (7.4-10.4) fL Immature Gran % (Auto) 0.1 % Neut % (Auto) 66.6 % Lymph % (Auto) 21.4 % [place] % (Auto) 8.3 % Eos % (Auto) 3.4 % Baso % (Auto) 0.2 % Neut # (Auto) 6.37 (1.4-6.5) K/uL Lymph # (Auto) 2.04 (1.2-3.4) K/uL [place] # (Auto) 0.79 H (0.11-0.59) K/uL Eos # (Auto) 0.32 (0-0.5) K/uL Baso # (Auto) 0.02 (0-0.2) K/uL Immature Gran # (Auto) 0.01 (0.00-0.02) K/uL ESR 101 H (0-30) mm/hr PT 11.2 (9.0-12.0) Seconds INR 1.1 (0.9-1.1) APTT 28.5 (21.0-31.0) Seconds PTT Ratio 1.0 Sodium Potassium Chloride (98-107) mmol/L Carbon Dioxide (21-32) mmol/L Anion Gap BUN (6-23) mg/dl Creatinine (0.6-1.2) mg/dl Est Cr Clr Drug Dosing Est GFR ( Amer) ml/min Est GFR (Non-Af Amer) ml/min BUN/Creatinine Ratio (10-20) Glucose (70-99(Fasting)) mg/dl Calcium (8.5-10.1) mg/dl Phosphorus (2.5-4.9) mg/dl Magnesium (1.7-2.4) mg/dl Total Bilirubin (0.2-1.0) mg/dl AST ALT (7-52) U/L Alkaline Phosphatase (34-104) U/L C-Reactive Protein (0-0.5) mg/dl Total Protein (6.0-8.3) gm/dl Albumin (3.4-5.0) gm/dl Globulin (2.5-4.0) gm/dl Albumin/Globulin Ratio (0.9-2) Procalcitonin SARS-CoV-2, RNA, NAAT (NEGATIVE) 03/20/22 03/20/22 03/20/22 Range/Units 20:54 20:54 20:54 WBC (4.8-10.8) K/uL RBC (4.2-5.4) M/uL Hgb (12.0-16.0) g/dL Hct (37-47) % MCV (80-100) fL MCH (25-34) pg MCHC (32-36) g/dL RDW Std Deviation (36.4-46.3) fL RDW Coeff of Ravinder (11.5-14.5) % Plt Count (130-400) K/uL MPV (7.4-10.4) fL Immature Gran % (Auto) % Neut % (Auto) % Lymph % (Auto) % [place] % (Auto) % Eos % (Auto) % Baso % (Auto) % Neut # (Auto) (1.4-6.5) K/uL Lymph # (Auto) (1.2-3.4) K/uL [place] # (Auto) (0.11-0.59) K/uL Eos # (Auto) (0-0.5) K/uL Baso # (Auto) (0-0.2) K/uL Immature Gran # (Auto) (0.00-0.02) K/uL ESR (0-30) mm/hr PT (9.0-12.0) Seconds INR (0.9-1.1) APTT (21.0-31.0) Seconds PTT Ratio Sodium TNP Potassium TNP Chloride 103 (98-107) mmol/L Carbon Dioxide 29 (21-32) mmol/L Anion Gap TNP BUN 28 H (6-23) mg/dl Creatinine 1.16 (0.6-1.2) mg/dl Est Cr Clr Drug Dosing Not Reportable Est GFR ( Amer) 49.4 ml/min Est GFR (Non-Af Amer) 42.6 ml/min BUN/Creatinine Ratio 24.1 H (10-20) Glucose 105 H (70-99(Fasting)) mg/dl Calcium 8.4 L (8.5-10.1) mg/dl Phosphorus (2.5-4.9) mg/dl Magnesium (1.7-2.4) mg/dl Total Bilirubin 0.5 (0.2-1.0) mg/dl AST TNP ALT 11 (7-52) U/L Alkaline Phosphatase 120 H (34-104) U/L C-Reactive Protein 5.50 H (0-0.5) mg/dl Total Protein 7.5 (6.0-8.3) gm/dl Albumin 2.9 L (3.4-5.0) gm/dl Globulin 4.6 H (2.5-4.0) gm/dl Albumin/Globulin Ratio 0.6 L (0.9-2) Procalcitonin Cancelled SARS-CoV-2, RNA, NAAT NEGATIVE (NEGATIVE) 03/20/22 03/20/22 03/20/22 Range/Units 22:26 22:26 22:26 WBC (4.8-10.8) K/uL RBC (4.2-5.4) M/uL Hgb (12.0-16.0) g/dL Hct (37-47) % MCV (80-100) fL MCH (25-34) pg MCHC (32-36) g/dL RDW Std Deviation (36.4-46.3) fL RDW Coeff of Ravinder (11.5-14.5) % Plt Count (130-400) K/uL MPV (7.4-10.4) fL Immature Gran % (Auto) % Neut % (Auto) % Lymph % (Auto) % [place] % (Auto) % Eos % (Auto) % Baso % (Auto) % Neut # (Auto) (1.4-6.5) K/uL Lymph # (Auto) (1.2-3.4) K/uL [place] # (Auto) (0.11-0.59) K/uL Eos # (Auto) (0-0.5) K/uL Baso # (Auto) (0-0.2) K/uL Immature Gran # (Auto) (0.00-0.02) K/uL ESR (0-30) mm/hr PT (9.0-12.0) Seconds INR (0.9-1.1) APTT (21.0-31.0) Seconds PTT Ratio Sodium 138 Potassium 3.9 Chloride (98-107) mmol/L Carbon Dioxide (21-32) mmol/L Anion Gap BUN (6-23) mg/dl Creatinine (0.6-1.2) mg/dl Est Cr Clr Drug Dosing Est GFR ( Amer) ml/min Est GFR (Non-Af Amer) ml/min BUN/Creatinine Ratio (10-20) Glucose (70-99(Fasting)) mg/dl Calcium (8.5-10.1) mg/dl Phosphorus 2.9 (2.5-4.9) mg/dl Magnesium 1.7 (1.7-2.4) mg/dl Total Bilirubin (0.2-1.0) mg/dl AST 20 ALT (7-52) U/L Alkaline Phosphatase (34-104) U/L C-Reactive Protein (0-0.5) mg/dl Total Protein (6.0-8.3) gm/dl Albumin (3.4-5.0) gm/dl Globulin (2.5-4.0) gm/dl Albumin/Globulin Ratio (0.9-2) Procalcitonin 0.09 SARS-CoV-2, RNA, NAAT (NEGATIVE) Administered Medications Aspirin (Aspirin 81 Mg Ectab) 81 mg PO [facility] Stop: 04/20/22 08:59 Last Admin: 03/21/22 08:45 Dose: 81 mg Documented by: [id number] Calamine/Phenol (Menthol-Zinc Oxide 360 Appln/120 Gm Tube) 1 appln EXT [id number] [facility] Stop: 04/20/22 06:59 Last Admin: 03/21/22 12:16 Dose: 1 appln Documented by: [id number] Admin: 03/21/22 10:22 Dose: 1 appln Documented by: [id number] Admin: 03/21/22 06:15 Dose: 1 appln Documented by: [id number] Clopidogrel Bisulfate (Clopidogrel Bisulfate 75 Mg Tab) 75 mg PO [facility] Stop: 04/20/22 08:59 Last Admin: 03/21/22 08:44 Dose: 75 mg Documented by: [id number] Famotidine (Famotidine 20 Mg Tab) 20 mg PO [facility] Stop: 04/20/22 08:59 Last Admin: 03/21/22 08:44 Dose: 20 mg Documented by: [id number] Piperacillin Sod/Tazobactam (Sod 3.375 gm/ Dextrose) 115 mls @ 28.75 mls/hr IV Q8H [facility]; Protocol Stop: 03/28/22 03:59 Last Infusion: 03/21/22 08:10 Dose: 0 mls/hr Documented by: [id number] Admin: 03/21/22 03:56 Dose: 28.8 mls/hr Documented by: [id number] Levothyroxine Sodium (Levothyroxine Sodium 50 Mcg Tablet) 50 mcg PO [facility] Stop: 04/20/22 06:29 Last Admin: 03/21/22 06:15 Dose: 50 mcg Documented by: [id number] Metoprolol Succinate (Metoprolol Succ 25mg Ext Rel Tab) 25 mg PO [facility] Stop: 04/20/22 08:59 Last Admin: 03/21/22 08:44 Dose: 25 mg Documented by: [id number] Ondansetron HCl (Ondansetron Inj 2 Mg/Ml 2 Ml Vial) 4 mg IV Q6H PRN PRN Reason: Nausea Stop: 04/20/22 01:18 Last Admin: 03/21/22 12:16 Dose: 4 mg Documented by: [id number] Paroxetine HCl (Paroxetine Hcl 20 Mg Tab) 20 mg PO DAILY [facility] Stop: 04/20/22 08:59 Last Admin: 03/21/22 08:44 Dose: 20 mg Documented by: [id number] Raspberry (Raspberry Syrup 5 Ml Udp) 5 ml PO Q12H [facility] Stop: 03/31/22 02:44 Last Admin: 03/21/22 03:46 Dose: 5 ml Documented by: [id number] Saccharomyces Boulardii (Saccharomyces Boulardii 250 Mg Cap) 250 mg PO BID [facility] Stop: 04/20/22 08:59 Last Admin: 03/21/22 08:44 Dose: 250 mg Documented by: [id number] Vancomycin HCl (Vancomycin Hcl 125 Mg/2.5ml Soln) 125 mg PO Q12H [facility] Stop: 03/31/22 02:44 Last Admin: 03/21/22 03:48 Dose: 125 mg Documented by: [id number] Discontinued Medications Sodium Chloride (Nss) 500 mls @ 999 mls/hr IV .Q31M [facility] Stop: 03/20/22 21:09 Last Infusion: 03/20/22 21:34 Dose: 0 mls/hr Documented by: [id number] Admin: 03/20/22 21:02 Dose: 999 mls/hr Documented by: [id number] Piperacillin Sod/Tazobactam Sod (Zosyn) 4.5 gm in 120 mls @ 240 mls/hr IV NOW ONE Stop: 03/20/22 23:19 Last Infusion: 03/20/22 23:40 Dose: 0 mls/hr Documented by: [id number] Admin: 03/20/22 23:03 Dose: 240 mls/hr Documented by: [id number] Daptomycin 300 mg/ Syringe 6 mls @ 3 mls/min IV NOW ONE; Protocol Stop: 03/21/22 01:31 Last Admin: 03/21/22 02:04 Dose: 3 mls/min Documented by: [id number] Sodium Chloride (Nss 1000ml) 1,000 mls @ 999 mls/hr IV .Q1H1M [facility] Stop: 03/21/22 12:11 Last Admin: 03/21/22 12:16 Dose: 999 mls/hr Documented by: [id number] Imaging Data Attestation: I personally reviewed and interpreted this imaging study as follows: My Impression: 1 view chest x-ray was obtained in the emergency department. My interpretation is elevation of the right hemidiaphragm. There is cardiomegaly. There is no definite infiltrate. No acute disease. X-ray of the left tib-fib was obtained in the emergency department. My interpretation is surgical hardware was noted. There was severe degenerative changes especially at the ankle. Radiologist's Impression: Chest X-Ray 03/20/22 20:39 XR chest 1V portable CLINICAL HISTORY: Fever. COMPARISON STUDY: Chest radiograph July 02, 2021. FINDINGS: Elevation of both humeral head heads is incidentally noted. Elevation of the right hemidiaphragm is unchanged. There is moderate cardiomegaly. There is no evidence for overt pulmonary edema. No consolidation is identified. A hiatal hernia is noted. IMPRESSION: 1. No acute cardiopulmonary findings. 2. Cardiomegaly without evidence for overt pulmonary edema. 3. Hiatal hernia. ACT 112: Negative or not required by law. Electronically signed by: Varun Courtney M.D. 03/21/2022 7:17 AM Tibia/Fibula X-Ray 03/20/22 20:39 XR tibia fibula LT 2V CLINICAL HISTORY: swelling Comparison: Comparison is made to CT left foot 07/02/2021 TECHNIQUE: 2 radiographic views of the left leg were obtained. FINDINGS: Surgical fixation devices along the tibia and fibula spanning the ankle joint are noted. The alignment is anatomic. Severe degenerative changes along the tibiotalar joint are seen. Vascular calcifications are seen. Soft tissue swelling is seen. IMPRESSION: Soft tissue swelling and postsurgical and degenerative changes without evidence of acute fracture. ACT 112: Negative or not required by law. Electronically signed by: Tuilo Thorne M.D. 03/21/2022 8:11 AM Duplex Scan Lower Extremity Artery 03/20/22 20:52 LEFT LOWER EXTREMITY ARTERIAL DOPPLER ULTRASOUND CLINICAL HISTORY: Left lower extremity pain. COMPARISON STUDY: No previous studies for comparison. TECHNIQUE: Color and duplex Doppler sonography of the arterial system of the left lower extremity was performed. FINDINGS: There is moderate atherosclerotic plaque within the left lower extremity. Biphasic flow is noted within the left common femoral and proximal superficial femoral arteries. There is monophasic flow within the mid to distal left superficial femoral artery as well as the left popliteal artery. There is a mildly elevated velocity within the left profunda. No additional elevated velocities are identified within the left lower extremity. Left calf vessels are suboptimally assessed due to suboptimal penetration related to edema. Monophasic flow is noted within left anterior tibial and peroneal arteries. Minimal flow is identified within the left peroneal artery. No flow is identified within the left as well as pedis. IMPRESSION: 1. Moderate atherosclerotic plaque within the left lower extremity. 2. Suboptimal evaluation of the left calf vessels due to lower extremity edema. Monophasic dampened flow within the distal left superficial femoral, popliteal, anterior tibial and posterior tibial arteries with significantly diminished or absent flow within the left dorsalis pedis and peroneal arteries. ACT 112: Negative or not required by law. Electronically signed by: Varun Courtney M.D. 03/21/2022 6:42 AM Venous Doppler Study 03/20/22 20:52 LEFT LOWER EXTREMITY VENOUS DOPPLER CLINICAL HISTORY: Left lower extremity pain. COMPARISON STUDY: Bilateral lower extremity venous ultrasound August 16, 2020. TECHNIQUE: Sonography of the deep venous system of the left lower extremity was performed. Compression and augmentation were evaluated. FINDINGS: The left common femoral, superficial femoral and popliteal veins were compressible. Augmentation was normal. Flow was shown within the deep calf vessels. IMPRESSION: No evidence of deep venous thrombus within the left lower extremity. ACT 112: Negative or not required by law. Electronically signed by: Varun Courtney M.D. 03/21/2022 6:33 AM Patient: BENNY BOYLE (Female) : 37 Status: ER Date: 03/20/22 22:24 Room #: History: LLE pain Slices: 22 Priors: Tech: Gregoria Wayne @ [phone] A Exams: US VENOUS LEFT LOWER EXTREMITY Contrast: Accession Numbers: [id number] Referring Physician: CARE CENTRE Preliminary Findings Only See Final Report For Complete Findings US VENOUS LEFT LOWER EXTREMITY: No evidence of DVT in the left lower extremity. Comparison made to prior lower extremity venous ultrasound from August 16, 2020. Radiologist: Latasha Rizvi MD Study ready at 22:30 and initial results transmitted at 22:45 Patient: BENNY BOYLE (Female) : 37 Status: ER Date: 03/20/22 22:32 Room #: History: LLE pain, wounds Slices: 33 Priors: Tech: Gregoria Wayne @ [phone] Exams: US ARTERIAL LEFT LOWER EXTREMITY Contrast: Accession Numbers: [id number] Referring Physician: CARE CENTRE Preliminary Findings Only See Final Report For Complete Findings US ARTERIAL LEFT LOWER EXTREMITY: Diminished blood flow in the peroneal and DP arteries. Otherwise, no significant peripheral vascular disease. Extensive subcutaneous edema concerning for possible chronic venous insufficiency. If there is continued clinical concern, recommend ultrasound venous mapping for further evaluation. Radiologist: Latasha Rizvi MD Study ready at 22:33 and initial results transmitted at 22:53 Discharge Plan Visit Data Chief Complaint: Wound ED Provider: Koko Bobo Discharge Problem: Postoperative wound infection, Non-healing wound, Cellulitis Patient Disposition: Being Evaluated by Hospitalist Discharge Instructions Interventions: ED Discharge Assessment Last Done: 03/21/22 01:19 Discharge Problem: Cellulitis Qualifiers: Site of cellulitis: extremity Site of cellulitis of extremity: lower extremity Laterality: left Qualified Code(s): L03.116 - Cellulitis of left lower limb
[2022-03-20 21:18] LABS: Basophils # (auto) 0.02 K/uL (0-0.2); Basophils % (auto) 0.2 %; Eosinophils # (auto) 0.32 K/uL (0-0.5); Eosinophils % (auto) 3.4 %; Hemoglobin 10.6 g/dL (12.0-16.0); Immature Granulocytes # (auto) 0.01 K/uL (0.00-0.02); Immature Granulocytes % (auto) 0.1 %; Lymphocytes # (auto) 2.04 K/uL (1.2-3.4); Lymphocytes % (auto) 21.4 %; Mean Corpuscular Hemoglobin 31.7 pg (25-34); Mean Corpuscular Hgb Conc 31.2 g/dL (32-36); Mean Corpuscular Volume 101.8 fL (80-100); Mean Platelet Volume 9.5 fL (7.4-10.4); Monocytes # (auto) 0.79 K/uL (0.11-0.59); Monocytes % (auto) 8.3 %; Neutrophils # (auto) 6.37 K/uL (1.4-6.5); Neutrophils % (auto) 66.6 %; Platelet Count 371 K/uL (130-400); RDW Coefficient of Variation 15.7 % (11.5-14.5); RDW Standard Deviation 59.2 fL (36.4-46.3); Red Blood Count 3.34 M/uL (4.2-5.4); White Blood Count 9.55 K/uL (4.8-10.8)
[2022-03-20 21:26] LABS: INR 1.1 (0.9-1.1); Partial Thromboplastin Time 28.5 Seconds (21.0-31.0); Prothrombin Time 11.2 Seconds (9.0-12.0)
[2022-03-20 21:52] LABS: Alanine Aminotransferase 11 U/L (7-52); Albumin Globulin Ratio 0.6 (0.9-2); Albumin Level 2.9 gm/dl (3.4-5.0); Alkaline Phosphatase 120 U/L (34-104); BUN Creatinine Ratio 24.1 (10-20); Bilirubin,Total 0.5 mg/dl (0.2-1.0); Blood Urea Nitrogen 28 mg/dl (6-23); Calcium 8.4 mg/dl (8.5-10.1); Carbon Dioxide 29 mmol/L (21-32); Chloride 103 mmol/L (98-107); Est GFR (African American) 49.4 ml/min; Est GFR (Non-African American) 42.6 ml/min; Globulin 4.6 gm/dl (2.5-4.0); Glucose 105 mg/dl (70-99(Fasting)); Total Protein 7.5 gm/dl (6.0-8.3)
[2022-03-20] MEDS ORDERED: PIPERACILLIN/TAZOBACTAM 4.5 GM/120 ML BAG IV ONE (22:50)
[2022-03-20 22:56] LABS: Potassium 3.9 mmol/L (3.5-5.1)
[2022-03-21] MEDS ORDERED: ONDANSETRON INJ 2 MG/ML 2 ML VIAL IV PRN (01:19)
[2022-03-21] MEDS ORDERED: ACETAMINOPHEN 325 MG TAB PO PRN (01:19)
[2022-03-21] MEDS ORDERED: MoRPHine SULFATE 5 MG/0.25 ML UDP SL PRN (01:29)
[2022-03-21] MEDS ORDERED: DAPTOmycin 300 MG in SYRINGE 0 ML IV ONE (01:30)
[2022-03-21] MEDS ORDERED: Patient's HEIGHT &/or WEIGHT Needed SCH (01:30)
[2022-03-21 02:01] LABS: Magnesium 1.7 mg/dl (1.7-2.4); Phosphorus 2.9 mg/dl (2.5-4.9)
--- NOTE | 2022-03-21 02:21 | History & Physical Report ---
Date of Service March 20, 2022 Assessment & Plan (1) Non-healing wound: Plan: 87yo female s/p proximal tibial plateau fracture s/p ORIF performed on 01/31/22 presenting with several non-healing wounds on LLE. Elevated inflammatory markers. Uncertain if these wounds represent infection - more closely resemble decubiti, possibly from heel pressure as well as pressure from brace that she was wearing. Anterior wounds are self-inflicted - daughter states that patient scratched open her leg during a UTI. -Heel offloading -Turn q 2 hours -Pressure ulcer precautions -Consult wound care - possible surgical evaluation to follow for debridement -Empiric Zosyn and Daptomycin for now (2) Dementia: Plan: Patient with dementia. Does not participate in history of physical -Frequent orientation -Avoid potentially delirium inducing agents -Continue Trazodone qHS PRN (3) Anxiety and depression: Plan: Chronic -Continue home Paxil 20mg po daily (4) Hypothyroidism: Plan: Chronic. -Continue Synthroid 50mcg po daily (5) Stage III chronic kidney disease: Plan: BUN and Cr are near baseline -Continue to monitor -Avoid nephrotoxic agents (6) GERD (gastroesophageal reflux disease): Plan: Chronic -Pepcid 20mg po daily (7) HLD (hyperlipidemia): Plan: Chronic -Hold Atorvastatin while on Daptomycin (8) H/O Clostridium difficile infection: Plan: Patient with history of c. diff infection with chronic colonization. Remains on PO vancomycin -Continue PO vancomycin -Continue Saccharomyces BID Plan: F/e/N - Heplock. Monitor electrolytes. Regular diet/soft/aspiration precautions Ppx - Low risk for DVT Code- DNR/DNI Dispo -Observation to medical History of Present Illness Chief Complaint: leg wound Primary Care Provider: [facility] Kami Kwok is an 87yo female with history of Dementia, CAD, GERD, HLP, CKD presenting from [facility] with an unhealing wound on her LLE. Patient is on Hospice and presents today with her daughter, Homa, who provides the majority of history. Patient sustained a fall resulting in a left lateral tibial plateau fracture on 01/29/22. She had an ORIF performed by Dr. Lauren on 01/31/22 at [facility]. She was discharged from [facility] on 02/04/22 to [facility]. Daughter is concerned re: several wounds on patient's LLE. She first developed a blister which progressed to thick eschar on her left heel which has not healed. She then developed a wound on the posterior ankle which is believed to be secondary to a brace that the patient was wearing. Daughter reports there is also a new wound which is proximal to the ankle wound which is red and draining purulence. Patient has been receiving wound care at [facility]. She has had followup with Dr. Lauren. Family was trying to get patient an appointment with [facility] but was unable to be seen until next week. Daugther does not report patient having fever, chills, chest pain, cough or shortness of breath. She does have dementia and poorly communicates at times. She uses a wheelchair at this time. Does have episodes of confusion and sundowning. Daughter - Homa - [phone] Son-in-law - - [phone] ER Course - Zosyn Allergies Allergy/AdvReac Type Severity Reaction Status Date / Time No Known Drug Allergies Allergy Unknown Verified 01/24/22 12:49 oxycodone AdvReac Severe confusion/ Verified 01/24/22 12:49 "Gets Mean" Home Medications Medication Instructions Recorded Confirmed Type cranberry 500 mg capsule 500 mg PO QAM cap 05/25/19 03/20/22 History Lift Chair #1 ea 11/10/19 03/21/22 Rx vit C 250 mg-vit E 90 mg-zinc 40 1 cap PO BID 08/16/20 03/20/22 History mg-copper 1 [id number] capsule (PreserVision AREDS-2) Wheelchair (Manual) #1 ea 12/05/20 03/21/22 Rx disposable gloves (Disposable #1000 ea 12/05/20 03/21/22 Rx Latex-Free Gloves) clopidogrel 75 mg tablet (Plavix) 75 mg PO QAM #90 tab 02/14/21 03/20/22 Rx metoprolol succinate 25 mg 25 mg PO QAM #30 tab 12/25/21 03/20/22 Rx tablet,extended release 24 hr aspirin 81 mg tablet,delayed 81 mg PO QAM #30 tab 12/26/21 03/20/22 Rx release atorvastatin 40 mg tablet (Lipitor) 40 mg PO HS #30 tab 12/26/21 03/20/22 Rx trazodone 50 mg tablet 50 mg PO HS #30 tab 12/27/21 03/20/22 Rx Cavilom Antifungal Cream 1 applic TOPICAL TID 03/20/22 03/20/22 History Nutritional Juice Drink 1 can PO QPM 03/20/22 03/20/22 History Saccharomyces boulardii 250 mg 250 mg PO BID 03/20/22 03/20/22 History capsule (Florastor) acetaminophen 325 mg tablet 650 mg PO Q6H PRN MDD 3 GRAMS/03/20/22 03/20/22 History (Tylenol) HOURS ferrous sulfate 325 mg (65 mg 325 mg PO DAILY 03/20/22 03/20/22 History iron) tablet fexofenadine-pseudoephedrine ER 1 tab PO QAM 03/20/22 03/20/22 History 180 mg-240 mg tablet,ext.release 24 hr (Sona-D 24 Hour) food supplemt, lactose-reduced 1 ea PO DAILY 03/20/22 03/20/22 History (Protein Nutritional Shake) levothyroxine 50 mcg tablet 50 mcg PO QAM 03/20/22 03/20/22 History (Synthroid) menthol 0.44 %-zinc oxide 20.6 % 1 applic TOPICAL 5XD 03/20/22 03/20/22 History topical ointment (Calmoseptine) morphine concentrate 20 mg/mL oral 5 - 10 mg SUBLINGUAL Q2H PRN 03/20/22 03/20/22 History syringe (FOR ORAL USE ONLY) omeprazole 20 mg capsule,delayed 20 mg PO BID 03/20/22 03/20/22 History release paroxetine HCl 20 mg tablet 20 mg PO DAILY 03/20/22 03/20/22 History povidone-iodine 10 % topical swab 1 applic TOPICAL DAILY 03/20/22 03/20/22 History vancomycin 125 mg capsule 125 mg PO Q12H 03/20/22 03/20/22 History Past Med/Surg History Medical History Acute pyelonephritis Carotid artery occlusion GERD (gastroesophageal reflux disease) Hallucination, visual HLD (hyperlipidemia) MRSA infection Physical deconditioning Renal calculi Stage III chronic kidney disease JESSIE improved since admission TIA (transient ischemic attack) Vasculopathy Surgical History H/O: hysterectomy History of knee replacement procedure of right knee History of lithotripsy done 02/2021 History of right hip replacement S/P laparoscopic cholecystectomy Family History Mother , age 43 of complications from a motor vehicle accident. No problems noted. Father , age 70 of black lung No problems noted. Sister Breast cancer Denies family history of Ovarian cancer Prostate cancer Myocardial infarction Colorectal cancer Stroke Social History Smoking Status: Never smoker Second Hand Exposure: No; Hx Alcohol Use: No Hx Substance Use: No Preferred Language: Cymraes Communication Ability: Effective Visual Impairment: No Limitations Hearing Ability: Use of Hearing Aid Dermatologist Required: No Beliefs That Will Affect Care: None marital status: Single Current Living Situation: Personal Care Facility Current Living Situation Comment: Lives w/ daughter and son-in-law current occupational status: retired 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 Patient with thick eschar present on left heel as well as left posterior ankle. She has area of fluctuance superior to ankle wound, has some excoriation on anterior pinto and well healing wound on anterior pinto (from patient scratching her leg during UTI/delirium). HEENT: NC/AT, PERRL, EOMI, anicteric sclera, conjunctiva without injection, external ear normal to inspection and nontender, nares patent, moist mucus membranes, dentition intact, no oropharyngeal lesions, neck supple, trachea midline, no LAD, no thyromegaly, no JVD Heart: +S1/S2, regular, no m/r/g Lungs: equal air entry bilaterally, no rales/rhonchi/wheezes Abd: +BS, soft, NT/ND, no masses/organomegaly/ascites Ext: warm, 2+ pulses in UE/LE bilaterally, no clubbing/cyanosis or edema Neuro: somnolent, moving extremities with equal strength Results & Data Results & Data ([facility]) Vital Signs (Past 12 Hours) Vital Signs Temp Pulse Pulse Resp BP BP Pulse Ox 03/20/22 23:30 97 H 16 119/56 L 98 03/20/22 22:30 93 H 18 119/79 03/20/22 20:32 37.1 C 88 18 118/70 92 Laboratory Results Laboratory Results WBC 9.55 K/uL (4.8-10.8) 03/20/22 20:54 RBC 3.34 M/uL (4.2-5.4) L 03/20/22 20:54 Hgb 10.6 g/dL (12.0-16.0) L 03/20/22 20:54 Hct 34.0 % (37-47) L 03/20/22 20:54 MCV 101.8 fL (80-100) H 03/20/22 20:54 MCH 31.7 pg (25-34) 03/20/22 20:54 MCHC 31.2 g/dL (32-36) L 03/20/22 20:54 RDW Std Deviation 59.2 fL (36.4-46.3) H 03/20/22 20:54 RDW Coeff of Ravinder 15.7 % (11.5-14.5) H 03/20/22 20:54 Plt Count 371 K/uL (130-400) 03/20/22 20:54 MPV 9.5 fL (7.4-10.4) 03/20/22 20:54 Immature Gran % (Auto) 0.1 % 03/20/22 20:54 Neut % (Auto) 66.6 % 03/20/22 20:54 Lymph % (Auto) 21.4 % 03/20/22 20:54 [place] % (Auto) 8.3 % 03/20/22 20:54 Eos % (Auto) 3.4 % 03/20/22 20:54 Baso % (Auto) 0.2 % 03/20/22 20:54 Neut # (Auto) 6.37 K/uL (1.4-6.5) 03/20/22 20:54 Lymph # (Auto) 2.04 K/uL (1.2-3.4) 03/20/22 20:54 [place] # (Auto) 0.79 K/uL (0.11-0.59) H 03/20/22 20:54 Eos # (Auto) 0.32 K/uL (0-0.5) 03/20/22 20:54 Baso # (Auto) 0.02 K/uL (0-0.2) 03/20/22 20:54 Immature Gran # (Auto) 0.01 K/uL (0.00-0.02) 03/20/22 20:54 ESR 101 mm/hr (0-30) H 03/20/22 20:54 PT 11.2 Seconds (9.0-12.0) 03/20/22 20:54 INR 1.1 (0.9-1.1) 03/20/22 20:54 APTT 28.5 Seconds (21.0-31.0) 03/20/22 20:54 PTT Ratio 1.0 03/20/22 20:54 Sodium 138 mmol/L (136-145) 03/20/22 22:26 Potassium 3.9 mmol/L (3.5-5.1) 03/20/22 22:26 Chloride 103 mmol/L (98-107) 03/20/22 20:54 Carbon Dioxide 29 mmol/L (21-32) 03/20/22 20:54 Anion Gap TNP 03/20/22 20:54 BUN 28 mg/dl (6-23) H 03/20/22 20:54 Creatinine 1.16 mg/dl (0.6-1.2) 03/20/22 20:54 Est Cr Clr Drug Dosing Not Reportable 03/20/22 20:54 Est GFR ( Amer) 49.4 ml/min 03/20/22 20:54 Est GFR (Non-Af Amer) 42.6 ml/min 03/20/22 20:54 BUN/Creatinine Ratio 24.1 (10-20) H 03/20/22 20:54 Glucose 105 mg/dl (70-99(Fasting)) H 03/20/22 20:54 Calcium 8.4 mg/dl (8.5-10.1) L 03/20/22 20:54 Phosphorus 2.9 mg/dl (2.5-4.9) 03/20/22 22:26 Magnesium 1.7 mg/dl (1.7-2.4) 03/20/22 22:26 Total Bilirubin 0.5 mg/dl (0.2-1.0) 03/20/22 20:54 AST 20 U/L (13-39) 03/20/22 22:26 ALT 11 U/L (7-52) 03/20/22 20:54 Alkaline Phosphatase 120 U/L (34-104) H 03/20/22 20:54 C-Reactive Protein 5.50 mg/dl (0-0.5) H 03/20/22 20:54 Total Protein 7.5 gm/dl (6.0-8.3) 03/20/22 20:54 Albumin 2.9 gm/dl (3.4-5.0) L 03/20/22 20:54 Globulin 4.6 gm/dl (2.5-4.0) H 03/20/22 20:54 Albumin/Globulin Ratio 0.6 (0.9-2) L 03/20/22 20:54 Procalcitonin 0.09 ng/ml (0-0.5) 03/20/22 22:26 SARS-CoV-2, RNA, NAAT NEGATIVE (NEGATIVE) 03/20/22 20:54 Diagnostic Findings Venous Doppler - No DVT of LLE Arterial Doppler - diminished flood flow in the peroneal and DP arteries. Otherwise, no significant peripheral vascular disease. Extensive subcutaneous edema concerning for possible chronic venous insufficiency. PG Care Time/CCT Total # of Minutes Spent Total Time Spent with Patient: Total time spent is greater than 50% in coordination of care (as documented) at patient's floor/unit and/or counseling patient: Coding Level of Care Code INT OBSERVATION CARE 70M LVL 3 Diagnoses Non-healing wound Dementia F03.90 Anxiety and depression F41.9; F32.9 Hypothyroidism E03.9 Stage III chronic kidney disease N18.3 GERD (gastroesophageal reflux disease) K21.9 HLD (hyperlipidemia) E78.5 Hyperlipidemia type: unspecified H/O Clostridium difficile infection Z86.19 (1) HLD (hyperlipidemia) Hyperlipidemia type: unspecified Qualified Code(s): E78.5 - Hyperlipidemia, unspecified
[2022-03-21] MEDS: RASPBERRY SYRUP 5 ML UDP PO SCH ×2 (03:46→22:25)
[2022-03-21] MEDS: VANCOMYCIN HCL 125 MG/2.5ML SOLN PO SCH ×2 (03:48→22:26)
[2022-03-21] MEDS: PIPERACILLIN/TAZOBACTAM 3.375 GM in DEXTROSE 5% 100 ML IV SCH ×3 (03:56→21:04)
[2022-03-21] MEDS: MENTHOL-ZINC OXIDE 360 APPLN/120 GM TUBE EXT SCH ×5 (06:15→21:05)
[2022-03-21] MEDS: LEVOTHYROXINE SODIUM 50 MCG TABLET PO SCH (06:15)
--- NOTE | 2022-03-21 06:36 | Ultrasound Report ---
LEFT LOWER EXTREMITY VENOUS DOPPLER CLINICAL HISTORY: Left lower extremity pain. COMPARISON STUDY: Bilateral lower extremity venous ultrasound August 16, 2020. TECHNIQUE: Sonography of the deep venous system of the left lower extremity was performed. Compressi on and augmentation were evaluated. FINDINGS: The left common femoral, superficial femoral and popliteal veins were compressible. Augmen tation was normal. Flow was shown within the deep calf vessels. IMPRESSION: No evidence of deep venous thrombus within the left lower extremity. ACT 112: Negative or not required by law. Electronically signed by: Varun Courtney M.D. 03/21/2022 6:33 AM
--- NOTE | 2022-03-21 06:45 | Ultrasound Report ---
LEFT LOWER EXTREMITY ARTERIAL DOPPLER ULTRASOUND CLINICAL HISTORY: Left lower extremity pain. COMPARISON STUDY: No previous studies for comparison. TECHNIQUE: Color and duplex Doppler sonography of the arterial system of the left lower extremity was performed. FINDINGS: There is moderate atherosclerotic plaque within the left lower extremity. Biphasic flow is noted within the left common femoral and proximal superficial femoral arteries. There is monophasic f low within the mid to distal left superficial femoral artery as well as the left popliteal artery. Th ere is a mildly elevated velocity within the left profunda. No additional elevated velocities are samina ntified within the left lower extremity. Left calf vessels are suboptimally assessed due to suboptima l penetration related to edema. Monophasic flow is noted within left anterior tibial and peroneal art eries. Minimal flow is identified within the left peroneal artery. No flow is identified within the l eft as well as pedis. IMPRESSION: 1. Moderate atherosclerotic plaque within the left lower extremity. 2. Suboptimal evaluation of the left calf vessels due to lower extremity edema. Monophasic dampened flow within the distal left superficial femoral, popliteal, anterior tibial and posterior tibial prieto dada with significantly diminished or absent flow within the left dorsalis pedis and peroneal arterie s. ACT 112: Negative or not required by law. Electronically signed by: Varun Courtney M.D. 03/21/2022 6:42 AM
--- NOTE | 2022-03-21 07:18 | XRay Report ---
XR chest 1V portable CLINICAL HISTORY: Fever. COMPARISON STUDY: Chest radiograph July 02, 2021. FINDINGS: Elevation of both humeral head heads is incidentally noted. Elevation of the right hemidiap hragm is unchanged. There is moderate cardiomegaly. There is no evidence for overt pulmonary edema. N o consolidation is identified. A hiatal hernia is noted. IMPRESSION: 1. No acute cardiopulmonary findings. 2. Cardiomegaly without evidence for overt pulmonary edema. 3. Hiatal hernia. ACT 112: Negative or not required by law. Electronically signed by: Varun Courtney M.D. 03/21/2022 7:17 AM
--- NOTE | 2022-03-21 08:13 | XRay Report ---
XR tibia fibula LT 2V CLINICAL HISTORY: swelling Comparison: Comparison is made to CT left foot 07/02/2021 TECHNIQUE: 2 radiographic views of the left leg were obtained. FINDINGS: Surgical fixation devices along the tibia and fibula spanning the ankle joint are noted. The alignmen t is anatomic. Severe degenerative changes along the tibiotalar joint are seen. Vascular calcificatio ns are seen. Soft tissue swelling is seen. IMPRESSION: Soft tissue swelling and postsurgical and degenerative changes without evidence of acute fracture. ACT 112: Negative or not required by law. Electronically signed by: Tulio Thorne M.D. 03/21/2022 8:11 AM
[2022-03-21] MEDS: PARoxetine HCL 20 MG TAB PO SCH (08:44)
[2022-03-21] MEDS: FAMOTIDINE 20 MG TAB PO SCH (08:44)
[2022-03-21] MEDS: SACCHAROMYCES BOULARDII 250 MG CAP PO SCH ×2 (08:44→22:24)
[2022-03-21] MEDS: METOPROLOL SUCC 25MG EXT REL TAB PO SCH (08:44)
[2022-03-21] MEDS: CLOPIDOGREL BISULFATE 75 MG TAB PO SCH (08:44)
[2022-03-21] MEDS: ASPIRIN 81 MG ECTAB PO SCH (08:45)
--- NOTE | 2022-03-21 08:59 | Hospitalist Progress Note ---
Date of Service March 21, 2022 Assessment & Plan (1) Non-healing wound: Plan: 87yo female s/p proximal tibial plateau fracture s/p ORIF performed on 01/31/22 presenting with several non-healing wounds on LLE. Elevated inflammatory markers. Uncertain if these wounds represent infection - more closely resemble decubiti, Anterior wounds are self-inflicted from scratching- daughter states that orhto did see does not feel that knee is infected, however has significant decubitus ulcer deep to exposed tendon ( achilles exposed) orhto feels is non surgical unless AKA would be only option, if needed would need to eval perfusion prior. Called family left message -Consult wound care - -Empiric Zosyn and Daptomycin (2) Dementia: Plan: Patient with dementia. Does not participate in history of physical -Frequent orientation -Avoid potentially delirium inducing agents -Continue Trazodone qHS PRN (3) Anxiety and depression: Plan: Chronic -Continue home Paxil 20mg po daily (4) Hypothyroidism: Plan: Chronic. -Continue Synthroid 50mcg po daily (5) Stage III chronic kidney disease: Plan: BUN and Cr are near baseline -Continue to monitor -Avoid nephrotoxic agents (6) GERD (gastroesophageal reflux disease): Plan: Chronic -Pepcid 20mg po daily (7) HLD (hyperlipidemia): Plan: Chronic -Hold Atorvastatin while on Daptomycin (8) H/O Clostridium difficile infection: Plan: Patient with history of c. diff infection with chronic colonization. Remains on PO vancomycin -Continue PO vancomycin -Continue Saccharomyces BID Plan: Code- DNR/DNI Admission and Anticipated Discharge Date Admission Date: March 21, 2022 Subjective Pt is pleasantly confused, has gangrene on heel with exposed Achilles tendon with desiccation, orhto feels if full aggressive measures would be in play would be to have AKA, pt was on hospice at one point, left message for daughter Review of Systems Review of Systems: Unobtainable due to cognitive status Physical Exam Physical Exam: The patient appeared stable, but did require fluid bolus for bp control Vital signs as documented. Lungs are clear to auscultation and appear unlabored Cardiac exam, Rhythm is regular.. No murmurs, rubs or gallops. Abdominal exam reveals normal bowel sounds, soft non tender, no masses Extremities are nonedematous and both pedal pulses are normal. Neurologic exam is alert and oriented, no focal loss of strength or sensation Skin is without bruises or rashes Psychologically is without concerns for anxiety or depression. Results & Data Results & Data ([facility]) Vital Signs (Past 12 Hours) Vital Signs Temp Pulse Resp BP Pulse Ox 03/21/22 07:58 98.6 F 102 H 20 114/71 96 03/21/22 03:46 98 H 20 103/65 95 03/21/22 01:00 92 H 16 136/81 96 03/20/22 23:30 97 H 16 119/56 L 98 03/20/22 22:30 93 H 18 119/79 PG Care Time/CCT Total # of Minutes Spent Total Time Spent with Patient: Total time spent is greater than 50% in coordination of care (as documented) at patient's floor/unit and/or counseling patient: Coding Level of Care Code 58081 Subseq Hosp Care Lvl 3 Diagnoses Non-healing wound Dementia F03.90 Anxiety and depression F41.9; F32.9 Hypothyroidism E03.9 Stage III chronic kidney disease N18.3 GERD (gastroesophageal reflux disease) K21.9 HLD (hyperlipidemia) E78.5 Hyperlipidemia type: unspecified H/O Clostridium difficile infection Z86.19 (1) HLD (hyperlipidemia) Hyperlipidemia type: unspecified Qualified Code(s): E78.5 - Hyperlipidemia, unspecified
[2022-03-21] MEDS ORDERED: SODIUM CHLORIDE 0.9% 1000ML 1,000 ML IV SCH (11:11)
--- NOTE | 2022-03-21 17:22 | Progress Notes ---
DATE OF NOTE: 03/21/2022. I was asked to see the patient by Dr. Gonzalez. She was admitted to the hospital here. She has rec ently had surgery for tibial plateau fracture in [place]. Dr. Gonzalez is concerned regarding sympto ms and signs of sepsis and issue with her wound. The patient is demented and unable to provide any h istorical information. I do not see a recorded temperature. She is mildly tachycardic. White count 9.5, hemoglobin 11, hem atocrit 34, platelets are 371. ESR is 101. PRP is noted. C-reactive protein is 5.5. Ultrasound study done yesterday shows no DVT. Duplex arterial scan shows moderate atherosclerotic pl aque in the left lower extremity. Suboptimal visualization of the calf vessels, monophasic flow with significant or diminished flow within the dorsalis pedis and peroneals. She had a tib-fib x-ray [facility] shows that there is evidence of an ORIF of the tibial plateau with a lateral plate and bone graft. There is also a malunited fracture or effusion of the distal tib-fib with plates, screws and pins. Extensive vascular calcifications are noted. She does follow some commands. She can faintly wiggle her toes. She cannot move her ankle. Does not comply with sensory exam. There are no palpable pedal pulses. She has a large eschar 5 x 4 cm over the heel and another one over the posterolateral leg both pressure related thick black eschars. Ther e is a little bit of erythema around it related to inflammation, but no drainage. It does not appear to be tender. The upper one is about 10-12 cm long and 6 cm wide. There are two eschars over the a nterior knee incision 1 on the lateral margin, which is 1 x 3 and the other one on the distal tibial margin, which is 1 x 4. With the patient's permission, we went ahead and prepped with alcohol and just did a debridement usin g pickups. The most upper wound just was eschar down into the dermal layer very superficial. The up per tibia wound was debrided of eschar and this was a little bit deeper. There was no exposed bone. No exposed hardware. A little bit superior with some necrotic and granulation tissue, which was nel rided. Aquacel Ag and Optifoam applied. The heel wounds and lower leg wounds were debrided essentially pulling off the black eschar facilitat ed with some dissection from the scissors. There were some areas of slightly deeper necrosis, which were debrided as able and the thick black eschars were removed. There was some bleeding around the m argins of both wounds. Unfortunately, a large section of the Achilles was exposed and was desiccated . Xeroform, ABDs, 4 x 4's, soft wrap applied. I do not think she has significant infection. She had range of motion of her knee from about 10 degr ees of flexion to 90 degrees of flexion. There is no knee effusion or any significant tenderness, sw elling, induration, or erythema and no drainage from any other wounds. We will recommend treating th is with the local wound care. The two wounds around the knee can be treated with local wound care. Wound care nurse consulted and we formulated a wound care plan in conjunction with her. Same thing w ith the lower wounds. I would recommend palliative wound care for these as best as possible. I do n ot think they are infected. There is nothing to drain. There is not a good corrective solution for this and given the circumstances as well as the patient's frailty, dementia and what appears to be pr karri limited mobility as she has a fusion of her right knee, probably the best definitive treatment w ould be below or above knee amputation. I am not advocating that be performed at this time; however, if things got infected and further treatment was necessary that would likely be what would be needed . A vascular consultation could be considered giving her impaired vascular status and this hopefully will help with healing. Offloading as needed. I have recommended waffle boots. The wound care rachael se will continue to see her and we will follow with them as well. Job ID: [id number]
[2022-03-21] MEDS: HEPARIN SOD 5,000 UNIT/0.5 ML VIAL SQ SCH (22:26)
[2022-03-21] MEDS: traZODone HCL 50 MG TAB PO SCH (22:26)
[2022-03-22] MEDS: DAPTOmycin 225 MG in SYRINGE 0 ML IV SCH (02:42)
[2022-03-22] MEDS: PIPERACILLIN/TAZOBACTAM 3.375 GM in DEXTROSE 5% 100 ML IV SCH ×3 (03:54→19:57)
[2022-03-22] MEDS: LEVOTHYROXINE SODIUM 50 MCG TABLET PO SCH (06:18)
[2022-03-22] MEDS: MENTHOL-ZINC OXIDE 360 APPLN/120 GM TUBE EXT SCH ×5 (06:18→18:14)
[2022-03-22] MEDS: SACCHAROMYCES BOULARDII 250 MG CAP PO SCH ×2 (10:15→20:05)
[2022-03-22] MEDS: FAMOTIDINE 20 MG TAB PO SCH (10:15)
[2022-03-22] MEDS: CLOPIDOGREL BISULFATE 75 MG TAB PO SCH (10:15)
[2022-03-22] MEDS: METOPROLOL SUCC 25MG EXT REL TAB PO SCH (10:16)
[2022-03-22] MEDS: PARoxetine HCL 20 MG TAB PO SCH (10:16)
[2022-03-22] MEDS: ASPIRIN 81 MG ECTAB PO SCH (10:16)
[2022-03-22] MEDS: HEPARIN SOD 5,000 UNIT/0.5 ML VIAL SQ SCH ×2 (10:17→20:05)
[2022-03-22] MEDS: RASPBERRY SYRUP 5 ML UDP PO SCH ×2 (10:36→20:01)
[2022-03-22] MEDS: VANCOMYCIN HCL 125 MG/2.5ML SOLN PO SCH ×2 (10:36→20:01)
--- NOTE | 2022-03-22 14:55 | Hospitalist Progress Note ---
Date of Service March 22, 2022 Assessment & Plan (1) Non-healing wound: Plan: 87yo female s/p proximal tibial plateau fracture s/p ORIF performed on 01/31/22 presenting with several non-healing wounds on LLE. Elevated inflammatory markers. Uncertain if these wounds represent infection - more closely resemble decubiti, Anterior wounds are self-inflicted from scratching- daughter states that - ortho consulted, seen by Dr. Marie, does not feel that knee is infected, however has significant decubitus ulcer deep to exposed tendon (achilles exposed) * Recommending palliative wound care, unless AKA would be only option, spoke with daughter, Homa, who does not wish to pursue AKA/BKA - signals officer consulted, appreciate assistance, Xeroform for heel and achill es, Aquacel AG and optifoam to L knee incision - Empirically Zosyn and Daptomycin - Discussed case with daughter, Homa, she is agreeable to d/c back to [facility] with hospice, requesting [facility] - Case management notified - Can transition to oral course of abx for 10 days (2) Dementia: Plan: Patient with dementia. Does not participate in history of physical - Frequent orientation - Avoid potentially delirium inducing agents - Continue Trazodone qHS PRN (3) Anxiety and depression: Plan: Chronic - Continue home Paxil 20mg po daily (4) Hypothyroidism: Plan: Chronic. - Continue Synthroid 50mcg po daily (5) Stage III chronic kidney disease: Plan: BUN and Cr are near baseline - Continue to monitor - Avoid nephrotoxic agents (6) GERD (gastroesophageal reflux disease): Plan: Chronic - Pepcid 20mg po daily (7) HLD (hyperlipidemia): Plan: Chronic - Hold Atorvastatin while on Daptomycin (8) H/O Clostridium difficile infection: Plan: Patient with history of c. diff infection with chronic colonization. Remains on PO vancomycin - Continue PO vancomycin - Continue Saccharomyces BID - Initiate contact isolation precautions Plan: Orthopedics does not believe that patient's wound of her L heel will heal even if her extremity is revascularized (despite evidence of compromised arterial flow to her distal LE) as the wound is too far advanced. Again, only option would be aka/bka which the family does not want to proceed with. Will focus on palliative wound care and transitioning back [facility] with [facility]. Case management following, referral made to [facility]. Will likely transition back to [facility] tomorrow as she is a bed hold if hospice can arrange everything that is needed in time. Discussed plan with patient's daughter, Homa via phone. Also d/w Dr. Gutierrez. Admission and Anticipated Discharge Date Admission Date: March 21, 2022 Subjective Patient seen on daily rounds this morning. Pleasantly confused with known dementia, thus not a reliable historian. Presently being treated for gangrene of left heel. Review of Systems Review of Systems: unobtainable due to dementia Physical Exam Physical Exam: GENERAL: 87 yo WD/WN elderly WF. NAD. LUNGS: Clear to auscultation bilaterally. No W/R/R. CARDIOVASCULAR: Regular rate and rhythm. ABDOMEN: Soft, non-tender and non-distended.BS normoactive x 4 quad. EXTREMITIES: No edema. Non-tender. Peripheral pulses +2/4. NEUROLOGIC: Pleasantly confused. PSYCHIATRIC: Cooperative. Appropriate mood and affect. SKIN: LLE dressed and wrapped, waffle boot in place to left foot Results & Data Results & Data ([facility]) Vital Signs (Past 12 Hours) Vital Signs Temp Pulse Resp BP Pulse Ox 03/22/22 06:39 36.4 C L 96 H 18 122/69 100 Laboratory Results 03/20/22 20:54 03/20/22 22:26 PG Care Time/CCT Total # of Minutes Spent Total Time Spent with Patient: Total time spent is greater than 50% in coordination of care (as documented) at patient's floor/unit and/or counseling patient: Coding Level of Care Code 31264 Subseq Hosp Care Lvl 2 Diagnoses Non-healing wound Dementia F03.90 Anxiety and depression F41.9; F32.9 Hypothyroidism E03.9 Stage III chronic kidney disease N18.3 GERD (gastroesophageal reflux disease) K21.9 HLD (hyperlipidemia) E78.5 Hyperlipidemia type: unspecified H/O Clostridium difficile infection Z86.19 (1) HLD (hyperlipidemia) Hyperlipidemia type: unspecified Qualified Code(s): E78.5 - Hyperlipidemia, unspecified
[2022-03-22] MEDS: traZODone HCL 50 MG TAB PO SCH (20:05)
[2022-03-23] MEDS: PIPERACILLIN/TAZOBACTAM 3.375 GM in DEXTROSE 5% 100 ML IV SCH ×2 (03:15→12:20)
[2022-03-23] MEDS: DAPTOmycin 225 MG in SYRINGE 0 ML IV SCH (03:15)
[2022-03-23] MEDS: LEVOTHYROXINE SODIUM 50 MCG TABLET PO SCH (06:07)
[2022-03-23] MEDS: MENTHOL-ZINC OXIDE 360 APPLN/120 GM TUBE EXT SCH ×3 (06:07→12:27)
[2022-03-23] MEDS: RASPBERRY SYRUP 5 ML UDP PO SCH (08:07)
[2022-03-23] MEDS: VANCOMYCIN HCL 125 MG/2.5ML SOLN PO SCH (08:07)
[2022-03-23] MEDS: ASPIRIN 81 MG ECTAB PO SCH (10:27)
[2022-03-23] MEDS: CLOPIDOGREL BISULFATE 75 MG TAB PO SCH (10:27)
[2022-03-23] MEDS: SACCHAROMYCES BOULARDII 250 MG CAP PO SCH (10:28)
[2022-03-23] MEDS: METOPROLOL SUCC 25MG EXT REL TAB PO SCH (10:28)
[2022-03-23] MEDS: FAMOTIDINE 20 MG TAB PO SCH (10:28)
[2022-03-23] MEDS: PARoxetine HCL 20 MG TAB PO SCH (10:28)
[2022-03-23] MEDS: HEPARIN SOD 5,000 UNIT/0.5 ML VIAL SQ SCH (10:28)
--- NOTE | 2022-03-23 12:05 | Discharge Summary ---
Date of Service March 23, 2022 Admission HPI Per Admitting Provider Kami Kwok is an 87yo female with history of Dementia, CAD, GERD, HLP, CKD presenting from [facility] with an unhealing wound on her LLE. Patient is on Hospice and presents today with her daughter, Homa, who provides the majority of history. Patient sustained a fall resulting in a left lateral tibial plateau fracture on 01/29/22. She had an ORIF performed by Dr. Lauren on 01/31/22 at [facility]. She was discharged from [facility] on 02/04/22 to [facility] rehabilitation. Daughter is concerned re: several wounds on patient's LLE. She first developed a blister which progressed to thick eschar on her left heel which has not healed. She then developed a wound on the posterior ankle which is believed to be secondary to a brace that the patient was wearing. Daughter reports there is also a new wound which is proximal to the ankle wound which is red and draining purulence. Patient has been receiving wound care at [facility]. She has had followup with Dr. Lauren. Family was trying to get patient an appointment with [facility] but was unable to be seen until next week. Daugther does not report patient having fever, chills, chest pain, cough or shortness of breath. She does have dementia and poorly communicates at times. She uses a wheelchair at this time. Does have episodes of confusion and sundowning. Daughter - Homa - [phone] Son-in-law - - [phone] ER Course - [place] Principal Diagnosis 1. Nonhealing wounds to LLE 2. Peripheral arterial disease Discharge Exam GENERAL: 87 yo WD/WN elderly WF. NAD. LUNGS: Clear to auscultation bilaterally. No W/R/R. CARDIOVASCULAR: Regular rate and rhythm. ABDOMEN: Soft, non-tender and non-distended. BS normoactive x 4 quad. EXTREMITIES: No edema. Non-tender. Peripheral pulses +2/4. NEUROLOGIC: Nonfocal PSYCHIATRIC: Sleeping SKIN: LLE dressed and wrapped, waffle boot in place to left foot Discharge Data Allergies Allergy/AdvReac Type Severity Reaction Status Date / Time No Known Drug Allergies Allergy Unknown Verified 01/24/22 12:49 oxycodone AdvReac Severe confusion/ Verified 01/24/22 12:49 "Gets Mean" Consultations 03/20/22 23:08 ED Decision to Admit Stat 03/21/22 11:41 Consult Orthopedic Surgery Routine Ordered Studies Chest X-Ray 03/20/22 20:39 XR chest 1V portable CLINICAL HISTORY: Fever. COMPARISON STUDY: Chest radiograph July 02, 2021. FINDINGS: Elevation of both humeral head heads is incidentally noted. Elevation of the right hemidiaphragm is unchanged. There is moderate cardiomegaly. There is no evidence for overt pulmonary edema. No consolidation is identified. A hiatal hernia is noted. IMPRESSION: 1. No acute cardiopulmonary findings. 2. Cardiomegaly without evidence for overt pulmonary edema. 3. Hiatal hernia. ACT 112: Negative or not required by law. Electronically signed by: Varun Courtney M.D. 03/21/2022 7:17 AM Tibia/Fibula X-Ray 03/20/22 20:39 XR tibia fibula LT 2V CLINICAL HISTORY: swelling Comparison: Comparison is made to CT left foot 07/02/2021 TECHNIQUE: 2 radiographic views of the left leg were obtained. FINDINGS: Surgical fixation devices along the tibia and fibula spanning the ankle joint are noted. The alignment is anatomic. Severe degenerative changes along the tibiotalar joint are seen. Vascular calcifications are seen. Soft tissue swelling is seen. IMPRESSION: Soft tissue swelling and postsurgical and degenerative changes without evidence of acute fracture. ACT 112: Negative or not required by law. Electronically signed by: Tulio Thorne M.D. 03/21/2022 8:11 AM Duplex Scan Lower Extremity Artery 03/20/22 20:52 LEFT LOWER EXTREMITY ARTERIAL DOPPLER ULTRASOUND CLINICAL HISTORY: Left lower extremity pain. COMPARISON STUDY: No previous studies for comparison. TECHNIQUE: Color and duplex Doppler sonography of the arterial system of the left lower extremity was performed. FINDINGS: There is moderate atherosclerotic plaque within the left lower ex tremity. Biphasic flow is noted within the left common femoral and proximal superficial femoral arteries. There is monophasic flow within the mid to distal left superficial femoral artery as well as the left popliteal artery. There is a mildly elevated velocity within the left profunda. No additional elevated velocities are identified within the left lower extremity. Left calf vessels are suboptimally assessed due to suboptimal penetration related to edema. Monophasic flow is noted within left anterior tibial and peroneal arteries. Minimal flow is identified within the left peroneal artery. No flow is identified within the left as well as pedis. IMPRESSION: 1. Moderate atherosclerotic plaque within the left lower extremity. 2. Suboptimal evaluation of the left calf vessels due to lower extremity edema. Monophasic dampened flow within the distal left superficial femoral, popliteal, anterior tibial and posterior tibial arteries with significantly diminished or absent flow within the left dorsalis pedis and peroneal arteries. ACT 112: Negative or not required by law. Electronically signed by: Varun Courtney M.D. 03/21/2022 6:42 AM Venous Doppler Study 03/20/22 20:52 LEFT LOWER EXTREMITY VENOUS DOPPLER CLINICAL HISTORY: Left lower extremity pain. COMPARISON STUDY: Bilateral lower extremity venous ultrasound August 16, 2020. TECHNIQUE: Sonography of the deep venous system of the left lower extremity was performed. Compression and augmentation were evaluated. FINDINGS: The left common femoral, superficial femoral and popliteal veins were compressible. Augmentation was normal. Flow was shown within the deep calf vessels. IMPRESSION: No evidence of deep venous thrombus within the left lower extremity. ACT 112: Negative or not required by law. Electronically signed by: Varun Courtney M.D. 03/21/2022 6:33 AM Hospital Course (1) Non-healing wound: 87yo female s/p proximal tibial plateau fracture s/p ORIF performed on 01/31/22 presenting with several non-healing wounds on LLE. Elevated inflammatory markers. Uncertain if these wounds represent infection - more closely resemble decubiti, Anterior wounds are self-inflicted from scratching- daughter states that - ortho consulted, seen by Dr. Marie, does not feel that knee is infected, however has significant decubitus ulcer deep with exposed tendon (achilles exposed) * Recommending palliative wound care, unless AKA would be only option, spoke with daughter, Homa, who does not wish to pursue AKA/BKA - fisheries officer consulted, appreciate assistance, Xeroform for heel and achilles, Aquacel AG and optifoam to L knee incision - Empirically Zosyn and Daptomycin however will discontinue these as the wounds do not appear grossly infected, no fever or leukocytosis - Discussed case with daughter, Homa, she is agreeable to d/c back to [facility] with hosp[facility], requesting [facility] - Case management notified, placed referral to hospice - At this point, will plan to continue (palliative) wound care as outlined above, dressing changes q48h @ SNF - Medications will be provided in form of Morphine (liquid) 10mg/5ml (5mg q2h prn pain/dyspnea), and Ativan 0.5mg SL q4h prn anxiety/agitation (2) Dementia: Patient with dementia. Does not participate in history of physical - Frequent orientation - Avoid potentially delirium inducing agents - Continue Trazodone qHS PRN (3) Anxiety and depression: Chronic - Continue home Paxil 20mg po daily (4) Hypothyroidism: Chronic. - Continue Synthroid 50mcg po daily (5) Stage III chronic kidney disease: BUN and Cr are near baseline - Continue to monitor - Avoid nephrotoxic agents (6) GERD (gastroesophageal reflux disease): Chronic - Pepcid 20mg po daily (7) HLD (hyperlipidemia): Chronic - Hold Atorvastatin while on Daptomycin (8) H/O Clostridium difficile infection: Patient with history of c. diff infection with chronic colonization. Remains on PO vancomycin - Continue PO vancomycin - Continue Saccharomyces BID - Initiate contact isolation precautions Orthopedics does not believe that patient's wound of her L heel will heal even if her extremity is revascularized (evidence of compromised arterial flow to her distal LE) as the wound is too far advanced. Again, only option would be aka/bka which the family does not want to proceed with. Discussed plan for return to [facility] (as she is a bed hold) with hospice with daughter Homa who requested [facility]. Referral placed by CM. SNF can take back today. She is medically stable for discharge. Plan d/w attending, Dr. Gutierrez, who has also seen patient prior to discharge and agrees with aforementioned plan. Total Time Total Time Spent Total Time Spent (In Minutes): >30 minutes Discharge Plan Discharge Items Patient Disposition: Hospice - Medical Facility Reason For Visit: WOUND Discharge Diagnosis: Wounds on left lower extremity Activity: As commented below Activity Comment: with assistance as tolerated Non-emergency contact: Primary Care Provider Call non-emergency contact if: you have any medication questions Follow-up/Referrals: [facility] [Primary Care Provider] - Diet: Regular Diet Texture: Dental soft (bite-sized) Addtl Attending Provider Instructions: Hospitalized due to extensive wounds to the left lower extremity. Unfortunately, there is decreased arterial blood flow that will impact these wounds ability to heal, however, even so, the wounds are too far advanced for them to heal even if arterial blood flow could be improved. She was seen by orthopedics during this hospitalization which advised that if aggressive measures wanted to be pursued, only treatment option that could be offered would be either above or below knee amputation. This was discussed with patient's daughter, Homa, who did not want to pursue an above/below knee amputation and wanted to opt for her to return to [facility] with Hospice services. Therefore, patient will be discharged back to [facility] with [facility]. Recommend palliative wound care in the form of Xeroform to the left achilles (which is exposed) as well as the left heel area. To the 2 wounds along the left knee incision line, can apply aquacel AG and cover with Optifoam, this dressing should be changed every 48 hours. Left foot should then be dressed in gauze and foot should be placed in a waffle boot for offloading pressure. Hospice will follow up with patient upon her arrival at [facility]. Pending Studies at Discharge: No Stand-Alone Forms: [facility] [employer] Skilled Items Patient informed of condition?: No (patient demented) DNR: Yes Discharge Level of Care: Skilled Communicable Disease: No Discharge Prognosis: Stable Lines: None Urinary Catheter: Yes Medications and DC Order Prescriptions: New lorazepam [Ativan] 0.5 mg tablet 0.5 mg sublingual Q4H PRN (Reason: anxiety) Qty: 20 RF: 0 morphine 10 mg/5 mL solution 5 mg buccal Q2H PRN (Reason: dyspnea/pain) Qty: 100 RF: 0 Continued (DME) Lift Chair Misc See Rx Instructions .ROUTE .MEDSUPPLY Qty: 1 RF: 0 clopidogrel [Plavix] 75 mg tablet 75 mg PO QAM Qty: 90 RF: 3 metoprolol succinate 25 mg tablet extended release 24 hr 25 mg PO QAM Qty: 30 RF: 5 aspirin 81 mg tablet,delayed release (DR/EC) 81 mg PO QAM Qty: 30 RF: 5 atorvastatin [Lipitor] 40 mg tablet 40 mg PO HS Qty: 30 RF: 5 trazodone 50 mg tablet 50 mg PO HS Qty: 30 RF: 5 (DME) disposable gloves [Disposable Latex-Free Gloves] Misc See Rx Instructions .ROUTE .MEDSUPPLY Qty: 1000 RF: 3 (DME) Wheelchair (Manual) Device See Rx Instructions .ROUTE .MEDSUPPLY Qty: 1 RF: 0 cranberry 500 mg capsule 500 mg PO QAM RF: 0 PreserVision AREDS-2 [id number]-mg capsule 1 cap PO BID RF: 0 acetaminophen [Tylenol] 325 mg Tablet 650 mg PO Q6H MDD 3 GRAMS/24 HOURS PRN (Reason: TEMP >100/PAIN (1-4/10 SCALE)) RF: 0 vancomycin 125 mg Capsule 125 mg PO Q12H RF: 0 paroxetine HCl 20 mg Tablet 20 mg PO DAILY RF: 0 ferrous sulfate 325 mg (65 mg iron) Tablet 325 mg PO DAILY RF: 0 povidone-iodine [Betadine Swab Aid] 10 % Swab 1 applic TOPICAL DAILY RF: 0 Protein Nutritional Shake Liquid 1 ea PO DAILY RF: 0 Saccharomyces boulardii [Florastor] 250 mg Capsule 250 mg PO BID RF: 0 menthol-zinc oxide [Calmoseptine] 0.44-20.6 % Ointment 1 applic TOPICAL 5XD RF: 0 Cavilom Antifungal Cream 1 applic topical TID RF: 0 Nutritional Juice Drink 1 can PO QPM RF: 0 levothyroxine [Synthroid] 50 mcg tablet 50 mcg PO QAM RF: 0 omeprazole 20 mg capsule,delayed release(DR/EC) 20 mg PO BID RF: 0 Discontinued fexofenadine-pseudoephedrine [Sona-D 24 Hour] 180-240 mg Tablet Extended Release 24 Hr 1 tab PO QAM RF: 0 morphine concentrate 20 mg/mL Syringe 5 - 10 mg SUBLINGUAL Q2H PRN (Reason: Pain (Scale Score 9-10)) RF: 0 Discharge Orders: Discharge Order (Routine); Ordered 03/23/22 Ordered By: Savannah Chirinos Admission Data Admit Date/Time: 03/21/22 18:42 Attending Provider: George Gutierrez Admit Provider: Chelsea Lee Primary Care Provider: [facility] Other Providers: Chelsea Lee ; Russel Marie Coding Level of Care Code D/C DAY MANAGEMENT >30 MINS Diagnoses Non-healing wound Dementia F03.90 Anxiety and depression F41.9; F32.9 Hypothyroidism E03.9 Stage III chronic kidney disease N18.3 GERD (gastroesophageal reflux disease) K21.9 HLD (hyperlipidemia) E78.5 Hyperlipidemia type: unspecified H/O Clostridium difficile infection Z86.19
== END 2022-03-23 15:32 | disposition hospice, inpatient (51) | DRG 919 ==
LOC: EDINP 20:24 → ED 20:24 → SUATTDRO 03-21 00:20 → 3E 03-21 23:51